=== PATIENT | male | born 1990 | race Caucasian/White ===

== ENCOUNTER 2019-02-17 06:30 | Emergency (ER) | payer MEDICAID, SELFPAY ==
[2019-02-17 06:34] VITALS: BP 124/65; PULSE 78; RESP 16; TEMP 36.6; O2SAT 100
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
== END 2019-02-17 07:00 | disposition home or self-care (01) ==
LOC: ER 07:04
PROVIDERS: Emergency Provider Emergency Medicine; PCP Family Medicine
DX: S90.512A Abrasion, left ankle, initial encounter (principal); V86.55XA Driver of 3- or 4- wheeled all-terrain vehicle (ATV) injured in nontraffic accident, initial encounter
CPT/HCPCS: 99283

== ENCOUNTER 2019-03-12 13:09 | Emergency (ER) | payer MEDICAID, SELFPAY ==
[2019-03-12 13:21] VITALS: BP 107/65; PULSE 102; RESP 16; TEMP 36.8; O2SAT 99
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
== END 2019-03-12 13:50 | disposition home or self-care (01) ==
LOC: ER 13:45
PROVIDERS: Emergency Provider Emergency Medicine; PCP Family Medicine
DX: M65.879 Other synovitis and tenosynovitis, unspecified ankle and foot (principal)
CPT/HCPCS: 99282

== ENCOUNTER 2019-04-15 00:44 | Emergency (ER) | payer MEDICAID, SELFPAY ==
[2019-04-15] VITALS (44 sets, daily range): BP systolic 100–140; BP diastolic 56–78; PULSE 56–107; RESP 6–20; TEMP 36.8; O2SAT 99–100
--- NOTE | 2019-04-15 00:57 | ED.GENADUL_ITS ---
Discharge Plan Disposition Patient Disposition: HOME Condition: Good Discharge Details Chief Complaint: Chest Pain Clinical Impression: Chest pain, Anxiety Primary Care Provider: Ivan Vizcaino ED Provider: Charles Ferro Meds and New Rx's Prescriptions: Continued ibuprofen 200 MG tablet 800 mg PO Q6H PRN RF: 0 buprenorphine-naloxone 8-2 mg Tablet, Sublingual 1 tab SUBLINGUAL DAILY RF: 0 ranitidine HCl [Zantac] 25 mg/mL Solution 25 mg PO DAILY RF: 0 methylphenidate HCl [Ritalin] 20 mg Tablet 40 mg PO DAILY RF: 0 Discharge Instructions Additional Instructions: Your work-up tonight including EKG, chest x-ray, laboratory studies are reassur ing. This does seem like it is anxiety related so follow-up with psychiatric provider as well as with primary care. Return to ED if you develop worse/persistent chest pain, shortness of breath, fever, other concerns or problems. Stand Alone Forms: Work Release Referrals: Ivan Vizcaino DO [Primary Care Provider] - Medical Decision Making Patient presenting to ED with most likely anxiety attack. His chest pain is nondescript and intermittent. Symptoms of lightheadedness and tingling are more prominent. He feels anxious. His EKG shows no acute evidence of ischemia or infarct. He denies drug use. Unlikely to be cardiac. Will give him aspirin until labs back. We will also give Vistaril for probable anxiety. Patient's revised Reeves score is 5 points because of heart rate. Likely related to anxiety and not PE but will get d-dimer. Will obtain chest x-ray. Doubt dissection. Patient apparently took aspirin at home before coming in so he was not given a dose here. He was given Vistaril and shortly after he was asleep. Laboratory studies are unremarkable. First troponin negative. D-dimer negative. Repeat troponin negative. HEART score of 1 and most likely anxiety related, can follow up with PCP and with psychiatric provider. Return to ED for worse/persistent pain, shortness of breath, fever, other concerns. Lab Data Lab results reviewed: Yes I reviewed the patient's lab results. ECG Data Attestation: I personally reviewed and interpreted this ECG (s) as follows: Prior ECG tracings: not available for review Interpretation: Sinus rhythm at a rate of 99. Normal axis and intervals. No acute ST changes. Repeat EKG is sinus rhythm at 58. Normal axis and intervals. No ST changes. HPI General Mode of arrival: EMS . Date/Time Provider Initiated Documentation: 04/15/19 00:56 . Limitations to Documentation: no limitations . Information obtained by: patient and RN notes reviewed . HPI Narrative: Patient presents to the ED by ambulance with complaint of intermittent chest pain, tingling in his arms, lightheadedness, anxiety who called an ambulance. Reports symptoms have been about 20 to 30 minutes. Had a similar episode a couple weeks ago. Does not have previous history of anxiety but does have history of depression. Denies feeling depressed, suicidal tonight. Chest pain is intermittent and short-lived. Tingling and lightheadedness is more persistent. He denies drug use. He does smoke cigarettes. He does not vape. There is no history of blood clots, diabetes, hypertension, heart disease. Related Data Home Medications Medication Instructions Recorded Confirmed ibuprofen 800 mg PO Q6H PRN tab-cap 12/05/17 04/15/19 buprenorphine-naloxone 1 tab SUBLINGUAL DAILY 02/17/19 04/15/19 ranitidine HCl [Zantac] 25 mg PO DAILY 03/12/19 04/15/19 methylphenidate HCl [Ritalin] 40 mg PO DAILY 04/15/19 04/15/19 Allergies Allergy/AdvReac Type Severity Reaction Status Date / Time No Known Allergies Allergy Unverified 03/12/19 13:28 General Stated Complaint: Chest Pain STAR: 2 Review of Systems Review of Systems Narrative: 04/21 Review of Systems completed and is negative except as stated above in HPI (Systems reviewed: Const, Eyes, ENT, Resp, CV, GI, , MSK, Skin, Neuro) [facility] Medical History ADHD (Acute) Depression (Chronic) Drug abuse (Acute) Social History Smoking/Tobacco Use Status: Current every day Alcohol Intake: former Drug use: Current Sobriety Do you feel safe at home: Yes Do you feel safe in your relationship?: Yes Exam Narrative Exam Narrative: Vitals: Afebrile. Blood pressure little elevated. Room air saturations are 100% and normal. Const: WDWN male in NAD. HEENT: NC/AT. Normal facial exam. Eyes: Normal conjunctiva and sclera. Neck: Supple. Trachea midline. Lungs: Normal respiratory effort. Lungs are clear. Cor: RRR without murmur/gallop. Good radial pulses. GI: Soft. NT/ND. No guarding or rebound. Neuro: A+O x 3. CN grossly in tact. Good strength and no focal deficit. Ext: No C/C/E. No calf tenderness. Skin: Warm and dry without rash. Course Vital Signs Vital signs: Vital Signs Temperature 98.2 F 04/15/19 00:48 Pulse 98 H 04/15/19 00:48 Respiratory Rate 16 04/15/19 00:48 Blood Pressure 140/76 04/15/19 00:48 Pulse Oximetry 100 04/15/19 00:48 Temperature 98.2 F 04/15/19 00:48 Temperature Source Tympanic 04/15/19 00:48 Pulse 98 H 10 00:48 Respiratory Rate 16 04/15/19 00:48 Blood Pressure 140/76 04/15/19 00:48 Pulse Oximetry 100 04/15/19 00:48 Oxygen Delivery Method Room Air 04/15/19 00:48 Oxygen Flow Rate 0 04/15/19 00:48 Pain Level 6 04/15/19 00:48 Comment 04/15/19 00:48
[2019-04-15 01:19] LABS: Abs Immature Grans 0.01 k/cumm (0.0-0.09); Absolute Basophil Count 0.02 k/cumm (0.0-0.2); Absolute Eosinophil Count 0.07 k/cumm (0.0-0.7); Absolute Lymphocyte Count 3.01 k/cumm (1.2-3.4); Absolute Monocyte Count 0.54 k/cumm (0.11-0.7); Absolute Neutrophil Count 5.01 k/cumm (1.2-6.7); Basophils % 0.2; Eosinophils % 0.8; HCT 39.5 % (40.0-50.0); HGB 14.1 g/dL (13.5-17.5); Immature Grans % 0.1; Lymphocytes % 34.8; Mean Corp. HGB Concentration 35.7 g/dL (32.0-36.0); Mean Corpuscular Hemoglobin 31.3 pg (27.0-33.0); Mean Corpuscular Volume 87.8 fL (80-95); Mean Platelet Volume 9.1 fL (8.0-11.0); Monocytes % 6.2; Neutrophils % 57.9; Platelet Count 288 x1000/uL (130-400); RBC Distribution Width 12.9 % (11.8-14.1); White Blood Cell Count 8.66 k/cumm (4.4-10.8)
[2019-04-15] MEDS: hydrOXYzine PAMOATE 25 MG CAP PO (01:33)
[2019-04-15 01:34] LABS: ALT 22 U/L (16-63); AST 22 U/L (15-37); Albumin 3.8 g/dL (3.4-5.0); Alkaline Phosphatase 73 U/L (46-116); BUN 13 mg/dL (7-18); Bilirubin, Total 0.4 mg/dL (0.2-1.0); CREATININE 0.99 mg/dL (0.70-1.30); Calcium 9.3 mg/dL (8.5-10.1); Chloride 100 mmol/L (98-107); Glucose 110 mg/dL (70-100); Magnesium 1.8 mg/dL (1.8-2.4); Potassium 3.5 mmol/L (3.5-5.1); Sodium 140 mmol/L (136-145); Total Protein 7.8 g/dL (6.4-8.2)
[2019-04-15 01:37] LABS: Troponin I < 0.05 ng/mL (0.00-0.06)
--- NOTE | 2019-04-15 01:40 | DI.RAD_ITS ---
EXAM: XR CHEST 2V PA LATERAL CLINICAL HISTORY: chest pain. TECHNIQUE: 2D digital imaging was performed. COMPARISON: No exams were available for comparison FINDINGS: LUNGS: Clear. No pleural abnormality seen. HEART: Normal. MEDIASTINUM: Normal. OTHER FINDINGS:Normal. IMPRESSION: No acute pulmonary findings.
--- NOTE | 2019-04-15 01:49 | DI.VRAD_ITS ---
PROCEDURE INFORMATION: Exam: XR Chest, 2 Views Exam date and time: 04/15/2019 1:42 AM Clinical history: 28 years old, male; Type not specified; Patient HX: Chest pain, not specific TECHNIQUE: Imaging protocol: XR of the chest Views: 2 views. COMPARISON: No relevant prior studies available. FINDINGS: Lungs: Normal pulmonary expansion. Pulmonary vasculature grossly normal. No infiltrates. Pleural space: No pleural effusion. No pneumothorax. Heart/Mediastinum: Heart size normal. No tracheal/mediastinal shift. Bones/joints: No acute osseous abnormalities are identified. IMPRESSION: No acute thoracic process. Dictated and Authenticated by: John Neri MD. Ordering:JEREMY Soto MD
[2019-04-15 04:16] LABS: D-Dimer 189 ng/mlFEU (<500)
[2019-04-15 04:20] LABS: Troponin I < 0.05 ng/mL (0.00-0.06)
== END 2019-04-15 04:50 | disposition home or self-care (01) ==
PROVIDERS: Emergency Provider Emergency Medicine; PCP Family Medicine
DX: R07.9 Chest pain, unspecified (principal); F41.8 Other specified anxiety disorders
CPT/HCPCS: 36415; 80053; 93005; 99285; 71046; 83735; 84484; 85025; 85379; 93010

== ENCOUNTER 2019-05-07 17:47 | Emergency (ER) | payer MEDICAID, SELFPAY ==
[2019-05-07 17:50] VITALS: BP 138/72; PULSE 104; TEMP 36.7; O2SAT 99
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
== END 2019-05-07 18:35 | disposition home or self-care (01) ==
PROVIDERS: Emergency Provider Physician Assistant; PCP Family Medicine
DX: J06.9 Acute upper respiratory infection, unspecified (principal); F17.210 Nicotine dependence, cigarettes, uncomplicated
CPT/HCPCS: 87449; 99283

== ENCOUNTER 2019-05-17 05:50 | Emergency (ER) | payer MEDICAID, SELFPAY ==
[2019-05-17] VITALS (108 sets, daily range): BP systolic 90–137; BP diastolic 29–80; PULSE 44–103; RESP 10–32; TEMP 36.7; O2SAT 93–100
--- NOTE | 2019-05-17 05:46 | ED.GENADUL_ITS ---
Discharge Plan Disposition Patient Disposition: HOME Condition: Good Discharge Details Chief Complaint: Chest Pain Clinical Impression: Chest pain, Acute hypokalemia Primary Care Provider: Ivan Vizcaino ED Provider: Juan Francisco Salgaod Home Meds and New Rx's Prescriptions: Continued methylphenidate HCl [Ritalin] 20 mg tablet 40 mg PO BID RF: 0 buprenorphine-naloxone 8-2 mg Tablet, Sublingual 16 tab SUBLINGUAL DAILY RF: 0 ranitidine HCl [Zantac] 25 mg/mL Solution 25 mg PO DAILY RF: 0 Discharge Instructions Instructions: Chest Pain (ED), Hypokalemia (ED) Additional Instructions: Return for any acute concerns. Did not abuse street drugs such as cocaine or amphetamines. Medical Decision Making <Jeff Brown DO - Last Filed: 05/17/19 07:05> This is a 28-year-old male who presents today by EMS for evaluation of chest pain. He has had 3 episodes in the last 2 weeks, however today's is the worst that it has been. It started 45 minutes prior to arrival, sharp stabbing in nature. Radiates to shoulders with bilateral arm numbness. Unrelieved by aspirin, unrelieved by nitroglycerin. Of note his pressure notably decreased with nitroglycerin provided by EMS. He denies any pleuritic chest pain. He d enies any history of dissection. He denies any cocaine use. Physical exam is relatively unremarkable aside from mild tachycardia and an anxious appearing male. EKG shows Q waves in the inferior leads, no evidence of STEMI. Symptoms are certainly atypical. Bedside portable limited ultrasound demonstrates no pericardial effusion, unable to visualize aortic root. No evidence of significant right ventricular dilatation. Differential includes muscle sprain due to the reproducible component of his chest pain, versus atypical ACS, for which we will work him up, as well as atypical dissection causing his numbness tingling and sharp stabbing pain. Anxiety component is certainly also on the differential. We will get a CT angiogram, treat the patient's pain, gently rehydrate, and reassess. 7 AM Patient's laboratory work-up is returned, initial troponin and proBNP are normal, CT angiogram is negative for any acute process per virtual radiology. Anion gap is atypically elevated at 17.8. Magnesium is normal but potassium is low at 3.1. We will give 20 M EQ of IV potassium and 40 oral. On reassessment the patient's pain is notably improved to a 3 out of 10. However because of the patient's atypical EKG findings, we will be getting serial EKGs and delta troponins. Patient does state that he wishes to be discharged prior to 950 so that he can make it down to get his Suboxone. I feel that the patient's symptoms are likely improved secondary to the GI cocktail and Toradol. At this time the patient appears notably stable. Feels symptoms are most likely to be musculoskeletal and anxiety related. However we will get the repeat troponin prior to discharge. Patient will be signed out to my colleague for final disposition and reassessment. EKG 5: 53 Rate 98, KY 124, QTc 498, QRS 100, sinus rhythm, no significant tombstone and however there is slight atypical morphology V3. Small Q waves are noted in 2, 3, aVF and V6. No evidence of delta wave. No dagger like Q waves. FINDINGS: Pulmonary arteries: Normal. No pulmonary emboli. Aorta: Unremarkable. No aortic aneurysm. No aortic dissection. Lungs: Unremarkable. No consolidation. No masses. Pleural space: Unremarkable. No pneumothorax. No pleural effusion. Heart: Unremarkable. No cardiomegaly. No pericardial effusion. Lymph nodes: Unremarkable. No enlarged lymph nodes. Bones/joints: Unremarkable. No acute fracture. Soft tissues: Unremarkable. IMPRESSION: No acute findings. Thank you for allowing us to participate in the care of your patient. Dictated and Authenticated by: Rob Gay MD 05/17/2019 6:52 AM Eastern Time ([place] & [place]) <Juan Francisco Salgado MD - Last Filed: 05/17/19 17:26> Received signout from Dr. Brown. Patient receiving oral and parenteral potassium, now states to me that he is chest pain-free. His EKG initially was a borderline tachycardia with some inferior Q waves and Q waves laterally. Now with a regular sinus rhythm, rate of 68-70. He has repolarization abnormalities of the ST segment in the inferior leads and has new negative precordial T waves. As noted, initial blood draw with normal troponin, BNP of 44. CT of the chest was negative for acute pathology. Repeat troponin at 9 AM negative. Given the patient's mild sedation from previously administered benzodiazepine, his EKG change, he was observed and third troponin as well as repeat potassium obtained. These are notable for normalization of the potassium to four-point 4-1/3- troponin. Patient's urine noted positive for cocaine and amphetamines. He slept for nearly 6+ hours after receiving Ativan as prescribed by Dr. Brown. 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 After a total of greater than 10 hours of observation, patient awake, alert, requesting his daily buprenorphine dose. No further complaints of chest pain throughout the extended observation. Earlier we had confirmed his dose of 16 mg Suboxone which I ordered in the ED. He is stable and appropriate for discharge to home at this time. Lab Data Lab results reviewed: Yes I reviewed the patient's lab results. Labs: Laboratory Results - last 24 hr 05/17/19 05/17/19 05/17/19 05:30 05:30 05:30 WBC 5.75 RBC 4.87 Hgb 15.2 Hct 42.4 MCV 87.1 MCH 31.2 MCHC 35.8 RDW 12.5 Plt Count 325 MPV 8.7 Immature Gran % 0.2 Neutrophils % 50.9 Lymphocytes % 40.7 Monocytes % 6.3 Eosinophils % 1.4 Basophils % 0.5 Absolute Neutrophils 2.93 Absolute Lymphocytes 2.34 Absolute Monocytes 0.36 Absolute Eosinophils 0.08 Absolute Basophils 0.03 PT 9.7 INR 1.0 APTT 23.4 Sodium 137 Potassium 3.1 L Chloride 97 L Carbon Dioxide 22.2 Anion Gap 17.8 H BUN 17 Creatinine 1.22 Estimated GFR/1.73 m2 >= 60.00 Glucose 126 H Calcium 9.6 Magnesium Total Bilirubin 1.0 AST 27 ALT 29 Alkaline Phosphatase 83 Troponin I < 0.05 NT-Pro-B Natriuret Pep 44 Total Protein 8.6 H Albumin 4.4 Urine Opiates Screen Urine Methadone Screen Ur Barbiturates Screen Ur Tricyclics Screen Ur Amphetamines Screen U Benzodiazepines Scrn Urine Cocaine Screen Ur THC Screen 05/17/19 05/17/19 05/17/19 05:30 09:00 09:15 WBC RBC Hgb Hct MCV MCH MCHC RDW Plt Count MPV Immature Gran % Neutrophils % Lymphocytes % Monocytes % Eosinophils % Basophils % Absolute Neutrophils Absolute Lymphocytes Absolute Monocytes Absolute Eosinophils Absolute Basophils PT INR APTT Sodium 138 Potassium 5.4 H D Chloride 105 Carbon Dioxide 25.6 Anion Gap 7.4 BUN 15 Creatinine 1.02 Estimated GFR/1.73 m2 >= 60.00 Glucose 99 Calcium 8.1 L Magnesium 2.0 Total Bilirubin AST ALT Alkaline Phosphatase Troponin I < 0.05 NT-Pro-B Natriuret Pep Total Protein Albumin Urine Opiates Screen Negative Urine Methadone Screen Negative Ur Barbiturates Screen Negative Ur Tricyclics Screen Negative Ur Amphetamines Screen Positive A U Benzodiazepines Scrn Negative Urine Cocaine Screen Positive A Ur THC Screen Negative 05/17/19 05/17/19 12:27 12:27 WBC RBC Hgb Hct MCV MCH MCHC RDW Plt Count MPV Immature Gran % Neutrophils % Lymphocytes % Monocytes % Eosinophils % Basophils % Absolute Neutrophils Absolute Lymphocytes Absolute Monocytes Absolute Eosinophils Absolute Basophils PT INR APTT Sodium Potassium 4.4 Chloride Carbon Dioxide Anion Gap BUN Creatinine Estimated GFR/1.73 m2 Glucose Calcium Magnesium Total Bilirubin AST ALT Alkaline Phosphatase Troponin I < 0.05 NT-Pro-B Natriuret Pep Total Protein Albumin Urine Opiates Screen Urine Methadone Screen Ur Barbiturates Screen Ur Tricyclics Screen Ur Amphetamines Screen U Benzodiazepines Scrn Urine Cocaine Screen Ur THC Screen ECG Data Attestation: I personally reviewed and interpreted this ECG (s) as follows: Interpretation: Repeat EKG obtained at 12:37 PM: Sinus rhythm with a rate of 50, KY intervals 118, there is J-point elevation in inferior and lateral leads. T waves are inverted in V1 and V2 as well as aVL. No ST segment elevation no significant change versus previous today. HPI <Jeff Brown DO - Last Filed: 05/17/19 07:05> General Date/Time Provider Initiated Documentation: 05/17/19 05:57 . HPI Narrative: This is a 36-year-old male with no significant past medical history who presents today for evaluation of chest pain by EMS. Patient states that 40 minutes ago while sitting and talking with a friend the patient developed sudden onset left-sided chest pain she describes as a dull but at the same time sharp stabbing sensation. It radiates to his shoulders bilaterally and he states that his arms have both gone numb. He has had 2 other episodes like this during the past 1 to 2 weeks, however he states that it was never this severe. When EMS arrived they gave him 4 baby aspirin, as well as 1 nitroglycerin which did not help his pain, and also notably lowered his blood pressures to the 90 systolic. Patient does admit to tobacco use, but denies vaping. He denies pleuritic chest pain cough or hemoptysis. He does admit to a notable heaviness and pressure on his chest as well. He denies any recent cocaine use. He does regularly take his Suboxone. He denies any family history of cardiac disease especially at a young age. He denies any red flags for pulmonary emboli. He denies any history of dissection no family history of dissection. He denies any aggravating or relieving factors in particular. He has no other complaints at this time. Related Data Home Medications Medication Instructions Recorded Confirmed buprenorphine-naloxone 16 tab SUBLINGUAL DAILY 02/17/19 05/17/19 ranitidine HCl [Zantac] 25 mg PO DAILY 03/12/19 05/17/19 methylphenidate HCl 20 mg tablet 40 mg PO BID tab 04/30/19 05/17/19 Allergies Allergy/AdvReac Type Severity Reaction Status Date / Time No Known Allergies Allergy Unverified 05/17/19 05:55 General STAR: 4 Review of Systems <Jeff Brown DO - Last Filed: 05/17/19 07:05> All systems reviewed & are unremarkable except as noted in HPI and below PFSH <Jeff Brown DO - Last Filed: 05/17/19 07:05> Social History Smoking/Tobacco Use Status: Current every day Tobacco Type: cigarettes Alcohol Intake: former Drug use: Current Sobriety Substance use type: does not use Do you feel safe at home: Yes Do you feel safe in your relationship?: Yes Exam <Jeff Brown DO - Last Filed: 05/17/19 07:05> Narrative Exam Narrative: 1.Const: Well-nourished, Well-developed, appearing stated age 2.Eyes: PERRL, no conjunctival injection, and symmetrical lids. 3.ENT: Atraumatic external nose and ears. Moist MM. Neck: Symmetric, trachea midline, No thyromegaly. 4.CVS: +S1/S2, No murmurs or gallops. Peripheral pulses 2+ and equal in all extremities. Brisk capillary refill in all extremities. Palpation of the anterior chest wall notably worsens his pain and symptoms. 5.RESP: Unlabored respiratory effort. Clear to auscultation bilaterally. No wheezes rales or rhonchi 6.GI: Soft, Nontender/Nondistended, No hepatosplenomegaly. No guarding or rebound. 7.MSK: Normocephalic/Atraumatic, Extremities w/o deformity or ttp No cyanosis or clubbing, Normal movement of all extremities. No calf tenderness. 8.Skin: Warm, Dry. No rashes or lesions. 9.Neuro: looping inspector II-XII grossly intact. Sensation grossly intact, no focal neurologic deficits. Sensation intact in all extremities. 10.Psych: (AAO) x3. Notably anxious appearing Sign Out <Jeff Brown DO - Last Filed: 05/17/19 07:05> Sign Out Data: Sign Out Comment: Atypical chest pain, notably reproducible with palpation, but mildly tachycardic. Labs had elevated anion gap and hypokalemia. Pending urine drug screen, repeat BMP, repeat troponin EKG. Expectant discharge if these are negative. Last updated by Jeff Brown DO at 05/17/19 07:23
[2019-05-17] MEDS: Acetaminophen 500 MG TAB 1000 MG PO (05:55)
[2019-05-17] MEDS: Normal Saline 1,000 ML 1000 ML IV ×2 (06:00→07:09)
[2019-05-17 06:10] LABS: Abs Immature Grans 0.01 k/cumm (0.0-0.09); Absolute Basophil Count 0.03 k/cumm (0.0-0.2); Absolute Eosinophil Count 0.08 k/cumm (0.0-0.7); Absolute Lymphocyte Count 2.34 k/cumm (1.2-3.4); Absolute Monocyte Count 0.36 k/cumm (0.11-0.7); Absolute Neutrophil Count 2.93 k/cumm (1.2-6.7); Basophils % 0.5; Eosinophils % 1.4; HCT 42.4 % (40.0-50.0); HGB 15.2 g/dL (13.5-17.5); Immature Grans % 0.2; Lymphocytes % 40.7; Mean Corp. HGB Concentration 35.8 g/dL (32.0-36.0); Mean Corpuscular Hemoglobin 31.2 pg (27.0-33.0); Mean Corpuscular Volume 87.1 fL (80-95); Mean Platelet Volume 8.7 fL (8.0-11.0); Monocytes % 6.3; Neutrophils % 50.9; Platelet Count 325 x1000/uL (130-400); RBC 4.87 m/cumm (4.50-6.00); RBC Distribution Width 12.5 % (11.8-14.1); White Blood Cell Count 5.75 k/cumm (4.4-10.8)
--- NOTE | 2019-05-17 06:20 | NUR.NOTE ---
Nursing Note: Patient arrived via ambulance for c/o chest pain, with sudden onset 20 min prior to calling EMS. States was only sitting and talking with friend with cp started. Denies drug ingestion or use, states currently taking suboxone for addiction. Pt's skin cool to touch, no nausea or sob at this time. IV acces to left AC placed by EMS.
[2019-05-17 06:30] LABS: ALT 29 U/L (16-63); AST 27 U/L (15-37); Albumin 4.4 g/dL (3.4-5.0); Alkaline Phosphatase 83 U/L (46-116); Anion Gap 17.8 mmol/L (3-11); BUN 17 mg/dL (7-18); CO2 22.2 mmol/L (21.0-32.0); CREATININE 1.22 mg/dL (0.70-1.30); Calcium 9.6 mg/dL (8.5-10.1); Chloride 97 mmol/L (98-107); Glucose 126 mg/dL (70-100); NT-proBNP 44 pg/mL; Potassium 3.1 mmol/L (3.5-5.1); Sodium 137 mmol/L (136-145); Total Protein 8.6 g/dL (6.4-8.2)
--- NOTE | 2019-05-17 06:30 | DI.CT_ITS ---
EXAM: CT THORAX CTA CLINICAL HISTORY: stabbing CP, arm numbness, eval dissection TECHNIQUE: Axial CT angiography was performed with multi-slice acquisition and multi-planar and/or 3 D reconstructions. COMPARISON: No exams were available for comparison FINDINGS: There is patient motion artifact. There is no evidence of a pulmonary embolus. The thoracic aorta is intact. There is no evidence of a dissection or aneurysm. The lungs are clear. Tracheobronchial tree is unremarkable. The heart is within normal limits. No pericardial effusion is seen No evidence of thoracic adenopathy, pleural effusion or pneumothorax. The bones are unremarkable. IMPRESSION: No acute pulmonary process.
[2019-05-17 06:31] LABS: Troponin I < 0.05 ng/mL (0.00-0.06)
[2019-05-17 06:36] LABS: PTT Activated 23.4 sec (21.0-31.4); Prothrombin Time 9.7 sec (9.3-11.0)
[2019-05-17] MEDS: Omnipaque 350 MG/ML 100 ML BTL IJ (06:37)
[2019-05-17] MEDS: LORazepam 2 MG/ML VIAL 0.5 MG IVP (06:44)
[2019-05-17] MEDS: Ketorolac 30 MG/ML VIAL IVP (06:45)
[2019-05-17] MEDS: Potassium Chloride 20 MEQ TABCR 40 MEQ PO (06:46)
--- NOTE | 2019-05-17 06:52 | DI.VRAD_ITS ---
PROCEDURE INFORMATION: Exam: CT Angiography Chest With Contrast Exam date and time: 05/17/2019 6:23 AM Clinical history: 28 years old, male; Left-sided chest pain; Patient HX: Stabbing chest pain, left arm numbness, eval dissection TECHNIQUE: Imaging protocol: Computed tomographic angiography of the chest with intravenous contrast. 3D rendering: MIP reconstructed images were created and reviewed. Radiation optimization: All CT scans at this facility use at least one of these dose optimization techniques: automated exposure control; mA and/or kV adjustment per patient size (includes targeted exams where dose is matched to clinical indication); or iterative reconstruction. Contrast material: [id number]; Contrast volume: 100 ml; Contrast route: IV LAC 18G; COMPARISON: CR XR CHEST 2V PA LATERAL 04/15/2019 1:39 AM FINDINGS: Pulmonary arteries: Normal. No pulmonary emboli. Aorta: Unremarkable. No aortic aneurysm. No aortic dissection. Lungs: Unremarkable. No consolidation. No masses. Pleural space: Unremarkable. No pneumothorax. No pleural effusion. Heart: Unremarkable. No cardiomegaly. No pericardial effusion. Lymph nodes: Unremarkable. No enlarged lymph nodes. Bones/joints: Unremarkable. No acute fracture. Soft tissues: Unremarkable. IMPRESSION: No acute findings. Dictated and Authenticated by: Rob Gay MD. Ordering:MOE Aguilar MD
[2019-05-17] MEDS: POTASSIUM CHLORIDE 20 MEQ/100 ML BAG 50 MEQ IVPB (07:12)
[2019-05-17 09:28] LABS: Anion Gap 7.4 mmol/L (3-11); BUN 15 mg/dL (7-18); CO2 25.6 mmol/L (21.0-32.0); CREATININE 1.02 mg/dL (0.70-1.30); Calcium 8.1 mg/dL (8.5-10.1); Chloride 105 mmol/L (98-107); Glucose 99 mg/dL (70-100); Potassium 5.4 mmol/L (3.5-5.1); Sodium 138 mmol/L (136-145)
[2019-05-17 09:29] LABS: Troponin I < 0.05 ng/mL (0.00-0.06)
[2019-05-17 09:36] LABS: *AMPHETAMINES SCREEN URINE POSITIVE (Negative); *BARBITURATES SCREEN URINE Negative (Negative); *BENZODIAZEPINES SCREEN URINE Negative (Negative); Cannabinoids THC Negative (Negative); Cocaine Screen,Urine POSITIVE (Negative); METHADONE URINE SCREEN Negative (Negative); OPIATES URINE SCREEN Negative (Negative)
[2019-05-17 09:46] LABS: Tricyclic Antidepressants Negative (Negative)
[2019-05-17 12:48] LABS: Potassium 4.4 mmol/L (3.5-5.1)
[2019-05-17 13:07] LABS: Troponin I < 0.05 ng/mL (0.00-0.06)
[2019-05-17] MEDS: Buprenorphine/Naloxone 8 mg/2 mg FILM 2 EACH SL (16:25)
== END 2019-05-17 16:40 | disposition home or self-care (01) ==
PROVIDERS: Student in an Organized Health Care Education/Training Program; Emergency Provider Emergency Medicine; PCP Family Medicine
DX: R07.9 Chest pain, unspecified (principal); E87.6 Hypokalemia; R00.0 Tachycardia, unspecified
CPT/HCPCS: 36415; 71275; 80048; 80053; 80307; 93005; 96361; 96365; 96366; 96375; 99285; 83735; 83880; 84132; 84484; 85025; 85610; 85730; 93010; J1885; J2060; J3480; J3490

== ENCOUNTER 2020-03-02 10:53 | Emergency (ER) | payer MEDICAID, SELFPAY ==
[2020-03-02 10:59] VITALS: BP 129/70; PULSE 90; TEMP 37; O2SAT 97
--- NOTE | 2020-03-02 11:15 | ED.GENADUL_ITS ---
Discharge Plan Disposition Patient Disposition: HOME Condition: Stable Discharge Details Chief Complaint: Orthopedic Clinical Impression: Cellulitis, toe Primary Care Provider: Ivan Vizcaino ED Provider: Bronson Rush Home Meds and New Rx's Prescriptions: New cephalexin [Keflex] 500 mg capsule 500 mg PO QID 10 Days Qty: 40 RF: 0 Protonix [address] for susp in packet 40 mg PO DAILY Qty: 30 RF: 0 No Action methadone 10 mg/5 mL solution 85 mg PO DAILY RF: 0 pantoprazole [Protonix] 40 mg tablet,delayed release (DR/EC) 40 mg PO DAILY RF: 0 hydroxyzine HCl 50 mg tablet 50 mg PO DAILY PRNRF: 0 bupropion HCl 200 mg tablet sustained-release 12 hr 400 mg PO DAILY Qty: 60 RF: 1 Discharge Instructions Instructions: Cellulitis (ED) Additional Instructions: Keflex as directed. [id number] Tylenol and/or Motrin as directed for discomfort. Rest, elevate, warm compresses and/or soaks every 2 hours for 20 minutes. Please watch for new or worsening symptoms and return to the ER for any concerns. I have given you the name and number of Dr. Peguero, I recommend contacting his office later today or tomorrow for prompt outpatient reeval uation. Referrals: Ronald Peguero MD [ [facility] STAFF PHYSICIAN] - Medical Decision Making 29-year-old male presents for evaluation of a right great toe infection worsening over the past week or so. Toe has begun draining on its own. Evaluation appears to be localized erythema, no pointing abscess at this time. Neuro, vascular, tendon intact. We discussed the potential for enlarging incision and drainage versus warm compresses and antibiotic therapy. Patient would prefer to treat with antibiotics and warm compresses and avoid an I&D if possible. I believe this to be perfectly reasonable given his presentation today. I will also provide him a prescription for his Protonix. We will provide him a prescription for Keflex and have him follow-up with orthopedics for reevaluation. Patient has no additional questions or concerns and is comfortable discharge. Medical Records Medical records reviewed: Yes I reviewed the patient's medical records. HPI General Mode of arrival: ambulatory . Date/Time Provider Initiated Documentation: 03/02/20 10:55 . Limitations to Documentation: no limitations . Information obtained by: patient . HPI Narrative: This is a 29-year-old gentleman who presents with a right great toe infection. He reports that he thought it began with an ingrown toenail, the toe became hot, painful, swelling over the past week or so. Over the past 24-48 hours it has now begun to drain and is less swollen. He denies any obvious trauma. Denies redness spreading up from his toe into his foot or leg. Denies fever. Denies numbness, tingling, weakness. Also reports that he recently got out of [facility] and is requesting a prescription for Protonix as he could not fill this prior Related Data Home Medications Medication Instructions Recorded Confirmed hydroxyzine HCl 50 mg tablet 50 mg PO DAILY PRN tab 05/28/19 03/02/20 methadone 10 mg/5 mL oral solution 85 mg PO DAILY ml 02/10/20 02/10/20 pantoprazole 40 mg tablet,delayed 40 mg PO DAILY 02/10/20 03/02/20 release bupropion HCl 200 mg tablet,12 hr 400 mg PO DAILY #60 tab 02/19/20 03/02/20 sustained-release cephalexin [Keflex] 500 mg PO QID 10 Days #40 cap 03/02/20 pantoprazole [Protonix] 40 mg PO DAILY #30 each 03/02/20 Previous Rx's Medication Instructions Recorded bupropion HCl 200 mg tablet,12 hr 400 mg PO DAILY #60 tab 02/19/20 sustained-release cephalexin [Keflex] 500 mg PO QID 10 Days #40 cap 03/02/20 pantoprazole [Protonix] 40 mg PO DAILY #30 each 03/02/20 Allergies Allergy/AdvReac Type Severity Reaction Status Date / Time methylphenidate AdvReac Severe left Verified 03/02/20 11:04 [From Ritalin] arm,tongue,face numbness,tingling General Stated Complaint: Orthopedic STAR: 4 Review of Systems Constitutional Constitutional: Denies fever(s) and Denies weakness Musculoskeletal Musculoskeletal: Denies arthralgias, Denies numbness and Denies tingling Integumentary/Breasts Skin/Breast: Reports rash Neurologic Neurologic: Denies numbness, Denies tingling and Denies weakness FORMERLY [facility], 1928–1983 Medical History ADHD (Acute) Depression (Chronic) Drug abuse (Acute) Family History Mother No problems noted. Father , colon ca at age 70. No problems noted. Sister No problems noted. Brother No problems noted. Brother No problems noted. Brother No problems noted. Brother No problems noted. Brother No problems noted. Social History Smoking/Tobacco Use Status: Current every day Tobacco Type: cigarettes Alcohol Intake: former Drug use: Current Sobriety Substance use type: does not use Do you feel safe at home: Yes Do you feel safe in your relationship?: Yes Exam Const General: cooperative, healthy appearing, comfortable and no acute distress Orientation: alert and awake HENMT Head: normal to inspection, normocephalic and atraumatic Mouth: moist mucous membranes Eyes Conjunctivae: conjunctivae normal Neck Neck: normal visual inspection, trachea midline and supple Resp Effort & Inspection: normal respiratory effort and able to speak in complete sentences Cardio Rate: regular rate Rhythm: regular rhythm Skin Lesions: no lesions Neuro General: patient alert, patient awake, moves all extremities and no focal motor deficits Sensory Exam: no sensory deficits noted Extrem Other: Right great toe distal and medial aspect with erythema, mild swelling. There is a small amount of crusted drainage. There is no fluctuance or pointing abscess. Mild localized induration. Diffuse discomfort to palpation. Neuro, vascular, tendon intact. Psych Appearance: grossly normal Mental Status: mental status grossly normal Course Vital Signs Vital signs: Vital Signs Temperature 37.0 C 03/02/20 10:59 Pulse 90 03/02/20 10:59 Blood Pressure 129/70 03/02/20 10:59 Pulse Oximetry 97 03/02/20 10:59 Temperature 37.0 C 03/02/20 10:59 Temperature Source Oral 03/02/20 10:59 Pulse 90 03/02/20 10:59 Respiratory Effort Non-Labored 03/02/20 11:03 Blood Pressure 129/70 03/02/20 10:59 Blood Pressure Position Sitting 03/02/20 10:59 Pulse Oximetry 97 03/02/20 10:59 Oxygen Delivery Method Room Air 03/02/20 10:59 Oxygen Flow Rate 0 03/02/20 10:59 Pain Level 4 03/02/20 11:06
== END 2020-03-02 12:10 | disposition home or self-care (01) ==
PROVIDERS: Emergency Provider Physician Assistant; PCP Family Medicine
DX: L03.031 Cellulitis of right toe (principal)
CPT/HCPCS: 99283

== ENCOUNTER 2020-07-30 08:17 | Emergency (ER) | payer MEDICAID, SELFPAY ==
--- NOTE | 2020-07-30 08:30 | RT.EKG_ITS ---
APPROVED REPORT Exam: Resting ECG Patient Location: E HR:77 bpm ECG Measurements Heart Rate 77 AXIS ME 128 P 48 QRSd 102 QRS 83 QT 422 T 52 QTc 478 Conclusion Sinus rhythm...normal P axis, V-rate 60- 99 Physician: Rate 77 sinus rhythm QTc 478, QRS 102, no significant ST elevations or depression, mild ar tifact, Q waves in lead II, III, and aVF, present on prior EKG from 2019. No acute changes. No evid ence of diffuse ST elevation, no evidence of significant abnormality otherwise.
[2020-07-30 08:35] VITALS: BP 117/83; PULSE 76; RESP 12; TEMP 36.4; O2SAT 99
--- NOTE | 2020-07-30 08:38 | ED.GENADUL_ITS ---
Discharge Plan Disposition Patient Disposition: HOME Condition: Good Discharge Details Clinical Impression: Chest pain, Pericarditis Primary Care Provider: Ivan Vizcaino ED Provider: Jeff Brown Home Meds and New Rx's Prescriptions: Continued methadone 10 mg/5 mL solution 105 mg PO DAILY RF: 0 hydroxyzine HCl 50 mg tablet 50 mg PO DAILY PRNRF: 0 dextroamphetamine-amphetamine [Adderall] 15 mg tablet 15 mg PO BID RF: 0 pantoprazole [Protonix] [address] for susp in packet 40 mg PO DAILY Qty: 30 RF: 0 Discharge Instructions Instructions: Chest Pain (ED), Acute Pericarditis (ED) Additional Instructions: At this time your symptoms appear most consistent with pericarditis. This will likely get better in the next few days with Tylenol and Motrin treatment. Think of this like an irritation in the sac around your heart. Please take 800 mg of ibuprofen every 6 hours and 1000 mg of Tylenol every 6 hours. Please of the maximum doses. Please avoid any vigorous exercise, drink plenty of fluids. Avoid any tobacco or alcohol use. If you notice any worsening of your symptoms, or any new symptoms such as vomiting, diarrhea, fever, chills, shortness of breath, chest pain, numbness, weakness, or fainting , please return immediately to the emergency department for reevaluation. Please follow up with your primary care provider as soon as possible for reassessment and reevaluation. As always, it was a pleasure participating in your medical care today. Referrals: Ivan Vizcaino DO [Primary Care Provider] - Medical Decision Making 29-year-old male with a past medical history of previous cocaine abuse, depression, and current methadone use as well as tobacco use, presents today for evaluation of chest pain. Patient states that for the last few days he has had mild chest pain which he describes as being present in the back of his back worse when he wakes up in the morning, associated with a mild nonproductive cough. He describes it as a pressure-like sensation. He feels like there is something in my lungs. Pain is improved when he sits up lean forward and performs activities throughout the day. It is certainly not worsened with exertion. He denies any fever but does admit to occasional chills. He denies any recent Covid exposure but he did come in contact with someone who had Covid 1 to 2 weeks ago. He denies any loss of taste or smell. No headache. No tearing or ripping sensation in the chest. He denies any pleuritic chest pain, he denies any previous history of PE. He states he has not had cocaine for greater than 3 to 5 months. He denies any current IV or illicit drug use. No other complaints at this time. He denies any other aggravating or relieving factors. Exam is unremarkable, EKG shows old Q waves in 2, 3, and aVF which are present on prior EKGs. No evidence of STEMI, no diffuse ST elevation. Signs and symptoms are most concerning for mild pericarditis. Potential story started by a viral etiology. Will test for Covid, perform cardiac biomarkers, D-dimer secondary to the slight pleuritic component, give Toradol and Tylenol, monitor closely and reassess. Limited portable bedside cardiac ultrasound was performed, no evidence of pericardial effusion, good ejection fraction noted, no evidence of right ventricular dilatation, no other significant abnormalities noted on limited bedside echo. 9:47 AM Patient's work-up has returned, work-up is unremarkable, D-dimer negative, proBNP normal no suggestion of heart strain, troponin and EKG unremarkable and unchanged respectively, lipase normal. Covid testing still pending. Chest x- ray negative per radiology. On reassessment the patient has complete resolution of her symptoms. At this time symptoms appearing consistent with pneumonia, PE, dissection, IN, or endocarditis. Symptoms appear more concerning for pericarditis especially with the resolution of his pain with the Toradol and Tylenol, and the improvement of his symptoms with sitting upright and worsening of his symptoms with laying back. Recommend NSAIDs at home, discussed red flags which to return. I have extensively reviewed the treatment plan and discharge instructions with the patient. I have addressed all patient concerns at this time. The patient was made aware of what symptoms to monitor for that would warrant a return to the emergency department. Discussed the plan with the patient, they demonstrate verbal understanding and agreement with our assessment and plan at this time. EKG 8: 32 Rate 77 sinus rhythm QTc 478, QRS 102, no significant ST elevations or depression, mild artifact, Q waves in lead II, III, and aVF, present on prior EKG from 2019. No acute changes. No evidence of diffuse ST elevation, no evidence of significant abnormality otherwise. FINDINGS: MEDIASTINUM: Normal. HEART: Normal. PULMONARY VASCULATURE: Normal. LUNGS: Clear. PLEURAL SPACE: No pleural effusion or pneumothorax. BONE:Within normal limits for the patient's age. OTHER FINDINGS:Normal. IMPRESSION: No acute pulmonary findings. HPI General Date/Time Provider Initiated Documentation: 07/30/20 08:23 . HPI Narrative: 29-year-old male with a past medical history of previous cocaine abuse, depression, and current methadone use as well as tobacco use, presents today for evaluation of chest pain. Patient states that for the last few days he has had mild chest pain which he describes as being present in the back of his back worse when he wakes up in the morning, associated with a mild nonproductive cough. He describes it as a pressure-like sensation. He feels like there is something in my lungs. Pain is improved when he sits up lean forward and performs activities throughout the day. It is certainly not worsened with exertion. He denies any fever but does admit to occasional chills. He denies any recent Covid exposure but he did come in contact with someone who had Covid 1 to 2 weeks ago. He denies any loss of taste or smell. No headache. No tearing or ripping sensation in the chest. He denies any p leuritic chest pain, he denies any previous history of PE. He states he has not had cocaine for greater than 3 to 5 months. He denies any current IV or illicit drug use. No other complaints at this time. He denies any other aggravating or relieving factors. Related Data Home Medications Medication Instructions Recorded Confirmed hydroxyzine HCl 50 mg tablet 50 mg PO DAILY PRN tab 05/28/19 07/30/20 methadone 10 mg/5 mL oral solution 105 mg PO DAILY ml 02/10/20 07/30/20 pantoprazole [Protonix] 40 mg PO DAILY #30 each 03/02/20 07/30/20 dextroamphetamine-amphetamine 15 15 mg PO BID 03/12/20 07/30/20 mg tablet Previous Rx's Medication Instructions Recorded pantoprazole [Protonix] 40 mg PO DAILY #30 each 03/02/20 Allergies Allergy/AdvReac Type Severity Reaction Status Date / Time methylphenidate AdvReac Severe left Verified 07/30/20 08:54 [From Ritalin] arm,tongue,face numbness,tingling General STAR: 4 Review of Systems All systems reviewed & are unremarkable except as noted in HPI and below PFSH Medical History (Updated 07/30/20 @ 09:44 by Jeff Brown DO) ADHD Depression Drug abuse Family History Mother No problems noted. Father , colon ca at age 70. No problems noted. Sister No problems noted. Brother No problems noted. Brother No problems noted. Brother No problems noted. Brother No problems noted. Brother No problems noted. Social History Smoking/Tobacco Use Status: Current every day Tobacco Type: cigarettes Smoking risk assessment performed?: Yes Alcohol Intake: former Drug use: Current Sobriety Substance use type: does not use Do you feel safe at home: Yes Do you feel safe in your relationship?: Yes Exam Narrative Exam Narrative: 1.Const: Well-nourished, Well-developed, appearing stated age 2.Eyes: PERRL, no conjunctival injection, and symmetrical lids. 3.ENT: Atraumatic external nose and ears. Moist MM. Neck: Symmetric, trachea midline, No thyromegaly. 4.CVS: +S1/S2, No murmurs or gallops. Peripheral pulses 2+ and equal in all extremities. Brisk capillary refill in all extremities. Equal radial pulses bilaterally. No friction rub. No reproducible chest wall pain 5.RESP: Unlabored respiratory effort. Clear to auscultation bilaterally. No wheezes rales or rhonchi 6.GI: Soft, Nontender/Nondistended, No hepatosplenomegaly. No guarding or rebound. 7.MSK: Normocephalic/Atraumatic, Extremities w/o deformity or ttp No cyanosis or clubbing, Normal movement of all extremities 8.Skin: Warm, Dry. No rashes or lesions. No Osler nodes or Janeway lesions. 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 Sensation grossly intact, no focal neurologic deficits. 10.Psych: (AAO) x3. Appropriate mood and affect
[2020-07-30] MEDS: Acetaminophen 500 MG TAB 1000 MG PO (08:55)
[2020-07-30] MEDS: Normal Saline 1,000 ML 1000 ML IV (08:56)
[2020-07-30] MEDS: Ketorolac 30 MG/ML VIAL IVP (08:56)
[2020-07-30 09:05] LABS: Abs Immature Grans 0.02 10^3/uL (0.0-0.06); Absolute Basophil Count 0.03 10^3/uL (0.0-0.2); Absolute Eosinophil Count 0.18 10^3/uL (0.0-0.7); Absolute Lymphocyte Count 2.53 10^3/uL (1.2-3.4); Absolute Neutrophil Count 3.51 10^3/uL (1.2-6.7); Basophils % 0.4; Eosinophils % 2.7; HCT 40.8 % (40.0-50.0); HGB 13.7 g/dL (13.5-17.5); Immature Grans % 0.3; Lymphocytes % 37.4; MCH 30.5 pg (27.0-33.0); MCHC 33.6 % (32.0-36.0); MCV 90.9 fL (80-95); MPV 8.8 fL (8.0-11.0); Monocytes % 7.4; Neutrophils % 51.8; Nucleated RBC 0 %; Platelet Count 322 10^3/uL (130-400); RBC 4.49 10^6/uL (4.36-5.78); RDW 13.2 % (11.8-14.1); RDW-SD 43.7 fL; WBC 6.77 10^3/uL (4.4-10.8)
[2020-07-30 09:12] LABS: Troponin I < 0.05 ng/mL (<0.06)
[2020-07-30 09:15] LABS: ALT 55 U/L (16-63); AST 32 U/L (15-37); Alkaline Phosphatase 97 U/L (46-116); BUN 13 mg/dL (7-18); Bilirubin, Total 0.3 mg/dL (0.2-1.0); CREATININE 0.88 mg/dL (0.70-1.30); Calcium 8.7 mg/dL (8.5-10.1); Chloride 104 mmol/L (98-107); Glucose 103 mg/dL (74-106); Lipase 75 U/L (73-393); NT-proBNP 54 pg/mL (<300); Potassium 3.7 mmol/L (3.5-5.1); Sodium 141 mmol/L (136-145); Total Protein 6.8 g/dL (6.4-8.2)
--- NOTE | 2020-07-30 09:30 | DI.RAD_ITS ---
EXAM: XR PORTABLE CHEST AP CLINICAL HISTORY: central chest pressure TECHNIQUE: 2D digital imaging was performed. COMPARISON: No exams were available for comparison FINDINGS: MEDIASTINUM: Normal. HEART: Normal. PULMONARY VASCULATURE: Normal. LUNGS: Clear. PLEURAL SPACE: No pleural effusion or pneumothorax. BONE:Within normal limits for the patient's age. OTHER FINDINGS:Normal. IMPRESSION: No acute pulmonary findings. DATA REPOSITORY: RADIATION DOSE DELIVERED:
[2020-07-30 09:31] VITALS: BP 119/70; PULSE 66; RESP 14; O2SAT 99
[2020-07-30 09:37] LABS: D-Dimer 422 ng/mlFEU (<500)
[2020-08-01 10:33] LABS: COVID-19 RT-PCR Result NEGATIVE (Negative)
== END 2020-07-30 09:53 | disposition home or self-care (01) ==
PROVIDERS: Emergency Provider Student in an Organized Health Care Education/Training Program; PCP Family Medicine
DX: I30.8 Other forms of acute pericarditis (principal); M54.6 Pain in thoracic spine; R05 Cough; Z03.818 Encounter for observation for suspected exposure to other biological agents ruled out; F17.210 Nicotine dependence, cigarettes, uncomplicated
CPT/HCPCS: 36415; 80053; 83690; 93005; 96361; 96374; 99285; U0003; 71045; 83880; 84484; 85025; 85379; 93010; J1885

== ENCOUNTER 2021-04-05 05:00 | Outpatient (CLI) | payer MEDICAID, SELFPAY ==
--- NOTE | 2021-04-05 12:15 | RT.EKG_ITS ---
APPROVED REPORT Exam: Resting ECG Reason for Exam: HIGH RISK MEDICATION Patient Location: O HR:82 bpm ECG Measurements Heart Rate 82 AXIS OR 129 P 22 QRSd 102 QRS 84 QT 393 T 47 QTc 459 Conclusion Sinus rhythm...normal P axis, V-rate 60- 99 Normal Electrocardiogram
== END 2021-04-05 05:01 | disposition home or self-care (01) ==
PROVIDERS: PCP Family Medicine; Visit Provider Family Medicine
DX: Z79.899 Other long term (current) drug therapy (principal)
CPT/HCPCS: 93005; 93010

== ENCOUNTER 2021-04-05 12:36 | Emergency (ER) | payer MEDICAID, SELFPAY ==
[2021-04-05 13:07] VITALS: BP 131/70; PULSE 67; RESP 16; TEMP 36.4; O2SAT 97
--- NOTE | 2021-04-05 13:19 | W.ED.GENAD ---
Discharge Plan Disposition Patient Disposition: HOME Discharge Details Clinical Impression: Scabies, Rash Primary Care Provider: Ivan Vizcaino ED Provider: Alivia Diaz Home Meds and New Rx's Prescriptions: New permethrin 5 % cream 1 applic topical ONCE Qty: 60 RF: 0 No Action methadone 10 mg/5 mL solution 105 mg PO DAILY RF: 0 hydroxyzine HCl 50 mg tablet 50 mg PO TID PRNRF: 0 dextroamphetamine-amphetamine [Adderall XR] 30 mg capsule,extended release 24hr 30 mg PO DAILY RF: 0 dextroamphetamine-amphetamine [Adderall] 12.5 mg tablet 12.5 mg PO .Afternoon RF: 0 pantoprazole [Protonix] [address] for susp in packet 40 mg PO DAILY Qty: 30 RF: 0 Discharge Instructions Instructions: Scabies (ED), Acute Rash (ED) Additional Instructions: Please use cream as directed. You can also get this [id number]. Use bacitracin antibiotic ointment up to 3 times daily as needed to the ear area. Please follow-up with your primary care provider in the next 3 to 5 days. Please discuss this with your primary care doctor Dr. Vizcaino. Please take Tylenol or Ibuprofen with food every 4-6 hours as needed for pain and swelling. You may take Benadryl 1 or 2 tablets every 8 hours as needed for itching. 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 He does endorse pruritus. He also states that he thinks he sees little bugs coming out of the rash lesions. I do not see any bugs on my initial exam. He does take methadone daily. Did have some recent dosage changes. He does also take Adderall, hydroxyzine and Protonix. Does have a past medical history of ADHD. He does report recent homelessness he is currently living in his mother's house he denies any other contact with rash. No surrounding erythema or induration or signs of infection. Patient is afebrile hemodynamically stable. Bacitracin ointment for home use ordered. I will discuss taking the hydroxyzine and/or Benadryl as needed for itching. I did also discuss follow-up with his primary care provider in 3 to 5 days as needed. Patient given permethrin cream instructed on use for possible scabies due to history of homelessness. HPI General Mode of arrival: ambulatory. Date/Time Provider Initiated Documentation: 04/05/21 12:37. Limitations to Documentation: no limitations. Information obtained by: patient and RN notes reviewed. 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 He does endorse pruritus. He also states that he thinks he sees little bugs coming out of the rash lesions. I do not see any bugs on my initial exam. He does take methadone daily. Did have some recent dosage changes. He does also take Adderall, hydroxyzine and Protonix. Does have a past medical history of ADHD. He does report recent homelessness he is currently living in his mother's house he denies any other contact with rash. No surrounding erythema or induration or signs of infection. Related Data Home Medications Medication Instructions Recorded Confirmed methadone 10 mg/5 mL oral solution 105 mg PO DAILY ml 02/10/20 04/05/21 pantoprazole [Protonix] 40 mg PO DAILY #30 each 03/02/20 04/05/21 dextroamphetamine-amphetamine ER 30 mg PO DAILY 08/09/20 04/05/21 30 mg 24hr capsule,extend release hydroxyzine HCl 50 mg tablet 50 mg PO TID PRN tab 08/09/20 04/05/21 dextroamphetamine-amphetamine 12.5 12.5 mg PO .Afternoon tab 01/07/21 04/05/21 mg tablet permethrin 1 applic TOPICAL ONCE #60 g 04/05/21 Previous Rx's Medication Instructions Recorded pantoprazole [Protonix] 40 mg PO DAILY #30 each 03/02/20 permethrin 1 applic TOPICAL ONCE #60 g 04/05/21 Allergies Allergy/AdvReac Type Severity Reaction Status Date / Time methylphenidate AdvReac Severe left Verified 04/05/21 13:13 [From Ritalin] arm,tongue,face numbness,tingling General Stated Complaint: RashLesion STAR: 4 Review of Systems All systems reviewed & are unremarkable except as noted in HPI and below Integumentary/Breasts Skin/Breast: Reports as per HPI, Reports new lesions and Reports rash [facility] Medical History (Updated 04/05/21 @ 13:30 by Alivia Diaz) ADHD Depression Drug abuse Family History Mother No problems noted. Father , colon ca at age 70. No problems noted. Sister No problems noted. Brother No problems noted. Brother No problems noted. Brother No problems noted. Brother No problems noted. Brother No problems noted. Social History Smoking/Tobacco Use Status: Current every day Tobacco Type: cigarettes Smoking risk assessment performed?: Yes Alcohol Intake: former Drug use: Current Sobriety Substance use type: does not use Do you feel safe at home: Yes Do you feel safe in your relationship?: Yes Exam Narrative Exam Narrative: Constitutional: Alert and oriented x3. Appears stated age. Normal body habitus. Head: Normocephalic, no trauma. Eyes: Pupils PERRLA, Red reflex noted, EOM's intact. Eyelids symmetrical without lesions, discharge, or swelling. ENT: Bilateral TM's WNL, External ear normal to inspection, no mastoid TTP, swelling, or erythema, Nasal turbinates WNL, no nasal discharge. Normal dentition, Posterior pharynx WNL, no exudate. Chest: RRR, Normal S1, S2, distal pulses intact. Resp: Lungs clear to auscultation bilaterally, no wheezes, rales, or rhonchi. Musculoskeletal: Normal gait, 5/5 strength to all four extremities. Skin: As per HPI excoriations noted to bilateral upper ears, left cheek, periumbilical. No tracking no surrounding induration or erythema no warmth. Capillary refill less than 2 sec. Neurologic: Cranial nerves II-XII intact. Alert and oriented x 3. Hematologic/Lymphatic: No ecchymosis, no lymphadenopathy. Course Vital Signs Vital signs: Vital Signs Temperature 36.4 C L 04/05/21 13:07 Pulse 67 04/05/21 13:07 Respiratory Rate 16 04/05/21 13:07 Blood Pressure 131/70 04/05/21 13:07 Pulse Oximetry 97 04/05/21 13:07 Temperature 36.4 C L 04/05/21 13:07 Pulse 67 04/05/21 13:07 Respiratory Rate 16 04/05/21 13:07 Respiratory Effort Non-Labored 04/05/21 13:10 Blood Pressure 131/70 04/05/21 13:07 Blood Pressure Position Sitting 04/05/21 13:07 Pulse Oximetry 97 04/05/21 13:07 Oxygen Delivery Method Room Air 04/05/21 13:07 Oxygen Flow Rate 0 04/05/21 13:07 Pain Level 0 04/05/21 13:07
[2021-04-05] MEDS: Bacitracin 30 GM TUBE TP (13:26)
[2021-04-05 13:27] VITALS: BP 131/70; PULSE 67; RESP 16; TEMP 36.4; O2SAT 97
== END 2021-04-05 13:36 | disposition home or self-care (01) ==
PROVIDERS: Emergency Provider Registered Nurse Emergency; PCP Family Medicine
DX: B86 Scabies (principal); R21 Rash and other nonspecific skin eruption
CPT/HCPCS: 99283

== ENCOUNTER 2021-04-19 07:07 | Outpatient (REF) | payer MEDICAID, SELFPAY | END 2021-04-19 07:08 | disposition home or self-care (01) | LOC: LBN 07:07 | PROVIDERS: PCP Family Medicine; Visit Provider Physician Assistant | DX: L02.01 Cutaneous abscess of face (principal); S01.402A Unspecified open wound of left cheek and temporomandibular area, initial encounter; X58.XXXA Exposure to other specified factors, initial encounter | CPT/HCPCS: 87077; 87070; 87186; 87205 ==

== ENCOUNTER 2021-05-18 16:51 | Emergency (ER) | payer MEDICAID, SELFPAY ==
[2021-05-18 17:03] VITALS: BP 141/84; PULSE 82; RESP 16; TEMP 36.6; O2SAT 99
--- NOTE | 2021-05-18 17:15 | RT.EKG_ITS ---
APPROVED REPORT Exam: Resting ECG Reason for Exam: syncope Patient Location: E HR:64 bpm ECG Measurements Heart Rate 64 AXIS MO 122 P 32 QRSd 101 QRS 79 QT 557 T 71 QTc 573 Conclusion Sinus rhythm...normal P axis, V-rate 60- 99 Nonspecific T abnrm, anterolateral leads...T <-0.10mV, I aVL V2-V6 Prolonged QT interval...QTc >488mS
--- NOTE | 2021-05-18 17:45 | DI.CT_ITS ---
Exam(s) CT HEAD WO EXAM: CT HEAD WO CLINICAL HISTORY: fall, pain. TECHNIQUE: Imaging Protocol: Axial computed tomography images with coronal and sagittal reformatted images were created and reviewed COMPARISON: CT HEAD WITHOUT CONTRAST from 01/29/2018 FINDINGS: Ventricles and Extra axial spaces: Normal in size and morphology for the patient's age. Hemorrhage: None. Cerebral parenchyma: Vermian hypoplasia, otherwise normal. Midline shift: None. Brainstem/Cerebellum: Vermian hypoplasia, otherwise normal. Calvarium: Normal. Visualized Paranasal sinuses/Mastoids: Clear. Soft Tissues: Unremarkable. IMPRESSION: No acute intracranial process. RADIATION DOSE DELIVERED: 771.86mGy.cm Total DLP DATA REPOSITORY: All CT scans at this facility are submitted to the National Radiology Data Registry (NRDR) Dose Index Registry (DIR) with the [employer] ([employer]). RADIATION OPTIMIZATION: All CT scans at this facility use at least one of these dose optimization te chniques: automated exposure control; mA and/or kV adjustment per patient size (includes targeted exa ms where dose is matched to clinical indication); or iterative reconstruction.
--- NOTE | 2021-05-18 17:50 | ED.GENADUL_ITS ---
Discharge Plan Disposition Patient Disposition: HOME Condition: Stable Discharge Details Clinical Impression: Depression, Passed out, Contusion of arm, left, Blunt head injury Primary Care Provider: Ivan Vizcaino ED Provider: Katiuska Hicks Home Meds and New Rx's Prescriptions: Continued methadone 10 mg/5 mL solution 105 mg PO DAILY RF: 0 pantoprazole 40 mg tablet,delayed release (DR/EC) 40 mg PO DAILY Qty: 90 RF: 3 hydroxyzine HCl 50 mg tablet 50 mg PO TID PRN (Reason: anxiety) Qty: 270 RF: 1 dextroamphetamine-amphetamine [Adderall XR] 30 mg capsule,extended release 24hr 30 mg PO DAILY RF: 0 dextroamphetamine-amphetamine [Adderall] 12.5 mg tablet 12.5 mg PO .Afternoon RF: 0 Discharge Instructions Instructions: Depression (ED), Head Injury (ED), Contusion in Adults (ED) Additional Instructions: Drink plenty of fluids and get plenty of rest. Alternate tylenol and motrin as needed and directed for pain. Follow-up with [facility] as directed regarding housing options and further discussion and management of your depression. Call your primary care doctor's office today to schedule a follow-up appointment for reevaluation within the next 2 weeks. Return immediately to the emergency department if you develop any worsening or new concerning symptoms. Discharge Data Discharge Physician: Katiuska Hicks Medical Decision Making <Rob Gandhi MD - Last Filed: 05/18/21 22:11> 30 yo male with hx of gerd, anxiety, adhd who states he is here primarily for thoughts of not wanting to live anymore for awhile now. HE is homeless and has been depressed. HE denies any attempts of self harm and denies a plan. He is caox4 with clear speech, no focal neuro deficits, CN II-XII intact, clinically sober on assessment. He also states yesterday he was walking out of koh[place], got lightheaded and had brief loc. He states this has happened several times in the past. Denies dyspnea, chest pain or abdominal pain. When he fell yesterday he struck his head on the ground and has had a headache since, no headache prior to the fall. No significant signs of trauma. HE also notes pain in the left hand and wrist. He has no visible or palapable deformity of the hand or wrist, full range of motion and normal sensation and pulses. Has pain over the ulnar surface of the wrist and hand, no snuffbox tenderness, suspect contusion but will xray the wrist and hand. Once medically cleared will need mental health evaluation. I did speak with someone who was with him yesterday who states he did pass out but was then given narcan and woke up so could have been related to drug use though the patient denies this. labs and imaging unremarkable, his ekg does show a prolonged qtc which I feel is likely related to his methadone. He is sleeping on reassessment but awakens easily, medically cleared to speak with mental health. pt seen by mental health and told her he has been using drugs such as fentanyl off the street. HE did fall asleep 2 times during his mental health exam and is likely related to his methadone given his qtc is prolonged. They will start a voluntary psych referral for inpatient care but will also reassess him in the morning. Differential Diagnosis Differential Diagnosis: si, depression, tbi, orthostasis Medical Records Medical records reviewed: Yes I reviewed the patient's medical records. Imaging Data Radiologic Study: Attestation: I personally reviewed and interpreted this imaging study as follows: Imaging: CT Scan Radiologist's impression: IMPRESSION: No acute intracranial abnormality is appreciated. Radiologic Study #2: Attestation: I personally reviewed and interpreted this imaging study as follows: Imaging: X-Ray My impression: no acute findings wrist xray Radiologic Study #3: Attestation: I personally reviewed and interpreted this imaging study as follows: Imaging: X-Ray My impression: no acute findings hand xray Lab Data Lab results reviewed: Yes I reviewed the patient's lab results. ECG Data Attestation: I personally reviewed and interpreted this ECG (s) as follows: Prior ECG tracings: available for review Interpretation: sinus rhythm, rate of 64, prolonged qtc, nonspecific t wave abnormalities anterior leads <Katiuska Hicks DO - Last Filed: 05/19/21 10:53> 0800 --please see previous providers note for initial presentation, exam and plan. Case endorsed to follow-up with mental health this morning regarding disposition. 1000 -- Patient currently denying SI. Patient is cleared for discharge to home by [facility]. [facility] human services will contact patient regarding potential housing options. Patient placed on care management list to help ar range for follow-up appointment with the primary care doctor as well for reevaluation. Repeat EKG was obtained due to concern for potential U waves on initial EKG and this appears to be improved on repeat EKG. Potassium 3.4, denies any complaint of chest pain. Usual and customary return precautions given prior to discharge. Medical Records Medical records reviewed: Yes I reviewed the patient's medical records. Lab Data Lab results reviewed: Yes I reviewed the patient's lab results. ECG Data Attestation: I personally reviewed and interpreted this ECG (s) as follows: Interpretation: Rate of 63, sinus, no acute ST elevation or depression. TX 116. QRS 80. Prolonged QT at 550. HPI <Rob Gandhi MD - Last Filed: 05/18/21 22:11> General Mode of arrival: ambulatory . Date/Time Provider Initiated Documentation: 05/18/21 16:52 . Limitations to Documentation: no limitations . Information obtained by: patient . History of Present Illness 30 year old M presents to the emergency department with the chief complaint of thoughts of self harm, described as moderate, Patient started experiencing this month(s) (4) and it has been constant. No relieving factors improve symptom(s), No exacerbating factors reported . Patient did receive the following treatments prior to arrival, none Related Data Home Medications Medication Instructions Recorded Confirmed methadone 10 mg/5 mL oral solution 105 mg PO DAILY ml 02/10/20 05/18/21 dextroamphetamine-amphetamine ER 30 mg PO DAILY 08/09/20 05/18/21 30 mg 24hr capsule,extend release dextroamphetamine-amphetamine 12.5 12.5 mg PO .Afternoon tab 01/07/21 05/18/21 mg tablet hydroxyzine HCl 50 mg tablet 50 mg PO TID PRN #270 tab 05/09/21 05/18/21 pantoprazole 40 mg tablet,delayed 40 mg PO DAILY #90 tab 05/09/21 05/18/21 release Previous Rx's Medication Instructions Recorded hydroxyzine HCl 50 mg tablet 50 mg PO TID PRN #270 tab 05/09/21 pantoprazole 40 mg tablet,delayed 40 mg PO DAILY #90 tab 05/09/21 release Allergies Allergy/AdvReac Type Severity Reaction Status Date / Time methylphenidate AdvReac Severe left Verified 05/18/21 17:21 [From Ritalin] arm,tongue,face numbness,tingling General Stated Complaint: PsychEval STAR: 2 Review of Systems <Rob Gandhi MD - Last Filed: 05/18/21 22:11> All systems reviewed & are unremarkable except as noted in HPI and below Constitutional Constitutional: Denies chills, Denies fever(s) and Denies weakness Cardiovascular Cardiovascular: Denies chest pain and Denies dyspnea Respiratory Respiratory: Denies cough and Denies dyspnea Gastrointestinal Gastrointestinal: Denies abdominal pain, Denies nausea and Denies vomiting Musculoskeletal Musculoskeletal: Denies joint swelling Neurologic Neurologic: Denies weakness PFS <Rob aGndhi MD - Last Filed: 05/18/21 22:11> Medical History (Updated 05/18/21 @ 20:10 by Rob Gandhi MD) ADHD Anxiety Depression Drug abuse GERD (gastroesophageal reflux disease) Late effect of facial wound Long-term current use of methadone for opiate dependence Family History Mother No problems noted. Father , colon ca at age 70. No problems noted. Sister No problems noted. Brother No problems noted. Brother No problems noted. Brother No problems noted. Brother No problems noted. Brother No problems noted. Social History Smoking/Tobacco Use Status: Current every day Tobacco Type: cigarettes Smoking risk assessment performed?: Yes Alcohol Intake: former Drug use: Current Sobriety Substance use type: does not use Do you feel safe at home: Yes Do you feel safe in your relationship?: Yes Exam <Rob Gandhi MD - Last Filed: 05/18/21 22:11> Const General: no acute distress Orientation: alert [facility] Head: normal to inspection Ears: external ears normal General nose exam: external nose normal Mouth: moist mucous membranes Eyes General: appearance normal, both eyes and all related structures Neck Neck: normal visual inspection Resp Effort & Inspection: normal respiratory effort and able to speak in complete sentences Cardio Rate: regular rate GI Palpation: soft and nontender Skin General skin exam: no rashes or lesions noted Neuro General: patient alert and patient oriented x3 Extrem General: normal to inspection Course <Rob Gandhi MD - Last Filed: 05/18/21 22:11> Vital Signs Vital signs: Vital Signs Temperature 36.6 C 05/18/21 17:03 Pulse 82 05/18/21 17:03 Respiratory Rate 16 05/18/21 17:03 Blood Pressure 141/84 H 05/18/21 17:03 Pulse Oximetry 99 05/18/21 17:03 Temperature 36.6 C 05/18/21 17:03 Temperature Source Temporal Artery Scan 05/18/21 17:03 Pulse 82 05/18/21 17:03 Respiratory Rate 16 05/18/21 17:03 Respiratory Effort Non-Labored 05/18/21 17:09 Blood Pressure 141/84 H 05/18/21 17:03 Blood Pressure Position Sitting 05/18/21 17:03 Pulse Oximetry 99 05/18/21 17:03 Oxygen Delivery Method Room Air 05/18/21 17:03 Oxygen Flow Rate 0 05/18/21 17:03 Pain Level 3 05/18/21 17:03 Comment 05/18/21 17:03 Sign Out <Rob Gandhi MD - Last Filed: 05/18/21 22:11> Sign Out Data: Sign Out Comment: reports thoughts of self harm with a plan and hasn't tried to harm himself, is on methadone and drowsy tonight, seen by mental health and referrals placed for voluntary placement but will be reevaluated in the morning when more awake. He does have a prolonged qtc in the 500's likely related to his methadone use. Last updated by Rob Gandhi MD at 05/18/21 22:14 Sign Out Comment: Patient stable throughout the night. He rested well. Patient will require reassessment by mental health in the morning, as well as potential need for inpatient placement. Last updated by Jeff Brown DO at 05/19/21 03:31 PAWSS <Rob Gandhi MD - Last Filed: 05/18/21 22:11> Have you Been Recently Intoxicated or Drunk Within the Last 30 days?: No Have you Ever Experienced Previous Episodes of Alcohol Withdrawal?: No Have you ever Experienced Withdrawal Seizures?: No Have you ever Experienced Delirium Tremens(DT)s?: No Have you ever undergone Alcohol Rehabilitation Treatment (i.e, inpt ot outpatient treatment programs)?: No Have you ever Experienced Blackouts?: No Have you ever Combined Alcohol with other Downers within the last 90 days?: No Have you ever Combined Alcohol with any other Substance of Abuse during the last 90 days?: No Positive Blood Alcohol level on Presentation? [PCS.BAL]: No Result: 0
[2021-05-18 18:07] LABS: Bilirubin Negative (Negative); Blood Negative (Negative); Clarity Clear (Clear); Glucose Negative (Negative); Ketones Negative (Negative); Leukocyte Esterase Negative (Negative); Nitrite Negative (Negative); Specific Gravity >= 1.030 (1.005-1.025); Urobilinogen 0.2 EU/dL (Up TO 0.2)
[2021-05-18 18:11] LABS: Source Nasal/Nares
[2021-05-18 18:23] LABS: *AMPHETAMINES SCREEN URINE Positive (Negative); *BARBITURATES SCREEN URINE Negative (Negative); *BENZODIAZEPINES SCREEN URINE Negative (Negative); Cannabinoids THC Negative (Negative); Cocaine Screen,Urine Negative (Negative); METHADONE URINE SCREEN Positive (Negative); OPIATES URINE SCREEN Negative (Negative); Tricyclic Antidepressants Negative (Negative)
[2021-05-18 18:41] LABS: Alkaline Phosphatase 78 U/L (46-116); BUN 11 mg/dL (7-18); Bilirubin, Total 0.3 mg/dL (0.2-1.0); CREATININE 0.9 mg/dL (0.70-1.30); Calcium 8.4 mg/dL (8.5-10.1); Chloride 105 mmol/L (98-107); Glucose 120 mg/dL (74-106); Potassium 3.4 mmol/L (3.5-5.1); Sodium 142 mmol/L (136-145); Total Protein 6.8 g/dL (6.4-8.2)
[2021-05-18 18:42] LABS: ALT 42 U/L (16-63); AST 24 U/L (15-37); Anion Gap 8.7 mmol/L (3-11); CO2 28.3 mmol/L (21.0-32.0); Magnesium 2.2 mg/dL (1.8-2.4); TSH (W/Ref FT4) 0.79 uIU/mL (0.36-3.74); Troponin I < 0.05 ng/mL (<0.06)
--- NOTE | 2021-05-18 18:42 | DI.VRAD_ITS ---
PROCEDURE INFORMATION: Exam: CT Head Without Contrast Exam date and time: 05/18/2021 5:48 PM Age: 30 years old Clinical indication: Injury or trauma; Fall; Blunt trauma (contusions or hematomas) TECHNIQUE: Imaging protocol: Computed tomography of the head without contrast. 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 No acute intracranial hemorrhage, edema, midline shift, or mass effect. No CT evidence of acute transcortical infarction. Cerebral ventricles: No ventriculomegaly. Paranasal sinuses: Visualized sinuses are unremarkable. No fluid levels. Mastoid air cells: Visualized mastoid air cells are well aerated. Bones/joints: Unremarkable. No acute fracture. Soft tissues: Unremarkable. IMPRESSION: No acute intracranial abnormality is appreciated. Dictated and Authenticated by: Charles Dee MD. Ordering:ELIECER Rivas MD
--- NOTE | 2021-05-18 18:42 | DI.RAD_ITS ---
Exam(s) XR HAND LT COMPLETE EXAM: XR HAND LT COMPLETE CLINICAL HISTORY: pain. TECHNIQUE: 2D digital imaging was performed. COMPARISON: No exams were available for comparison FINDINGS: BONES: No acute fracture is present. No bony destructive lesion is seen. JOINTS: No dislocation present. SOFT TISSUE: Normal. IMPRESSION: Unremarkable radiographs of the left hand. DATA REPOSITORY: RADIATION DOSE DELIVERED:
--- NOTE | 2021-05-18 18:42 | DI.RAD_ITS ---
Exam(s) XR WRIST LT COMPLETE EXAM: XR WRIST LT COMPLETE CLINICAL HISTORY: pain s/p fall. TECHNIQUE: 2D digital imaging was performed. COMPARISON: No exams were available for comparison FINDINGS: BONES: No acute fracture is present. No bony destructive lesion is seen. JOINTS: The carpal bones are normally aligned. SOFT TISSUE: Normal. IMPRESSION: Unremarkable radiographs of the left wrist. DATA REPOSITORY: RADIATION DOSE DELIVERED:
--- NOTE | 2021-05-18 18:53 | DI.VRAD_ITS ---
PROCEDURE INFORMATION: Exam: XR Left Hand Exam date and time: 05/18/2021 5:48 PM Age: 30 years old Clinical indication: Injury or trauma; Fall; Blunt trauma (contusions or hematomas); Hand; Left TECHNIQUE: Imaging protocol: XR Left hand. Views: 3 or more views. COMPARISON: No relevant prior studies available. FINDINGS: Bones/joints: Normal. Soft tissues: Normal. IMPRESSION: No acute findings. Dictated and Authenticated by: Charles Dee MD. Ordering:ELIECER Rivas MD
--- NOTE | 2021-05-18 18:53 | DI.VRAD_ITS ---
PROCEDURE INFORMATION: Exam: XR Left Wrist Exam date and time: 05/18/2021 5:48 PM Age: 30 years old Clinical indication: Injury or trauma; Fall; Blunt trauma (contusions or hematomas); Wrist; Left TECHNIQUE: Imaging protocol: XR Left wrist. Views: 3 or more views. COMPARISON: CR XR HAND LT COMPLETE 05/18/2021 6:39 PM FINDINGS: Bones/joints: Normal. Soft tissues: Normal. IMPRESSION: No acute findings. Dictated and Authenticated by: Charles Dee MD. Ordering:ELIECER Rivas MD
[2021-05-18 19:06] LABS: COVID-19 PCR Negative (Negative)
[2021-05-18 19:13] LABS: Acetaminophen < 2 ug/mL (10-30); Salicylate < 2.8 mg/dL (<2.8)
[2021-05-18 19:34] LABS: ETHANOL BLOOD < 3.0 mg/dL (<10)
--- NOTE | 2021-05-18 23:01 | PDOC.MHCN ---
Date of service: 05/18/21 Time of Service: 21:00 Mental Health Crisis Note Presenting Issue How did you arrive at the ED and why did you come: Client presented to [facility] ED for a mental health screening Precipitating Factors Client reported that he was experiencing SI - he stated I don't want to do it but, I have no help with anything. I feel like giving up. It's just getting to me.
--- NOTE | 2021-05-19 08:11 | PDOC.MHCN_ITS ---
Date of service: 05/18/21 Time of Service: 21:00 Mental Health Crisis Note Presenting Issue How did you arrive at the ED and why did you come: Client presented to [facility] ED for a mental health screening, as he indicated that he was having SI. Precipitating Factors The patient is a 30-year-old male with reported depression, ADHD, and substance abuse disorder. The patient reports that he is currently homeless and has no natural supports to help him with custodial. Patient-reported that he stays awake all night because he is afraid of these 6 guys who will rusty him. He shared that they do exist but, the police will do nothing about them, as when they arrive, these six men are not observed when the police arrive on seen. The patient shared that the police shared that he might be paranoid because of his substance issues. The patient reported that he is involved in the [facility] program in [place], [place] and that he is on 105 mg of methadone daily. Patient-reported that he has a complaint investigations officer Holland Alexandre, in [place] and that he has 20 years hanging over his head. Patient-reported that he tried to run away from the six men chasing him throughout the night, as he didn't want to violate his c onditions of release. During the screening with a patient, he reported that he was experiencing SI - he stated, I don't want to do it but, I have no help with anything. I feel like giving up. It's just getting to me. The patient shared that he would just OD or walk in front of an [address] [place] [address] [place] 1 [place] away from [facility]. The patient shared that he overdid a couple of weeks ago when he combined meth and fentanyl. When I asked the client what his need was, he shared housing. If he had custodial, it would reduce his SI. The client stated that he did want treatment and wanted this expert medical writer to seek inpatient hospitalization to address his SI. Disposition BEHAVIOR: Patient was cooperative during the screening. Patient had to b prompted to reengage with this expert medical writer as the patient appeared to nod out. EYE CONTACT: Minimal eye contact - client's head was looking down for the majority of the asssessment. When prompted patient would lift his head and make direct eye contact with the camera. MOOD: The patient reported that he was depressed and tired of not sleeping at night. The patient shared that he has been depressed for a while but, more recently, he feels that no one will recognize his efforts to change for the better despite what he does. AFFECT: Affect is congruent to mood. APPETITE: The patient reports he ate chicken, rice, and broccoli earlier in the day, after arriving at [facility]. Patient-reported he can't remember the last time he ate because of the lack of food preparation, so he eats chips and candy. SLEEP(trouble falling/staying asleep: The patient was having trouble staying awake during the assessment. The patient reported he had not slept well as he is homeless and can't sleep at night (see information above) due to the men he believes will rusty him. Plan After evaluating the patient, this expert medical writer spoke to Dr. De La O - the patient will stay on a voluntary status, be monitored overnight, and reassessed in the morning. Signature Clinician's Name/Title: TEDDY Dhaliwal Emergency after-hours clinician on-call
--- NOTE | 2021-05-19 08:30 | RT.EKG_ITS ---
APPROVED REPORT Exam: Resting ECG Reason for Exam: syncope, u waves on ekg Patient Location: E HR:63 bpm ECG Measurements Heart Rate 63 AXIS RI 116 P 18 QRSd 103 QRS 80 QT 541 T 58 QTc 556 Conclusion Sinus rhythm...normal P axis, V-rate 60- 99 Prolonged QT interval...QTc >488mS. Sinus. No STEMI. I have reviewed and interpreted ECG and agree with software generated interpretation.
[2021-05-19 08:56] LABS: Abs Immature Grans 0.01 10^3/uL (0.0-0.06); Absolute Basophil Count 0.02 10^3/uL (0.0-0.2); Absolute Eosinophil Count 0.18 10^3/uL (0.0-0.7); Absolute Lymphocyte Count 2.22 10^3/uL (1.2-3.4); Absolute Monocyte Count 0.41 10^3/uL (0.1-0.8); Absolute Neutrophil Count 3.05 10^3/uL (1.2-6.7); Basophils % 0.3; Eosinophils % 3.1; HCT 38.5 % (40.0-50.0); HGB 12.4 g/dL (13.5-17.5); Immature Grans % 0.2; Lymphocytes % 37.7; MCHC 32.2 % (32.0-36.0); MCV 86.9 fL (80-95); MPV 8.5 fL (8.0-11.0); Neutrophils % 51.7; Nucleated RBC 0 %; Platelet Count 309 10^3/uL (130-400); RBC 4.43 10^6/uL (4.36-5.78); RDW 14.8 % (11.8-14.1); RDW-SD 47.2 fL; WBC 5.89 10^3/uL (4.4-10.8)
[2021-05-19] MEDS: Methadone Liquid 10 MG/ML 105 MG PO (09:54)
[2021-05-19 10:20] VITALS: BP 129/86; PULSE 116; RESP 20; TEMP 37.4; O2SAT 95
--- NOTE | 2021-05-19 18:34 | NUR.NOTE ---
referral to [facility] for pcpn follow up
--- NOTE | 2021-05-21 09:34 | NUR.NOTE ---
Nursing Note: Accessed patient record for QA of disposition. Radha Humphreys
== END 2021-05-19 10:20 | disposition home or self-care (01) ==
PROVIDERS: Emergency Medicine; Emergency Provider Physician Assistant; PCP Family Medicine
DX: F32.A Depression, unspecified (principal); R55 Syncope and collapse; S40.022A Contusion of left upper arm, initial encounter; S09.8XXA Other specified injuries of head, initial encounter; R45.851 Suicidal ideations; F11.20 Opioid dependence, uncomplicated; M79.642 Pain in left hand
CPT/HCPCS: 36415; 80053; 80307; 87635; 93005; 99285; 70450; 73110; 73130; 80320; 80329; 81003; 83735; 84443; 84484; 85025; 93010; 99284

== ENCOUNTER 2021-06-21 19:55 | Emergency (ER) | payer MEDICAID, SELFPAY ==
[2021-06-21] VITALS (21 sets, daily range): BP systolic 122–131; BP diastolic 76–104; PULSE 100–117; RESP 13–30; TEMP 37.1; O2SAT 96–100
--- NOTE | 2021-06-21 20:00 | DI.CT_ITS ---
Exam(s) CT THORAX CTA EXAM: CT THORAX CTA CLINICAL HISTORY: chest pain with radiation to back, r/o dissection. TECHNIQUE: Imaging Protocol: CT angiography of the chest was performed using pulmonary embolus rudy col. Multi planar reconstructions were performed. CONTRAST MATERIAL: Intravenous: Omnipaque 350 Contrast volume: 100 cc COMPARISON: CT CT THORAX CTA from 05/17/2019 FINDINGS: CHEST: PULMONARY ARTERIES: There are no intraluminal filling defects to suggest acute pulmonary emboli. LUNGS: There is patchy nodular infiltrate in the right upper lobe posterior segment. No associated p leural effusion. Remainder of the right lung is clear and there are no focal infiltrates in the left lung nor left pleural effusion.. No significant findings in trachea and mainstem bronchi. There is no bronchiectasis. MEDIASTINUM: There is no hilar nor mediastinal adenopathy. Visualized thyroid unremarkable. CARDIAC: Heart size is upper normal. There is no pericardial effusion.Caliber of the thoracic aorta is within normal limits. No evidence of aortic dissection. Left vertebral artery originates as an in dependent vessel off the aortic arch. There is no significant shift of the interventricular septum. PARTIALLY VISUALIZED UPPERMOST ABDOMEN: Hepatic steatosis evident. No significant adrenal findings. No spleno megaly OSSEOUS: No significant osseous lesions.. IMPRESSION: 1. No evidence of acute pulmonary emboli. No evidence of pulmonary infarction.No pleural effusions. 2. However, there is patchy/nodular infiltrate in the right upper lobe evident. No associated pleura l effusion. 3. Close follow-up recommended. RADIATION DOSE DELIVERED: 430.29mGy.cm Total DLP DATA REPOSITORY: All CT scans at this facility are submitted to the National Radiology Data Registry (NRDR) Dose Index Registry (DIR) with the [employer] (ACR). RADIATION OPTIMIZATION: All CT scans at this facility use at least one of these dose optimization te chniques: automated exposure control; mA and/or kV adjustment per patient size (includes targeted exa ms where dose is matched to clinical indication); or iterative reconstruction.
--- NOTE | 2021-06-21 20:00 | RT.EKG_ITS ---
APPROVED REPORT Exam: Resting ECG Reason for Exam: chest pain Patient Location: E HR:99 bpm ECG Measurements Heart Rate 99 AXIS MD 134 P 47 QRSd 104 QRS 81 QT 406 T 8 QTc 522 Conclusion Sinus rhythm...normal P axis, V-rate 60- 99 Prolonged QT interval...QTc >488mS. Sinus. Prolonged QT, seen in previous EKG. No STEMI. I have reviewed and interpreted ECG and agree with software generated interpretation.
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
[2021-06-21] MEDS: Normal Saline 1,000 ML 1000 ML IV (20:28)
[2021-06-21 20:35] LABS: Abs Immature Grans 0.02 10^3/uL (0.0-0.06); Absolute Basophil Count 0.02 10^3/uL (0.0-0.2); Absolute Eosinophil Count 0.07 10^3/uL (0.0-0.7); Absolute Lymphocyte Count 1.78 10^3/uL (1.2-3.4); Absolute Monocyte Count 0.61 10^3/uL (0.1-0.8); Absolute Neutrophil Count 6.91 10^3/uL (1.2-6.7); Basophils % 0.2; Eosinophils % 0.7; HGB 11.2 g/dL (13.5-17.5); Immature Grans % 0.2; Lymphocytes % 18.9; MCH 27.3 pg (27.0-33.0); MCV 85.4 fL (80-95); MPV 8.7 fL (8.0-11.0); Monocytes % 6.5; Neutrophils % 73.5; Nucleated RBC 0 %; Platelet Count 278 10^3/uL (130-400); RDW-SD 46.6 fL; WBC 9.41 10^3/uL (4.4-10.8)
[2021-06-21 20:37] LABS: ESR 28 mm/hr (0-15)
--- NOTE | 2021-06-21 20:40 | NUR.NOTE ---
Nursing Note:Pt to CT via stretcher w/tech, no change in complaints or concerns.
[2021-06-21] MEDS: Omnipaque 350 MG/ML 100 ML BTL IV (20:42)
[2021-06-21] MEDS: Normal Saline Flush 10 ML SYR IVP (20:43)
[2021-06-21 20:47] LABS: C-Reactive Protein 2.91 mg/dL (0.0-0.3); Magnesium 2.5 mg/dL (1.8-2.4)
[2021-06-21 20:51] LABS: ALT 37 U/L (16-63); AST 34 U/L (15-37); Albumin 3.4 g/dL (3.4-5.0); Alkaline Phosphatase 81 U/L (46-116); Anion Gap 8.3 mmol/L (3-11); BUN 14 mg/dL (7-18); Bilirubin, Total 0.7 mg/dL (0.2-1.0); CO2 28.7 mmol/L (21.0-32.0); CREATININE 0.8 mg/dL (0.70-1.30); Calcium 8.7 mg/dL (8.5-10.1); Chloride 103 mmol/L (98-107); Glucose 115 mg/dL (74-106); Sodium 140 mmol/L (136-145); Total Protein 7.5 g/dL (6.4-8.2); Troponin I < 50 ng/L (<or=60)
[2021-06-21] MEDS: Dexamethasone 10 MG/ML VIAL IVP (21:04)
[2021-06-21] MEDS: cefTRIAXone 1 GM/50 ML BAG IVPB (21:05)
--- NOTE | 2021-06-21 21:06 | DI.VRAD_ITS ---
PROCEDURE INFORMATION: Exam: CTA Chest With Contrast Exam date and time: 06/21/2021 8:13 PM Age: 30 years old Clinical indication: Radiating; Patient HX: Chest pain with radiation to back; Additional info: R/O dissection TECHNIQUE: Imaging protocol: Computed tomographic angiography of the chest with contrast. 3D rendering (Not supervised by radiologist): MIP and/or 3D reconstructed images were created by the technologist. Total images: 1624 COMPARISON: CT [facility]AX CTA 05/17/2019 6:26 AM FINDINGS: Pulmonary arteries: The pulmonary arteries enhance appropriately with no evidence of pulmonary embolism. Aorta: The aorta enhances appropriately without evidence of dissection or aneurysm. No mediastinal hematoma. Thyroid: The visualized thyroid gland demonstrates no gross abnormality. Lungs: No acute tracheobronchial abnormalities. Patchy peripheral alveolar opacities in the right upper lobe posterior segment concerning for pneumonia. No pulmonary mass lesions are identified. Pleural spaces: No pleural effusion. No pneumothorax. Heart: Heart size normal. No pericardial effusion. Mediastinal space: Distal esophageal wall thickening suspicious for esophagitis, consider nonemergent assessment with esophagram or endoscopy. Lymph nodes: No supraclavicular or axillary adenopathy. No mediastinal or hilar adenopathy. Liver: Mild fatty infiltration of the liver. Bones/joints: No acute osseous abnormalities are identified. Soft tissues: The soft tissues of the chest wall demonstrate no acute abnormality. IMPRESSION: 1. No evidence of pulmonary embolism or aortic dissection. No acute vascular abnormalities. 2. Patchy alveolar opacities in the right upper lobe posterior segment concerning for pneumonia. 3. Distal esophageal wall thickening suspicious for esophagitis. Consider nonemergent esophagram or endoscopic assessment as clinically indicated. Dictated and Authenticated by: John Neri MD. Ordering:AARON Harp MD
--- NOTE | 2021-06-21 23:11 | NUR.NOTE ---
Referral faxed to [facility] Dr Vizcaino to follow up within a week. Chest Pain, leg cellulitis.Nursing Note:
--- NOTE | 2021-06-21 23:15 | RT.EKG_ITS ---
APPROVED REPORT Exam: Resting ECG Reason for Exam: chest pain Patient Location: E HR:98 bpm ECG Measurements Heart Rate 98 AXIS WV 131 P 59 QRSd 100 QRS 84 QT 404 T 53 QTc 516 Conclusion Sinus rhythm...normal P axis, V-rate 60- 99 Prolonged QT interval...QTc >488mS. Sinus. No change from previous. No STEMI.
[2021-06-21 23:25] LABS: Troponin I < 50 ng/L (<or=60)
[2021-06-21] MEDS: Amox. 875/Clav. 125, 2 TABS/BTL 1 TAB PO (23:25)
[2021-06-21] MEDS: Amoxicillin 875/Clav. 125 TAB PO (23:25)
== END 2021-06-21 23:40 | disposition home or self-care (01) ==
PROVIDERS: Emergency Provider Physician Assistant; PCP Family Medicine
DX: R07.9 Chest pain, unspecified (principal); R05.1 Acute cough; Z73.3 Stress, not elsewhere classified; L53.8 Other specified erythematous conditions; F17.210 Nicotine dependence, cigarettes, uncomplicated; M54.9 Dorsalgia, unspecified
CPT/HCPCS: 36415; 71275; 80053; 85652; 93005; 96361; 96365; 96375; 99285; 83735; 84484; 85025; 86140; 93010; 99284; J0696; J1100; J3490

== ENCOUNTER 2021-12-08 06:33 | Emergency (ER) | payer MEDICAID, SELFPAY ==
[2021-12-08 06:38] VITALS: BP 157/113; PULSE 100; RESP 14; TEMP 36.8; O2SAT 98
[2021-12-08 06:41] VITALS: RESP 16
--- NOTE | 2021-12-08 06:43 | W.ED.GENAD ---
Discharge Plan Disposition Patient Disposition: HOME Condition: Good Discharge Details Clinical Impression: Nerve pain Primary Care Provider: Ivan Vizcaino ED Provider: Jeff Brown Home Meds and New Rx's Prescriptions: New gabapentin [Neurontin] 300 mg capsule 300 mg PO TID Qty: 90 0RF Rx Instructions: On the first day take 1 pill, on the second day take 1 pill twice daily, on the third day and for the remainder of the prescription take 1 pill 3 times a day. Discontinued gabapentin 300 mg capsule 300 mg PO TID Rx Instructions: start date 08/22/21 per note [facility] No Action methadone 10 mg/5 mL solution 105 mg PO DAILY Rx Instructions: receives @ [facility] pantoprazole 40 mg tablet,delayed release (DR/EC) 40 mg PO DAILY Qty: 90 3RF hydroxyzine HCl 50 mg tablet 50 mg PO TID PRN (Reason: anxiety) Qty: 270 1RF Rx Instructions: 07/12/20 [facility] NOTE cgc dextroamphetamine-amphetamine [Adderall XR] 30 mg capsule,extended release 24hr 30 mg PO DAILY Rx Instructions: note dated 07/12/20 [facility] olanzapine [Zyprexa] 5 mg tablet 5 mg PO BID PRN Rx Instructions: per note dated 08/22/21 [facility] start date cgc prednisone 20 mg tablet See Rx Instructions .ROUTE .COMPLEX Qty: 18 0RF Rx Instructions: Take 3 tabs daily for 3 days, then 2 tabs daily for 3 days, then 1 tab daily for 3 days. buprenorphine-naloxone [Suboxone] 12-3 mg film Discharge Instructions Additional Instructions: Unfortunately you now have neuropathic nerve pain secondary to frostbite and chilblains that occurred this winter. Please try to keep your toes warm and dry at all times. Avoid any repeat exposure to the cold for your toes. Please take the gabapentin as directed. Do not misuse the medication. Please also take an [id number]-[id number] B complex vitamin to help in your nerve healing. If you notice any worsening of your symptoms, or any new symptoms such as vomiting, diarrhea, fever, chills, shortness of breath, chest pain, numbness, weakness, or fainting , please return immediately to the emergency department for reevaluation. Please follow up with your primary care provider as soon as possible for reassessment and reevaluation. As always, it was a pleasure participating in your medical care today. Referrals: Ivan Vizcaino DO [Primary Care Provider] - Medical Decision Making This is a 31-year-old male with a past medical history of opiate abuse, currently on methadone, who presents today for evaluation of burning sensation in his toes. The patient states that for the last 6 months he has been having the sensation. He states that throughout the winter his feet got extremely wet and very cold frequently. He states that now during the summer feels like there is [id number] in his toes. He denies any trauma otherwise. He denies any bleeding. He denies any injection at the site. No other complaints at this time. Exam demonstrates intact sensation and brisk capillary refill in all toes and feet. There is evidence of peeling off callus from all toes. I suspect that the patient likely had trench foot or chilblains throughout the winter, and might of even had a mild to moderate frostbite, and is now demonstrating neuropathic pain secondary to the injury to these toes. With no evidence of neurovascular compromise of significant or any evidence of central issue at this time based on exam, I see no indication for further imaging. With the neuropathic pain secondary to the freezing exposure throughout the winter we will prescribe gabapentin for treatment of this. I had a long discussion with the patient regarding the importance of B complex vitamin use, as well as avoiding any repeat episodes of cold exposure that could bring about significant worsening of his condition. I have extensively reviewed the treatment plan and discharge instructions with the patient. I have addressed all patient concerns at this time. The patient was made aware of what symptoms to monitor for that would warrant a return to the emergency department. Discussed the plan with the patient, they demonstrate verbal understanding and agreement with our assessment and plan at this time. The documentation in this chart was dictated using [employer] dictation software. Please excuse any dictation errors. HPI General Date/Time Provider Initiated Documentation: 12/08/21 06:43. HPI Narrative: This is a 31-year-old male with a past medical history of opiate abuse, currently on methadone, who presents today for evaluation of burning sensation in his toes. The patient states that for the last 6 months he has been having the sensation. He states that throughout the winter his feet got extremely wet and very cold frequently. He states that now during the summer feels like there is [id number] in his toes. He denies any trauma otherwise. He denies any bleeding. He denies any injection at the site. No other complaints at this time. Related Data Home Medications Medication Instructions Recorded Confirmed methadone 10 mg/5 mL oral solution 105 mg PO DAILY 02/10/20 06/21/21 dextroamphetamine-amphetamine ER 30 mg PO DAILY 08/09/20 06/21/21 30 mg 24hr capsule,extend release (Adderall XR) hydroxyzine HCl 50 mg tablet 50 mg PO TID PRN anxiety #270 tabs 05/09/21 06/21/21 pantoprazole 40 mg tablet,delayed 40 mg PO DAILY #90 tabs 05/09/21 06/21/21 release prednisone 20 mg tablet See Rx Instructions .Route 06/21/21 .COMPLEX #18 tabs olanzapine 5 mg tablet (Zyprexa) 5 mg PO BID PRN 08/26/21 buprenorphine 12 mg-naloxone 3 mg film 12/08/21 sublingual film (Suboxone) gabapentin 300 mg capsule 300 mg PO TID #90 caps 12/08/21 (Neurontin) Previous Rx's Medication Instructions Recorded hydroxyzine HCl 50 mg tablet 50 mg PO TID PRN anxiety #270 tabs 05/09/21 pantoprazole 40 mg tablet,delayed 40 mg PO DAILY #90 tabs 05/09/21 release prednisone 20 mg tablet See Rx Instructions .Route 06/21/21 .COMPLEX #18 tabs gabapentin 300 mg capsule 300 mg PO TID #90 caps 12/08/21 (Neurontin) Allergies Allergy/AdvReac Type Severity Reaction Status Date / Time methylphenidate AdvReac Severe left Verified 12/08/21 06:43 [From Ritalin] arm,tongue,face numbness,tingling General Stated Complaint: GenMedical STAR: 4 Review of Systems All systems reviewed & are unremarkable except as noted in HPI and below PFSH All Active Problems Depression (Chronic) Passed out (Acute) Contusion of arm, left (Acute) Blunt head injury (Acute) Chest pain (Acute) Stress at home (Acute) Leg erythema (Acute) Cough (Acute) Nerve pain (Acute) Late effect of facial wound (Acute) Long-term current use of methadone for opiate dependence (Acute) GERD (gastroesophageal reflux disease) (Chronic) Anxiety (Chronic) ADHD (Chronic) Medical History ADHD Depression Drug abuse Family History Father , colon ca at age 70. Colon cancer Social History Smoking/Tobacco Use Status: Current every day Tobacco Type: cigarettes Smoking risk assessment performed?: Yes Alcohol Intake: former Drug use: Current Sobriety Substance use type: former substance user Details: about week ago used crystal meth & fentanyl Do you feel safe at home: No Do you feel safe in your relationship?: Yes Additional Social history: just got into a correction house and does not feel safe there Exam Narrative Exam Narrative: 1.Const: Well-nourished, Well-developed, appearing stated age 2.Eyes: PERRL, no conjunctival injection, and symmetrical lids. 3.ENT: Atraumatic external nose and ears. Moist MM. Neck: Symmetric, trachea midline, No thyromegaly. 4.CVS: +S1/S2, No murmurs or gallops. Peripheral pulses 2+ and equal in all extremities. Brisk capillary refill in all extremities. 5.RESP: Unlabored respiratory effort. Clear to auscultation bilaterally. No wheezes rales or rhonchi 6.GI: Soft, Nontender/Nondistended, No hepatosplenomegaly. No guarding or rebound. 7.MSK: Normocephalic/Atraumatic, Extremities w/o deformity or ttp No cyanosis or clubbing, Normal movement of all extremities 8.Skin: Warm, Dry. Toes demonstrate pinkish skin on all toes, there are notable components of callus that are actively peeling off. Brisk capillary refill in all toes. Dorsalis pedis +2 bilaterally. 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 Sensation grossly intact, no focal neurologic deficits. Sensation is intact for all toes and the feet. 10.Psych: (AAO) x3. Appropriate mood and affect Course Vital Signs Vital signs: Vital Signs Temperature 36.8 C 12/08/21 06:38 Pulse 100 H 06/02/22 06:38 Respiratory Rate 14 12/08/21 06:38 Blood Pressure 157/113 H 12/08/21 06:38 Pulse Oximetry 98 12/08/21 06:38 Temperature 36.8 C 12/08/21 06:38 Pulse 100 H 12/08/21 06:38 Respiratory Rate 16 12/08/21 06:41 Respiratory Effort Non-Labored 12/08/21 06:41 Respiratory Depth Normal 12/08/21 06:41 Respiratory Pattern Normal 12/08/21 06:41 Blood Pressure 157/113 H 12/08/21 06:38 Blood Pressure Position Sitting 12/08/21 06:38 Pulse Oximetry 98 12/08/21 06:38 Oxygen Delivery Method Room Air 12/08/21 06:38 Oxygen Flow Rate 0 12/08/21 06:38
== END 2021-12-08 10:00 | disposition home or self-care (01) ==
PROVIDERS: Emergency Provider Student in an Organized Health Care Education/Training Program; PCP Family Medicine
DX: G58.8 Other specified mononeuropathies (principal); M79.672 Pain in left foot; M79.671 Pain in right foot
CPT/HCPCS: 99283

== ENCOUNTER 2022-01-20 22:22 | Emergency (ER) | payer MEDICAID, SELFPAY ==
[2022-01-20 22:26] VITALS: BP 151/103; PULSE 111; RESP 16; TEMP 37.1; O2SAT 98
--- NOTE | 2022-01-20 22:37 | ED.GENADUL_ITS ---
Discharge Plan Disposition Patient Disposition: STILL A PATIENT Condition: Stable Discharge Details Chief Complaint: PsychEval Clinical Impression: Paranoid Primary Care Provider: Ivan Vizcaino ED Provider: Rob Gandhi Home Meds and New Rx's Prescriptions: No Action methadone 10 mg/5 mL solution 105 mg PO DAILY Rx Instructions: receives @ [facility] pantoprazole 40 mg tablet,delayed release (DR/EC) 40 mg PO DAILY Qty: 90 3RF hydroxyzine HCl 50 mg tablet 50 mg PO TID PRN (Reason: anxiety) Qty: 270 1RF Rx Instructions: 07/12/20 [facility] NOTE cgc dextroamphetamine-amphetamine [Adderall XR] 30 mg capsule,extended release 24hr 10 mg PO DAILY Rx Instructions: note dated 07/12/20 [facility] cgc olanzapine [Zyprexa] 5 mg tablet 5 mg PO BID PRN Rx Instructions: per note dated 08/22/21 [facility] start date cgc prednisone 20 mg tablet See Rx Instructions .ROUTE .COMPLEX Qty: 18 0RF Rx Instructions: Take 3 tabs daily for 3 days, then 2 tabs daily for 3 days, then 1 tab daily for 3 days. buprenorphine-naloxone [Suboxone] 12-3 mg film buprenorphine-naloxone [Suboxone] 8-2 mg film 2 film buccal DAILY Label Comments: PLACE TWO FILMS UNDER THE TONGUE AND ALLOW TO DISSOLVE ONCE DAILY FOR 4 DAYS gabapentin [Neurontin] 300 mg capsule 300 mg PO BID Rx Instructions: On the first day take 1 pill, on the second day take 1 pill twice daily, on the third day and for the remainder of the prescription take 1 pill 3 times a day. Medical Decision Making 31 yo male with hx of adhd and prior drug abuse on suboxone and denies any recent drug use comes in with complaints of being paranoid that people are out to take his money. He apparently started to get back pay' checks and lives [place]. He states people around him learned he started to have money so he felt they were following him and he was paranoid they were going to take his money. This has made him depressed and have vague thoughts of harming himself so he came here. He denies attempting to harm himself, denies alcohol use. He doesn't make eye contact during exam and has a flat affect. He is caox4 without focal deficits and clear speech. No fevers, chills, chest pain, dyspnea, abdomen pain. He has a HR over 110 so can't use the Smart medical clearance form, will obtain screening labs though the tachycardia is likely due to anxiety. pt signed out to oncoming provider pending labs and if negtive workup mental health evaluation Differential Diagnosis Differential Diagnosis: depression, paranoid Medical Records Medical records reviewed: Yes I reviewed the patient's medical records. HPI General Mode of arrival: ambulatory . Date/Time Provider Initiated Documentation: 01/20/22 22:29 . Limitations to Documentation: no limitations . Information obtained by: patient . History of Present Illness 31 year old M presents to the emergency department with the chief complaint of ?people following him, described as moderate, Patient started experiencing this day(s) (1) and it has been constant. No relieving factors improve symptom(s), No exacerbating factors reported . Patient did receive the following treatments prior to arrival, none Related Data Home Medications Medication Instructions Recorded Confirmed methadone 10 mg/5 mL oral solution 105 mg PO DAILY 02/10/20 06/21/21 dextroamphetamine-amphetamine ER 10 mg PO DAILY 08/09/20 01/20/22 30 mg 24hr capsule,extend release (Adderall XR) hydroxyzine HCl 50 mg tablet 50 mg PO TID PRN anxiety #270 tabs 05/09/21 01/20/22 pantoprazole 40 mg tablet,delayed 40 mg PO DAILY #90 tabs 05/09/21 01/20/22 release prednisone 20 mg tablet See Rx Instructions .Route 06/21/21 01/20/22 .COMPLEX #18 tabs olanzapine 5 mg tablet (Zyprexa) 5 mg PO BID PRN 08/26/21 01/20/22 buprenorphine 12 mg-naloxone 3 mg film 12/08/21 sublingual film (Suboxone) buprenorphine 8 mg-naloxone 2 mg 2 film buccal DAILY 01/20/22 01/20/22 sublingual film (Suboxone) gabapentin 300 mg capsule 300 mg PO BID 01/20/22 01/20/22 (Neurontin) Previous Rx's Medication Instructions Recorded hydroxyzine HCl 50 mg tablet 50 mg PO TID PRN anxiety #270 tabs 05/09/21 pantoprazole 40 mg tablet,delayed 40 mg PO DAILY #90 tabs 05/09/21 release prednisone 20 mg tablet See Rx Instructions .Route 06/21/21 .COMPLEX #18 tabs Allergies Allergy/AdvReac Type Severity Reaction Status Date / Time methylphenidate AdvReac Severe left Verified 01/20/22 22:35 [From Ritalin] arm,tongue,face numbness,tingling General Stated Complaint: PsychEval STAR: 2 Review of Systems All systems reviewed & are unremarkable except as noted in HPI and below Constitutional Constitutional: Denies chills, Denies fever(s) and Denies weakness Eyes Eyes: Denies loss of vision Cardiovascular Cardiovascular: Denies chest pain and Denies dyspnea Respiratory Respiratory: Denies cough and Denies dyspnea Gastrointestinal Gastrointestinal: Denies abdominal pain, Denies nausea and Denies vomiting Integumentary/Breasts Skin/Breast: Denies rash Neurologic Neurologic: Denies loss of vision and Denies weakness [facility] All Active Problems (Updated 01/20/22 @ 22:46 by Rob Gandhi MD) Depression (Chronic) Passed out (Acute) Contusion of arm, left (Acute) Blunt head injury (Acute) Chest pain (Acute) Stress at home (Acute) Leg erythema (Acute) Cough (Acute) Paranoid (Acute) Late effect of facial wound (Acute) Long-term current use of methadone for opiate dependence (Acute) GERD (gastroesophageal reflux disease) (Chronic) Anxiety (Chronic) ADHD (Chronic) Medical History ADHD Depression Drug abuse Family History Father , colon ca at age 70. Colon cancer Social History Smoking/Tobacco Use Status: Current every day Tobacco Type: cigarettes Smoking risk assessment performed?: Yes Alcohol Intake: former Drug use: Current Sobriety Substance use type: former substance user Do you feel safe at home: No Do you feel safe in your relationship?: Yes Exam Const General: no acute distress Orientation: alert HENMT Head: normal to inspection Ears: external ears normal General nose exam: external nose normal Mouth: moist mucous membranes Eyes General: appearance normal, both eyes and all related structures Neck Neck: normal visual inspection Resp Effort & Inspection: normal respiratory effort and able to speak in complete sentences Cardio Rate: regular rate Skin General skin exam: no rashes or lesions noted Neuro General: patient alert and patient oriented x3 Extrem General: normal to inspection Psych Speech and Movement: speech not slurred Course Vital Signs Vital signs: Vital Signs Temperature 37.1 C 01/20/22 22:26 Pulse 111 H 01/20/22 22:26 Respiratory Rate 16 01/20/22 22:26 Blood Pressure 151/103 H 01/20/22 22:26 Pulse Oximetry 98 01/20/22 22:26 Temperature 37.1 C 01/20/22 22:26 Temperature Source Skin 01/20/22 22:26 Pulse 111 H 01/20/22 22:26 Respiratory Rate 16 01/20/22 22:26 Blood Pressure 151/103 H 01/20/22 22:26 Blood Pressure Position Sitting 01/20/22 22:26 Pulse Oximetry 98 01/20/22 22:26 Oxygen Delivery Method Room Air 01/20/22 22:26 Oxygen Flow Rate 0 01/20/22 22:26 Pain Level 0 01/20/22 22:26
--- OUTSIDE RECORDS SUMMARY | 2022-01-20 22:45 | XMS_ITS | Encounter Summary ---
:1990 Demographics Home Phone Preferred Language Unknown Marital Status Unknown Presybeterian Affiliation Unknown Race Unknown Ethnic Group Unknown Author Organization [facility] Address [address] [place] [address] Care Team Providers Name Role Phone Unavailable Primary Care Provider Unavailable Encounter Details Date Type Department Care Team Description 07/30/2020 Lab Requisition [facility] Outr Resulting Lab, Pathology & Laboratory Provider [facility] [address], [place] [id number] Social History Tobacco Use Types Packs/Day Years Used Date Never Assessed Sex Assigned at Date Recorded Not on file documented as of this encounter Plan of Treatment Not on filedocumented as of this encounter Procedures Procedure Name Priority Date/Time Associated Comments Diagnosis DO NOT ORDER Today 07/30/2020 8:45 EST Results for this STANDALONE - [facility]OAD procedure are in COVID TEST the results section. COVID-19 TESTING Routine 07/30/2020 8:45 EST Resu lts for this procedure are i n the results section. documented in this encounter Results DO NOT ORDER STANDALONE - [facility] COVID TEST (07/30/2020 8:45 EST) COVID-19 rt-PCR NEGATIVE Negative [facility] Result Comment: LABORATORY 2019-novel Coronavirus (2019 -nCoV) not detected by the qRT-PCR assay. Consider testing for other respiratory viruses or re-collecting for 2019-nCoV testing. Note: Optimum timing for peak viral levels du ring infections caused by 20 -nCoV have not been determined. Collection of multiple specimens from the same patient may be necessary to detect the virus. Limitations Positive results are indicat raghu of active infection with SARS-CoV-2 but do not rule out bacterial infection or co-infection with other viruses. The agent detected may not be the definite cause of diseas e. In addition, detection of viral RNA may not indicate the presence of infectious virus or that SARS-CoV-2 is the causative agent for clinical symptoms. Negative results do not prec lude SARS-CoV-2 infection and should not be used as the sole basis for patient management decisions. Negative results must be combined with clinical observations, patient his tory, and epidemiological in formation. False negative results may also occur if amplification inhibitors are present in the specimen or if inadequate numbers of organisms are present in the specimen. Op timum specimen types and serafin ing for peak viral levels during infections caused by SARS-CoV-2 have not been fully determined. Collection of multiple specimens (types and time points) from the same patient may be necessary to detect the virus. The test was validated for u with upper respiratory specimens obtained via nasopharyngeal or oropharyngeal swabs in VTM, UTM, M4, M5, M6, saline, and MTM media. The performance of this test has not be en established for other spe cimens. Specimens collected using other FDA recommended Specimen Collection Materials listed in the FDA COVID-19 [employer] communication (October 02, 2019) are pr ocessed with the caveat that they were not all validated for use with this test and the result must be interpreted in this context. Furthermore, a false negative results may occur if a specimen is improperly collected, transported or handled. If the virus mutates in the RT-PCR target region, SARS-CoV-2 may not be detected or may be detected less predictably. Inhibitors or other types of interference may produce a false negative result. An interference study evaluating the effect of common cold medications was not performed. This test is not FDA-cleared but its performance characteristics were established by our CLIA-certified, CAP-accredited, high complexity laboratory in accordance with CLIA regulations, [employer] (CAP) guidel cari (Sep 25, 2019), and FDA guidance (Sep 06, 2019). This test is only for use un scott the Food and Drug Administration's Emergency Use Authorization. Specimen Swab - Entire nasopharynx (body structur e) Performing Organization Address City/State/ZIP Code Phon e Number [facility] [place] [place] COVID-19 TESTING (07/30/2020 8:45 EST) COVID-19 rt-PCR NEGATIVE Negative [facility] Result Comment: LABORATORY 2019-novel Coronavirus (2019 -nCoV) not detected by the qRT-PCR assay. Consider testing for other respiratory viruses or re-collecting for 2019-nCoV testing. Note: Optimum timing for peak viral levels du ring infections caused by 20 19-nCoV have not been determined. Collection of multiple specimens from the same patient may be necessary to detect the virus. Limitations Positive results are indicat raghu of active infection with SARS-CoV-2 but do not rule out bacterial infection or co-infection with other viruses. The agent detected may not be the definite cause of diseas e. In addition, detection of viral RNA may not indicate the presence of infectious virus or that SARS-CoV-2 is the causative agent for clinical symptoms. Negative results do not prec lude SARS-CoV-2 infection and should not be used as the sole basis for patient management decisions. Negative results must be combined with clinical observations, patient his tory, and epidemiological in formation. False negative results may also occur if amplification inhibitors are present in the specimen or if inadequate numbers of organisms are present in the specimen. Op timum specimen types and serafin ing for peak viral levels during infections caused by SARS-CoV-2 have not been fully determined. Collection of multiple specimens (types and time points) from the same patient may be necessary to detect the virus. The test was validated for u se with upper respiratory specimens obtained via nasopharyngeal or oropharyngeal swabs in VTM, UTM, M4, M5, M6, saline, and MTM media. The performance of this test has not be en established for other spe cimens. Specimens collected using other FDA recommended Specimen Collection Materials listed in the FDA COVID-19 [employer] communication (October 02, 2019) are pr ocessed with the caveat that they were not all validated for use with this test and the result must be interpreted in this context. Furthermore, a false negative results may occur if a specimen is improperly collected, transported or handled. If the virus mutates in the RT-PCR target region, SARS-CoV-2 may not be detected or may be detected less predictably. Inhibitors or other types of interference may produce a false negative result. An interference study evaluating the effect of common cold medications was not performed. This test is not FDA-cleared but its performance characteristics were established by our CLIA-certified, CAP-accredited, high complexity laboratory in accordance with CLIA regulations, [employer] (CAP) guidel cari (Sep 25, 2019), and FDA guidance (Sep 06, 2019). This test is only for use un scott the Food and Drug Administration's Emergency Use Authorization. Performing Lab [facility] LABORATORY SERVICES Specimen Swab Performing Organization Address City/State/ZIP Code Phon e Number [facility] [address] [place] [address] SERVICES [facility] [place] [place] documented in this encounter Visit Diagnoses Not on filedocumented in this encounter
--- OUTSIDE RECORDS SUMMARY | 2022-01-20 22:45 | XMS_ITS | Clinical Summary ---
:1990 Demographics Home Phone Preferred Language Unknown Marital Status Unknown Mu-Ism Affiliation Unknown Race Unknown Ethnic Group Unknown Author Organization [facility] Address [address] [place] [id number] Care Team Providers Name Role Phone Unavailable Primary Care Provider Unavailable Social History Tobacco Use Types Packs/Day Years Used Date Never Assessed Sex Assigned at Date Recorded Not on file Plan of Treatment Not on file
[2022-01-20 23:13] LABS: Bilirubin Negative (Negative); Blood Negative (Negative); Clarity Clear (Clear); Glucose Negative (Negative); Ketones Negative (Negative); Leukocyte Esterase Negative (Negative); Nitrite Negative (Negative); Specific Gravity >= 1.030 (1.005-1.025); Urobilinogen 0.2 EU/dL (Up TO 0.2)
[2022-01-20 23:20] LABS: Bacteria Negative HPF (Negative); C & S Indicated? No; Crystals Negative HPF (Negative); Epithelial Cells Negative HPF (Negative); Mucus Heavy (Negative); RBC Negative HPF (0-2); WBC Negative HPF (0-5)
[2022-01-20 23:29] LABS: *AMPHETAMINES SCREEN URINE Positive (Negative); *BARBITURATES SCREEN URINE Negative (Negative); *BENZODIAZEPINES SCREEN URINE Negative (Negative); Cannabinoids THC Negative (Negative); Cocaine Screen,Urine Negative (Negative); METHADONE URINE SCREEN Negative (Negative); OPIATES URINE SCREEN Negative (Negative)
[2022-01-20 23:30] LABS: Tricyclic Antidepressants Negative (Negative)
[2022-01-20 23:37] LABS: Source Nasal/Nares
[2022-01-20 23:40] LABS: Abs Immature Grans 0.01 10^3/uL (0.0-0.06); Absolute Basophil Count 0.03 10^3/uL (0.0-0.2); Absolute Lymphocyte Count 2.97 10^3/uL (1.2-3.4); Absolute Monocyte Count 0.65 10^3/uL (0.1-0.8); Absolute Neutrophil Count 4.66 10^3/uL (1.2-6.7); Basophils % 0.4; Eosinophils % 1.2; HGB 12.5 g/dL (13.5-17.5); Immature Grans % 0.1; Lymphocytes % 35.3; MCH 27.8 pg (27.0-33.0); MCHC 33.8 % (32.0-36.0); MCV 82 fL (80-95); MPV 8.6 fL (8.0-11.0); Monocytes % 7.7; Neutrophils % 55.3; Platelet Count 339 10^3/uL (130-400); RBC 4.49 10^6/uL (4.36-5.78); RDW 15.9 % (11.8-14.1); RDW-SD 47.6 fL; WBC 8.42 10^3/uL (4.4-10.8)
[2022-01-21 00:04] LABS: ALT 37 U/L (16-63); AST 26 U/L (15-37); Albumin 3.7 g/dL (3.4-5.0); Alkaline Phosphatase 71 U/L (46-116); BUN 16 mg/dL (7-18); Bilirubin, Total 0.5 mg/dL (0.2-1.0); CREATININE 1.2 mg/dL (0.70-1.30); Calcium 8.9 mg/dL (8.5-10.1); Chloride 103 mmol/L (98-107); Glucose 152 mg/dL (74-106); Potassium 3.1 mmol/L (3.5-5.1); Sodium 141 mmol/L (136-145); TSH (W/Ref FT4) 0.42 uIU/mL (0.36-3.74); Total Protein 7.7 g/dL (6.4-8.2)
[2022-01-21 00:06] LABS: ETHANOL BLOOD < 3.0 mg/dL (<10)
[2022-01-21 00:22] LABS: Salicylate < 2.8 mg/dL (<2.8)
[2022-01-21 00:26] LABS: COVID-19 PCR Negative (Negative)
[2022-01-21 00:29] LABS: Acetaminophen < 2 ug/mL (10-30)
--- NOTE | 2022-01-21 07:03 | NUR.NOTE ---
At the start of my shift the Rose was sitting as CPSO. She found patient 's cell phones on the computer. Previous CPSO reported they waitied until he was sleep to remove his phone
[2022-01-21 08:07] VITALS: BP 114/75; PULSE 68; TEMP 36.3; O2SAT 98
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
--- NOTE | 2022-01-25 11:44 | PDOC.MHCN_ITS ---
Date of service: 01/21/22 Time of Service: 11:44 Mental Health Crisis Note Presenting Issue How did you arrive at the ED and why did you come: Client arrived via [facility] after calling 911 with fear that there was someone(s) harassing him, trying to steal his money and threatening to shoot him in the face. Precipitating Factors Client denied SI and HI and although it was difficult to hear him it did appear that he may be experiencing some delusions and paranoia at this time. Disposition BEHAVIOR: Client assessed twice once at 12:30am and again at 8:30am. Client is soft spoken and difficult to hear via zoom as he would not pick his head up. He was friendly. Client showed poor insight and judgment but was willing to safety plan. EYE CONTACT: Poor MOOD: Anxious AFFECT: Congruent with mood APPETITE: Good SLEEP(trouble falling/staying asleep: Good Plan Client agreed to a safety plan. Client used [facility]'s phone to call 211 to see if he could be re-located to another hotel out of this area. He was told he would need to wait until Sunday to do this. Client also was given numerous numbers for other hotels that he could go to as he said he had money to pay for one. He just does not want to go back to the [facility]. Client will outreach to this clinician later tonight to check in. Signature Clinician's Name/Title: Audra Ramirez MS, [facility] Emergency Services Clinician, [facility]
== END 2022-01-21 12:29 | disposition home or self-care (01) ==
PROVIDERS: Emergency Medicine; Emergency Provider Physician Assistant; PCP Family Medicine
DX: F22 Delusional disorders (principal); F17.210 Nicotine dependence, cigarettes, uncomplicated; Z20.822 Contact with and (suspected) exposure to COVID-19; F32.A Depression, unspecified
CPT/HCPCS: 80053; 80307; 87635; 99284; 80320; 80329; 81003; 81015; 84443; 85025

== ENCOUNTER 2022-01-21 22:57 | Emergency (ER) | payer MEDICAID, SELFPAY ==
[2022-01-21 23:08] VITALS: BP 126/69; PULSE 97; RESP 14; TEMP 36.7; O2SAT 97
--- OUTSIDE RECORDS SUMMARY | 2022-01-21 23:10 | XMS_ITS | Encounter Summary ---
:1990 Demographics Home Phone Preferred Language Unknown Marital Status Unknown Sabianist Affiliation Unknown Race Unknown Ethnic Group Unknown Author Organization [facility] Address [address] [place] [address] Care Team Providers Name Role Phone Unavailable Primary Care Provider Unavailable Encounter Details Date Type Department Care Team Description 07/30/2020 Lab Requisition [facility] Outr Resulting Lab, Pathology & Laboratory Provider [facility] [address], [place] [id number] Social History Tobacco Use Types Packs/Day Years [...] (07/30/2020 8:45 EST) COVID-19 rt-PCR NEGATIVE Negative [facility] Result Comment: LABORATORY 2019-novel Coronavirus [...] Number [facility] [place], [place] COVID-19 TESTING (07/30/2020 8:45 EST) COVID-19 rt-PCR NEGATIVE Negative [facility] Result Comment: LABORATORY 2019-novel Coronavirus [...] Administration's Emergency Use Authorization. Performing Lab [facility] LABORATORY SERVICES Specimen Swab Performing Organization Address City/State/ZIP Code Phon e Number [facility] [address] [place] [address] SERVICES [facility] [place], [place] documented in this encounter Visit Diagnoses Not on filedocumented in this encounter
[2022-01-21 23:55] LABS: Abs Immature Grans 0.02 10^3/uL (0.0-0.06); Absolute Basophil Count 0.03 10^3/uL (0.0-0.2); Absolute Eosinophil Count 0.05 10^3/uL (0.0-0.7); Absolute Lymphocyte Count 2.27 10^3/uL (1.2-3.4); Absolute Monocyte Count 0.59 10^3/uL (0.1-0.8); Absolute Neutrophil Count 6.22 10^3/uL (1.2-6.7); Basophils % 0.3; Eosinophils % 0.5; HCT 36.9 % (40.0-50.0); HGB 12.1 g/dL (13.5-17.5); Immature Grans % 0.2; Lymphocytes % 24.7; MCH 27.3 pg (27.0-33.0); MCHC 32.8 % (32.0-36.0); MCV 83 fL (80-95); MPV 8.7 fL (8.0-11.0); Monocytes % 6.4; Neutrophils % 67.9; Platelet Count 313 10^3/uL (130-400); RBC 4.43 10^6/uL (4.36-5.78); RDW 15.9 % (11.8-14.1); WBC 9.18 10^3/uL (4.4-10.8)
[2022-01-22 00:16] LABS: *AMPHETAMINES SCREEN URINE Positive (Negative); *BARBITURATES SCREEN URINE Negative (Negative); *BENZODIAZEPINES SCREEN URINE Negative (Negative); Cannabinoids THC Negative (Negative); Cocaine Screen,Urine Positive (Negative); METHADONE URINE SCREEN Negative (Negative); OPIATES URINE SCREEN Negative (Negative)
[2022-01-22 00:19] LABS: Tricyclic Antidepressants Negative (Negative)
[2022-01-22 00:21] LABS: ALT 34 U/L (16-63); AST 22 U/L (15-37); Albumin 3.6 g/dL (3.4-5.0); Alkaline Phosphatase 69 U/L (46-116); Anion Gap 10.9 mmol/L (3-11); BUN 16 mg/dL (7-18); Bilirubin, Total 0.4 mg/dL (0.2-1.0); CO2 25.1 mmol/L (21.0-32.0); CREATININE 1.1 mg/dL (0.70-1.30); Calcium 9.3 mg/dL (8.5-10.1); Chloride 104 mmol/L (98-107); Glucose 120 mg/dL (74-106); Potassium 3.7 mmol/L (3.5-5.1); Sodium 140 mmol/L (136-145); TSH (W/Ref FT4) 0.53 uIU/mL (0.36-3.74); Total Protein 7.6 g/dL (6.4-8.2)
[2022-01-22 00:23] LABS: Salicylate < 2.8 mg/dL (<2.8)
[2022-01-22 00:28] LABS: Acetaminophen < 2 ug/mL (10-30); ETHANOL BLOOD < 3.0 mg/dL (<10)
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
[2022-01-22 01:07] LABS: Source Nasal/Nares
[2022-01-22] MEDS: diazePAM 5 MG TAB PO (01:25)
[2022-01-22 01:56] LABS: COVID-19 PCR Negative (Negative)
--- NOTE | 2022-01-22 06:13 | NUR.NOTE ---
Patient valuable envelope taken to safe by nursing supervisor feed house at 22:40.Nursing Note:
--- NOTE | 2022-01-22 09:48 | ED.PROG_ITS ---
Date of service: 01/22/22 Time of Service: 08:00 Medical Decision Making 0945 -- Case discussed with Carolina JOLLEY with [facility] services and she is recommending a dose of of 10mg Zyprexa PO now and to restart her Zyprexa 5 mg p.o. twice daily. Is also recommending Haldol 10 mg p.o. twice daily as n eeded agitation or paranoia. Plan is for transfer to care bed today. 1310 -- patient is requesting a dose of the Suboxone. Case discussed with Audra who confirms that he is on 8 mg Suboxone. Patient was also stating that he would like to leave. He is discussed with Audra over the phone and they are awaiting placement in a care bed. 1345 -- Audra called to state that the behavioral health director is declining admission to the care bed today due to concern for opiate withdrawal. Patient has gone 1 to 2 days without his Suboxone and his Suboxone dose has been given here today. He demonstrates no signs of withdrawal. I discussed with Jarad Brito from the care bed and he states that it is a staffing issue as there is no one there to safely administer his medications at the care bed today but will likely be available tomorrow. 1999 -- Case endorsed to Dr. Brown to monitor overnight. Tentative plan for care bed tomorrow. Medical Records Medical records reviewed: Yes I reviewed the patient's medical records. Sign Out Sign Out Data: Sign Out Comment: Paranbud, mental health/Audra is requesting to personally reassess in the morning or potential psychiatric hospital admission versus care bed Last updated by Jeff Brown DO at 01/22/22 07:10 Sign Out Comment: No acute events today. Limited staff availability at the care bed today. Tentative plan is for care bed tomorrow. Last updated by Katiuska Hicks DO at 01/22/22 19:37 Sign Out Comment: Patient has paranoia, but no homicidal or suicidal ideations. Likely expected disposition to care bed today Last updated by Jeff Brown DO at 01/23/22 07:19 Discharge Plan Disposition Patient Disposition: [facility] Condition: Stable Discharge Details Clinical Impression: Paranoid Primary Care Provider: Ivan Vizcaino ED Provider: Che Harris Home Meds and New Rx's Prescriptions: Continued olanzapine [Zyprexa] 5 mg tablet 5 mg PO BID gabapentin [Neurontin] 300 mg capsule 300 mg PO TID Discontinued methadone 10 mg/5 mL solution 105 mg PO DAILY Rx Instructions: receives @ [facility] No Action hydroxyzine HCl 50 mg tablet 50 mg PO TID loratadine 10 mg tablet 10 mg PO DAILY Nicotrol 10 mg Cartridge 300 mg inhalation DIRECTED PRNQty: 0 0RF propranolol 10 mg tablet 10 mg PO BID famotidine 20 mg tablet 20 mg PO DAILY aspirin 81 mg tablet,chewable 81 mg PO DAILY haloperidol 5 mg tablet 5 mg PO DAILY dextroamphetamine-amphetamine 10 mg tablet 10 mg PO DAILY dextroamphetamine-amphetamine 30 mg capsule,extended release 24hr 30 mg PO DAILY buprenorphine-naloxone 8-2 mg film 1 film sublingual DAILY Discharge Instructions Additional Instructions: Please return immediately to the emergency department if you develop any new or worsening symptoms, if your condition does not improve as expected, or if you become otherwise concerned. It is extremely important that you call soon as possible to make an appointment to be seen in follow-up for this visit by your primary care doctor. Referrals: Ivan Vizcaino DO [Primary Care Provider] - Discharge Data Discharge Date/Time-TO BE ENTERED AT DEPARTURE: 01/23/22 11:33
[2022-01-22] MEDS: OLANZapine 10 MG TAB PO (10:15)
[2022-01-22] MEDS: Buprenorphine/Naloxone 8 mg/2 mg FILM 1 EACH SL (13:23)
--- NOTE | 2022-01-22 15:40 | CMSP_ITS ---
- If Service Date Differs Date of service: 01/22/22 Time of Service: 15:40 Care Management Safety Plan Status: Voluntary - Guarianship if Applicable Guardianship: Other - Reason for Wait Reason for Wait: Inpatient Admission ( ) VOLUNTARY FOR INPATIENT PSYCHIATRIC STABILIZATION. Patient is appropriate in all interactions since arriving at [facility]; Pt has demonstrated appropriate coping and communication skills, has articulated his or her needs and concerns and is fully engaged during staff interactions. Safety plan has been established with patient, and care team, to adhere to patient goals, identify restrictions based on behavioral status, address nutrition, and determine allowed personal belongings, tools for hygiene and personal care. Determine level of activity including ambulation, level of supervision, visitors, and determine privileges based on behaviors and level of engagement by pt. Per Audra at [facility], Frank may have his handheld nintendo switch, while he waits to transition to [facility] Carebed tomorrow morning. SAFETY PLAN: 1. Will remain on suicide precautions. In Paper Clothes 2. Will remain in room under direct supervision of one-on-one staff at all times provided by [employer]; ELIAZAR, MBA INTERN electronic controls repairer supervisor. 3. May have paper cups, plates, finger foods as well as a cardboard spoon with which to eat meals. 4. Follow [facility] Management of the Admitted Behavioral Health Patient policy. 5. Comfort bath system only, shower permitted with escort at RN discretion. 6. No personal belongings with the exception of his personal nintendo switch, at RN discretion. 7. Visitors-none at this time. 8. Activities: soft cart items approved per RN discretion. 9. Bathroom privileges with escort in the ED, available in room without limitation on M/S. 10. Phone: contact limited to family at this time, via cordless phone at RN discretion. 11. Due to VOLUNTARY status, if patient wishes to leave [facility], staff will contact [facility] Crisis Screener ([phone]) and On-Call Medical Records Assistant ([phone]) as soon as possible. In the event of elopement, notify [facility] Police ([phone]). Patient is currently voluntarily at [facility] and seeking inpatient admission when a bed becomes available. [facility] Frontline Manufacturing Controls Engineer will continue seeking placement. Please contact the [facility] Medical Records Assistant ([phone]) and [facility] Manufacturing Controls Engineer ([phone]) for any needed changes in the Safety Plan. Safety plan has been provided to interdepartmental care team. cc:
[2022-01-22 16:14] VITALS: BP 114/75; PULSE 88; TEMP 36.3; O2SAT 98
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
--- NOTE | 2022-01-25 11:54 | PDOC.MHCN ---
Date of service: 01/23/22 Time of Service: 11:54 Mental Health Crisis Note Presenting Issue How did you arrive at the ED and why did you come: Client arrived again to the ED via ambulance this time for symptoms consistent with paranoia and delusions. Precipitating Factors Client stated that he can hear them and no one believes him. He was on the phone with this clinician for 2 hours including during that time this clinician went to his hotel room to try to reassure him he was safe. Client denied SI and HI but is willing to engage in a referral to the CARE Bed. Disposition BEHAVIOR: Client is cooperative but clearly distracted and anxious by the symptoms he is experiencing. He requested to have his Nintendo Switch while he waits for placement to try to preoccupy his mind. EYE CONTACT: Client still struggles to make eye contact. MOOD: Anxious AFFECT: Flat APPETITE: Good SLEEP(trouble falling/staying asleep: Client reported that he woke a lot through the night. Plan Client agreed to a CARE Bed referral however, they were unable to accept him today. He will be considered in the morning when staff can review his chart. This clinician contacted client med provider, Natasha Glover who had some ideas on medicartion adjustments and this clinician connected her with Dr. Hicks. Signature Clinician's Name/Title: Audra Ramirez MS, [facility] Emergency Services Clinician, [facility]
--- NOTE | 2022-02-13 12:46 | ED.PROG_ITS ---
Date of service: 01/23/22 Time of Service: 07:30 Medical Decision Making Pt signed out to me by Dr. Brown with placement in care bed pending. Pt re-evaluated my mental health, plan for d/c to care bed as previously arranged. Pt well and non-toxic with no complaints on reassessment. No SI. Care management involved, has seen Pt. Pt d/abhinav to care bed. Medical Records Medical records reviewed: Yes I reviewed the patient's medical records. Sign Out Sign Out Data: Sign Out Comment: Paranoia, mental health/Audra is requesting to personally reassess in the morning or potential psychiatric hospital admission versus care bed Last updated by Jeff Brown DO at 01/22/22 07:10 Sign Out Comment: No acute events today. Limited staff availability at the care bed today. Tentative plan is for care bed tomorrow. Last updated by Katiuska Hicks DO at 01/22/22 19:37 Sign Out Comment: Patient has paranoia, but no homicidal or suicidal ideations. Likely expected disposition to care bed today Last updated by Jeff Brown DO at 01/23/22 07:19 Discharge Plan Disposition Patient Disposition: [facility]ILITY Condition: Stable Discharge Details Clinical Impression: Paranoid Primary Care Provider: Ivan Vizcaino ED Provider: Che Harris Marquette Meds and New Rx's Prescriptions: Continued olanzapine [Zyprexa] 5 mg tablet 5 mg PO BID gabapentin [Neurontin] 300 mg capsule 300 mg PO TID Discontinued methadone 10 mg/5 mL solution 105 mg PO DAILY Rx Instructions: receives @ [facility] No Action hydroxyzine HCl 50 mg tablet 50 mg PO TID loratadine 10 mg tablet 10 mg PO DAILY Nicotrol 10 mg Cartridge 300 mg inhalation DIRECTED PRNQty: 0 0RF propranolol 10 mg tablet 10 mg PO BID famotidine 20 mg tablet 20 mg PO DAILY aspirin 81 mg tablet,chewable 81 mg PO DAILY haloperidol 5 mg tablet 5 mg PO DAILY dextroamphetamine-amphetamine 10 mg tablet 10 mg PO DAILY dextroamphetamine-amphetamine 30 mg capsule,extended release 24hr 30 mg PO DAILY buprenorphine-naloxone 8-2 mg film 1 film sublingual DAILY Discharge Instructions Additional Instructions: Please return immediately to the emergency department if you develop any new or worsening symptoms, if your condition does not improve as expected, or if you become otherwise concerned. It is extremely important that you call soon as possible to make an appointment to be seen in follow-up for this visit by your primary care doctor. Referrals: Ivan Vizcaino DO [Primary Care Provider] - Discharge Data Discharge Date/Time-TO BE ENTERED AT DEPARTURE: 01/23/22 11:33
== END 2022-01-23 11:33 | disposition designated cancer center or children's hospital (05) ==
PROVIDERS: Student in an Organized Health Care Education/Training Program; Emergency Provider Student in an Organized Health Care Education/Training Program; PCP Family Medicine
DX: F22 Delusional disorders (principal); Z79.899 Other long term (current) drug therapy; F32.A Depression, unspecified
CPT/HCPCS: 80053; 80307; 80324; 80360; 87635; 99285; 80320; 80329; 80353; 80354; 84443; 85025

== ENCOUNTER 2022-01-23 20:21 | Inpatient (IN) | payer MEDICAID, SELFPAY ==
[2022-01-23 20:09] VITALS: BP 142/90; PULSE 98; RESP 16; TEMP 36.8; O2SAT 97
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
--- NOTE | 2022-01-23 21:35 | PDOC.MHCN_ITS ---
Date of service: 01/23/22 Time of Service: 21:36 Mental Health Crisis Note Presenting Issue How did you arrive at the ED and why did you come: Client presented to [facility] ED via calex after speaking to [facility] on the phone endorsing SI with intent and plan. Client also demonstrating paranoia and delusions stating that people are after him and are threatening to kill him. Precipitating Factors Client currently endorsing SI, rating intent 9/10 and plan to slit wrists with knife or overdose on recreational drugs. Disposition BEHAVIOR: Client is dressed in proper paper hospital attire and is cooperative with this technical writer and editor answering all of the questions that are asked of him. EYE CONTACT: minimal MOOD: depressed, stressed AFFECT: constricted APPETITE: good SLEEP(trouble falling/staying asleep: good Plan Client will remain at [facility] ED on voluntary status pending admission to an inpatient facility. Referrals will be sent to [facility], [facility], , and [facility]. Upon conversation with [facility] attending physician [facility] transition coach will also come in and talk to client about recreational drug use and possible referral for [facility]. Signature Clinician's Name/Title: Patrica Villalpando [facility] Emergency Clinician.
--- NOTE | 2022-01-23 21:35 | PDOC.MHCN ---
Date of service: 01/23/22 Time of Service: 21:36 Mental Health Crisis Note Presenting Issue How did you arrive at the ED and why did you come: Client presented to [facility] ED via calex after speaking to [facility] on the phone endorsing SI with intent and plan. Client also demonstrating paranoia and delusions stating that people are after him and are threatening to kill him. Precipitating Factors Client currently endorsing SI, rating intent 9/10 and plan to slit wrists with knife or overdose on recreational drugs. Disposition BEHAVIOR: Client is dressed in proper paper hospital attire and is cooperative with this property underwriter answering all of the questions that are asked of him. EYE CONTACT: minimal MOOD: depressed, stressed AFFECT: constricted APPETITE: good SLEEP(trouble falling/staying asleep: good Plan Client will remain at [facility] ED on voluntary status pending admission to an inpatient facility. Referrals will be sent to [facility], [facility], , and [facility]. Upon conversation with [facility] attending physician [facility] head strength and conditioning coach will also come in and talk to client about recreational drug use and possible referral for [facility]. Signature Clinician's Name/Title: Patrica Villalpando [facility] Emergency Clinician.
[2022-01-23] MEDS: Ondansetron O.D.T. 4 MG TABEF PO (22:00)
[2022-01-23 22:36] LABS: Abs Immature Grans 0.03 10^3/uL (0.0-0.06); Absolute Basophil Count 0.02 10^3/uL (0.0-0.2); Absolute Eosinophil Count 0.09 10^3/uL (0.0-0.7); Absolute Lymphocyte Count 2.28 10^3/uL (1.2-3.4); Absolute Monocyte Count 0.64 10^3/uL (0.1-0.8); Absolute Neutrophil Count 8.32 10^3/uL (1.2-6.7); Basophils % 0.2; Eosinophils % 0.8; HCT 38.2 % (40.0-50.0); HGB 12.4 g/dL (13.5-17.5); Immature Grans % 0.3; MCH 27.1 pg (27.0-33.0); MCHC 32.5 % (32.0-36.0); MCV 83 fL (80-95); MPV 8.8 fL (8.0-11.0); Monocytes % 5.6; Neutrophils % 73.1; Platelet Count 295 10^3/uL (130-400); RBC 4.58 10^6/uL (4.36-5.78); RDW 15.7 % (11.8-14.1); RDW-SD 47.8 fL; WBC 11.38 10^3/uL (4.4-10.8)
[2022-01-23 22:59] LABS: ALT 31 U/L (16-63); AST 16 U/L (15-37); Albumin 3.4 g/dL (3.4-5.0); Alkaline Phosphatase 64 U/L (46-116); Anion Gap 6.1 mmol/L (3-11); BUN 14 mg/dL (7-18); Bilirubin, Total 0.3 mg/dL (0.2-1.0); CO2 30.9 mmol/L (21.0-32.0); CREATININE 0.9 mg/dL (0.70-1.30); Calcium 8.9 mg/dL (8.5-10.1); Chloride 101 mmol/L (98-107); Glucose 108 mg/dL (74-106); Potassium 3.1 mmol/L (3.5-5.1); Sodium 138 mmol/L (136-145); TSH (W/Ref FT4) 1.23 uIU/mL (0.36-3.74); Total Protein 7.2 g/dL (6.4-8.2)
[2022-01-23 23:08] LABS: Salicylate < 2.8 mg/dL (<2.8)
[2022-01-23 23:09] LABS: ETHANOL BLOOD < 3.0 mg/dL (<10)
[2022-01-23 23:10] LABS: Acetaminophen < 2 ug/mL (10-30)
[2022-01-24 01:59] LABS: Bilirubin Negative (Negative); Blood Negative (Negative); Clarity Sl Cloudy (Clear); Glucose Negative (Negative); Ketones Negative (Negative); Leukocyte Esterase Negative (Negative); Nitrite Negative (Negative); Specific Gravity 1.025 (1.005-1.025); Urobilinogen 0.2 EU/dL (Up TO 0.2)
--- OUTSIDE RECORDS SUMMARY | 2022-01-24 02:00 | XMS_ITS | Encounter Summary ---
:1990 Demographics Home Phone Preferred Language Unknown Marital Status Unknown Scientology Affiliation Unknown Race Unknown Ethnic Group Unknown Author Organization [facility] Address [address] [place] [address] Care Team Providers Name Role Phone Unavailable Primary Care Provider Unavailable Encounter Details Date Type Department Care Team Description 07/30/2020 Lab Requisition [facility] Outr Resulting Lab, Pathology & Laboratory Provider [facility] [address], [place] [id number] Social History Tobacco Use Types Packs/Day Years [...] (07/30/2020 8:45 EST) COVID-19 rt-PCR NEGATIVE Negative [facility] Result Comment: LABORATORY 2019-novel Coronavirus (2019 [...] Number [facility] [place] [place] COVID-19 TESTING (07/30/2020 8:45 EST) COVID-19 rt-PCR NEGATIVE Negative [facility] Result Comment: LABORATORY 2019-novel Coronavirus (2019 [...] Administration's Emergency Use Authorization. Performing Lab [facility] LABORATORY SERVICES Specimen Swab Performing Organization Address City/State/ZIP Code Phon e Number [facility] [address] [place] [address] SERVICES [facility] [place], [place] documented in this encounter Visit Diagnoses Not on filedocumented in this encounter
[2022-01-24 02:17] LABS: *AMPHETAMINES SCREEN URINE Positive (Negative); *BARBITURATES SCREEN URINE Negative (Negative); *BENZODIAZEPINES SCREEN URINE Positive (Negative); Cannabinoids THC Negative (Negative); Cocaine Screen,Urine Positive (Negative); METHADONE URINE SCREEN Negative (Negative); OPIATES URINE SCREEN Negative (Negative)
[2022-01-24 02:19] LABS: Tricyclic Antidepressants Negative (Negative)
[2022-01-24] MEDS: Acetaminophen 500 MG TAB (03:01)
[2022-01-24] MEDS: diazePAM 5 MG TAB 10 MG PO (03:02)
[2022-01-24] MEDS: Gabapentin 300 MG CAP PO ×2 (09:02→21:00)
[2022-01-24] MEDS: Buprenorphine/Naloxone 8 mg/2 mg FILM 2 EACH SL (09:02)
[2022-01-24] MEDS: OLANZapine 5 MG TAB PO (09:04)
[2022-01-24] MEDS: Pantoprazole 40 MG TABCR PO (09:04)
--- NOTE | 2022-01-24 09:40 | NUR.NOTE ---
nurse practioner called from [facility]- wants to stop adderal XR and his 10mg adderal for now. thinks it may be exasperating his problems. Nursing Note:
[2022-01-24 13:09] VITALS: BP 105/69; PULSE 73; TEMP 36.9; O2SAT 97
--- NOTE | 2022-01-24 13:48 | PDOC.CMSAFED ---
- If Service Date Differs Date of service: 01/24/22 Time of Service: 13:48 Care Management Safety Plan Status: Voluntary - Reason for Wait Reason for Wait: Inpatient Admission Chief Complaint: Frank presents in the ED seeking placement. This is his third visit to the ED in 4 days. Per [facility], Frank is paranoid and delusional and is endorsing suicidal ideation with intent and plan to either cut his wrists with a knife or overdose on illicit drugs. Frank was discharged from the ED yesterday after denying SI or HI at that time. CM is unable to meet with Frank today as his Covid test returns positive. Referrals are faxed to [facility], [facility], [facility], [facility], and the [facility] Care Bed for review. CM will continue to follow. VOLUNTARY FOR INPATIENT PSYCHIATRIC STABILIZATION. Patient is appropriate in all interactions since arriving at [facility]; Pt has demonstrated appropriate coping and communication skills, has articulated his or her needs and concerns and is fully engaged during staff interactions. Safety plan has been established with patient, and care team, to adhere to patient goals, identify restrictions based on behavioral status, address nutrition, and determine allowed personal belongings, tools for hygiene and personal care. Determine level of activity including ambulation, level of supervision, visitors, and determine privileges based on behaviors and level of engagement by pt. The safety plan is discussed with Anitra, nursing mill house supervisor, but a huddle is not held due to the volume of patients in the ED. SAFETY PLAN: 1. Will remain on suicide precautions. In Paper Clothes 2. Will remain in room under direct supervision of one-on-one staff at all times provided by [employer], ELIAZAR, PRACTICING MD ANESTHESIOLOGIST software support analyst. 3. May have paper cups, plates, finger foods as well as a cardboard spoon with which to eat meals. 4. Follow [facility] Management of the Admitted Behavioral Health Patient policy. 5. Comfort bath system only, shower permitted with escort at RN discretion. 6. No personal belongings with the exception of his personal nintendo switch, at RN discretion. 7. Visitors-none at this time. 8. Activities: soft cart items approved per RN discretion. 9. Bathroom privileges with escort in the ED. 10. Phone: contact limited to family at this time, via cordless phone at RN discretion. 11. Due to VOLUNTARY status, if patient wishes to leave [facility], staff will contact [facility] Crisis Screener ([phone]) and On-Call Ticket Attendant ([phone]) as soon as possible. In the event of elopement, notify [facility] Police ([phone]). Patient is currently voluntarily at [facility] and seeking inpatient admission when a bed becomes available. [facility] Frontline Integrity Analyst will continue seeking placement. Please contact the Radiation / Chemistry Technician Ticket Attendant ([phone]) and [facility] Integrity Analyst ([phone]) for any needed changes in the Safety Plan. Safety plan has been provided to interdepartmental care team.
[2022-01-24 14:29] LABS: Source Nasal/Nares
--- NOTE | 2022-01-24 14:32 | PDOC.ERCMPRO ---
- If Service Date Differs Date of service: 01/24/22 Time of Service: 14:33
[2022-01-24 15:29] LABS: COVID-19 PCR POSITIVE (Negative)
--- NOTE | 2022-01-24 16:16 | W.EDPROG ---
Date of service: 01/24/22 Time of Service: 08:00 Medical Decision Making 1599 --patient accepted to the care bed for today, unfortunately his COVID test resulted positive. His COVID test was negative on 01/20 and 01/22 when he was here. He has been asymptomatic. Discussed with care management and the care bed is now refusing to take patient until his COVID test result is negative. Discussed with mental health and they are continuing to find placement. The positive COVID test may delay placement. There are limited beds available upstairs so we will hold in the ED at this time. Once availability opens upstairs, consider admission to the floor while awaiting placement. 1999 --Case endorsed to [facility] provider to continue to monitor overnight. 01/25 22:02 patient resting comfortably no acute distress. [facility] has denied patient the bed for 10 days given COVID-positive status. Attempted to admit patient as inpatient here at [facility], however given multiple admissions this evening and critical patients upstairs, night hospitalist asked that we hold the patient this evening and reassess bed status tomorrow. Medical Records Medical records reviewed: Yes I reviewed the patient's medical records. Sign Out Sign Out Data: Sign Out Comment: Patient seen here multiple times over the last few days for suicidal ideation. He admits to attempting to overdose on fentanyl today by shooting up and CARMELA requested we contact pyridine recovery operator [facility] which [facility]. He is calm and cooperative. He presented with knives which were checked into security. Last updated by Alivia Diaz NP at 01/23/22 23:41 Sign Out Comment: is voluntary but covid positive, awaiting placement Last updated by Rob Gandhi MD at 01/27/22 08:41 Sign Out Comment: Stable throughout the evening. Did request Valium to sleep. Valium was given. Remains calm and cooperative. Last updated by Jeff Brown DO at 01/24/22 07:20 Sign Out Comment: Patient accepted to care bed today however his COVID test resulted positive and care bed declined. Patient is voluntary. There are no beds available upstairs. Awaiting placement. Consider transfer upstairs once bed available. Last updated by Katiuska Hicks DO at 01/24/22 19:41 Sign Out Comment: Remains here on a voluntary with acceptance to care bed until COVID came back positive. Cooperative overnight. Mental health involved. Last updated by Charles Ferro MD at 01/25/22 07:15 Sign Out Comment: Patient here on voluntary psychiatric hold awaiting inpatient bed placement. Patient is COVID positive. Med reconciliation had already been performed and home meds prescribed. Last updated by Dean Harris MD at 01/25/22 15:46 Sign Out Comment: covid+, therefore [facility] take patient for 10 days... attempted to admit to hospitalist, asked to hold to reassess until morning given multiple admission this evening. If need be, will take upstairs in AM Last updated by Timothy José MD at 01/25/22 23:11 Sign Out Comment: Stable overnight with no change. Should be able to go to transition unit today. Last updated by Charles Ferro MD at 01/26/22 07:45 Sign Out Comment: covid positive and voluntary, did not have beds available for admission here Last updated by Rob aGndhi MD at 01/26/22 17:48 Sign Out Comment: No interventions needed last night. COVID-positive. Last updated by Jeff Brown DO at 01/27/22 05:59 Discharge Plan Disposition Patient Disposition: [facility] INPATIENT Condition: Stable Discharge Details Clinical Impression: Paranoia, Suicidal ideations Admit Date/Time: 01/27/22 20:32 Admit Provider: Tristan Meng Attending Provider: Tristan Meng Primary Care Provider: Ivan Vizcaino ED Provider: Katiuska Hicks Discharge Data Discharge Date/Time-TO BE ENTERED AT DEPARTURE: 01/27/22 22:08
[2022-01-24] MEDS: Famotidine 20 MG TAB PO (21:00)
[2022-01-25] MEDS: Gabapentin 300 MG CAP PO (08:49)
[2022-01-25] MEDS: Buprenorphine/Naloxone 8 mg/2 mg FILM 2 EACH SL (08:49)
[2022-01-25] MEDS: OLANZapine 5 MG TAB PO (08:50)
[2022-01-25] MEDS: Pantoprazole 40 MG TABCR PO (08:50)
--- NOTE | 2022-01-25 10:07 | CMSP_ITS ---
- If Service Date Differs Date of service: 01/25/22 Time of Service: 10:07 Care Management Safety Plan Status: Voluntary - Reason for Wait Reason for Wait: Other VOLUNTARY FOR INPATIENT PSYCHIATRIC STABILIZATION. Patient is appropriate in all interactions since arriving at [facility]; Pt has demonstrated appropriate coping and communication skills, has articulated his or her needs and concerns and is fully engaged during staff interactions. Safety plan has been established with patient, and care team, to adhere to patient goals, identify restrictions based on behavioral status, address nutrition, and determine allowed personal belongings, tools for hygiene and personal care. Determine level of activity including ambulation, level of supervision, visitors, and determine privileges based on behaviors and level of engagement by pt. A huddle is done at 9:[address] Dean Harris, ED provider, Anitra, nursing floor supervisor, ODALYS Aguirre, and WILFRED Ignacio, in attendance. SAFETY PLAN: 1. Will remain on suicide precautions. In Paper Clothes 2. Will remain in room under direct supervision of one-on-one staff at all times provided by CPSO, ELIAZAR, WEB USER EXPERIENCE STRATEGIST poultry processing supervisor. 3. May have paper cups, plates, finger foods as well as a cardboard spoon with which to eat meals. 4. Follow [facility] Management of the Admitted Behavioral Health Patient policy. 5. Comfort bath system only, shower permitted with escort at RN discretion. 6. No personal belongings with the exception of his personal nintendo switch, at RN discretion. 7. Visitors-none at this time. 8. Activities: soft cart items, television if available, and other activities at RN discretion. 9. Bathroom privileges with escort in the ED, may use bathroom in room without limitation on M/S. 10. Phone: contact limited to family at this time, at RN discretion. 11. Due to VOLUNTARY status, if patient wishes to leave [facility], staff will contact [facility] Crisis Screener ([phone]) and On-Call Dental Equipment Mechanic ([phone]) as soon as possible. In the event of elopement, notify [place] Police ([phone]). Patient is currently voluntarily at [facility] and seeking inpatient admission when a bed becomes available. [facility] Frontline Engineering And Development Director will continue seeking placement. Please contact the Coke Drawer Dental Equipment Mechanic ([phone]) and [facility] Engineering And Development Director ([phone]) for any needed changes in the Safety Plan. Safety plan has been provided to interdepartmental care team.
[2022-01-25] MEDS: Potassium Chloride 20 MEQ TABCR 40 MEQ PO (11:03)
[2022-01-25 11:05] VITALS: BP 112/72; PULSE 73; RESP 16; TEMP 36.6; O2SAT 98
--- NOTE | 2022-01-25 15:17 | CMPROGNOTE_ITS ---
- If Service Date Differs Date of service: 01/25/22 Time of Service: 15:17 Care Management Progress Note S/O: Frank meets with Tiffanie [facility] Crisis Screener, today via zoom. Per Tiffanie, Frank continues to report suicidal ideation with intent and plan. is unable to meet with Frank as he is Covid positive. Nursing staff report he continues to be calm and cooperative. A: Frank remains at [facility] awaiting a voluntary psychiatric placement. P: Frank will remain at [facility] until a voluntary psych placement can be secured for him. [facility] is calling psych hospitals to inquire of any of them are able to accept a Covid positive patient. will continue to follow. - Status Status: Voluntary - Reason for Wait Reason for Wait: Inpatient Admission
--- NOTE | 2022-01-25 15:30 | MHPN_ITS ---
Date of service: 01/25/22 Time of Service: 10:45 Mental Health Progress Note Progress Note Progress Note: Presenting Issue: Client's daily reassessment. Precipitating Factors Disposition * Behavior: Unremarkable *Eye Contact: Minimal *Mood: Anxious, stressed *Affect: Flat *Appetite: Minimal *Sleep(troubel falling/staying asleep): Trouble staying asleep Plan(please elaborate and include that physician is consulted with plan and/or placement): This client will continue to wait in the hospital until placement is found. This clinican will send referrals to inpatient psychiatric hospitals. Clinician's Name , Title, and Signature Tamanna Hobbs, Crisis Clinican, [facility] Make sure that you are photocopying and submitting this to [facility] records Dept. to be scanned into chart.
--- NOTE | 2022-01-25 15:42 | W.EDPROG ---
Date of service: 01/25/22 Time of Service: 15:42 Medical Decision Making Patient here awaiting psychiatric placement. I spoke with crisis screener who feels patient is too high risk to be discharged home. Patient incidentally positive for COVID and unable to go to the care bed. Plan for psychiatric inpatient placement. Awaiting bed availability. Patient has been cooperative and remains here on voluntary hold. Lab Data Lab results reviewed: Yes I reviewed the patient's lab results. Labs: Laboratory Tests Range/Units 01/23/22 01/23/22 01/23/22 22:27 22:27 22:27 WBC (4.4-10.8) 10^3/uL 11.38 H RBC (4.36-5.78) 10^6/uL 4.58 Hgb (13.5-17.5) g/dL 12.4 L Hct (40.0-50.0) % 38.2 L MCV (80-95) fL 83 MCH (27.0-33.0) pg 27.1 MCHC (32.0-36.0) % 32.5 RDW (11.8-14.1) % 15.7 H Plt Count (130-400) 10^3/uL 295 MPV (8.0-11.0) fL 8.8 Immature Gran % 0.3 Neutrophils % 73.1 Lymphocytes % 20.0 Monocytes % 5.6 Eosinophils % 0.8 Basophils % 0.2 Nucleated RBC % (0.0-0.3) % 0.0 Absolute Neutrophils (1.2-6.7) 10^3/uL 8.32 H Absolute Lymphocytes (1.2-3.4) 10^3/uL 2.28 Absolute Monocytes (0.1-0.8) 10^3/uL 0.64 Absolute Eosinophils (0.0-0.7) 10^3/uL 0.09 Absolute Basophils (0.0-0.2) 10^3/uL 0.02 Sodium (136-145) mmol/L 138 Potassium (3.5-5.1) mmol/L 3.1 L Chloride (98-107) mmol/L 101 Carbon Dioxide (21.0-32.0) mmol/L 30.9 Anion Gap (3-11) mmol/L 6.1 BUN (7-18) mg/dL 14 Creatinine (0.70-1.30) mg/dL 0.9 Estimated GFR/1.73 m2 (mL/min/1.73m2) >= 60.00 Glucose (74-106) mg/dL 108 H Calcium (8.5-10.1) mg/dL 8.9 Total Bilirubin (0.2-1.0) mg/dL 0.3 AST (15-37) U/L 16 ALT (16-63) U/L 31 Alkaline Phosphatase (46-116) U/L 64 Total Protein (6.4-8.2) g/dL 7.2 Albumin (3.4-5.0) g/dL 3.4 TSH (0.36-3.74) uIU/mL 1.23 Urine Color (Yellow) Urine Clarity (Clear) Urine pH (5-8) Ur Specific [place] (1.005-1.025) Urine Protein (Negative) mg/dL Urine Ketones (Negative) mg/dL Urine Blood (Negative) Urine Nitrite (Negative) Urine Bilirubin (Negative) Urine Urobilinogen (Up TO 0.2) EU/dL Ur Leukocyte Esterase (Negative) Urine Glucose (Negative) mg/dL Salicylates (<2.8) mg/dL < 2.8 Urine Opiates Screen (Negative) Urine Methadone Screen (Negative) Acetaminophen (10-30) ug/mL < 2 Ur Barbiturates Screen (Negative) Ur Tricyclics Screen (Negative) Ur Amphetamines Screen (Negative) U Benzodiazepines Scrn (Negative) Urine Cocaine Screen (Negative) Ur THC Screen (Negative) Ethyl Alcohol (<10) mg/dL < 3.0 COVID-19 Source SARS-CoV-2 (PCR) (Negative) Range/Units 01/24/22 01/24/22 01/24/22 01:20 01:20 14:25 WBC (4.4-10.8) 10^3/uL RBC (4.36-5.78) 10^6/uL Hgb (13.5-17.5) g/dL Hct (40.0-50.0) % MCV (80-95) fL MCH (27.0-33.0) pg MCHC (32.0-36.0) % RDW (11.8-14.1) % Plt Count (130-400) 10^3/uL MPV (8.0-11.0) fL Immature Gran % Neutrophils % Lymphocytes % Monocytes % Eosinophils % Basophils % Nucleated RBC % (0.0-0.3) % Absolute Neutrophils (1.2-6.7) 10^3/uL Absolute Lymphocytes (1.2-3.4) 10^3/uL Absolute Monocytes (0.1-0.8) 10^3/uL Absolute Eosinophils (0.0-0.7) 10^3/uL Absolute Basophils (0.0-0.2) 10^3/uL Sodium (136-145) mmol/L Potassium (3.5-5.1) mmol/L Chloride (98-107) mmol/L Carbon Dioxide (21.0-32.0) mmol/L Anion Gap (3-11) mmol/L BUN (7-18) mg/dL Creatinine (0.70-1.30) mg/dL Estimated GFR/1.73 m2 (mL/min/1.73m2) Glucose (74-106) mg/dL Calcium (8.5-10.1) mg/dL Total Bilirubin (0.2-1.0) mg/dL AST (15-37) U/L ALT (16-63) U/L Alkaline Phosphatase (46-116) U/L Total Protein (6.4-8.2) g/dL Albumin (3.4-5.0) g/dL TSH (0.36-3.74) uIU/mL Urine Color (Yellow) Yellow Urine Clarity (Clear) Sl Cloudy Urine pH (5-8) 7.0 Ur Specific [place] (1.005-1.025) 1.025 Urine Protein (Negative) mg/dL Negative Urine Ketones (Negative) mg/dL Negative Urine Blood (Negative) Negative Urine Nitrite (Negative) Negative Urine Bilirubin (Negative) Negative Urine Urobilinogen (Up TO 0.2) EU/dL 0.2 Ur Leukocyte Esterase (Negative) Negative Urine Glucose (Negative) mg/dL Negative Salicylates (<2.8) mg/dL Urine Opiates Screen (Negative) Negative Urine Methadone Screen (Negative) Negative Acetaminophen (10-30) ug/mL Ur Barbiturates Screen (Negative) Negative Ur Tricyclics Screen (Negative) Negative Ur Amphetamines Screen (Negative) Positive A U Benzodiazepines Scrn (Negative) Positive A Urine Cocaine Screen (Negative) Positive A Ur THC Screen (Negative) Negative Ethyl Alcohol (<10) mg/dL COVID-19 Source Nasal/Nares SARS-CoV-2 (PCR) (Negative) POSITIVE A* Sign Out Sign Out Data: Sign Out Comment: Patient seen here multiple times over the last few days for suicidal ideation. He admits to attempting to overdose on fentanyl today by shooting up and [facility] requested we contact control and recovery combat rescue [facility]. He is calm and cooperative. He presented with knives which were checked into security. Last updated by Alivia Diaz NP at 01/23/22 23:41 Sign Out Comment: Stable throughout the evening. Did request Valium to sleep. Valium was given. Remains calm and cooperative. Last updated by Jeff Brown DO at 01/24/22 07:20 Sign Out Comment: Patient accepted to care bed today however his COVID test resulted positive and care bed declined. Patient is voluntary. There are no beds available upstairs. Awaiting placement. Consider transfer upstairs once bed available. Last updated by Katiuska Hicks DO at 01/24/22 19:41 Sign Out Comment: Remains here on a voluntary with acceptance to care bed until COVID came back positive. Cooperative overnight. Mental health involved. Last updated by Charles Ferro MD at 01/25/22 07:15 Discharge Plan Disposition Patient Disposition: STILL A PATIENT Condition: Stable Discharge Details Clinical Impression: Paranoia, Suicidal ideations Primary Care Provider: Ivan Vizcaino ED Provider: Dean Harris Home Meds and New Rx's Prescriptions: No Action pantoprazole 40 mg tablet,delayed release (DR/EC) 40 mg PO DAILY Qty: 90 3RF hydroxyzine HCl 50 mg tablet 50 mg PO TID PRN (Reason: anxiety) Qty: 270 1RF Rx Instructions: 07/12/20 [facility] NOTE cgc dextroamphetamine-amphetamine [Adderall XR] 30 mg capsule,extended release 24hr 10 mg PO DAILY Rx Instructions: note dated 07/12/20 [facility] cgc olanzapine [Zyprexa] 5 mg tablet 5 mg PO BID PRN Rx Instructions: per note dated 08/22/21 [facility] start date cgc prednisone 20 mg tablet See Rx Instructions .ROUTE .COMPLEX Qty: 18 0RF Rx Instructions: Take 3 tabs daily for 3 days, then 2 tabs daily for 3 days, then 1 tab daily for 3 days. buprenorphine-naloxone [Suboxone] 12-3 mg film buprenorphine-naloxone [Suboxone] 8-2 mg film 2 film buccal DAILY Label Comments: PLACE TWO FILMS UNDER THE TONGUE AND ALLOW TO DISSOLVE ONCE DAILY FOR 4 DAYS gabapentin [Neurontin] 300 mg capsule 300 mg PO BID Rx Instructions: On the first day take 1 pill, on the second day take 1 pill twice daily, on the third day and for the remainder of the prescription take 1 pill 3 times a day.
[2022-01-26] MEDS: Buprenorphine/Naloxone 8 mg/2 mg FILM 2 EACH SL (08:59)
[2022-01-26] MEDS: Gabapentin 300 MG CAP PO ×3 (09:00→20:03)
[2022-01-26] MEDS: Pantoprazole 40 MG TABCR PO (09:00)
[2022-01-26] MEDS: OLANZapine 5 MG TAB PO (09:00)
--- NOTE | 2022-01-26 11:04 | CMSP_ITS ---
- If Service Date Differs Date of service: 01/26/22 Time of Service: 11:04 Care Management Safety Plan Status: Voluntary - Reason for Wait Reason for Wait: Inpatient Admission VOLUNTARY FOR INPATIENT PSYCHIATRIC STABILIZATION. Patient is appropriate in all interactions since arriving at [facility]; Pt has demonstrated appropriate coping and communication skills, has articulated his or her needs and concerns and is fully engaged during staff interactions. Safety plan has been established with patient, and care team, to adhere to patient goals, identify restrictions based on behavioral status, address nutrition, and determine allowed personal belongings, tools for hygiene and personal care. Determine level of activity including ambulation, level of supervision, visitors, and determine privileges based on behaviors and level of engagement by pt. SAFETY PLAN: 1. Will remain on suicide precautions. In Paper Clothes 2. Will remain in room under direct supervision of one-on-one staff at all times provided by CPSO, ELECTRICAL LINE MECHANIC, REFERRAL MANAGER wax machine operator. 3. May have paper cups, plates, finger foods as well as a cardboard spoon with which to eat meals. 4. Follow [facility] Management of the Admitted Behavioral Health Patient policy. 5. Comfort bath system only, shower permitted with escort at RN discretion. 6. No personal belongings with the exception of his personal nintendo switch, at RN discretion. 7. Visitors-none at this time. 8. Activities: soft cart items, music tablet, television if available, and other activities at RN discretion. 9. Bathroom privileges with escort in the ED, may use bathroom in room without limitation on M/S. 10. Phone: contact limited to family at this time, at RN discretion. 11. Due to VOLUNTARY status, if patient wishes to leave [facility], staff will contact [facility] Crisis Screener ([phone]) and On-Call Data Operations Leader ([phone]) as soon as possible. In the event of elopement, notify [facility] Police ([phone]). Patient is currently voluntarily at [facility] and seeking inpatient admission when a bed becomes available. [facility] Frontline Wood Model Maker will continue seeking placement. Please contact the Lining Stitcher Data Operations Leader ([phone]) and [facility] Wood Model Maker ([phone]) for any needed changes in the Safety Plan. Safety plan has been provided to interdepartmental care team.
--- NOTE | 2022-01-26 11:11 | NUR.NOTE ---
pt stated to cpso that he was not ready to order lunch Nursing Note:
--- NOTE | 2022-01-26 11:23 | ED.PROG_ITS ---
Date of service: 01/26/22 Time of Service: 11:24 Medical Decision Making pt resting comfortably in bed, no acute complaints, still reports SI and is covid positive. Will continue to monitor until placement or bed upstairs becomes available Sign Out Sign Out Data: Sign Out Comment: Patient seen here multiple times over the last few days for suicidal ideation. He admits to attempting to overdose on fentanyl today by shooting up and [facility] requested we contact football coach for possible placement at [facility] which patient reports he is interested in. He is calm and cooperative. He presented with knives which were checked into security. Last updated by Alivia Diaz NP at 01/23/22 23:41 Sign Out Comment: Stable throughout the evening. Did request Valium to sleep. Valium was given. Remains calm and cooperative. Last updated by Jeff Brown DO at 01/24/22 07:20 Sign Out Comment: Patient accepted to care bed today however his COVID test resulted positive and care bed declined. Patient is voluntary. There are no beds available upstairs. Awaiting placement. Consider transfer upstairs once bed available. Last updated by Katiuska Hicks DO at 01/24/22 19:41 Sign Out Comment: Remains here on a voluntary with acceptance to care bed until COVID came back positive. Cooperative overnight. Mental health involved. Last updated by Charles Ferro MD at 01/25/22 07:15 Sign Out Comment: Patient here on voluntary psychiatric hold awaiting inpatient bed placement. Patient is COVID positive. Med reconciliation had already been performed and home meds prescribed. Last updated by Dean Harris MD at 01/25/22 15:46 Sign Out Comment: covid+, therefore [facility] wont take patient for 10 days... attempted to admit to hospitalist, asked to hold to reassess until morning given multiple admission this evening. If need be, will take upstairs in AM Last updated by Timothy José MD at 01/25/22 23:11 Sign Out Comment: Stable overnight with no change. Should be able to go to transition unit today. Last updated by Charles Ferro MD at 01/26/22 07:45 Discharge Plan Disposition Patient Disposition: STILL A PATIENT Condition: Stable Discharge Details Clinical Impression: Paranoia, Suicidal ideations Primary Care Provider: Ivan Vizcaino ED Provider: Rob Gandhi Home Meds and New Rx's Prescriptions: No Action pantoprazole 40 mg tablet,delayed release (DR/EC) 40 mg PO DAILY Qty: 90 3RF hydroxyzine HCl 50 mg tablet 50 mg PO TID PRN (Reason: anxiety) Qty: 270 1RF Rx Instructions: 07/12/[address] [facility] NOTE cgc dextroamphetamine-amphetamine [Adderall XR] 30 mg capsule,extended release 24hr 10 mg PO DAILY Rx Instructions: note dated 07/12/[address] [facility] cgc olanzapine [Zyprexa] 5 mg tablet 5 mg PO BID PRN Rx Instructions: per note dated 08/22/[address] [facility] start date cgc prednisone 20 mg tablet See Rx Instructions .ROUTE .COMPLEX Qty: 18 0RF Rx Instructions: Take 3 tabs daily for 3 days, then 2 tabs daily for 3 days, then 1 tab daily for 3 days. buprenorphine-naloxone [Suboxone] 12-3 mg film buprenorphine-naloxone [Suboxone] 8-2 mg film 2 film buccal DAILY Label Comments: PLACE TWO FILMS UNDER THE TONGUE AND ALLOW TO DISSOLVE ONCE DAILY FOR 4 DAYS gabapentin [Neurontin] 300 mg capsule 300 mg PO BID Rx Instructions: On the first day take 1 pill, on the second day take 1 pill twice daily, on the third day and for the remainder of the prescription take 1 pill 3 times a day.
[2022-01-26] MEDS: Calcium Carbonate *TUMS* 500 MG CHEW 1000 MG PO (12:28)
[2022-01-26 13:49] LABS: Methylphenidate Negative ng/mL (Cutoff: 10); Ritalinic Acid Negative ng/mL (Cutoff: 50)
[2022-01-26 15:49] VITALS: BP 125/81; PULSE 86; TEMP 36.4; O2SAT 96
--- NOTE | 2022-01-26 16:19 | PDOC.ERCMPRO ---
- If Service Date Differs Date of service: 01/26/22 Time of Service: 16:19 Care Management Progress Note S/O: Frank remains on isolation precautions due to being Covid positive. He meets with [facility] Crisis Screener, today via zoom. He continues to report suicidal ideation with intent and plan and continues to be closely monitored to ensure his safety. A: Frank remains at [facility] awaiting a voluntary psychiatric placement. P: Frank will remain at [facility] until a voluntary psych placement can be secured for him. Tiffanie of [facility] reports that psych hospitals are currently unable to accept him due to his Covid positive status. Referrals will be sent once he is no longer considered infectious. CM will continue to follow. - Status Status: Voluntary - Reason for Wait Reason for Wait: Inpatient Admission
[2022-01-26 23:06] VITALS: BP 124/83; PULSE 102; TEMP 36.8; O2SAT 96
--- NOTE | 2022-01-27 00:19 | NUR.NOTE ---
Nursing Note: assumed care of pt. pt is sleeping, 1:1 at bedside.
[2022-01-27 04:05] VITALS: BP 136/77; PULSE 96; RESP 17; TEMP 36.7; O2SAT 96
[2022-01-27 06:42] LABS: Benzoylecgonine 39112 ng/mL (Cutoff: 50); Cocaine 4368 ng/mL (Cutoff: 50); Cocaine Interpretation Positive.
--- NOTE | 2022-01-27 08:36 | ED.PROG_ITS ---
Date of service: 01/27/22 Time of Service: 08:38 Medical Decision Making no reported issues overnight, currently sleeping in no distress. Will continue to monitor until psych placement found or bed availability opens up upstairs. Sign Out Sign Out Data: Sign Out Comment: Patient seen here multiple times over the last few days for suicidal ideation. He admits to attempting to overdose on fentanyl today by shooting up and [facility] requested we contact head athletic trainer/strength coach for possible placement at [facility] which patient reports he is interested in. He is calm and cooperative. He presented with knives which were checked into security. Last updated by Alivia Diaz NP at 01/23/22 23:41 Sign Out Comment: Stable throughout the evening. Did request Valium to sleep. Valium was given. Remains calm and cooperative. Last updated by Jeff Brown DO at 01/24/22 07:20 Sign Out Comment: Patient accepted to care bed today however his COVID test resulted positive and care bed declined. Patient is voluntary. There are no beds available upstairs. Awaiting placement. Consider transfer upstairs once bed available. Last updated by Katiuska Hicks DO at 01/24/22 19:41 Sign Out Comment: Remains here on a voluntary with acceptance to care bed until COVID came back positive. Cooperative overnight. Mental health involved. Last updated by Charles Ferro MD at 01/25/22 07:15 Sign Out Comment: Patient here on voluntary psychiatric hold awaiting inpatient bed placement. Patient is COVID positive. Med reconciliation had already been performed and home meds prescribed. Last updated by Dean Harris MD at 01/25/22 15:46 Sign Out Comment: covid+, therefore [facility] wont take patient for 10 days... attempted to admit to hospitalist, asked to hold to reassess until morning given multiple admission this evening. If need be, will take upstairs in AM Last updated by Timothy José MD at 01/25/22 23:11 Sign Out Comment: Stable overnight with no change. Should be able to go to transition unit today. Last updated by Charles Ferro MD at 01/26/22 07:45 Sign Out Comment: covid positive and voluntary, did not have beds available for admission here Last updated by Rob Gandhi MD at 01/26/22 17:48 Sign Out Comment: No interventions needed last night. COVID-positive. Last updated by Jeff Brown DO at 01/27/22 05:59 Discharge Plan Disposition Patient Disposition: STILL A PATIENT Condition: Stable Discharge Details Clinical Impression: Paranoia, Suicidal ideations Primary Care Provider: Ivan Vizcaino ED Provider: Rob Gandhi Home Meds and New Rx's Prescriptions: No Action pantoprazole 40 mg tablet,delayed release (DR/EC) 40 mg PO DAILY Qty: 90 3RF hydroxyzine HCl 50 mg tablet 50 mg PO TID PRN (Reason: anxiety) Qty: 270 1RF Rx Instructions: 07/12/20 [facility] NOTE cgc dextroamphetamine-amphetamine [Adderall XR] 30 mg capsule,extended release 24hr 10 mg PO DAILY Rx Instructions: note dated 07/12/20 [facility] cgc olanzapine [Zyprexa] 5 mg tablet 5 mg PO BID PRN Rx Instructions: per note dated 08/22/21 [facility] start date cgc prednisone 20 mg tablet See Rx Instructions .ROUTE .COMPLEX Qty: 18 0RF Rx Instructions: Take 3 tabs daily for 3 days, then 2 tabs daily for 3 days, then 1 tab daily for 3 days. buprenorphine-naloxone [Suboxone] 12-3 mg film buprenorphine-naloxone [Suboxone] 8-2 mg film 2 film buccal DAILY Label Comments: PLACE TWO FILMS UNDER THE TONGUE AND ALLOW TO DISSOLVE ONCE DAILY FOR 4 DAYS gabapentin [Neurontin] 300 mg capsule 300 mg PO BID Rx Instructions: On the first day take 1 pill, on the second day take 1 pill twice daily, on the third day and for the remainder of the prescription take 1 pill 3 times a day.
[2022-01-27] MEDS: Buprenorphine/Naloxone 8 mg/2 mg FILM 2 EACH SL (08:45)
[2022-01-27] MEDS: OLANZapine 5 MG TAB PO (08:45)
[2022-01-27] MEDS: Gabapentin 300 MG CAP PO ×2 (08:45→19:59)
[2022-01-27] MEDS: Pantoprazole 40 MG TABCR PO (08:45)
--- NOTE | 2022-01-27 12:31 | PDOC.MHCN_ITS ---
Date of service: 01/27/22 Time of Service: 10:07 Mental Health Crisis Note Presenting Issue How did you arrive at the ED and why did you come: Client came to the ED after attempting to overdose. Precipitating Factors Client is not currently endorsing SI or HI. Disposition BEHAVIOR: Client's behavior is unremarkable. EYE CONTACT: Client made no eye contact. MOOD: Client appears to be irritable and stressed. AFFECT: Congruent with mood. APPETITE: Client reports his appetite as fine. SLEEP(trouble falling/staying asleep: Client reports his sleep as fine. Plan Client will stay at the ED until voluntary placement is found. Signature Clinician's Name/Title: Tamanna Henning, Cabin Equipment Supervisor, [facility]
--- NOTE | 2022-01-27 12:32 | PDOC.CMSAFED ---
- If Service Date Differs Date of service: 01/27/22 Time of Service: 12:32 Care Management Safety Plan Status: Voluntary - Reason for Wait Reason for Wait: Inpatient Admission VOLUNTARY FOR INPATIENT PSYCHIATRIC STABILIZATION. Patient is appropriate in all interactions since arriving at [facility]; Pt has demonstrated appropriate coping and communication skills, has articulated his or her needs and concerns and is fully engaged during staff interactions. Safety plan has been established with patient, and care team, to adhere to patient goals, identify restrictions based on behavioral status, address nutrition, and determine allowed personal belongings, tools for hygiene and personal care. Determine level of activity including ambulation, level of supervision, visitors, and determine privileges based on behaviors and level of engagement by pt. No change in plan per discussion with ODALYS Lambert. SAFETY PLAN: 1. Will remain on suicide precautions. In Paper Clothes 2. Will remain in room under direct supervision of one-on-one staff at all times provided by CPSO, ELIAZAR, WAREHOUSE CLERK complaint supervisor. 3. May have paper cups, plates, finger foods as well as a cardboard spoon with which to eat meals. 4. Follow [facility] Management of the Admitted Behavioral Health Patient policy. 5. Shower permitted with escort at RN discretion. 6. No personal belongings with the exception of his personal nintendo switch, at RN discretion. 7. Visitors-none at this time. 8. Activities: soft cart items, music tablet, television if available, and other activities at RN discretion. 9. Bathroom privileges with escort in the ED, may use bathroom in room without limitation on M/S. 10. Phone: contact limited to family at this time, at RN discretion. 11. Due to VOLUNTARY status, if patient wishes to leave [facility], staff will contact [facility] Crisis Screener ([phone]) and On-Call Proofer [employer] ([phone]) as soon as possible. In the event of elopement, notify [place] Police ([phone]). Patient is currently voluntarily at [facility] and seeking inpatient admission when a bed becomes available. [facility] Frontline Soapstoner will continue seeking placement. Please contact the Wood Heel Attacher Proofer [employer] ([phone]) and [facility] Soapstoner ([phone]) for any needed changes in the Safety Plan. Safety plan has been provided to interdepartmental care team.
[2022-01-27 13:04] VITALS: BP 124/78; PULSE 99; TEMP 36.6; O2SAT 97
--- NOTE | 2022-01-27 16:45 | NUR.NOTE ---
pt used his credit card to order Judith concepcion.
--- NOTE | 2022-01-27 20:36 | ED.PROG_ITS ---
Date of service: 01/27/22 Time of Service: 15:00 Medical Decision Making 2030 -- Pt cooperative and no issues this evening. Discussed with nursing table games dual rate supervisor and patient can be admitted to the ICU considering his COVID-positive status. Case discussed with Dr. Meng who accepts patient for admission to the floor while awaiting placement. Medical Records Medical records reviewed: Yes I reviewed the patient's medical records. Sign Out Sign Out Data: Sign Out Comment: Patient seen here multiple times over the last few days for suicidal ideation. He admits to attempting to overdose on fentanyl today by shooting up and [facility] requested we contact coach builder for possible placement at [facility] which patient reports he is interested in. He is calm and cooperative. He presented with knives which were checked into security. Last updated by Alivia Diaz NP at 01/23/22 23:41 Sign Out Comment: is voluntary but covid positive, awaiting placement Last updated by Rob Gandhi MD at 01/27/22 08:41 Sign Out Comment: Stable throughout the evening. Did request Valium to sleep. Valium was given. Remains calm and cooperative. Last updated by Jeff Brown DO at 01/24/22 07:20 Sign Out Comment: Patient accepted to care bed today however his COVID test resulted positive and care bed declined. Patient is voluntary. There are no beds available upstairs. Awaiting placement. Consider transfer upstairs once bed available. Last updated by Katiuska Hicks DO at 01/24/22 19:41 Sign Out Comment: Remains here on a voluntary with acceptance to care bed until COVID came back positive. Cooperative overnight. Mental health involved. Last updated by Charles Ferro MD at 01/25/22 07:15 Sign Out Comment: Patient here on voluntary psychiatric hold awaiting inpatient bed placement. Patient is COVID positive. Med reconciliation had already been performed and home meds prescribed. Last updated by Dean Harris MD at 01/25/22 15:46 Sign Out Comment: covid+, therefore [facility] wont take patient for 10 days... attempted to admit to hospitalist, asked to hold to reassess until morning given multiple admission this evening. If need be, will take upstairs in AM Last updated by Timothy José MD at 01/25/22 23:11 Sign Out Comment: Stable overnight with no change. Should be able to go to transition unit today. Last updated by Charles Ferro MD at 01/26/22 07:45 Sign Out Comment: covid positive and voluntary, did not have beds available for admission here Last updated by Rob Gandhi MD at 01/26/22 17:48 Sign Out Comment: No interventions needed last night. COVID-positive. Last updated by Jeff Brown DO at 01/27/22 05:59 Discharge Plan Disposition Patient Disposition: [facility] INPATIENT Condition: Stable Discharge Details Clinical Impression: Paranoia, Suicidal ideations Admit Date/Time: 01/27/22 20:32 Admit Provider: Tristan Meng Attending Provider: Tristan Meng Primary Care Provider: Ivan Vizcaino ED Provider: Katiuska Hicks Discharge Data Discharge Date/Time-TO BE ENTERED AT DEPARTURE: 01/27/22 22:08
[2022-01-27 22:36] VITALS: BP 134/68; PULSE 68; RESP 19; TEMP 36.8; O2SAT 99
[2022-01-27 22:39] VITALS: BP 138/64; RESP 19; TEMP 36.8; O2SAT 99
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
[2022-01-28 01:21] LABS: Amphetamine 24719 ng/mL (Cutoff: 25); Amphetamines Interpretation Positive.; MDA (Ecstasy Metabolite) Negative ng/mL (Cutoff: 25); MDMA (Ecstasy) Negative ng/mL (Cutoff: 25); Phentermine Negative ng/mL (Cutoff: 25); Pseudoephedrine/Ephedrine Negative ng/mL (Cutoff: 25)
[2022-01-28 08:48] LABS: BUN 13 mg/dL (7-18); CREATININE 0.8 mg/dL (0.70-1.30); Calcium 8.9 mg/dL (8.5-10.1); Chloride 103 mmol/L (98-107); Glucose 117 mg/dL (74-106); Magnesium 1.7 mg/dL (1.8-2.4); Potassium 3.9 mmol/L (3.5-5.1); Sodium 138 mmol/L (136-145)
[2022-01-28] MEDS: Buprenorphine/Naloxone 8 mg/2 mg FILM 2 EACH SL (08:51)
[2022-01-28] MEDS: Pantoprazole 40 MG TABCR PO (08:51)
[2022-01-28] MEDS: Gabapentin 300 MG CAP PO (08:51)
[2022-01-28] MEDS: OLANZapine 5 MG TAB PO (08:51)
[2022-01-28 09:02] VITALS: O2SAT 98
[2022-01-28 09:03] VITALS: O2SAT 97
[2022-01-28 09:04] VITALS: BP 133/70; PULSE 89
--- NOTE | 2022-01-28 09:58 | CMSP_ITS ---
- If Service Date Differs Date of service: 01/28/22 Time of Service: 09:59 Care Management Safety Plan Status: Voluntary - Reason for Wait Reason for Wait: Inpatient Admission, Medical Clearance (COVID +) VOLUNTARY FOR INPATIENT PSYCHIATRIC STABILIZATION. Patient is appropriate in all interactions since arriving at [facility]; Pt has demonstrated appropriate coping and communication skills, has articulated his or her needs and concerns and is fully engaged during staff interactions. Safety plan has been established with patient, and care team, to adhere to patient goals, identify restrictions based on behavioral status, address nutrition, and determine allowed personal belongings, tools for hygiene and personal care. Determine level of activity including ambulation, level of supervision, visitors, and determine privileges based on behaviors and level of engagement by pt. Plan is for Frank to remain at [facility] voluntarily and be reassessed daily by [facility] until a psych placement can be secured for him or he can enter into a safety plan and be discharged back to the community. CM will continue to follow. No change in safety plan. SAFETY PLAN: 1. Will remain on suicide precautions, in paper clothes or hospital gown. 2. Will remain in room under direct supervision of one-on-one staff at all times provided by [employer], PUBLIC WORKS COMMISSIONER, RATING EXAMINER slitting machine operator helper. 3. May have paper cups, plates, finger foods as well as a cardboard spoon with which to eat meals. 4. Follow [facility] Management of the Admitted Behavioral Health Patient policy. 5. Shower permitted with escort at RN discretion. 6. No personal belongings with the exception of his personal nintendo switch, at RN discretion. 7. Visitors-none at this time per COVID restrictions. 8. Activities: soft cart items, music tablet, television if available, and other activities at RN discretion. 9. Bathroom available in ICU room without limitation. 10. Phone: contact limited to family at this time, at RN discretion. 11. Due to VOLUNTARY status, if patient wishes to leave [facility], staff will contact [facility] Crisis Screener ([phone]) and On-Call Client Services Administrator ([phone]) as soon as possible. In the event of elopement, notify [facility] Police ([phone]). Patient is currently voluntarily at [facility] and seeking inpatient admission when a bed becomes available. [facility] Frontline Electric Meter Installer will continue seeking placement. Please contact the Director Of Technology Client Services Administrator ([phone]) and [facility] Electric Meter Installer ([phone]) for any needed changes in the Safety Plan. Safety plan has been provided to interdepartmental care team.
[2022-01-28] MEDS: Magnesium Gluconate 500 MG TAB PO (12:00)
--- NOTE | 2022-01-28 13:08 | PDOC.CMPRO ---
- If Service Date Differs Date of service: 01/28/22 Time of Service: 13:08 Care Management Progress Note 1300 CM rec'd VM from John RN in ICU notifying that Frank was advocating for discharge as he did not want to continue to wait for placement. 1301 WILFRED called Frank via his cellphone to review voluntary status and relay that [facility] crisis screener would be paged to discuss. 1310 Tamanna; [facility] Crisis Screener responded to page and reported calling [facility] and waiting on hold this morning for 30 minutes to zoom with Frank and another MH patient. She shared that Frank was voluntary but also would benefit from going to rehab. WILFRED reviewed Frank's wishes to discharge due to duration of time he will have to wait for transfer due to COVID precautions. Tamanna reported she was currently assessing a patient at another hospital and would call Frank's cellphone to discuss as soon as she was available. 1420 Tamanna reported that she would be clearing Frank to seek SCOTTY treatment from the community. WILFRED notified MD and SOIL CONSERVATION TEACHER and later reviewed with NS. Frank will discharge to his friend's home and follow up with inpatient service supports as an outpatient. He will have check in calls with [facility] per Tamanna's report-refer to her documentation for further information.
--- NOTE | 2022-01-28 14:42 | NUR.NOTE ---
RN speaks to Used Equipment Sales Representative about discharge plan. Patient will be discharged to home today.Nursing Note:
--- NOTE | 2022-01-28 15:34 | PDOC.CMDIS ---
- If Service Date Differs Date of service: 01/28/22 Time of Service: 15:34 LACE Index Scoring Tool - Questions: Length of Stay (in days): 1 Acuity (Admit via E.D.?): Yes E.D. Visits: 7 - Answers: Total Score: 8 Risk of Readmission: Low Risk Care Management Discharge Reason for Hospitalization: MH/SCOTTY placement, COVID-19 Discharge Plan: Per [facility], Frank will return to the community and continue to seek inpatient co-occuring SCOTTY/MH treatment. He will continue to check in with crisis screeners, stay with his friend and transport via private vehicle. Patient/Family Education Needs: Review of discharge instructions, discuss Ask Me Three. - MH Services (Omit if N/A) Current MH Services: [facility] (Crisis phone call check-ins post discharge)
--- NOTE | 2022-01-28 15:54 | W.PM.DS.N ---
Date of service: 01/28/22 Time of Service: 15:55 DS: Diagnosis Discharge Diagnosis (1) Paranoid: Status: Suspected Asessment and Plan: This is a 31-year-old male patient with past history of depression and paranoia who presented to the ED as a mental health referral because of increasing paranoia and agitation as well as suicidal ideation.? He thought people were out to get him and would kill him.? He was agitated but did deny overt homicidal or suicidal ideation upon presentation.? He was not on a stable dose of medical therapy and during his ED stay from 01/22/2022 the patient had his medication modified and his behavior improved.? He was ready to be discharged to an inpatient psychiatric facility but tested positive for COVID though being tested positive negative for several visits prior to his admission.? He was brought up to the ICU for continued isolation awaiting placement for inpatient psychiatric care. [facility] evaluated him repeatedly and on the day of his discharge, they deemed that he was not at risk of harm to himself or others and could be managed in the community. They arranged outpatient follow up including phone call check in for tonight. Patient will live w/ a friend as he does not feel safe returning to the [facility] in [place] as he feels that his neighbors are trying to steal his SSI check and harrass him. (2) Suicidal ideations: Status: Resolved (3) Depression: Status: Chronic Asessment and Plan: not currently on any medications for depression but he is not currently suicidal and can be followed as outpatient where he can be evaluated for the need for meds. (4) ADHD: Status: Chronic Asessment and Plan: cont. his home dose of dextroamphetamine/amphetamine ER. (5) COVID-19: Status: Acute Asessment and Plan: Patient has no respiratory symptoms. His nasal PCR was positive on 01/24. I have advised him to avoid close contact w/ the public for the next 7 days. He needs to wear a mask when around others. (6) Moderate opioid dependence on maintenance therapy: Status: Chronic Asessment and Plan: patient will continue his suboxone therapy through his outpatient provider Discharge Plan Disposition Patient Disposition: HOME Condition: Stable Discharge Details Reason For Visit: Anxiety, Paranoia, Delusions, Covid-19 Admit Date/Time: 01/27/22 20:32 Admit Provider: Tristan Meng Attending Provider: Tristan Meng Primary Care Provider: Ivan Vizcaino Home Meds and New Rx's Prescriptions: Continued pantoprazole 40 mg tablet,delayed release (DR/EC) 40 mg PO DAILY Qty: 90 3RF hydroxyzine HCl 50 mg tablet 50 mg PO TID PRN (Reason: anxiety) Qty: 270 1RF Rx Instructions: 07/12/20 [facility] NOTE cgc dextroamphetamine-amphetamine [Adderall XR] 30 mg capsule,extended release 24hr 10 mg PO DAILY Rx Instructions: note dated 07/12/20 [facility] cgc olanzapine [Zyprexa] 5 mg tablet 5 mg PO BID PRN Rx Instructions: per note dated 08/22/21 [facility] start date cgc prednisone 20 mg tablet See Rx Instructions .ROUTE .COMPLEX Qty: 18 0RF Rx Instructions: Take 3 tabs daily for 3 days, then 2 tabs daily for 3 days, then 1 tab daily for 3 days. buprenorphine-naloxone [Suboxone] 12-3 mg film buprenorphine-naloxone [Suboxone] 8-2 mg film 2 film buccal DAILY Label Comments: PLACE TWO FILMS UNDER THE TONGUE AND ALLOW TO DISSOLVE ONCE DAILY FOR 4 DAYS gabapentin [Neurontin] 300 mg capsule 300 mg PO BID Rx Instructions: On the first day take 1 pill, on the second day take 1 pill twice daily, on the third day and for the remainder of the prescription take 1 pill 3 times a day. Discharge Instructions Instructions: COVID-19 (Coronavirus Disease 2019) (DC), COVID-19: Slow the Coronavirus Spread (DC), Face Coverings (Masks) and COVID-19 (DC) Activity:: Activity as Tolerated Equipment/Supplies:: No Equipment Needed Diet:: Normal Diet Discharge Orders Discharge Orders: Discharge Order (Routine); Ordered 01/28/22 Ordered By: Bronson Ulrich Discharge Data Discharge Date/Time-TO BE ENTERED AT DEPARTURE: 01/28/22 16:25 Discharge Comment: Patient's coping skills enhanced, and not suicidal DS: Summary Time Spent with Patient providing and/or coordinating discharge services: Less than 30 minutes Status at Discharge Functional status at discharge: independent ambulation Overall status at discharge: patient is back to baseline Mental Status: mental status grossly normal Speech and Movement: speech and movement normal Mood: congruent mood Affect: normal affect Exam Narrative Exam Narrative: Patient has calm demeanor, he make eye contact w/ me and shows no agitation. he answers my questions appropriately and has no tremors, no hallucinations and no diaphoresis. Psych Mental Status: mental status grossly normal Speech and Movement: speech and movement normal Mood: congruent mood Affect: normal affect DS: Data Vitals/I&O Vitals and I&O: Vital Signs Temperature 36.8 C 01/27/22 22:39 Temperature Source Temporal Artery Scan 01/27/22 22:39 Pulse 89 01/28/22 09:04 Pulse Rhythm Regular 01/28/22 09:26 Respiratory Rate 19 01/27/22 22:39 Respiratory Effort Non-Labored 01/28/22 09:26 Respiratory Depth Normal 01/28/22 09:26 Respiratory Pattern Normal 01/28/22 09:26 Blood Pressure 133/70 01/28/22 09:04 Blood Pressure Mean 88 01/27/22 22:39 Blood Pressure Position Sitting 01/27/22 22:39 Pulse Oximetry 97 01/28/22 09:03 Oxygen Delivery Method Room Air 01/27/22 22:39 Oxygen Flow Rate 0 01/27/22 22:39 Pain Level 0 01/27/22 22:39 Intake & Output 01/27/22 01/28/22 01/28/22 23:59 11:59 23:59 Intake Total 500 / 500 240 / 240 Output Total 500 / 500 Balance 500 / -750 240 / -260 -500 / -260 Weight 81.6 kg Intake: Oral 500 / 500 240 / 240 Output: Urine 500 / 500 Other: Urine Color Yellow Urine Appearance Clear Clear Urine Odor None Voiding Methods Toilet Toilet Toilet Data Completed and Pending Labs on day of discharge: Labs from last 24 hours 01/28/22 01/21/22 08:15 23:40 Sodium 138 Potassium 3.9 Chloride 103 Carbon Dioxide 28.0 Anion Gap 7.0 BUN 13 Creatinine 0.8 Estimated GFR/1.73 m2 >= 60.00 Glucose 117 H Calcium 8.9 Magnesium 1.7 L Ur Ephed/Pseudo LCMSMS Negative U Amphetamine LC/MS/MS 71446 U Amphetamine Interp Positive. U Methamphet LC/MS/MS >44558 Urine MDA (LC/MS/MS) Negative Urine MDMA (LC/MS/MS) Negative U Phentermine LC/MS/MS Negative PFSH All Active Problems COVID-19 (Acute) Moderate opioid dependence on maintenance therapy (Chronic) Depression (Chronic) Passed out (Acute) Contusion of arm, left (Acute) Blunt head injury (Acute) Chest pain (Acute) Stress at home (Acute) Leg erythema (Acute) Cough (Acute) Paranoia (Acute) Late effect of facial wound (Acute) Long-term current use of methadone for opiate dependence (Acute) GERD (gastroesophageal reflux disease) (Chronic) Anxiety (Chronic) ADHD (Chronic) Medical History ADHD Depression Drug abuse Family History Father , colon ca at age 70. Colon cancer Social History Smoking/Tobacco Use Status: Current every day Tobacco Type: cigarettes Smoking risk assessment performed?: Yes Alcohol Intake: former Drug use: Current Sobriety Substance use type: opiates Details: Previous methadone addiction; used four days ago. Reports attempted overdose with fentanyl today. In current or past relationships, have you been: threatened Do you feel safe at home: No Do you feel safe in your relationship?: No Additional Social history: Feels neighbors are threatening him. Reports brother is trying to take his things.
--- NOTE | 2022-01-28 16:24 | NUR.NOTE ---
Patient will be staying with a friend. Patient in good spirits and not suicidal. Coping skills are enhanced. Patient thankful for care.Nursing Note:
[2022-01-31 09:58] LABS: Fentanyl Interpretation Negative.; Fentanyl by LC-MS/MS Negative; Norfentanyl by LC-MS/MS Negative
== END 2022-01-28 16:25 | disposition home or self-care (01) | DRG 885 ==
LOC: ER 01-27 20:42 → ICU 01-27 22:27
PROVIDERS: Internal Medicine; Registered Nurse Emergency; Admitting Provider Family Medicine; Emergency Provider Physician Assistant; PCP Family Medicine; Visit Provider Family Medicine
DX: F22 Delusional disorders (principal); U07.1 COVID-19; F11.20 Opioid dependence, uncomplicated; R45.851 Suicidal ideations; F90.9 Attention-deficit hyperactivity disorder, unspecified type; F41.9 Anxiety disorder, unspecified; K21.9 Gastro-esophageal reflux disease without esophagitis; F17.210 Nicotine dependence, cigarettes, uncomplicated; Z79.899 Other long term (current) drug therapy
CPT/HCPCS: 80048; 80053; 80307; 87635; 99285; H0046; 80320; 80329; 81003; 83735; 84443; 85025; 99223; 99238

== ENCOUNTER 2022-01-31 00:11 | Emergency (ER) | payer MEDICAID, SELFPAY ==
[2022-01-31 00:26] VITALS: BP 122/77; PULSE 111; RESP 18; TEMP 36.3; O2SAT 97
[2022-01-31 01:11] LABS: Abs Immature Grans 0.01 10^3/uL (0.0-0.06); Absolute Basophil Count 0.02 10^3/uL (0.0-0.2); Absolute Eosinophil Count 0.23 10^3/uL (0.0-0.7); Absolute Lymphocyte Count 2.64 10^3/uL (1.2-3.4); Absolute Monocyte Count 0.55 10^3/uL (0.1-0.8); Absolute Neutrophil Count 3.77 10^3/uL (1.2-6.7); Basophils % 0.3; Eosinophils % 3.2; HCT 38.2 % (40.0-50.0); HGB 12.6 g/dL (13.5-17.5); Immature Grans % 0.1; Lymphocytes % 36.6; MCH 27.3 pg (27.0-33.0); MCV 83 fL (80-95); MPV 8.8 fL (8.0-11.0); Monocytes % 7.6; Neutrophils % 52.2; Platelet Count 293 10^3/uL (130-400); RBC 4.61 10^6/uL (4.36-5.78); RDW 15.7 % (11.8-14.1); RDW-SD 47.6 fL; WBC 7.22 10^3/uL (4.4-10.8)
--- NOTE | 2022-01-31 01:13 | NUR.NOTE ---
Nursing Note: pt originally placed in room 4 due to lack of safe rooms. Pt states he can hear people outside of room plotting to kill him. Pt then moved to room 8 until safe room can be cleared. While in room 8, pt had phone with him and called 911 as she still stated he could hear people plotting to kill him
[2022-01-31 01:31] LABS: Source Nasal/Nares
[2022-01-31 01:37] LABS: ALT 40 U/L (16-63); AST 29 U/L (15-37); Albumin 3.6 g/dL (3.4-5.0); Alkaline Phosphatase 68 U/L (46-116); Anion Gap 8.8 mmol/L (3-11); BUN 19 mg/dL (7-18); Bilirubin, Total 0.6 mg/dL (0.2-1.0); CO2 30.2 mmol/L (21.0-32.0); Calcium 8.9 mg/dL (8.5-10.1); Chloride 100 mmol/L (98-107); Glucose 107 mg/dL (74-106); Potassium 3.7 mmol/L (3.5-5.1); Sodium 139 mmol/L (136-145); TSH (W/Ref FT4) 1.67 uIU/mL (0.36-3.74); Total Protein 7.9 g/dL (6.4-8.2)
[2022-01-31 01:38] LABS: ETHANOL BLOOD < 3.0 mg/dL (<10)
[2022-01-31 01:39] LABS: Salicylate < 2.8 mg/dL (<2.8)
[2022-01-31 01:41] LABS: Acetaminophen < 2 ug/mL (10-30)
--- NOTE | 2022-01-31 01:52 | ED.GENADUL_ITS ---
Discharge Plan Disposition Patient Disposition: STILL A PATIENT Condition: Stable Discharge Details Clinical Impression: Paranoid schizophrenia Primary Care Provider: Ivan Vizcaino ED Provider: Jeff Brown Home Meds and New Rx's Prescriptions: No Action pantoprazole 40 mg tablet,delayed release (DR/EC) 40 mg PO DAILY Qty: 90 3RF hydroxyzine HCl 50 mg tablet 50 mg PO TID PRN (Reason: anxiety) Qty: 270 1RF Rx Instructions: 07/12/20 [facility] NOTE cgc dextroamphetamine-amphetamine [Adderall XR] 30 mg capsule,extended release 24hr 10 mg PO DAILY Rx Instructions: note dated 07/12/20 [facility] cgc olanzapine [Zyprexa] 5 mg tablet 5 mg PO BID PRN Rx Instructions: per note dated 08/22/21 [facility] start date cgc prednisone 20 mg tablet See Rx Instructions .ROUTE .COMPLEX Qty: 18 0RF Rx Instructions: Take 3 tabs daily for 3 days, then 2 tabs daily for 3 days, then 1 tab daily for 3 days. buprenorphine-naloxone [Suboxone] 8-2 mg film 2 film buccal DAILY Label Comments: PLACE TWO FILMS UNDER THE TONGUE AND ALLOW TO DISSOLVE ONCE DAILY FOR 4 DAYS gabapentin [Neurontin] 300 mg capsule 300 mg PO BID Rx Instructions: On the first day take 1 pill, on the second day take 1 pill twice daily, on the third day and for the remainder of the prescription take 1 pill 3 times a day. Medical Decision Making 31-year-old male with a past medical history of paranoid schizophrenia, who presents today for reevaluation. Patient has been in and out of the emergency department over the last 3 weeks. He has been brought in multiple times for his paranoia, he is concerned that someone is trying to kill him. Seems to be escalating. He was recently discharged 4 days ago, and the plan was that he would transition to [facility] that shortly, he is still waiting for them to be available. He was brought back by police [facility] because he is concerned that someone is going to kill him, and he is also stating that there are people crawling around in the ceiling and he can hear the guns cocking in an effort to kill him. He denies any other complaints at this time. He denies any homicidal or suicidal ideations. Physical exam demonstrates a well-appearing but otherwise paranoid male. No other significant abnormalities on exam clinically. We will medically clear, monitor closely, offer oral Haldol, and contact mental health. Of note when he was last here he was COVID-positive. He does admit to mild runny nose and congestion right now. No shortness of breath otherwise 4:40 AM Patient has been medically cleared, COVID test is negative. Mental health is seen and assessed the patient, he feels that he would be an appropriate candidate for the care bed. They will likely place tomorrow morning. HPI General Date/Time Provider Initiated Documentation: 01/31/22 00:14 . HPI Narrative: 31-year-old male with a past medical history of paranoid schizophrenia, who presents today for reevaluation. Patient has been in and out of the emergency department over the last 3 weeks. [facility] for his paranoia, he is concerned that someone is trying to kill him. Seems to be escalating. He was recently discharged 4 days ago, and the plan was that he would transition to [facility] that shortly, he is still waiting for them to be available. He was brought back by police [employer] because he is concerned that someone is going to kill him, and he is also stating that there are people crawling around in the ceiling and he can hear the guns cocking in an effort to kill him. He denies any other complaints at this time. He denies any homicidal or suicidal ideations. Related Data Home Medications Medication Instructions Recorded Confirmed dextroamphetamine-amphetamine ER 10 mg PO DAILY 08/09/20 01/31/22 30 mg 24hr capsule,extend release (Adderall XR) hydroxyzine HCl 50 mg tablet 50 mg PO TID PRN anxiety #270 tabs 05/09/21 01/31/22 pantoprazole 40 mg tablet,delayed 40 mg PO DAILY #90 tabs 05/09/21 01/31/22 release prednisone 20 mg tablet See Rx Instructions .Route 06/21/21 01/31/22 .COMPLEX #18 tabs olanzapine 5 mg tablet (Zyprexa) 5 mg PO BID PRN 08/26/21 01/31/22 buprenorphine 8 mg-naloxone 2 mg 2 film buccal DAILY 01/20/22 01/31/22 sublingual film (Suboxone) gabapentin 300 mg capsule 300 mg PO BID 01/20/22 01/31/22 (Neurontin) Previous Rx's Medication Instructions Recorded hydroxyzine HCl 50 mg tablet 50 mg PO TID PRN anxiety #270 tabs 05/09/21 pantoprazole 40 mg tablet,delayed 40 mg PO DAILY #90 tabs 05/09/21 release prednisone 20 mg tablet See Rx Instructions .Route 06/21/21 .COMPLEX #18 tabs Allergies Allergy/AdvReac Type Severity Reaction Status Date / Time methylphenidate AdvReac Severe left Verified 01/23/22 20:14 [From Ritalin] arm,tongue,face numbness,tingling General Stated Complaint: PsychEval STAR: 2 Review of Systems All systems reviewed & are unremarkable except as noted in HPI and below PFSH All Active Problems (Updated 01/31/22 @ 04:41 by Jeff Brown DO) Paranoid schizophrenia (Acute) COVID-19 (Acute) Moderate opioid dependence on maintenance therapy (Chronic) Depression (Chronic) Passed out (Acute) Contusion of arm, left (Acute) Blunt head injury (Acute) Chest pain (Acute) Stress at home (Acute) Leg erythema (Acute) Cough (Acute) Paranoia (Acute) Late effect of facial wound (Acute) Long-term current use of methadone for opiate dependence (Acute) GERD (gastroesophageal reflux disease) (Chronic) Anxiety (Chronic) ADHD (Chronic) Medical History ADHD Depression Drug abuse Family History Father , colon ca at age 70. Colon cancer Social History Smoking/Tobacco Use Status: Current every day Tobacco Type: cigarettes Smoking risk assessment performed?: Yes Alcohol Intake: former Drug use: Current Sobriety Substance use type: opiates Details: Previous methadone addiction; used four days ago. Reports attempted overdose with fentanyl today. In current or past relationships, have you been: threatened Do you feel safe at home: No Do you feel safe in your relationship?: No Additional Social history: Feels neighbors are threatening him. Reports brother is trying to take his things. Exam Narrative Exam Narrative: 1.Const: Well-nourished, Well-developed, appearing stated age 2.Eyes: PERRL, no conjunctival injection, and symmetrical lids. 3.ENT: Atraumatic external nose and ears. Moist MM. Neck: Symmetric, trachea midline, No thyromegaly. 4.CVS: +S1/S2, No murmurs or gallops. Peripheral pulses 2+ and equal in all extremities. Brisk capillary refill in all extremities. 5.RESP: Unlabored respiratory effort. Clear to auscultation bilaterally. No wheezes rales or rhonchi 6.GI: Soft, Nontender/Nondistended, No hepatosplenomegaly. No guarding or rebound. 7.MSK: Normocephalic/Atraumatic, Extremities w/o deformity or ttp No cyanosis or clubbing, Normal movement of all extremities 8.Skin: Warm, Dry. No rashes or lesions. 9.Neuro: business professor II-XII grossly intact. Sensation grossly intact, no focal neurologic deficits. 10.Psych: (AAO) x3. Patient is notably concerned about potential assailants that are in and around the emergency department. Course Vital Signs Vital signs: Vital Signs Temperature 36.3 C L 01/31/22 00:26 Pulse 111 H 01/31/22 00:26 Respiratory Rate 18 01/31/22 00:26 Blood Pressure 122/77 01/31/22 00:26 Pulse Oximetry 97 01/31/22 00:26 Temperature 36.3 C L 01/31/22 00:26 Temperature Source Skin 01/31/22 00:26 Pulse 111 H 01/31/22 00:26 Respiratory Rate 18 01/31/22 00:26 Respiratory Effort Non-Labored 01/31/22 00:29 Blood Pressure 122/77 01/31/22 00:26 Pulse Oximetry 97 01/31/22 00:26 Pain Level 0 01/31/22 00:26 Lab/Test Results Lab/Test Results: Laboratory Tests Range/Units 01/31/22 01/31/22 01/31/22 01:04 01:04 01:04 WBC (4.4-10.8) 10^3/uL 7.22 RBC (4.36-5.78) 10^6/uL 4.61 Hgb (13.5-17.5) g/dL 12.6 L Hct (40.0-50.0) % 38.2 L MCV (80-95) fL 83 MCH (27.0-33.0) pg 27.3 MCHC (32.0-36.0) % 33.0 RDW (11.8-14.1) % 15.7 H Plt Count (130-400) 10^3/uL 293 MPV (8.0-11.0) fL 8.8 Immature Gran % 0.1 Neutrophils % 52.2 Lymphocytes % 36.6 Monocytes % 7.6 Eosinophils % 3.2 Basophils % 0.3 Nucleated RBC % (0.0-0.3) % 0.0 Absolute Neutrophils (1.2-6.7) 10^3/uL 3.77 Absolute Lymphocytes (1.2-3.4) 10^3/uL 2.64 Absolute Monocytes (0.1-0.8) 10^3/uL 0.55 Absolute Eosinophils (0.0-0.7) 10^3/uL 0.23 Absolute Basophils (0.0-0.2) 10^3/uL 0.02 Sodium (136-145) mmol/L 139 Potassium (3.5-5.1) mmol/L 3.7 Chloride (98-107) mmol/L 100 Carbon Dioxide (21.0-32.0) mmol/L 30.2 Anion Gap (3-11) mmol/L 8.8 BUN (7-18) mg/dL 19 H Creatinine (0.70-1.30) mg/dL 1.0 Estimated GFR/1.73 m2 (mL/min/1.73m2) >= 60.00 Glucose (74-106) mg/dL 107 H Calcium (8.5-10.1) mg/dL 8.9 Total Bilirubin (0.2-1.0) mg/dL 0.6 AST (15-37) U/L 29 ALT (16-63) U/L 40 Alkaline Phosphatase (46-116) U/L 68 Total Protein (6.4-8.2) g/dL 7.9 Albumin (3.4-5.0) g/dL 3.6 TSH (0.36-3.74) uIU/mL 1.67 Salicylates (<2.8) mg/dL < 2.8 Acetaminophen (10-30) ug/mL < 2 Ethyl Alcohol (<10) mg/dL < 3.0 COVID-19 Source Range/Units 01/31/22 01:30 WBC (4.4-10.8) 10^3/uL RBC (4.36-5.78) 10^6/uL Hgb (13.5-17.5) g/dL Hct (40.0-50.0) % MCV (80-95) fL MCH (27.0-33.0) pg MCHC (32.0-36.0) % RDW (11.8-14.1) % Plt Count (130-400) 10^3/uL MPV (8.0-11.0) fL Immature Gran % Neutrophils % Lymphocytes % Monocytes % Eosinophils % Basophils % Nucleated RBC % (0.0-0.3) % Absolute Neutrophils (1.2-6.7) 10^3/uL Absolute Lymphocytes (1.2-3.4) 10^3/uL Absolute Monocytes (0.1-0.8) 10^3/uL Absolute Eosinophils (0.0-0.7) 10^3/uL Absolute Basophils (0.0-0.2) 10^3/uL Sodium (136-145) mmol/L Potassium (3.5-5.1) mmol/L Chloride (98-107) mmol/L Carbon Dioxide (21.0-32.0) mmol/L Anion Gap (3-11) mmol/L BUN (7-18) mg/dL Creatinine (0.70-1.30) mg/dL Estimated GFR/1.73 m2 (mL/min/1.73m2) Glucose (74-106) mg/dL Calcium (8.5-10.1) mg/dL Total Bilirubin (0.2-1.0) mg/dL AST (15-37) U/L ALT (16-63) U/L Alkaline Phosphatase (46-116) U/L Total Protein (6.4-8.2) g/dL Albumin (3.4-5.0) g/dL TSH (0.36-3.74) uIU/mL Salicylates (<2.8) mg/dL Acetaminophen (10-30) ug/mL Ethyl Alcohol (<10) mg/dL COVID-19 Source Nasal/Nares
[2022-01-31 02:21] LABS: COVID-19 PCR Negative (Negative)
[2022-01-31] MEDS: Haloperidol 5 MG TAB PO (02:22)
--- NOTE | 2022-01-31 03:53 | PDOC.MHCN_ITS ---
Date of service: 01/31/22 Time of Service: 03:54 Mental Health Crisis Note Presenting Issue How did you arrive at the ED and why did you come: Client presented to [facility] ED via [facility] police stating that people are following him and threatening to kill him. Precipitating Factors Client denies current SI/HI, however states if he is to leave the hospital he does not know what would happen. He states: anything is possible. Disposition BEHAVIOR: Client is standing up in hospital room dressed in proper paper hospital attire when this screenplay writer arrives via zoom. Client is cooperative with assessment, however presented as paranoid pacing around the room stating that he can hear these people in the rodriguez and ceilings. EYE CONTACT: minimal MOOD: anxious AFFECT: expansive APPETITE: good SLEEP(trouble falling/staying asleep: poor, trouble staying asleep Plan Due to clients paranoid and delusional behavior client will remain at [facility] ED. Client is awaiting a return phone call from [facility] and will follow-up with them in the morning. This screenplay writer will also send referrals for inpatient treatment to [facility], , [facility], and [facility]. A referral to the care bed will be complete as well. Client will be assessed by [facility] daily until placement is secured or client can be safety planned home. Signature Clinician's Name/Title: TEDDY Nguyen Emergency Clinician
--- NOTE | 2022-01-31 11:12 | PDOC.CMSAFED ---
- If Service Date Differs Date of service: 01/31/22 Time of Service: 11:12 Care Management Safety Plan Status: Voluntary - Reason for Wait Reason for Wait: Inpatient Admission Chief Complaint: Frank presents in the ED this morning for the 4th time since January 20, 2022. He continues to experience paranoid delusions, believing people are out to kill him and hearing these people talking about him in the rodriguez and ceilings of rooms. He is assessed by Pat[facility] Crisis Screener, and found appropriate for a voluntary psych placement. Referrals are faxed to [facility], [facility], [facility], and [facility] for review. CM will continue to follow. VOLUNTARY FOR INPATIENT PSYCHIATRIC STABILIZATION. Patient is appropriate in all interactions since arriving at [facility]; Pt has demonstrated appropriate coping and communication skills, has articulated his or her needs and concerns and is fully engaged during staff interactions. A huddle is done at 14:30 with Anitra, nursing supervisor lamp shades, Petra, charge nurse, and WILFRED Ignacio, in attendance. Safety plan has been established with patient, and care team, to adhere to patient goals, identify restrictions based on behavioral status, address nutrition, and determine allowed personal belongings, tools for hygiene and personal care. Determine level of activity including ambulation, level of supervision, visitors, and determine privileges based on behaviors and level of engagement by pt. SAFETY PLAN: 1. Will remain on suicide precautions, in paper clothes or hospital gown. 2. Will remain in room under direct supervision of one-on-one staff at all times provided by CPSO, ELIAZAR, LEGAL ACTIVITY ADJUDICATOR calendering machine operator. 3. May have paper cups, plates, finger foods as well as a cardboard spoon with which to eat meals. 4. Follow [facility] Management of the Admitted Behavioral Health Patient policy. 5. Shower permitted with escort at RN discretion. 6. No personal belongings. 7. Visitors: per [facility] visitor policy and at RN discretion. 8. Activities: soft cart items, music tablet, television if available, and other activities at RN discretion. 9. Bathroom privileges with escort in the ED, may use bathroom in room without limitation on M/S. 10. Phone: contact limited to family at this time, at RN discretion. 11. Due to VOLUNTARY status, if patient wishes to leave [facility], staff will contact [facility] Crisis Screener ([phone]) and On-Call Water Quality Control Engineer ([phone]) as soon as possible. In the event of elopement, notify [facility] Police ([phone]). Patient is currently voluntarily at [facility] and seeking inpatient admission when a bed becomes available. [facility] Frontline Packager Head will continue seeking placement. Please contact the Curing Oven Tender Water Quality Control Engineer ([phone]) and [facility] Packager Head ([phone]) for any needed changes in the Safety Plan. Safety plan has been provided to interdepartmental care team.
[2022-01-31 15:31] VITALS: BP 104/69; PULSE 77; TEMP 36.5; O2SAT 98
--- NOTE | 2022-01-31 17:13 | PDOC.MHCN_ITS ---
Date of service: 01/31/22 Time of Service: 17:13 Mental Health Crisis Note Presenting Issue How did you arrive at the ED and why did you come: Waqas arrived via himself in the vinegar maker hours of 01.31.2022 due to continued paranoia and delusions. Precipitating Factors Client denied SI and HI and was not at the time of the assessment endorsing Hallucinations but was still experiencing some delusions. He does not believe he is safe even at the hospital. Disposition BEHAVIOR: Cooperative but not elaborate in his answers. EYE CONTACT: Poor MOOD: Anxious and worried. AFFECT: congruent. APPETITE: Has not eaten all day as he was sleeping did endorse he was hungry so food was being ordered for him. SLEEP(trouble falling/staying asleep: Slept all day. Plan Client will remain at [facility] pending admission. [facility] will assessed daily until placement is found. Referrals sent to [facility], and [facility]. No available beds today. [facility] will not accept a referral until 10 days after his positive test. Signature Clinician's Name/Title: Audra Ramirez MS, [facility] Emergency Services Clinician, [facility]
== END 2022-01-31 18:19 ==
PROVIDERS: Student in an Organized Health Care Education/Training Program; Emergency Provider Emergency Medicine; PCP Family Medicine
DX: F20.0 Paranoid schizophrenia (principal); F17.210 Nicotine dependence, cigarettes, uncomplicated; Z20.822 Contact with and (suspected) exposure to COVID-19
CPT/HCPCS: 36415; 80053; 87635; 99285; 80320; 80329; 84443; 85025; 99284

== ENCOUNTER 2022-01-31 21:46 | Observation (INO) | payer MEDICAID, SELFPAY ==
--- OUTSIDE RECORDS SUMMARY | 2022-01-31 21:55 | XMS_ITS | Encounter Summary ---
:1990 Demographics Home Phone Preferred Language Unknown Marital Status Unknown Nondenominational Affiliation Unknown Race Unknown Ethnic Group Unknown Author Organization [facility] Address [address] [place] [address] Care Team Providers Name Role Phone Unavailable Primary Care Provider Unavailable Encounter Details Date Type Department Care Team Description 07/30/2020 Lab Requisition [facility] Outr Resulting Lab, Pathology & Laboratory Provider [facility] [address], [place] [id number] Social History Tobacco Use Types Packs/Day Years [...] (07/30/2020 8:45 EST) COVID-19 rt-PCR NEGATIVE Negative [facility] Result Comment: LABORATORY 2019-novel [...] Number [facility] [place] COVID-19 TESTING (07/30/2020 8:45 EST) COVID-19 rt-PCR NEGATIVE Negative [facility] Result Comment: LABORATORY 2019-novel [...] Emergency Use Authorization. Performing Lab [facility] LABORATORY SERVICES Specimen Swab Performing Organization Address City/State/ZIP Code Phon e Number [facility] [address] [place] [address] SERVICES [facility] [place], [place] documented in this encounter Visit Diagnoses Not on filedocumented in this encounter
--- OUTSIDE RECORDS SUMMARY | 2022-01-31 21:55 | XMS_ITS | Clinical Summary ---
:1990 Demographics Home Phone Preferred Language Unknown Marital Status Unknown Latter Day Affiliation Unknown Race Unknown Ethnic Group Unknown Author Organization [facility] Address [address] [place] [id number] Care Team Providers Name Role Phone Unavailable Primary Care Provider Unavailable Social History Tobacco Use Types Packs/Day Years Used Date Never Assessed Sex Assigned at Date Recorded Not on file Plan of Treatment Not on file
--- NOTE | 2022-01-31 22:00 | RT.EKG_ITS ---
APPROVED REPORT Exam: Resting ECG Reason for Exam: overdose Patient Location: E HR:85 bpm ECG Measurements Heart Rate 85 AXIS ID 126 P 19 QRSd 98 QRS 79 QT 397 T 37 QTc 472 Conclusion Sinus rhythm...normal P axis, V-rate 60- 99 Physician: stable, no stemi, intervals stable
[2022-01-31 22:08] VITALS: BP 127/82; PULSE 104; RESP 16; TEMP 36.9; O2SAT 98
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
[2022-01-31 22:48] LABS: Source Nasal/Nares
[2022-01-31] MEDS: LORazepam 20 MG/10 ML VIAL IVP (22:51)
[2022-01-31] MEDS: Haloperidol 5 MG/ML VIAL 4 MG IVP (22:51)
[2022-01-31 22:53] LABS: *AMPHETAMINES SCREEN URINE Positive (Negative); *BARBITURATES SCREEN URINE Negative (Negative); *BENZODIAZEPINES SCREEN URINE Negative (Negative); Cannabinoids THC Negative (Negative); Cocaine Screen,Urine Negative (Negative); METHADONE URINE SCREEN Negative (Negative); OPIATES URINE SCREEN Negative (Negative)
[2022-01-31 22:54] LABS: Tricyclic Antidepressants Negative (Negative)
[2022-01-31] MEDS: Normal Saline 1,000 ML 1000 ML IV (22:54)
[2022-01-31 22:58] LABS: Abs Immature Grans 0.01 10^3/uL (0.0-0.06); Absolute Basophil Count 0.02 10^3/uL (0.0-0.2); Absolute Lymphocyte Count 2.04 10^3/uL (1.2-3.4); Absolute Monocyte Count 0.46 10^3/uL (0.1-0.8); Absolute Neutrophil Count 4.29 10^3/uL (1.2-6.7); Basophils % 0.3; Eosinophils % 2.8; HCT 39.3 % (40.0-50.0); HGB 12.5 g/dL (13.5-17.5); Immature Grans % 0.1; Lymphocytes % 29.1; MCHC 31.8 % (32.0-36.0); MCV 85 fL (80-95); MPV 8.8 fL (8.0-11.0); Monocytes % 6.6; Neutrophils % 61.1; Platelet Count 316 10^3/uL (130-400); RBC 4.63 10^6/uL (4.36-5.78); RDW 15.4 % (11.8-14.1); RDW-SD 47.9 fL; WBC 7.02 10^3/uL (4.4-10.8)
[2022-01-31 23:13] LABS: Salicylate < 2.8 mg/dL (<2.8)
[2022-01-31 23:15] LABS: Acetaminophen < 2 ug/mL (10-30)
[2022-01-31 23:22] LABS: ALT 41 U/L (16-63); AST 29 U/L (15-37); Albumin 3.5 g/dL (3.4-5.0); Alkaline Phosphatase 68 U/L (46-116); Anion Gap 5.6 mmol/L (3-11); BUN 15 mg/dL (7-18); Bilirubin, Total 0.4 mg/dL (0.2-1.0); CO2 32.4 mmol/L (21.0-32.0); CREATININE 0.9 mg/dL (0.70-1.30); Calcium 8.9 mg/dL (8.5-10.1); Chloride 101 mmol/L (98-107); Glucose 104 mg/dL (74-106); Potassium 4.2 mmol/L (3.5-5.1); Sodium 139 mmol/L (136-145); TSH (W/Ref FT4) 1.01 uIU/mL (0.36-3.74); Total Protein 7.8 g/dL (6.4-8.2)
[2022-01-31 23:24] LABS: ETHANOL BLOOD < 3.0 mg/dL (<10)
[2022-01-31 23:37] LABS: COVID-19 PCR Negative (Negative)
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
[2022-02-01 16:53] VITALS: BP 117/74; PULSE 73; RESP 16; TEMP 36.9; O2SAT 98
--- NOTE | 2022-02-01 17:47 | PDOC.CMSAFED ---
- If Service Date Differs Date of service: 02/01/22 Time of Service: 17:47 Care Management Safety Plan Status: Involuntary - Reason for Wait Reason for Wait: Inpatient Admission Frank has a past medical history of paranoid schizophrenia and has had many recent ED visits for an escalation of symptoms. Most recently he presented to the ED on 01/31/22 but left and was brought back on a MH warrant. He is awaiting the second certification. Safety plan has been established to meet the needs of the patient, and consideration of the care team, to adhere to patient goals, identify restrictions based on behavioral status, address nutrition, and determine allowed personal belongings, tools for hygiene and personal care. Determine level of activity including ambulation, level of supervision, visitors, and determine privileges based on behaviors and level of engagement by pt. SAFETY PLAN: 1. Will remain on SI/HI precautions. In Paper Clothes 2. Will remain in room under direct supervision of one-on-one staff at all times provided by CPSO; ELIAZAR, FOREST PRODUCTS TEACHER client services administrator. 3. May have paper cups, plates, finger foods as well as a cardboard spoon 4. Follow [facility] Management of the Admitted Behavioral Health Patient policy. 5. Comfort bath system only. 6. No personal belongings 7. Visitors: none at this time 8. Activities: may have soft items from activity cart at nursing discretion 9. Bathroom privileges with supervision 10. Phone: None at this time 11. Due to INVOLUNTARY status, patient is being held at [facility] by the Department of Mental Health ([facility]) until 2nd certification by [facility] Psychiatrist can be performed (within 24 hours). Staff will provide de-escalation support (CPI) as needed. If patient wishes to leave [facility], staff will contact [facility] Crisis Screener ([phone]) and On-Call Dairy Management Specialist ([phone]) as soon as possible. In the event of elopement, notify [place] [employer] Police ([phone]). Patient is currently involuntarily at [facility]. [facility] Frontline Grinding And Polishing Laborer will continue seeking placement. Please contact the [employer] Dairy Management Specialist ([phone]) for any needed changes to Safety Plan. Safety plan has been provided to interdepartmental care team. Patient will be transported by [employer] at time of discharge.
--- NOTE | 2022-02-01 19:40 | PDOC.MHCN_ITS ---
Date of service: 02/01/22 Time of Service: 18:41 Mental Health Crisis Note Presenting Issue How did you arrive at the ED and why did you come: Client presented to [facility] ED via [facility] police on 01/31/2022 after a mental health warrant was executed. Client is seen tonight for 2nd certification by Dr. Sin Gómez from [facility]. Precipitating Factors Client is currently denying SI/HI, however states that he has endorsed SI within the past week. Client states that he has also endorsed HI and states if he was to leave the hospital he cannot guarantee what would happen. Disposition BEHAVIOR: Client is sitting up in hospital bed dressed in proper paper hospital attire when this scientific writer arrives via zoom. Client is cooperative with assessment answering all of the questions that are asked of him. EYE CONTACT: Fair MOOD: Depressed/anxious AFFECT: expansive APPETITE: Good SLEEP(trouble falling/staying asleep: Good Plan Client will remain at [facility] ED on EE status pending admission to an inpatient facility. Client will be assessed by [facility] 2x daily until placement is secured. Signature Clinician's Name/Title: Patrica Villalpando [facility] Emergency Clinician
--- NOTE | 2022-02-02 08:30 | NUR.NOTE ---
Nursing Note: at 07:50 pt had burundian toast, sausage, and houser.
--- NOTE | 2022-02-02 09:47 | PDOC.MHCN_ITS ---
Date of service: 02/02/22 Time of Service: 09:47 Mental Health Crisis Note Presenting Issue How did you arrive at the ED and why did you come: Client arrived via a MH Warrant on 01.31.22 after he eloped when he got scared about another patient that was having significant behavior issues. Precipitating Factors Client denied SI and HI. Per history of this admission his symptoms of paranoia and delusions are low in the am. Disposition BEHAVIOR: Sleepy and cooperative. Client has fair insight and judgment this am. EYE CONTACT: Poor MOOD: Depressed. AFFECT: Flat APPETITE: Hungry and eating well. SLEEP(trouble falling/staying asleep: Client is sleeping well. Plan Client will remain at [facility] pending admission to a psychiatric unit. He will be assessed twice daily until placed by [facility]. No beds available today. Spoke with [facility] field nurse case manager, Marc Jimenez who will be putting a referral in to as client is a lower acuity for behaviors and placement. Signature Clinician's Name/Title: Audra Ramirez MS, [facility] Emergency Services Clinician, [facility]
--- NOTE | 2022-02-02 10:21 | CMSP_ITS ---
- If Service Date Differs Date of service: 02/02/22 Time of Service: 10:21 Care Management Safety Plan Status: Involuntary - Reason for Wait Reason for Wait: Inpatient Admission Frank will remain at [facility] ED on EE status pending admission to an inpatient facility. Pt will be assessed by [facility] 2x daily until placement is secured. Frank has a past medical history of paranoid schizophrenia and has had many recent ED visits for an escalation of symptoms. Most recently he presented to the ED on 01/31/22 but left and was brought back on a MH warrant. Safety plan has been established to meet the needs of the patient, and consideration of the care team, to adhere to patient goals, identify restrictions based on behavioral status, address nutrition, and determine allowed personal belongings, tools for hygiene and personal care. Determine level of activity including ambulation, level of supervision, visitors, and determine privileges based on behaviors and level of engagement by pt. SAFETY PLAN: 1. Will remain on SI/HI precautions. In Paper Clothes 2. Will remain in room under direct supervision of one-on-one staff at all times provided by [employer]; ELIAZAR, FILLER LEAF CUTTER LONG corporate representative. 3. May have paper cups, plates, finger foods as well as a cardboard spoon 4. Follow [facility] Management of the Admitted Behavioral Health Patient policy. 5. Comfort bath system only. 6. No personal belongings 7. Visitors: none at this time 8. Activities: may have soft items from activity cart at nursing discretion 9. Bathroom privileges with supervision 10. Phone: None at this time 11. Due to INVOLUNTARY status, patient is being held at [facility] by the Department of Mental Health ([facility]) until 2nd certification by [facility] Psychiatrist can be performed (within 24 hours). Staff will provide de-escalation support (CPI) as needed. If patient wishes to leave [facility], staff will contact [facility] Crisis Screener ([phone]) and On-Call Chilling Hood Operator ([phone]) as soon as possible. In the event of elopement, notify [place] State Police ([phone]). Patient is currently involuntarily at [facility]. [facility] Frontline [place]is[place] Operator will continue seeking placement. Please contact the Deboning Team Leader Chilling Hood Operator ([phone]) for any needed changes to Safety Plan. Safety plan has been provided to interdepartmental care team. Patient will be transported by esthetician makeup artist at time of discharge.
--- NOTE | 2022-02-02 10:21 | PDOC.CMSAFED ---
- If Service Date Differs Date of service: 02/02/22 Time of Service: 10:21 Care Management Safety Plan Status: Involuntary - Reason for Wait Reason for Wait: Inpatient Admission Frank will remain at [facility] ED on EE status pending admission to an inpatient facility. Pt will be assessed by [facility] 2x daily until placement is secured. Frank has a past medical history of paranoid schizophrenia and has had many recent ED visits for an escalation of symptoms. Most recently he presented to the ED on 01/31/22 but left and was brought back on a MH warrant. Safety plan has been established to meet the needs of the patient, and consideration of the care team, to adhere to patient goals, identify restrictions based on behavioral status, address nutrition, and determine allowed personal belongings, tools for hygiene and personal care. Determine level of activity including ambulation, level of supervision, visitors, and determine privileges based on behaviors and level of engagement by pt. SAFETY PLAN: 1. Will remain on SI/HI precautions. In Paper Clothes 2. Will remain in room under direct supervision of one-on-one staff at all times provided by [employer]; ELIAZAR, MINT WAFER DEPOSITOR color paste mixer. 3. May have paper cups, plates, finger foods as well as a cardboard spoon 4. Follow [facility] Management of the Admitted Behavioral Health Patient policy. 5. Comfort bath system only. 6. No personal belongings 7. Visitors: none at this time 8. Activities: may have soft items from activity cart at nursing discretion 9. Bathroom privileges with supervision 10. Phone: None at this time 11. Due to INVOLUNTARY status, patient is being held at [facility] by the Department of Mental Health ([facility]) until 2nd certification by [facility] Psychiatrist can be performed (within 24 hours). Staff will provide de-escalation support (CPI) as needed. If patient wishes to leave [facility], staff will contact [facility] Crisis Screener ([phone]) and On-Call Drum Drier ([phone]) as soon as possible. In the event of elopement, notify [place] State Police ([phone]). Patient is currently involuntarily at [facility]. [facility] Frontline Linen Supervisor will continue seeking placement. Please contact the Hydrodynamics Professor Drum Drier ([phone]) for any needed changes to Safety Plan. Safety plan has been provided to interdepartmental care team. Patient will be transported by household assistant at time of discharge.
[2022-02-02 13:54] LABS: Source Nasal/Nares
[2022-02-02 15:23] LABS: COVID-19 PCR Negative (Negative)
[2022-02-02] MEDS: Pantoprazole 40 MG TABCR PO (15:43)
--- NOTE | 2022-02-02 15:47 | PDOC.MHPN2 ---
Date of service: 02/02/22 Time of Service: 15:25 Mental Health Progress Note Progress Note Progress Note: Presenting Issue: Client is on EE status waiting for treatment. Precipitating Factors Disposition * Behavior: unremarkable *Eye Contact: minimal to none *Mood: Stressed, client reports he is doing when asked about his mood *Affect: flat *Appetite:Client reports his appetite is just fine. *Sleep(troubel falling/staying asleep):Client has been sleeping a lot. Plan(please elaborate and include that physician is consulted with plan and/or placement): Client will contninue to stay at [facility] until placement is found. Referrals have been sent, trying our best to get this client placed. Clinician's Name , Title, and Signature Tamanna Henning, Temple Meat Cutter, [facility] Make sure that you are photocopying and submitting this to [facility] records Dept. to be scanned into chart.
[2022-02-02] MEDS: LORazepam 1 MG TAB PO (19:36)
[2022-02-02] MEDS: OLANZapine 5 MG TAB PO (19:37)
--- NOTE | 2022-02-02 22:24 | ED.PROG_ITS ---
Date of service: 02/02/22 Time of Service: 22:24 Medical Decision Making pt currently sleeping, earlier in the shift was awake and talking, still paranoid, will continue to monitor until placement is found. He might be able to be admitted upstairs if beds are available tomorrow per nurse motel food service supervisor Sign Out Sign Out Data: Sign Out Comment: Paranoid schizophrenia, pending placement. Last updated by Jeff Brown DO at 02/01/22 07:27 Sign Out Comment: EE awaits placemen Last updated by Juan Francisco Salgado MD at 02/01/22 13:45 Sign Out Comment: EE ,awaiting placement; no events this evening Last updated by Timothy José MD at 02/01/22 23:02 Sign Out Comment: Patient remained stable throughout the evening. No interventions needed Last updated by Jeff Brown DO at 02/02/22 06:05 Sign Out Comment: EE, awaits placement, calm through shift tday. Last updated by Juan Francisco Salgado MD at 02/02/22 19:12 Sign Out Comment: ee awaiting placement Last updated by Rob Gandhi MD at 02/02/22 20:11 Discharge Plan Disposition Patient Disposition: STILL A PATIENT Condition: Good Discharge Details Clinical Impression: Paranoid schizophrenia Primary Care Provider: Ivan Vizcaino ED Provider: Rob Gandhi Home Meds and New Rx's Prescriptions: No Action pantoprazole 40 mg tablet,delayed release (DR/EC) 40 mg PO DAILY Qty: 90 3RF hydroxyzine HCl 50 mg tablet 50 mg PO TID PRN (Reason: anxiety) Qty: 270 1RF Rx Instructions: 07/12/20 [facility] NOTE cgc dextroamphetamine-amphetamine [Adderall XR] 30 mg capsule,extended release 24 hr 10 mg PO DAILY Rx Instructions: note dated 07/12/20 [facility] cgc olanzapine [Zyprexa] 5 mg tablet 5 mg PO BID PRN Rx Instructions: per note dated 08/22/21 [facility] start date cgc prednisone 20 mg tablet See Rx Instructions .ROUTE .COMPLEX Qty: 18 0RF Rx Instructions: Take 3 tabs daily for 3 days, then 2 tabs daily for 3 days, then 1 tab daily for 3 days. gabapentin [Neurontin] 300 mg capsule 300 mg PO BID Rx Instructions: On the first day take 1 pill, on the second day take 1 pill twice daily, on the third day and for the remainder of the prescription take 1 pill 3 times a day.
--- NOTE | 2022-02-03 09:15 | CMACTNOTE_ITS ---
- If Service Date Differs Date of service: 02/03/22 Time of Service: 09:15 Care Management Activity Note S/O: Frank continues to be calm and cooperative, spending much of his day sleeping or watching television. Frank has a past medical history of paranoid schizophrenia and has had many recent ED visits for an escalation of symptoms. Most recently he presented to the ED on 01/31/22 but left and was brought back on a MH warrant. A: Frank is a 31 year old male who presents in the ED on a Warrant for Emergency Examination. P: Frank will remain at [facility] on EE status pending admission to an inpatient facility. Pt will be assessed by [facility] 2x daily until placement is secured. Per [facility] have available beds and are considering him for admission but have yet to make a bed offer. CM will continue to follow.
--- NOTE | 2022-02-03 09:20 | CMSP_ITS ---
- If Service Date Differs Date of service: 02/03/22 Time of Service: 09:20 Care Management Safety Plan Status: Involuntary - Reason for Wait Reason for Wait: Inpatient Admission Frank will remain at [facility] on EE status pending admission to an inpatient facility. Pt will be assessed by [facility] 2x daily until placement is secured. Frank has a past medical history of paranoid schizophrenia and has had many recent ED visits for an escalation of symptoms. Most recently he presented to the ED on 01/31/22 but left and was brought back on a MH warrant. A huddle is done at 9:45 am with Leia, nursing communications electrician supervisor, Antony, charge nurse, and WILFRED Ignacio, in attendance. Safety plan has been established to meet the needs of the patient, and consideration of the care team, to adhere to patient goals, identify restric tions based on behavioral status, address nutrition, and determine allowed personal belongings, tools for hygiene and personal care. Determine level of activity including ambulation, level of supervision, visitors, and determine privileges based on behaviors and level of engagement by pt. SAFETY PLAN: 1. Will remain on SI/HI precautions. In Paper Clothes 2. Will remain in room under direct supervision of one-on-one staff at all times provided by [employer], ELIAZAR, STAMP MOUNTER rewrite editor. 3. May have paper cups, plates, finger foods as well as a cardboard spoon with which to eat meals. 4. Follow [facility] Management of the Admitted Behavioral Health Patient policy. 5. Shower permitted with supervision at RN discretion. 6. No personal belongings. 7. Visitors: none at this time. 8. Activities: soft activity cart items, television, and other activities at nursing discretion. 9. Bathroom privileges with escort in the ED; bathroom without limitation on M/S. 10. Phone: May use [employer] hospital phone at RN discretion. 11. Due to INVOLUNTARY status, patient is being held at [facility] by the Department of Mental Health ([facility]). A 2nd certification by [facility] Psychiatrist was performed on 02/01/2022 and the involuntary status was upheld. Staff will provide de- escalation support (CPI) as needed. If patient wishes to leave [facility], staff will contact [facility] Crisis Screener ([phone]) and On-Call Kinesiology Professor ([phone]) as soon as possible. In the event of elopement, notify [facility] Police ([phone]). Patient is currently involuntarily at [facility]. [facility] Frontline Aircraft Riveter will continue seeking placement. Please contact the Card Checker Kinesiology Professor ([phone]) for any needed changes to Safety Plan. Safety plan has been provided to interdepartmental care team. Patient will be transported by tubing mill setter at time of discharge.
--- NOTE | 2022-02-03 09:20 | PDOC.CMSAFED ---
- If Service Date Differs Date of service: 02/03/22 Time of Service: 09:20 Care Management Safety Plan Status: Involuntary - Reason for Wait Reason for Wait: Inpatient Admission Frank will remain at [facility] on EE status pending admission to an inpatient facility. Pt will be assessed by [facility] 2x daily until placement is secured. Frank has a past medical history of paranoid schizophrenia and has had many recent ED visits for an escalation of symptoms. Most recently he presented to the ED on 01/31/22 but left and was brought back on a MH warrant. A huddle is done at 9:45 am with Leia, nursing parachute manufacturing supervisor, Antony, charge nurse, and WILFRED Ignacio, in attendance. Safety plan has been established to meet the needs of the patient, and consideration of the care team, to adhere to patient goals, identify restrictions based on behavioral status, address nutrition, and determine allowed personal belongings, tools for hygiene and personal care. Determine level of activity including ambulation, level of supervision, visitors, and determine privileges based on behaviors and level of engagement by pt. SAFETY PLAN: 1. Will remain on SI/HI precautions. In Paper Clothes 2. Will remain in room under direct supervision of one-on-one staff at all times provided by [employer], ELIAZAR, SITE ADMINISTRATOR java performance engineer. 3. May have paper cups, plates, finger foods as well as a cardboard spoon with which to eat meals. 4. Follow [facility] Management of the Admitted Behavioral Health Patient policy. 5. Shower permitted with supervision at RN discretion. 6. No personal belongings. 7. Visitors: none at this time. 8. Activities: soft activity cart items, television, and other activities at nursing discretion. 9. Bathroom privileges with escort in the ED; bathroom without limitation on M/S. 10. Phone: May use [employer] hospital phone at RN discretion. 11. Due to INVOLUNTARY status, patient is being held at [facility] by the Department of Mental Health ([facility]). A 2nd certification by [facility] Psychiatrist was performed on 02/01/2022 and the involuntary status was upheld. Staff will provide de-escalation support (CPI) as needed. If patient wishes to leave [facility], staff will contact [facility] Crisis Screener ([phone]) and On-Call Mid Level Practitioner ([phone]) as soon as possible. In the event of elopement, notify [facility] Police ([phone]). Patient is currently involuntarily at [facility]. [facility] Frontline Locomotive Boilermaker will continue seeking placement. Please contact the Human Resource Manager Mid Level Practitioner ([phone]) for any needed changes to Safety Plan. Safety plan has been provided to interdepartmental care team. Patient will be transported by insurance advisor at time of discharge.
--- NOTE | 2022-02-03 16:59 | PDOC.MHCN_ITS ---
Date of service: 02/03/22 Time of Service: 17:00 Mental Health Crisis Note Presenting Issue How did you arrive at the ED and why did you come: Client arrived via a MH Warrant after he eloped when frightened. Precipitating Factors Client denied SI and HI. His thoughts have been improving the longer he has been at [facility]. Disposition BEHAVIOR: Cooperative but getting increasingly agitated about remaining in his room and not getting help. EYE CONTACT: poor MOOD: sleepy, depressed and anxious AFFECT: Congruent APPETITE: good SLEEP(trouble falling/staying asleep: Well. Plan Client will remain at [facility] and be assessed twice daily by [facility] until placment is found. Signature Clinician's Name/Title: Audra Ramirez MS, [facility] Emergency Services Clinician, [facility]
[2022-02-03 19:56] VITALS: BP 131/72; PULSE 88; RESP 16; TEMP 36.9; O2SAT 99
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
[2022-02-03] MEDS: Pantoprazole 40 MG TABCR PO (20:59)
[2022-02-03] MEDS: OLANZapine 5 MG TAB PO (21:00)
[2022-02-03] MEDS: Buprenorphine/Naloxone 4 mg/1 mg FILM 1 EACH SL (22:06)
[2022-02-04 02:55] VITALS: BP 122/80; PULSE 74; RESP 14; TEMP 36.3; O2SAT 96
[2022-02-04] MEDS: Gabapentin 300 MG CAP PO ×3 (07:54→19:19)
[2022-02-04] MEDS: OLANZapine 5 MG TAB PO ×2 (07:54→19:20)
[2022-02-04] MEDS: Buprenorphine/Naloxone 8 mg/2 mg FILM 1 EACH SL (07:54)
[2022-02-04] MEDS: Pantoprazole 40 MG TABCR PO (07:54)
[2022-02-04 09:00] VITALS: BP 119/75; PULSE 91; RESP 16; TEMP 36.6; O2SAT 98
--- NOTE | 2022-02-04 13:09 | W.PM.PROGNOT ---
Date of Service Date of service: 02/04/22 Time of Service: 13:09 Objective Last Vital Signs Temp 36.6 C 02/04/22 09:00 Pulse 91 H 02/04/22 09:00 Resp 16 02/04/22 09:00 BP 119/75 02/04/22 09:00 Pulse Ox 98 02/04/22 09:00
--- NOTE | 2022-02-04 15:20 | MHPN_ITS ---
Date of service: 02/04/22 Time of Service: 13:20 Mental Health Progress Note Progress Note Progress Note: Presenting Issue: Client is on EE status at [facility] Precipitating Factors Disposition * Behavior: Unremarkable *Eye Contact:None *Mood: Irritable, stressed, depressed *Affect: flat, congruent with mood *Appetite: Client reports his mood is fine. *Sleep(troubel falling/staying asleep):Client reports he is sleeping a lot. Plan(please elaborate and include that physician is consulted with plan and/or placement): Client will continue to wait for involuntary treatment. Clinician's Name , Title, and Signature Tamanna Henning, [facility], [employer] Make sure that you are photocopying and submitting this to [facility] records Dept. to be scanned into chart.
[2022-02-04] MEDS: hydrOXYzine HCL 50 MG TAB PO ×2 (15:26→19:20)
--- NOTE | 2022-02-04 16:58 | DSE_ITS ---
Date of service: 02/04/22 Time of Service: 16:58 DS: Diagnosis Discharge Diagnosis (1) Paranoid schizophrenia: Status: Acute (2) Moderate opioid dependence on maintenance therapy: Status: Chronic (3) GERD (gastroesophageal reflux disease): Status: Chronic (4) Stimulant abuse: Status: Acute (5) Smoker: Status: Acute (6) Anemia, mild: Status: Acute (7) DVT prophylaxis: Status: Acute (8) Discharge planning issues: Status: Acute Discharge Plan Disposition Patient Disposition: [facility] Condition: Good Discharge Details Reason For Visit: paranoid schizophrenia Admit Date/Time: 02/03/22 18:24 Admit Provider: John Sales Attending Provider: John Sales Primary Care Provider: Ivan Vizcaino [facility] Hospital Course: 31 yo male patient with a past medical history of paranoid schizophrenia who was brought to the emergency room 01/31/22 by police complaining of somebody trying to kill him. ? He had been evaluated 01/20-01/23/22 in the emergency department and sent home, then returned the same day with suicidal ideation along with paranoia.? He was eventually admitted to [facility] because he was COVID+ and they could not find a bed.? His SI resolved and he was discharged on 01/28/22.? He returned and has been in the [facility] Emergency Department since 01/31/22 on EE status due to his mental state with uncontrolled paranoia.? He described someone following him around and trying to steal his things.? He described the man being in his room at the [facility] and turning on and off the TV.? He described the man threatening to kill him and believes he took his SSDI check and backpack.? Frank states he knows the difference between hearing and seeing things and reality and this is real not a hallucination.? He states he feels depressed with suicidal ideation that comes and goes, since his daughter in motor vehicular trauma. He did complain of starting to feel cold sweats and anxiety from not having his suboxone for the past week he had been in the ED.? He was formerly in [employer] and was trying to get into [facility] but his application has not yet been processed.? He was on EE status for suicidal ideation and was observed on the medical floor awaiting acceptance at a psychiatric facility. He has been accepted @ [facility] and will be transported there.? Provider to Provider hand off to Dr Mao Marin @ 1730h. Home Meds and New Rx's Prescriptions: New buprenorphine-naloxone 8-2 mg Film 1 film sublingual DAILY Qty: 0 0RF Nicotrol 10 mg Cartridge 300 mg inhalation DIRECTED PRNQty: 0 0RF Continued pantoprazole 40 mg tablet,delayed release (DR/EC) 40 mg PO DAILY Qty: 90 3RF olanzapine [Zyprexa] 5 mg tablet 5 mg PO BID gabapentin [Neurontin] 300 mg capsule 300 mg PO TID hydroxyzine HCl 50 mg tablet 50 mg PO TID loratadine 10 mg tablet 10 mg PO DAILY Discontinued dextroamphetamine-amphetamine 30 mg capsule,extended release 24hr 30 mg PO DAILY Discharge Instructions Instructions: Psychotic Disorder (DC) Stand Alone Forms: Nursing Discharge Form Referrals: Ivan Vizcaino DO [Primary Care Provider] - (Follow up in one to two weeks.) Activity:: Activity as Tolerated Activity:: Activity as Tolerated Equipment/Supplies:: No Equipment Needed Diet:: As Tolerated Discharge Data Discharge Date/Time-TO BE ENTERED AT DEPARTURE: 02/04/22 20:13 DS: Summary Time Spent with Patient providing and/or coordinating discharge services: Less than 30 minutes Status at Discharge Functional status at discharge: independent ambulation Overall status at discharge: patient is progressing back to baseline Mental Status: mental status grossly normal Speech and Movement: speech and movement normal Mood: congruent mood Affect: normal affect Exam Narrative Exam Narrative: GEN: Alert and oriented, pleasant and cooperative, gives linear history. No acute distress at rest. HEENT: Head atraumatic. Conjunctiva clear, no icterus. PEERL, EOMI, pupils 4- 5mm milana. no rhinorrhea. MMM, OP benign. Neck is supple with no masses or lymphadenopathy LUNGS: CTAB with normal effort CV: RRR with no murmurs, gallops, or rubs. ABD: + BS, soft, NT/ND EXT: No cyanosis, clubbing, or edema MSK: No joint redness or swelling NEURO: CN 2-12 grossly intact. Normal movement of 4 extremities. Normal speech and coordination. DTRs 2+ milana. No tremor. SKIN: No rashs or open wounds. PSYCH: Mildly anxious mood and affect, speech normal but difficult to interrupt. Currently not expressing paranoid thoughts, denies current hallucination. CAOx4, pleasant and conversant. Psych Mental Status: mental status grossly normal Speech and Movement: speech and movement normal Mood: congruent mood Affect: normal affect DS: Data Vitals/I&O Vitals and I&O: Vital Signs Temperature 36.6 C 02/04/22 09:00 Temperature Source Tympanic 02/04/22 09:00 Pulse 91 H 02/04/22 09:00 Pulse Rhythm Regular 02/04/22 10:59 Respiratory Rate 16 02/04/22 09:00 Respiratory Effort Non-Labored 02/04/22 10:59 Respiratory Depth Normal 02/04/22 10:59 Respiratory Pattern Normal 02/04/22 10:59 Blood Pressure 119/75 02/04/22 09:00 Pulse Oximetry 98 02/04/22 09:00 Oxygen Delivery Method Room Air 02/04/22 09:00 Oxygen Flow Rate 0 02/04/22 09:00 Pain Level 0 02/04/22 09:00 Intake & Output 02/03/22 02/04/22 02/04/22 23:59 11:59 23:59 Intake Total 900 / 1200 Balance 900 / 1200 Weight 78.9 kg Intake: Oral 900 / 1200 Other: Comment voided independently Stool Size Moderate Stool Characteristics Formed Voiding Methods Toilet Toilet PFSH All Active Problems Anemia, mild (Acute) Smoker (Acute) Discharge planning issues (Acute) DVT prophylaxis (Acute) Stimulant abuse (Acute) Paranoid schizophrenia (Acute) Paranoid schizophrenia (Acute) Moderate opioid dependence on maintenance therapy (Chronic) Depression (Chronic) Stress at home (Acute) GERD (gastroesophageal reflux disease) (Chronic) Anxiety (Chronic) ADHD (Chronic) Medical History ADHD Depression Drug abuse Family History Father , colon ca at age 70. Colon cancer Social History Smoking/Tobacco Use Status: Current every day Tobacco Type: cigarettes Smoking risk assessment performed?: Yes Alcohol Intake: former Drug use: Current Sobriety Substance use type: opiates In current or past relationships, have you been: threatened Do you feel safe at home: No Do you feel safe in your relationship?: No Additional Social history: Homeless, living in [facility] in [place]. 4 girls, three in [place] where he grew up outside [place] On SSDI for mental health
--- NOTE | 2022-02-04 17:41 | NUR.NOTE ---
Nursing Note: RN to RN report given to Katy Michaud RN @ [facility]. Reported no further questions.
--- NOTE | 2022-02-04 18:31 | CMDISCH_ITS ---
- If Service Date Differs Date of service: 02/04/22 Time of Service: 18:31 LACE Index Scoring Tool - Questions: Length of Stay (in days): 4 - 6 Acuity (Admit via E.D.?): Yes E.D. Visits: 9 - Answers: Total Score: 11 Risk of Readmission: High Risk Care Management Discharge Reason for Hospitalization: Paranoid schizophrenia. Discharge Plan: Frank is accepted for placement by [facility]. He will follow up with [facility] and plan of care as instructed following his discharge from [facility]. He is transported by [facility] team, coordinated by [facility]. Patient/Family Education Needs: Review of discharge instructions, discuss expectations and Ask Me Three. - MH Services (Omit if N/A) Current MH Services: [employer] [employer] - Disposition Disposition: [facility] Transport via of: Other ([facility])
== END 2022-02-04 20:13 ==
LOC: ER 02-03 18:29 → MS 02-03 19:33
PROVIDERS: Emergency Medicine; Student in an Organized Health Care Education/Training Program; Admitting Provider Family Medicine; Emergency Provider Student in an Organized Health Care Education/Training Program; PCP Family Medicine; Visit Provider Family Medicine
DX: F20.0 Paranoid schizophrenia (principal); K21.9 Gastro-esophageal reflux disease without esophagitis; D64.9 Anemia, unspecified; F17.210 Nicotine dependence, cigarettes, uncomplicated; Z79.899 Other long term (current) drug therapy; R45.851 Suicidal ideations; F11.20 Opioid dependence, uncomplicated; F32.A Depression, unspecified; F41.9 Anxiety disorder, unspecified; F90.9 Attention-deficit hyperactivity disorder, unspecified type; F15.10 Other stimulant abuse, uncomplicated; Z86.16 Personal history of COVID-19; Z20.822 Contact with and (suspected) exposure to COVID-19
CPT/HCPCS: 80053; 80307; 87635; 93005; 96361; 96374; 96375; 99285; 80320; 80329; 84443; 85025; 93010; 99238; G0378; J1630; J3490

== ENCOUNTER 2022-02-11 23:17 | Observation (INO) | payer MEDICAID, SELFPAY ==
--- NOTE | 2022-02-11 23:17 | ED.GENADUL_ITS ---
Discharge Plan Disposition [facility] Condition: Stable Discharge Details Clinical Impression: Paranoid delusion Admit Date/Time: 02/13/22 02:25 Admit Provider: Tristan Andrew Attending Provider: Tristan Andrew Primary Care Provider: Ivan Vizcaino ED Provider: Katiuska Hicks Discharge Data Discharge Date/Time-TO BE ENTERED AT DEPARTURE: 02/13/22 03:14 Medical Decision Making <Katiuska Hicks DO - Last Filed: 02/16/22 08:37> 02/11/22 2330 -- 31-year-old male with a history of anxiety, depression and paranoid schizophrenia presents for [facility] after sent by [facility] on an EE for paranoia and delusions. Evaluation by mental health cut short as patient was falling asleep. On arrival to the ED, patient was ambulatory and able to answer questions easily. He is able to be aroused and answers questions appropriately and follows commands but falling asleep in between questioning. It was reported by mental health that patient is claiming that objects are being stolen from his apartment and people are standing outside his apartment with a 9 mm Glock trying to kill him. This is similar to previous statements he made while hospitalized for paranoid delusions. Patient was recently at [facility] [place] [place] and [facility]. Plan is to seek inpatient psychiatric hospitalization for his paranoid delusions. He is denying suicidal or homicidal ideation. Screening labs obtained and unremarkable. COVID-negative. Patient is medically cleared. 02/12/22 0800 -- Case endorsed to Dr. Amaya to continue to monitor while awaiting second certificate and placement. 02/13/22 0200 --although patient is on EE and has been in the ED for 26 hours, patient has been cooperative and due to high volume and multiple other psychiatric patients in the ED, discussed with nursing automation and controls supervisor and they will admit patient to the floor while awaiting placement. Case discussed with Dr. Andrew who accepts patient for admission to the floor while awaiting placement. Medical Records Medical records reviewed: Yes I reviewed the patient's medical records. Lab Data Lab results reviewed: Yes I reviewed the patient's lab results. Labs: Laboratory Tests Range/Units 02/12/22 02/12/22 02/12/22 00:00 00:06 00:06 WBC (4.4-10.8) 10^3/uL 6.94 RBC (4.36-5.78) 10^6/uL 4.11 L Hgb (13.5-17.5) g/dL 11.0 L Hct (40.0-50.0) % 34.1 L MCV (80-95) fL 83 MCH (27.0-33.0) pg 26.8 L MCHC (32.0-36.0) % 32.3 RDW (11.8-14.1) % 15.2 H Plt Count (130-400) 10^3/uL 326 MPV (8.0-11.0) fL 8.8 Immature Gran % 0.1 Neutrophils % 43.7 Lymphocytes % 43.2 Monocytes % 8.5 Eosinophils % 4.2 Basophils % 0.3 Nucleated RBC % (0.0-0.3) % 0.0 Absolute Neutrophils (1.2-6.7) 10^3/uL 3.03 Absolute Lymphocytes (1.2-3.4) 10^3/uL 3.00 Absolute Monocytes (0.1-0.8) 10^3/uL 0.59 Absolute Eosinophils (0.0-0.7) 10^3/uL 0.29 Absolute Basophils (0.0-0.2) 10^3/uL 0.02 Sodium (136-145) mmol/L 141 Potassium (3.5-5.1) mmol/L 3.5 Chloride (98-107) mmol/L 103 Carbon Dioxide (21.0-32.0) mmol/L 29.7 Anion Gap (3-11) mmol/L 8.3 BUN (7-18) mg/dL 16 Creatinine (0.70-1.30) mg/dL 0.9 Estimated GFR/1.73 m2 (mL/min/1.73m2) >= 60.00 Glucose (74-106) mg/dL 131 H Calcium (8.5-10.1) mg/dL 8.3 L Total Bilirubin (0.2-1.0) mg/dL 0.3 AST (15-37) U/L 21 ALT (16-63) U/L 39 Alkaline Phosphatase (46-116) U/L 59 Total Protein (6.4-8.2) g/dL 6.9 Albumin (3.4-5.0) g/dL 3.2 L Urine Opiates Screen (Negative) Urine Methadone Screen (Negative) Ur Barbiturates Screen (Negative) Ur Tricyclics Screen (Negative) Ur Amphetamines Screen (Negative) U Benzodiazepines Scrn (Negative) Urine Cocaine Screen (Negative) Ur THC Screen (Negative) Ethyl Alcohol (<10) mg/dL < 3.0 COVID-19 Source Nasal/Nares SARS-CoV-2 (PCR) (Negative) Negative Range/Units 02/12/22 01:23 WBC (4.4-10.8) 10^3/uL RBC (4.36-5.78) 10^6/uL Hgb (13.5-17.5) g/dL Hct (40.0-50.0) % MCV (80-95) fL MCH (27.0-33.0) pg MCHC (32.0-36.0) % RDW (11.8-14.1) % Plt Count (130-400) 10^3/uL MPV (8.0-11.0) fL Immature Gran % Neutrophils % Lymphocytes % Monocytes % Eosinophils % Basophils % Nucleated RBC % (0.0-0.3) % Absolute Neutrophils (1.2-6.7) 10^3/uL Absolute Lymphocytes (1.2-3.4) 10^3/uL Absolute Monocytes (0.1-0.8) 10^3/uL Absolute Eosinophils (0.0-0.7) 10^3/uL Absolute Basophils (0.0-0.2) 10^3/uL Sodium (136-145) mmol/L Potassium (3.5-5.1) mmol/L Chloride (98-107) mmol/L Carbon Dioxide (21.0-32.0) mmol/L Anion Gap (3-11) mmol/L BUN (7-18) mg/dL Creatinine (0.70-1.30) mg/dL Estimated GFR/1.73 m2 (mL/min/1.73m2) Glucose (74-106) mg/dL Calcium (8.5-10.1) mg/dL Total Bilirubin (0.2-1.0) mg/dL AST (15-37) U/L ALT (16-63) U/L Alkaline Phosphatase (46-116) U/L Total Protein (6.4-8.2) g/dL Albumin (3.4-5.0) g/dL Urine Opiates Screen (Negative) Negative Urine Methadone Screen (Negative) Negative Ur Barbiturates Screen (Negative) Negative Ur Tricyclics Screen (Negative) Negative Ur Amphetamines Screen (Negative) Positive A U Benzodiazepines Scrn (Negative) Negative Urine Cocaine Screen (Negative) Negative Ur THC Screen (Negative) Negative Ethyl Alcohol (<10) mg/dL COVID-19 Source SARS-CoV-2 (PCR) (Negative) HPI <Katiuska Hicks, - Last Filed: 02/16/22 08:37> General Mode of arrival: ambulatory . Date/Time Provider Initiated Documentation: 02/11/22 23:17 . Limitations to Documentation: no limitations . Information obtained by: patient . HPI Narrative: Patient is a 31-year-old male with a history of depression, paranoid schizophrenia, anxiety, ADHD presents for mental health on an . Per Audra from [facility], patient has been claiming that people are stealing objects from his apartment and there are people waiting for him outside of his apartment threatening to kill him with a 9 mm block. It was also reported that he has been barricading himself inside [facility] vestibule for feeling that someone is out to kill him. Patient states he was brought here by [facility] against his will and that he denies calling them but mental health reports that patien't phone number was on VSP caller ID. Related Data Home Medications Medication Instructions Recorded Confirmed olanzapine 5 mg tablet (Zyprexa) 5 mg PO BID 08/26/21 02/11/22 gabapentin 300 mg capsule 300 mg PO TID 01/20/22 02/11/22 (Neurontin) hydroxyzine HCl 50 mg tablet 50 mg PO TID 02/04/22 02/11/22 loratadine 10 mg tablet 10 mg PO DAILY 02/04/22 02/11/22 nicotine 10 mg inhalation 300 mg inhalation DIRECTED PRN 02/04/22 02/11/22 cartridge (Nicotrol) #0 ea aspirin 81 mg chewable tablet 81 mg PO DAILY 02/11/22 02/11/22 dextroamphetamine-amphetamine 10 10 mg PO DAILY 02/11/22 02/11/22 mg tablet dextroamphetamine-amphetamine ER 30 mg PO DAILY 02/11/22 02/11/22 30 mg 24hr capsule,extend release famotidine 20 mg tablet 20 mg PO DAILY 02/11/22 02/11/22 haloperidol 5 mg tablet 5 mg PO DAILY 02/11/22 02/11/22 propranolol 10 mg tablet 10 mg PO BID 02/11/22 02/11/22 buprenorphine 8 mg-naloxone 2 mg 1 film sublingual DAILY 02/12/22 02/11/22 sublingual film Previous Rx's Medication Instructions Recorded nicotine 10 mg inhalation 300 mg inhalation DIRECTED PRN 02/04/22 cartridge (Nicotrol) #0 ea Allergies Allergy/AdvReac Type Severity Reaction Status Date / Time methylphenidate AdvReac Severe left Verified 02/11/22 23:29 [From Ritalin] arm,tongue,face numbness,tingling General Stated Complaint: PsychEval STAR: 2 Review of Systems <Katiuska Hicks DO - Last Filed: 02/16/22 08:37> All systems reviewed & are unremarkable except as noted in HPI and below Constitutional Constitutional: Denies chills, Denies excessive sweating, Denies fatigue, Denies fever(s), Denies weakness and Denies weight loss Eyes Eyes: Reports system reviewed and no additional complaints, except as documented and Denies blurry vision ENT Ears, Nose, Mouth, and Throat: Denies vertigo, Denies dizziness, Denies otalgia, Denies nasal congestion, Denies sore throat and Denies throat swelling Cardiovascular Cardiovascular: Denies chest pain, Denies syncope, Denies rapid heart rate and Denies dyspnea Respiratory Respiratory: Denies chest congestion, Denies cough, Denies pain on inspiration and Denies dyspnea Gastrointestinal Gastrointestinal: Denies abdominal pain, Denies diarrhea and Denies vomiting Genitourinary Genitourinary: Denies hematuria, Denies dysuria and Denies flank pain Musculoskeletal Musculoskeletal: Denies back pain and Denies joint swelling Integumentary/Breasts Skin/Breast: Denies lesions and Denies rash Neurologic Neurologic: Denies behavioral changes, Denies confusion, Denies vertigo, Denies dizziness, Denies syncope, Denies localized weakness and Denies weakness Psychiatric Psychiatric: Denies behavioral changes, Denies confusion, Denies depression and Reports paranoia Endocrine Endocrine: Denies excessive sweating and Denies fatigue Hematologic/Lymphatic Hematologic/Lymphatic: Denies easy bruising and Denies lymphadenopathy Allergic/Immunologic Allergic/Immunologic: Denies throat swelling PFSH <Katiuska Hicks DO - Last Filed: 02/16/22 08:37> All Active Problems (Updated 02/12/22 @ 02:09 by Katiuska Hicks DO) Paranoid delusion (Acute) Anemia, mild (Acute) Stimulant abuse (Acute) Paranoid schizophrenia (Acute) Moderate opioid dependence on maintenance therapy (Chronic) Depression (Chronic) Stress at home (Acute) GERD (gastroesophageal reflux disease) (Chronic) Anxiety (Chronic) ADHD (Chronic) Medical History ADHD Depression Drug abuse Family History Father , colon ca at age 70. Colon cancer Social History Smoking/Tobacco Use Status: Current every day Tobacco Type: cigarettes Smoking risk assessment performed?: Yes Alcohol Intake: former Drug use: Current Sobriety Substance use type: opiates In current or past relationships, have you been: threatened Do you feel safe at home: No Do you feel safe in your relationship?: No Exam <Katiuska Hicks DO - Last Filed: 02/16/22 08:37> Const General: cooperative and other (drowsy but arousable) [facility] Head: normal to inspection Ears: hearing grossly normal bilaterally and external ears normal General nose exam: external nose normal Face and sinus: normal facial exam Eyes General: appearance normal, both eyes and all related structures Eyelids: eyelids normal Pupils: PERRL EOM: EOM intact bilaterally Neck Neck: normal visual inspection Lymphatic: no lymphadenopathy noted Chest Chest: normal inspection of the chest Resp Effort & Inspection: normal respiratory effort and able to speak in complete s entences Auscultation: clear to auscultation bilaterally Cardio Rate: regular rate Rhythm: regular rhythm GI Inspection: normal to inspection Palpation: soft, not firm, no guarding, no hepatosplenomegaly, no masses and nontender Auscultation: normal bowel sounds Back/Spine/Pelvis Back: no CVA tenderness Skin General skin exam: no rashes or lesions noted Neuro General: patient alert and patient awake Cognition: normal cognition Speech: speech normal Gait: normal gait Motor: muscle tone normal throughout Sensory Exam: no sensory deficits noted Extrem General: normal to inspection, full ROM, capillary refill normal and no edema Psych Appearance: grossly normal Mental Status: mental status grossly normal Speech and Movement: speech and movement normal Affect: normal affect Thought Process: illogical Insight: poor <Delmar Dacosta MD - Last Filed: 02/12/22 12:45> Second CERT completed. Patient awaiting bed. Sign Out <Katiuska Hicks DO - Last Filed: 02/16/22 08:37> Sign Out Data: Sign Out Comment: Paranoid delusions. Medically cleared. Involuntary. EE. Awaiting second certificate later today. Last updated by Katiuska Hicks DO at 02/12/22 07:40
[2022-02-11 23:23] VITALS: BP 131/75; PULSE 108; RESP 16; TEMP 36.8; O2SAT 99
--- OUTSIDE RECORDS SUMMARY | 2022-02-11 23:24 | XMS_ITS | Clinical Summary ---
:1990 Author Organization [facility] Address [address] [place] [address] Care Team Providers Name Role Phone Ivan Vizcaino DO Primary Care Provider Allergies Active Allergy Reactions Severity Noted Date Comments Fish Containing Products Swelling, Rash 02/07/2022 Methylphenidate Other (See Comments) High 02/05/2022 Left arm tongue, face numbness, tingling status verified 2 by [facility] - per dominique t review Shellfish Containing Swelling, Rash 02/07/2022 Products Medications Medication Sig Dispensed Refills Start Date End Date Status buprenorphine-naloxone Place 1 Film under 1 Film 0 02/10/20 22 Active (SUBOXONE) 8-2 mg the tongue daily. sublingual film Daily Max: 1 Film hydrOXYzine (ATARAX) Take 1 Tablet by 0 02/08/2022 Active 50 mg tablet mouth 2 times daily as needed for Anxiety. OLANZapine (ZYPREXA) Take 1 Tablet by 1 Tablet 0 02/08/2022 Active 10 mg tablet mouth at bedtime. nicotine polacrilex Take 1 Each by 100 Each 0 02/08/2022 Active (NICORETTE) 2 mg gum mouth every hour as needed for Smoking Cessation (nicotine craving). pantoprazole Take 1 Tablet by 1 Tablet 0 02/09/2022 Active (PROTONIX) 40 mg mouth daily before tablet breakfast. 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); 02/08/2022 MD Christine 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[facility]) ([facility]); Drug dependence , episodic abuse ([facility]) ([facility]); Gastroesophagea l reflux disease, unspecified whether esophagitis present; Opioid use diso rder, moderate, in early remission, on maintenance therapy ([facility]); Substance-induc ed psychotic disorder ([facility]) ([facility]) from Last 3 Months Social History Tobacco Use Types Packs/Day Years Used Date Current Every Day Smoker Cigarettes 0.5 17 Sta rted: 07/09/2005 Smokeless Tobacco: Former User Tobacco Cessation: Ready to Quit: No; Co unseling Given: No Alcohol Use Standard Drinks/Week Comments Not Currently 0 (1 standard drink = 0.6 oz pure alcoho l) Sex Assigned at Date Recorded Not on file Last Filed Vital Signs Vital Sign Reading Time Taken Comments Blood Pressure 109/76 02/08/2022 0747 EDT Pulse 91 02/08/2022 0747 EDT Temperature 36.7 ??C (98 ??F) 02/08/2022 0747 EDT Respiratory Rate 16 02/08/2022 0747 EDT Oxygen Saturation 98% 02/08/2022 0747 EDT Inhaled Oxygen Concentration - - Weight 80.9 kg (178 lb 6 oz) 02/04/20222208 EDT Height 172.7 cm (5' 8) 02/04/20222208 EDT Body Mass Index 27.12 02/04/20222208 EDT Plan of Treatment Health Maintenance Due Date Last Done Comments COVID-19 Vaccine (#1) 04/26/1989 Hepatitis C Screen Completed 02/05/2022 Procedures Procedure Name Priority Date/Time Associated Diagnosis Comme nts HEPATITIS C AB W Add-On 02/05/2022 6:32 Amphetamine abuse Res ults for this REFLEX TO HCV RNA BY EDT ([facility]) ( [facility]) procedure are in PCR Drug dependence, the results episodic abuse section. ([facility]) ([facility]) LIPID PROFILE Add-On 02/05/2022 6:32 Results for this (INCLUDES EDT procedure are i n CHOLESTEROL, the results TRIGLYCERIDES, HDL, section. LDL) HEMOGLOBIN A1C Add-On 02/05/2022 6:32 Results fo r this EDT procedure are i n the results section. COMPLETE BLOOD COUNT Routine 02/05/2022 6:32 Resu lts for this AND DIFFERENTIAL EDT procedure a re in the results section. TSH Routine 02/05/2022 6:32 Results for this EDT procedure are i n the results section. ALT Routine 02/05/2022 6:32 Results for this EDT procedure are i n the results section. AST Routine 02/05/2022 6:32 Results for this EDT procedure are i n the results section. ALBUMIN Routine 02/05/2022 6:32 Results for this EDT procedure are i n the results section. GGT Routine 02/05/2022 6:32 Results for this EDT procedure are i n the results section. ALKALINE PHOSPHATASE Routine 02/05/2022 6:32 Resu lts for this EDT procedure are i n the results section. CREATININE Routine 02/05/2022 6:32 Results for this EDT procedure are i n the results section. BUN Routine 02/05/2022 6:32 Results for this EDT procedure are i n the results section. ELECTROLYTES Routine 02/05/2022 6:32 Results for this EDT procedure are i n the results section. SCREENING GLUCOSE Routine 02/05/2022 6:32 Results for this EDT procedure are i n the results section. from Last 3 Months Results (ABNORMAL) SCREENING GLUCOSE (02/05/2022 6:32 EDT) Pathologist Sig nature Glucose, Screening 103 (H) 70 - 100 mg/dL [facility] Specimen Blood - Venous blood (substance) Performing Organization Address City/[facility]/ZIP Code Phon e Number [facility] [address] [place] [address] HEPATITIS C AB W REFLEX TO HCV RNA BY PCR (02/05/2022 6:32 EDT) Pathologist Sig nature Hep C Antibody Negative Negative [facility] Specimen Blood - Venous blood (substance) Performing Organization Address City/[facility] Phon e Number [facility] [address] [place], [place] [id number] (ABNORMAL) COMPLETE BLOOD COUNT AND DIFFERENTIAL (02/05/2022 6:32 EDT) Pathologist Sig nature WBC 6.45 4.00 - 10.40 [facility] K/[facility] RBC 4.58 4.36 - 5.78 [facility] Hemoglobin 12.4 (L) 13.8 - 17.3 [facility] gm/dL [place] [facility] HCT 37.6 (L) 39.5 - 50.2 % [facility] MCV 82 81 - 95 fl [facility] MCH 27.1 (L) 27.6 - 33.0 pg [facility] MCHC 33.0 32.8 - 36.4 [facility] gm/dL [place] [facility] RDW-CV 14.8 (H) <14.2 % [facility] RDW-SD 44.7 <46.0 fl [facility] PLT 350 141 - 377 K/cmm [facility] MPV 8.5 (L) 9.5 - 12.7 fl [facility] Neutrophils 41.8 % [facility] Lymphocytes 48.8 % [facility] Monocytes 5.6 % [facility] Eosinophils 3.1 % [facility] Basophils 0.5 % [facility] Immature Grans 0.2 % [facility] Absolute Neutrophils 2.70 2.20 - 8.85 [facility] Absolute Lymphocytes 3.15 1.09 - 3.30 [facility] Absolute Monocytes 0.36 0.10 - 0.80 [facility] Absolute Eosinophils 0.20 0.03 - 0.61 [facility] Absolute Basophils 0.03 0.01 - 0.11 [facility] Absolute Immature 0.01 0.00 - 0.06 [facility] /[facility] Type of Differential: Auto [facility] Specimen Blood - Venous blood (substance) Performing Organization Address City/State/ZIP Code Phon e Number [facility] [address] [place] [address] BUN (02/05/2022 6:32 EDT) Pathologist Sig nature BUN 16 10 - 26 mg/dL [facility] Specimen Blood - Venous blood (substance) Performing Organization Address City/[facility] Phon e Number [facility] [address] [place] [address] ALT (02/05/2022 6:32 EDT) Pathologist [facility] ALT 18 <50 U/L [facility] AB Specimen Blood - Venous blood (substance) Performing Organization Address [facility] Phon e [facility] [address] [place] [address] AST (02/05/2022 6:32 EDT) Pathologist [facility] AST 20 15 - 46 U/L [facility] AB Specimen Blood - Venous blood (substance) Performing Organization Address [facility] Phon e [facility] [address] [place] [address] TSH (02/05/2022 6:32 EDT) Pathologist [facility] TSH 2.43 0.47 - 4.68 mIU/L [facility] Specimen Blood - Venous blood (substance) Narrative [facility] - 022 8:03 EDT The results of this assay can be falsely lowered due to the consumption of Biotin. Performing Organization Address [facility] Phon e [facility] [address] [place] [address] ALKALINE PHOSPHATASE (02/05/2022 6:32 EDT) Pathologist [facility] Alkaline Phosphatase 50 38 - 126 U/L [facility] Specimen Blood - Venous blood (substance) Performing Organization Address [facility] Phon e [facility] [address] [place] [address] (ABNORMAL) HEMOGLOBIN A1C (02/05/2022 6:32 EDT) Pathologist [facility] Hemoglobin A1c 5.7 (H) <5.7 % [facility] Comment: [facility] Glycemic Status References: Normal: ??<5.7% Pre-Diabetes: ??5.7% - 6.4% Diagnostic of Diabetes: ??> or = 6.5% (if confirmed) Est Avg Glucose 117Comment: The eAG mg/dL [facility] ME D represents the A1c [facility] result expressed as average glucose in mg/dL. Specimen Blood - Venous blood (substance) Performing Organization Address City/[facility]/ZIP Code Phon e Number [facility] [address] [place] [address] GGT (02/05/2022 6:32 EDT) Pathologist Sig nature GGT 19 15 - 73 U/L [facility] L AB Specimen Blood - Venous blood (substance) Performing Organization Address City/[facility]/ZIP Code Phon e Number [facility] [address] [place] [address] CREATININE (02/05/2022 6:32 EDT) Pathologist Sig nature Creatinine 0.69 0.66 - 1.25 mg/dL [facility] eGFR 125 >60 mL/min/1.73m2 [facility] Specimen Blood - Venous blood (substance) Performing Organization Address [facility] Code Phon e Number [facility] [address] [place] [address] ALBUMIN (02/05/2022 6:32 EDT) Pathologist Sig nature Albumin 4.0 3.4 - 4.9 g/dL [facility] Specimen Blood - Venous blood (substance) Performing Organization Address [facility] Phon e Number [facility] [address] [place] [address] LIPID PROFILE (INCLUDES CHOLESTEROL, TRIGLYCERIDES, HDL, LDL) (02/05/2022 6:32 EDT) Cholesterol 149Comment: Note <200 mg/dL [facility] that therapeutic MED [facility] goals will differ between patients based on cardiac risk factors and current medical therapy. HDL 42Comment: Note >=40 mg/dL [facility] that therapeutic [facility] goals will differ between patients based on cardiac risk factors and current medical therapy. LDL, Calculated 90Comment: Note <160 mg/dL [facility] that therapeutic [facility] goals will differ between patients based on cardiac risk factors and current medical therapy. Triglyceride 86Comment: Note <=150 mg/dL [facility] that therapeutic [facility] goals will differ between patients based on cardiac risk factors and current medical therapy. Chol/HDL Ratio 3.5 See Note [facility] Comment: [facility] NOTE: Desirable Ratio = <4.1 Patient At Risk Ratio = >5.0(Males) ?>6.0(Females) Non HDL Cholesterol 107Comment: Note <160 mg/dL [facility] that therapeutic [facility] goals will differ between patients based on cardiac risk factors and current medical therapy. Specimen Blood - Venous blood (substance) Performing Organization Address City/[facility]/ZIP Code Phon e Number [facility] [address] [place] [address] ELECTROLYTES (02/05/2022 6:32 EDT) Pathologist Sig nature Sodium 140 136 - 145 mmol/L [facility] Potassium 4.4 3.5 - 5.0 mmol/L [facility] Chloride 102 96 - 110 mmol/L [facility] CO2 Total 28 22 - 32 mmol/L [facility] Anion Gap 10 5 - 14 [facility] L AB Specimen Blood - Venous blood (substance) Performing Organization Address City/[facility] Phon e Number [facility] [address] [place] [address] from Last 3 Months Insurance Payer Benefit Plan Subscriber ID Effective Phone Address Typ e / Group Dates MEDICAID ACO MEDICAID ACO [id number] 2022-Pre [phone] [address] Medicaid [place] sent [address] [place] [address] Noel Mcphersonit Personal/Famil Self [address] ([address] [place] [address] Stefani Mcpherson Personal/Famil Self [address] (Home[address] [place] [address] Stefani Mcpherson Personal/Famil Self [address] (Home) [address] [place] [address] Advance Directives For more information, please contact: [phone] Latest Code Status on File Code Status Date Activated Date Inactivated Comments Full Code 02/04/2022 22:57 02/08/2022 17:41 When the patient has NO PULSE: Full Code / CPR Who Made the Decision? Default/Not Discussed Care Teams Software Firmware Engineer Relationship Specialty Start Date End Date Ivan Vizcaino, PCP - General Family Medicine - Primary 02/04/[address] [place] [id number]
--- OUTSIDE RECORDS SUMMARY | 2022-02-11 23:25 | XMS_ITS | Encounter Summary ---
:1990 Author Organization [facility] Address [address] [place] [address] Care Team Providers Name Role Phone Ivan Vizcaino DO Primary Care Provider Reason for Visit Auth/Cert Specialty Diagnoses / Procedures Referred By Contact Refer red To Contact Diagnoses Schizophrenia ([facility]) emergency Referral ID Status Reason Start Date Expiration Date Visits Requ ested Visits Authorized [id number] 1 1 Encounter Details Date Type Department Care Team Description 02/04/2022 - Merged with [facility] Amphpatriami ne abuse ([facility]) ([facility]) (Primary Dx); 02/08/2022 Encounter - [facility] Inpatient MD Christine 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[facility]) ([facility]); Psychiatry [address] Drug dependence, episodic ab use ([facility]) ([facility]); [address] Gastroesophageal reflux disease, unspeci fied whether esophagitis present; [place] [address] [place] Opioid use disorder, moderat e, in early remission, on maintenance therapy ([facility]); [phone] [id number] Substance-induced psychotic disorder ([facility]) ([facility]) Social History Tobacco Use Types Packs/Day Years Used Date Current Every Day Smoker Cigarettes 0.5 17 Sta rted: 07/09/2005 Smokeless Tobacco: Former User Tobacco Cessation: Ready to Quit: No; Co unseling Given: No Alcohol Use Standard Drinks/Week Comments Not Currently 0 (1 standard drink = 0.6 oz pure alcoho l) Sex Assigned at Date Recorded Not on file documented as of this encounter Last Filed Vital Signs Vital Sign Reading [...] EDT Body Mass Index 27.12 02/04/20222208 EDT documented in this encounter Functional Status Functional Status Response Date of Assessment Are you deaf or do you have serious difficulty hearing? No 02/04/2022 Are you blind or do you have serious difficulty seeing, No 02/04/2022 even when wearing glasses? Do you have serious difficulty walking or climbing No 02/04/2022 stairs? (5 years old or older) Do you have difficulty dressing or bathing? (5 years old No 02/04/2022 or older) Because of a physical, mental, or emotional condition, do No 02/04/2022 you have difficulty doing errands alone such as visiting a doctor's office or shopping? (15 years old or older) Cognitive Status Response Date of Assessment Because of a physical, mental, or emotional condition, do No 02/04/2022 you have serious difficulty concentrating, remembering, or making decisions? (5 years old or older) documented as of this encounter Discharge Instructions Discharge Instr - AVS First Randy York - 02/08/2022 14:44 EDT You are discharging with a plan to transition to [facility] today. Please work with [facility] to schedule follow up for after you complete their program. We wish you well. If you are feeling unsafe or having thoughts of self harm, please contact the crisis line below or go to your nearest emergency department. Crisis Line: [facility] documented in this encounter Medications at Time of Discharge Medication Sig Dispensed Refills Start Date End Date buprenorphine-naloxone Place 1 Film under the 1 Film 0 0 02/09/2022 (SUBOXONE) 8-2 mg tongue daily. Daily sublingual film Max: 1 Film hydrOXYzine (ATARAX) 50 Take 1 Tablet by mouth 0 02/08/2022 mg tablet 2 times daily as needed for Anxiety. nicotine polacrilex Take 1 Each by mouth 100 Each 0 2021 (NICORETTE) 2 mg gum every hour as needed for Smoking Cessation (nicotine craving). OLANZapine (ZYPREXA) 10 Take 1 Tablet by mouth 1 Tablet 0 02/08/2022 mg tablet at bedtime. pantoprazole (PROTONIX) Take 1 Tablet by mouth 1 Tablet 0 02/09/2022 40 mg tablet daily before breakfast. documented as of this encounter Ordered Prescriptions Prescription Sig Dispensed Refills Start Date End Date pantoprazole (PROTONIX) Take 1 Tablet by mouth 1 Tablet 0 02/09/2022 40 mg tablet daily before breakfast. nicotine polacrilex Take 1 Each by mouth 100 Each 0 2021 (NICORETTE) 2 mg gum every hour as needed for Smoking Cessation (nicotine craving). OLANZapine (ZYPREXA) 10 Take 1 Tablet by mouth 1 Tablet 0 02/08/2022 mg tablet at bedtime. hydrOXYzine (ATARAX) 50 Take 1 Tablet by mouth 0 02/08/2022 mg tablet 2 times daily as needed for Anxiety. buprenorphine-naloxone Place 1 Film under the 1 Film 0 0 02/09/2022 (SUBOXONE) 8-2 mg tongue daily. Daily sublingual film Max: 1 Film documented in this encounter Discharge Disposition Disposition Code Departure Means Destination Comments Home or Self Care Car Home Patient pl ans to go to [facility] upon disc harge from [facility]. documented in this encounter Progress Notes Martina Loja RN - 02/08/2022 1530 EDT NURSING DISCHARGE NOTE: Pt was accompanied by this securities underwriter to the hospital entrance to meet the transport company. Pt appearsin good spirits with no signs of psychosis and no SI voiced. Was encouraged by this securities underwriter to call his immigration services officer to let that person know that he (patient) was discharging today and possibly try toget a ride to from the immigration services officer. Pt has not yet done this. Pt states I'll just take a cab if I have to or I can stay in the hotel for tonight. Pt plan is not entirely sound, however pt condition is stable and he states that he is eager to go to [facility] for treatment. Pleasant and polite this shift. Was understanding when this securities underwriter explained that he would not be able to smoke a cigarette in the parking lot. Randy Harris - 02/08/2022 1528 EDT ROBERTH faxes records to [facility] for referral. MD ROBERTH meet with pt. Pt states he does not feel he isbenefiting from hospitalization. Pt denies SI, pt does not present as experiencing any psychosis. Ptstates he would like to call [facility] and transition there as soon as possible. Pt later meets with SW andstates he spoke with [facility] admission and that he has been approved and can transition there today as a is bed available. SW calls [facility] ([facility]) and confirms a bed is available and that pt could transition today, even if it's in the evening. Pt states a plan to go to [facility] to obtain his belongings from [facility] and then go to [facility] from there. Pt states he will arrange a taxi if he has to. ROBERTH advises against this plan and talks with pt about how this will put him at significant risk for relapse. Pt is encouraged to d/c tomorrow. ROBERTH notes that pt is involuntary but now that he has a clear disposition and does not appear to be experiencing any significant MH issues or SI, he could be discharged. Pt states he does not feel he is still dealing with any MH issues and will do what he has to get to [facility] today. Pt is adamant that he will follow through with his plan to go to [facility] despite SW expressing concerns with the timing of his plan. ROBERTH contacts [facility] and a plan is made for tack picker at 3:45pm. ROBERTH contacts pt's PO and leaves a VM notifying of pt d/c. ROBERTH notifies pt he will need to work with [facility] to schedule his aftercare for after he completes treatment at their program. Anny Stevens NP - 02/08/2022 1401 EDT [facility] note to PCP on Discharge/Daily Progress Note Admit Date: 02/04/2022 Hospital Day: LOS: 4 days Date of Service: 02/08/2022 Reason for Admission/Chief Complaint: increasing paranoia, stimulant abuse, suicidal 24-Hour events:slept, looking into [facility], started on Suboxone Active Hospital Problems Diagnosis Date Noted ??? Depression 02/08/2022 ??? Methamphetamine use disorder, severe ([facility]) ([facility]) 02/08/2022 ??? Opioid use disorder, moderate, in early remission, on maintenance therapy ([facility]) 02/08/2022 ??? GERD (gastroesophageal reflux disease) 02/06/2022 ??? Tobacco dependence 02/06/2022 Resolved Hospital Problems Diagnosis Date Noted Date Resolved ??? *Substance-induced psychotic disorder ([facility]) ([facility]) 02/08/2022 02/08/2022 Discharge Medication List START taking these medications buprenorphine-naloxone 8-2 mg sublingual film Commonly known as: SUBOXONE Place 1 Film under the tongue daily. Daily Max: 1 Film Start taking on: February 09, 2022 hydrOXYzine 50 mg tablet Commonly known as: ATARAX Take 1 Tablet by mouth 2 times daily as needed for Anxiety. nicotine polacrilex 2 mg gum Commonly known as: NICORETTE Take 1 Each by mouth every hour as needed for Smoking Cessation (nicotine craving). OLANZapine 10 mg tablet Commonly known as: ZYPREXA Take 1 Tablet by mouth at bedtime. pantoprazole 40 mg tablet Commonly known as: PROTONIX Take 1 Tablet by mouth daily before breakfast. Start taking on: February 09, 2022 Subjective: Pt states he has been accepted at [facility] and wants to discharge today. He has no physical concerns. He is not interested in quitting smoking and anticipates smoking immediately on discharge. He is anxious about leaving and staff feel he is craving substances and plans to use. Psychiatrist and End Matcher unable to convince pt to stay. Review of Systems: A ten point review of systems was performed and was negative except for pertinent positives noted inthe HPI Objective/Physical Exam: VS: Patient Vitals for the past 24 hrs: BP Temp Temp src Pulse Resp SpO2 02/08/22 0747 109/76 36.7 ??C (98 ??F) Temporal 91 16 98 % 02/07/22 2008 112/73 36.7 ??C (98 ??F) Oral 100 18 97 % Weight: Weight : 80.9 kg (178 lb 6 oz) Exam: General appearance: alert, cooperative, no distress, appears stated age Skin: Skin color, temperature, turgor normal. No rashes or lesions Head: Normocephalic, without obvious abnormality, atraumatic Eyes: conjunctivae/corneas clear. PERRL Nose: Nares normal. Septum midline. Mucosa moist Throat/Mouth: lips, mucosa moist, and tongue normal Lungs: clear to auscultation bilaterally, non labored breathing Heart: regular rate and rhythm, S1, S2 normal, no murmur, click, rub or gallop Neurologic: Alert and oriented X 3, normal strength and tone.Normal coordination and gait Mental Status: awake and alert; oriented to person, place, and time mood anxious affect congruent Extremities: extremities warm, atraumatic, no cyanosis or edema Discharge Plan/Clinical issues needing follow up: Substance induced Psychotic disorder: Psychiatry stated pt on Olanzapine. 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 Pt is discharging to [facility] with follow up thereafter with CARMELA and PCP. See Psychiatry Discharge summary for details Metabolic screen for antipsychotic medication prescribing -Measurements Lab Results Component Value Date CHOL 149 02/05/2022 HDL 42 02/05/2022 LDLBASE 90 02/05/2022 TRIG 86 02/05/2022 CHOLHDL 3.5 02/05/2022 Lab Results Component Value Date HGBA1C 5.7 (H) 02/05/2022 Wt Readings from Last 1 Encounters: 02/04/22 80.9 kg (178 lb 6 oz) Ht Readings from Last 1 Encounters: 02/04/22 172.7 cm (68) BMI Readings from Last 1 Encounters: 02/04/22 27.12 kg/m?? -Plan: 1) Reviewed numbers and counseled on diet and exercise 2) Recommend repeat studies at 3 months post start or change in antipsychotic dosing. 3) Options for medication management with Metformin/statin is not currently indicated at this time and deferred to PCP. 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 Stimulant Use disorder/Opiate Use disorder: Pt was restarted on Suboxone 8 mg-2 mg daily. He is discharging to [facility]. GERD: was maintained on PPI and will continue with Protonix on discharge Nicotine Dependence, cigs uncomplicated: Used NRT during his stay, but pre- contemplative about quitting and plans to smoke on discharge. I spent a total of 15 minutes in direct floor time dedicated solely to this patient reviewing EMR, examining pt.>50% time spent on counseling and coordination of care including 5 minutes about smoking cessation. Anny Tena NP 02/08/2022 14:02 Labs: Results for DRAKE MCPHERSON ( ) as of 02/08/2022 14:06 Ref. Range 02/05/2022 06:32 Sodium Latest Ref Range: 136 - 145 mmol/L 140 Potassium Latest Ref Range: 3.5 - 5.0 mmol/L 4.4 Chloride Latest Ref Range: 96 - 110 mmol/L 102 CO2 Latest Ref Range: 22 - 32 mmol/L 28 Anion Gap Latest Ref Range: 5 - 14 10 BUN Latest Ref Range: 10 - 26 mg/dL 16 Creatinine Latest Ref Range: 0.66 - 1.25 mg/dL 0.69 GFR, Calculated Latest Ref Range: >60 mL/min/1.73m2 125 Glucose, Screening Latest Ref Range: 70 - 100 mg/dL 103 (H) Albumin Latest Ref Range: 3.4 - 4.9 g/dL 4.0 ALT Latest Ref Range: <50 U/L 18 AST Latest Ref Range: 15 - 46 U/L 20 Total Alkaline Phosphatase Latest Ref Range: 38 - 126 U/L 50 GGT Latest Ref Range: 15 - 73 U/L 19 Results for DRAKE MCPHERSON ( ) as of 02/08/2022 14:06 Ref. Range 02/05/2022 06:32 WBC Latest Ref Range: 4.00 - 10.40 K/cmm 6.45 RBC Latest Ref Range: 4.36 - 5.78 M/cmm 4.58 Hemoglobin Latest Ref Range: 13.8 - 17.3 gm/dL 12.4 (L) HCT Latest Ref Range: 39.5 - 50.2 % 37.6 (L) MCV Latest Ref Range: 81 - 95 fl 82 MCH Latest Ref Range: 27.6 - 33.0 pg 27.1 (L) MCHC Latest Ref Range: 32.8 - 36.4 gm/dL 33.0 RDW-CV Latest Ref Range: <14.2 % 14.8 (H) RDW-SD Latest Ref Range: <46.0 fl 44.7 PLT Latest Ref Range: 141 - 377 K/cmm 350 MPV Latest Ref Range: 9.5 - 12.7 fl 8.5 (L) Neutrophils Latest Units: % 41.8 Lymphocytes Latest Units: % 48.8 Monocytes Latest Units: % 5.6 Eosinophils Latest Units: % 3.1 Basophils Latest Units: % 0.5 Immature Grans Latest Units: % 0.2 ABS Neutrophils Latest Ref Range: 2.20 - 8.85 K/cmm 2.70 ABS Lymphs Latest Ref Range: 1.09 - 3.30 K/cmm 3.15 ABS Monocytes Latest Ref Range: 0.10 - 0.80 K/cmm 0.36 ABS Eosinophils Latest Ref Range: 0.03 - 0.61 K/cmm 0.20 ABS Basophils Latest Ref Range: 0.01 - 0.11 K/cmm 0.03 ABS Immature Grans Latest Ref Range: 0.00 - 0.06 K/cmm 0.01 Type of Diff: Unknown Auto Hep C Antibody Negative TSH 2.43 Randy Pierce - 02/07/2022 1229 EDT MD ROBERTH meet with pt. Pt reports improved mood overall with decreased paranoia. Pt denies having any concerns about Ludivina today. Pt also denies the present of psychosis prior to his relapse which is a change from what he reported yesterday. Pt reports he feels this is substance induced and he primarilywants to focus of his substance use. Pt states he could get a ride to [facility] provided he got back to [facility]. Pt would like to obtain his belonging which he reports are being held at [facility] [employer]. Pt states his PO may be able to help him with a ride. Pt reports he has medicaid transport active with [facility]. SW states this transport could likely be used to get pt home. SW updates they received a VM from pt's PO yesterday and returned the call leaving him a VM. SW has not yet heardback from him. SW to fax records to [facility] for referral. SW talks with pt's PO (Richard) and updates. Richard states probation can provide pt with transport to but they will need some advance noticeand this would have to occur on a weekday. YTCWally kat MD - 02/07/2022 0841 EDT Inpatient Psychiatry Daily Progress Note Date of Service: 02/08/2022 Admit Date: 02/04/22 Hospital day: LOS: 4 days Legal Status: Legal status: Involuntary Observation Level: Observation / visual check: Q 15 minutes (frequent) Locus/Risk of Harm: Current locus of harm: 3 Reason for Admission/Chief Complaint: Psychosis and suicidal ideation with plan and intent Clinical Update/24-hour Events: Patient calm and quite and mostly keeping to himself. Sleeping well at night. Subjective: I met with the patient and the nursing home social worker. He reports he is doing well. No new paranoia or fears. No AVH. Demonstrates increasing insight. Things the increased paranoia he experienced prior to admission was absolutely attributable to methamphetamine. Very motivated for treatment of his substance use disorder. Current Facility-Administered Medications Medication Route Frequency ??? acetaminophen (TYLENOL) tablet 650 mg oral Q4H PRN ??? buprenorphine-naloxone (SUBOXONE) 8-2 mg sublingual film 1 Film sublingual DAILY ??? hydrOXYzine (ATARAX) tablet 25 mg oral Q4H PRN ??? ibuprofen (MOTRIN) tablet 400 mg oral Q6H PRN ??? LORazepam (ATIVAN) tablet 1 mg oral Q6H PRN ??? melatonin tablet 3 mg oral AT BEDTIME PRN ??? nicotine (NICOTROL) 10 mg inhaler kit 1 Inhaler inhalation Q2H PRN ??? nicotine inhaler (delivery device) ??? nicotine polacrilex (NICORETTE) gum 2 mg oral Q1H PRN ??? OLANZapine (ZYPREXA) disintegrating tablet 5 mg oral BID PRN ??? OLANZapine (ZYPREXA) tablet 10 mg oral DAILY ??? OLANZapine (ZYPREXA) tablet 5 mg oral QHS ??? pantoprazole (PROTONIX) tablet 40 mg oral DAILY BEFORE BREAKFAST Review of Systems: Appetite and energy are improving. He is tolerating his medications well. Mental Status Exam: Appearance: casual dress, good hygiene, wears a hat with a downcast gaze but with improved eye contact. Arousal: awake, alert Attention/Concentration: attentive Orientation: grossly intact Memory: recalls recent events Mood: All right Affect: congruent Speech: wnl Thought Process/Language: goal-oriented Associations: no loosening Gait: wnl Motor: no gross abnormal movements Content,Peroccupations, Over-valued, Ideas, Delusions: Describes being more present focused, feelings of grief are present at times; Perceptual: no ah/vh Danger Self: Denies SI Danger Other: no threatening statements or postures Insight/Judgement: collaborative, accepting of care Physical Exam: See [facility] documentation BP 112/73 (BP Cuff Location: Right arm, BP Patient Position: Sitting) Pulse 100 Temp 36.7 ??C (98 ??F) (Oral) Resp 18 Ht 172.7 cm (68) Wt 80.9 kg (178 lb 6 oz) SpO2 97% BMI 27.12 kg/m?? Data Review: Labs: No results found for this or any previous visit (from the past 24 hour(s)). Other studies: N/A Assessment/Formulation: Drake Mcpherson is a 31 y.o. year old who presented involuntarily with increased paranoia and suicidal ideation. The patient's presentation is most consistent with the diagnosis of methamphetamine induced psychotic disorder. Here it is evident that the psychosis is resolving and he has improved insight with regard to the impact of methamphetamine into his symptoms. We arenot seeing new or ongoing paranoia here at the hospital which is consistent with resolution of symptoms. He is motivated for sobriety and return to [facility]. Drake Mcpherson meets criteria for acute level of care. Diagnosis Psychiatric Diagnoses: Substance-induced psychotic disorder; stimulant use disorder, severe; opiate use disorder on maintenance therapy Plan: The patient is a Locus level 4 becuase they have a history of chronic impulsive suicidal thrats withcurrent expressions or behaviors representing a significant elevation from baseline While the patient presented with risk of harm while outside the hospital, inside the hospital the patient can be monitored on frequent checks without suicide precautions after consideration of risk factors and protective factors in the hospital, including the patient's statements that they can maintain safety and their hopefulness that they can get better with treatment here. Support and encouragement is provided to the patient. Cognitive strategies to help with problems and symptoms are reviewed. Behavioral strategies to help with problems and symptoms are reviewed. Encouraged ongoing engagement in the milieu and activities of the unit. R/b/se and alternatives to current meds are reviewed Will otherwise continue current treatment plan. Discharge Plan: Discharge planning per multidisciplinary team rounds. I spent a total of 25 minutes with this patient and in direct floor time today. Over 50% of this time was spent in counseling and coordination of care as described in the progress note. Wally Gilliland MD 02/08/2022 6:16 Trish Smith RN - 02/07/2022 0340 EDT Assumed care of pt at 2300. Pt declined to participate in wrap up group. Socializing with peers, present in the milieu. Appears to be asleep as of 2300. Wally Camarillo MD - 02/06/2022 2352 EDT Inpatient Psychiatry Daily Progress Note Date of Service: 02/08/2022 Admit Date: 02/04/22 Hospital day: LOS: 4 days Legal Status: Legal status: Involuntary Observation Level: Observation / visual check: Q 15 minutes (frequent) Locus/Risk of Harm: Current locus of harm: 3 Reason for Admission/Chief Complaint: Psychosis and suicidal ideation with plan and intent Clinical Update/24-hour Events: Patient is an isolating or on the periphery of the milieu. He is quiet. He is sleeping well. He is tolerating medications well. Subjective: A team meeting was held with the patient, the nursing home social worker, the [facility], the patient's nurse. Patient describes worries about specific people seeking to harm him that escalated to the point thathe called the police. He felt like a specific person named Ludivina was trying to harm him and that hisneighbors were conspiring with the Ludivina and that he could hear them talking about him. He states that these people were after his Social Security income. He acknowledges extensive methamphetamine use but states that he thinks that these fears are not associated with methamphetamine and predated theiruse. He is not having any excessive fears or fears about Ludivina here at the hospital. He reports these fears seem to have largely resolved. He does describe struggling with grief around the loss of his 15-year-old daughter. He is tolerating his medications here well. He is not experiencing suicidal ideation. Current Facility-Administered Medications Medication Route Frequency ??? acetaminophen (TYLENOL) tablet 650 mg oral Q4H PRN ??? buprenorphine-naloxone (SUBOXONE) 8-2 mg sublingual film 1 Film sublingual DAILY ??? hydrOXYzine (ATARAX) tablet 25 mg oral Q4H PRN ??? ibuprofen (MOTRIN) tablet 400 mg oral Q6H PRN ??? LORazepam (ATIVAN) tablet 1 mg oral Q6H PRN ??? melatonin tablet 3 mg oral AT BEDTIME PRN ??? nicotine (NICOTROL) 10 mg inhaler kit 1 Inhaler inhalation Q2H PRN ??? nicotine inhaler (delivery device) ??? nicotine polacrilex (NICORETTE) gum 2 mg oral Q1H PRN ??? OLANZapine (ZYPREXA) disintegrating tablet 5 mg oral BID PRN ??? OLANZapine (ZYPREXA) tablet 10 mg oral DAILY ??? OLANZapine (ZYPREXA) tablet 5 mg oral QHS ??? pantoprazole (PROTONIX) tablet 40 mg oral DAILY BEFORE BREAKFAST Review of Systems: Appetite and energy are improving. He is tolerating his medications well. Mental Status Exam: (need at least 9 findings) Appearance: casual dress, good hygiene, wears a hat with a downcast gaze Arousal: awake, alert Attention/Concentration: attentive Orientation: grossly intact Memory: recalls recent events Mood: All right Affect: congruent Speech: wnl Thought Process/Language: goal-oriented Associations: no loosening Gait: wnl Motor: no gross abnormal movements Content,Peroccupations, Over-valued, Ideas, Delusions: Describes being more present focused, feelings of grief are present at times; Perceptual: no ah/vh Danger Self: Denies SI Danger Other: no threatening statements or postures Insight/Judgement: collaborative, accepting of care Physical Exam: See [facility] documentation BP 112/73 (BP Cuff Location: Right arm, BP Patient Position: Sitting) Pulse 100 Temp 36.7 ??C (98 ??F) (Oral) Resp 18 Ht 172.7 cm (68) Wt 80.9 kg (178 lb 6 oz) SpO2 97% BMI 27.12 kg/m?? Data Review: Labs: No results found for this or any previous visit (from the past 24 hour(s)). Other studies: N/A Assessment/Formulation: Drake Mcpherson is a 31 y.o. year old who presented involuntarily with increased paranoia and suicidal ideation. The patient's presentation is most consistent with the diagnosis of methamphetamine induced psychotic disorder. Here it is somewhat evident that the psychosis is resolving. It is not fully understood whether or not the patient experienced any episodes of lifetime psychosis in the absence of methamphetamines. We are not seeing new or ongoing paranoia here at the hospital which is consistent with resolution of symptoms. That said as of today the patient's insight into his experience prior to coming into the hospital remains limited. 1 methamphetamine induced psychosis and so substance use disorder are his primary issues with regardto this hospitalization it is noteworthy that he is expressing that he experiences grief over the loss of his 15-year-old daughter this year and that complicated grief and/or depression are likely present. Drake Mcpherson meets criteria for acute level of care. Diagnosis Psychiatric Diagnoses: Substance-induced psychotic disorder; stimulant use disorder, severe; opiate use disorder on maintenance therapy Plan: The patient is a Locus level 4 becuase they have a history of chronic impulsive suicidal thrats withcurrent expressions or behaviors representing a significant elevation from baseline While the patient presented with risk of harm while outside the hospital, inside the hospital the patient can be monitored on frequent checks without suicide precautions after consideration of risk factors and protective factors in the hospital, including the patient's statements that they can maintain safety and their hopefulness that they can get better with treatment here. Support and encouragement is provided to the patient. Cognitive strategies to help with problems and symptoms are reviewed. Behavioral strategies to help with problems and symptoms are reviewed. Encouraged ongoing engagement in the milieu and activities of the unit. R/b/se and alternatives to current meds are reviewed Will otherwise continue current treatment plan. Discharge Plan: Discharge planning per multidisciplinary team rounds. I spent a total of 35 minutes with this patient and in direct floor time today. Over 50% of this time was spent in counseling and coordination of care as described in the progress note. Wally Gilliland MD 02/08/2022 6:04 Trish Smith RN - 02/05/2022 2222 EDT Isolating to room at start of shift, sleeping. Declined to participate in wrap up group. Later in the evening, out in the milieu watching television with peers. Approached nurses station for HS meds without prompting. Denies pain, denies A/V/H. Mood okay, affect flat. Taking PRN melatonin for sleep with positive effect. Martina Maya RN - 02/05/2022 1740 EDT Pt woke for breakfast, ate, and returned to bed. Had a modified team meeting and was articulate and clear with staing the supports he felt were needed and the goals of admission. Pt stated he would like to return to rehab for a longer stay. While quiet and isolative to room in the begin of shift, began to open and brighten around peers in the afternoon. Seems to be comfortable with the male peers in the milieu watching television in the living room. Denies pain and denies SI. Is patient and polite. Showered, changed in to clean scrubs. Has asked for several cups of melissa alexandra this shift. Only PRN is one nicotrol cartridge. Dick Damon MD - 02/05/2022 0818 EDT INPATIENT PSYCHIATRY PROGRESS NOTE Date of Service: 02/05/2022 Chief complaint: Psychosis and suicidal ideation with plan and intent SUBJECTIVE/INTERVAL HISTORY Drake Mcpherson is a 31 y.o. male who is being followed on inpatient psychiatry. Reviewed patient's chart including progress notes, labs, medications, and vital signs. Patient was discussed in morning rounds with RN, MYNOR and MD. Nursing reports: New admission. Calm, pleasant. Accepting medications. Endorsed auditory and visual hallucinations. Slept 8.5 hours. Patient evaluated 1:1, chart reviewed, vitals noted. There were no behavioral events overnight. Patient did not require physical restraints. Patient did not require emergency medications. On exam patient gives the following history he reports that [facility] and then subsequently learned from a friend that his 15-year-old daughter in a motor vehicle accident in November 2021. After having achieved sobriety for a little over a month, he returned to using methamphetamines. He reports using methamphetamine that was cut with fentanyl at least twice over the last month and off and on for the last 2 years. He describes his primary drug of choice has opioids for which he is on Suboxone maintenance for several years now with infrequent relapses in between. He reports that he has experienced auditory hallucinations with and without use of substances. However, after starting methamphetamine use about 2 years ago, he began to experience auditory and visual hallucinations. He reports that about 2 weeks ago he received his first SSDI check for $2000. He talked to his friend a about how to catch it with no ID and he believes his friend told another abundio Ludivina who he hasnever spoken with but recalls seeing him at rehab and overhearing Ludivina making threats to kill/harm Drake. Drake reports that he has been staying at the [facility] in [facility] with a state voucher. There, Ludivina and his girlfriend have been living next door and constantly harassing him. He overhears them talking to each other and to Ludivina's friends about how they might harm him. Drake describes going to stores only to be kicked out after Ludivina and his girlfriend make false reports that he has done or drugs in his backpack. He reports that this is happened several times. Drake has triedto report this to the police but Ludivina and his girlfriend say that Drake is lying in hallucinating. Drake is convinced that Ludivina and his friends have been following him and trying to kill him. Drake reports that he went to the hospital several times because he did not know else to do and ultimately said he was suicidal to get himself admitted and away from [place]. He currently denies suicidal ideation, intent, plan. He reports that his mood is depressed because of the of his daughter. His sleep has been stable (approximately 7 to 8 hours per night), and he reports eating more than usual. He still has some hope that things can get better and that he can be a part of helping make it better. Hehas not overheard Ludivina or his friends talking since Drake was admitted to [facility]. He is hoping to return to [facility] for longer than 2 weeks as he feels he needs more time to achieve a longer period of sobriety. Legal: He reports that he has been in and out of detention over the last 20 years for various charges including burglary, theft, grand larceny, possession of stolen property. His most recent incarceration was at [facility] for 2 years and he was subsequently released on probation 2 years ago. He meetswith his operational intelligence officer Richard Rivas every and feels that he is a good support for him. Hereports that he has approximately 20 years hanging over his head if he violates his probation. He denies access to firearms. Psychiatric history: ?? Past psychiatric diagnosis: Depression, anxiety, ADHD ?? Psychiatric hospitalization: Denies ?? Suicide attempts: 2. He attempted to hang himself at 13 years old but the rope broke, and 2 weeksago he attempted to overdose on IV methamphetamine. ?? Treatment for substance use: ?? [facility] x2 (2 weeks each time) ?? History of treatment at the [facility] -where he was treated with Suboxone x3 years and then changed to liquid methadone x1 year and then back to Suboxone. ?? [facility] assisted him with obtaining SSDI ?? Current medications: ?? Adderall ?? Olanzapine 5 mg twice daily ?? Suboxone 8-2 mg sublingual film, 1 film every morning Services: ?? special assets officer: Richard Rivas ?? Psychiatric prescriber: CARMELA Hinkle ?? Therapist: Denies, but would like one ?? Sushila from [facility] assisted him with obtaining SSDI Substance use history: ?? Alcohol: Denies use ?? Nicotine: Smokes approximately 6 cigarettes/day since 13 years old ?? THC: Denies use because it gives him a headache ?? Opioids: Opioid use disorder since 13 years old. Has been on MAT for many years with few episodesof return to use. ?? Stimulants: Reports use of methamphetamines off and on x2 years. Has tried cocaine and crack in the past. ?? Denies use of other substances Social history: ?? x1 ?? He has 4 living daughters and 1 recently daughter. All of his children live in [place] with their respective mothers. He has limited contact with the 4 living daughters but was very close to the 15-year-old daughter who recently in an MVA. ?? Currently living at [facility] in an [facility] and using a state voucher. He would like to move somewhere else after discharge. ?? Born in [facility]. He is 1 of 7 children (6 brothers and 1 sister). He and his family moved to [place] in 1997 and then he relocated to [place] in 2011. Review of psychiatric symptoms: ?? Psychotic: See above ?? Suicidal/violent:no suicidal ideation and no homicidal ideation ?? Sleep: no changes ?? Appetite: increased appetite OBJECTIVE Allergies Allergen Reactions ??? Methylphenidate Other (See Comments) Left arm tongue, face numbness, tingling status verified 01/23/22 by [facility] - per chart review Current Facility-Administered Medications Medication Route Frequency ??? acetaminophen (TYLENOL) tablet 650 mg oral Q4H PRN ??? buprenorphine-naloxone (SUBOXONE) 8-2 mg sublingual film 1 Film sublingual DAILY ??? hydrOXYzine (ATARAX) tablet 25 mg oral Q4H PRN ??? ibuprofen (MOTRIN) tablet 400 mg oral Q6H PRN ??? LORazepam (ATIVAN) tablet 1 mg oral Q6H PRN ??? melatonin tablet 3 mg oral AT BEDTIME PRN ??? nicotine polacrilex (NICORETTE) gum 2 mg oral Q1H PRN ??? OLANZapine (ZYPREXA) disintegrating tablet 5 mg oral BID ??? OLANZapine (ZYPREXA) disintegrating tablet 5 mg oral BID PRN ??? pantoprazole (PROTONIX) tablet 40 mg oral DAILY BEFORE BREAKFAST BP 102/63 (BP Cuff Location: Left arm, BP Patient Position: Sitting) Temp 36.6 ??C (97.8 ??F) (Temporal) Resp 16 Ht 172.7 cm (68) Wt 80.9 kg (178 lb 6 oz) SpO2 99% BMI 27.12 kg/m?? Mental status exam: Appearance: chronological age, wearing hospital attire and appropriate grooming and hygiene Behavior: interactive, cooperative and avoidant eye contact Motor: Normal Gait: no abnormality Speech: spontaneous, fluent and RRRTV Mood:depressed Affect:congruent with reported mood, appropriate and even Perceptions: Describes over hearing a man named Ludivina speaking about him through the rodriguez of his motel room. Thought process: clear, coherent, goal directed Associations: tight Thought content: paranoid ideas Suicidal thoughts:does not endorse suicide ideation, plan, or intent Homicidal thoughts: does not express homicidal ideation intent or plan Sensorium: awake and alert Orientation: not formally tested but appears grossly intact Attention: able to focus during the interview Memory: recalls recent conversations and events Language: normal Knowledge:not formally tested Insight: Recognizes problem, but misattributes cause Judgment: impaired moderately ASSESSMENT I agree with the assessment and plan as stated by Dr. Mao Marin in the chart. Drake Ivan a 31 y.o. undomiciled single man with past psychiatric history of schizophrenia, ADHD, depression, opioid use disorder (on MAT, buprenorphine at present), stimulant use disorder (methamphetamine), 2stays at [facility], no psychiatric hospitalizations, 2 suicide attempts, who presented to [facility] asa transfer from [facility] for management of paranoia and suicidal ideation with plan and intent in the context of the of his 15-year-old daughter 2/2 MVA and return to use with methamphetamine. No acute events overnight. Accepting medications and denies side effects. Mood is depressed and stable. He denies SI. He identifies his methamphetamine use as a major contributor to his history of auditory hallucinations, but has no insight into his most recent experiences. The patient is motivated tomaintain sobriety and is hoping to return to [facility] following discharge from [facility]. No acute concerns that would indicate need for changes to current treatment plan. Psychiatric hospitalization remains indicated for safety, stabilization, diagnostic clarification, medication optimization, milieu therapy, and aftercare planning. Diagnostic impression and differential diagnosis ??? Psychotic disorder, unspecified (rule out schizophrenia versus substance- induced psychotic disorder) ??? Rule out major depressive disorder ??? Rule out complicated bereavement ??? Stimulant (methamphetamine) use disorder ??? Opioid use disorder, Suboxone maintenance treatment PLAN: 1. involuntary 2. frequent, constant: frequent 3. Continue with current treatment plan 4. Continue to hold PODIATRIC AIDE Adderall 30 mg every morning and 10 mg in the afternoon for ADHD. I spent a total of 60 minutes with this patient in direct floor time with greater than 50% of the time spent in counseling and coordination of care as described in the note. Dick Torres MD 02/05/2022 8:19 Trish teresa RN - 02/04/2022 2301 EDT Direct admission from [facility]. Pt reporting that there is a man, Ludivina or Ty, who is trying to kill him for a $2000 check. Pt presented to the ED with c/o SI, though he now states that he is not really suicidal, he just needed to get away from Ludivina and felt safe at the hospital. Pt is EE'd but compliant, mood okay, affect flat, blunted, restricted. Pt denying A/V/H. documented in this encounter H&P Notes Marcelle Conde NP - 02/06/2022 1320 EDT Date of Service: 02/06/2022 Admit Date : 02/04/2022 PCP: Ivan Vizcaino Subjective: Chief Complaint: Drake Mcpherson is a 31-year-old male involuntarily admitted to inpatient psychiatry with a diagnosis of paranoia and suicidal ideation with a plan and intent since recently learning of his adolescent daughter's in a MVA. Drake Mcpherson has a past psychiatric history of schizophrenia, ADHD, depression, opioid use disorder (currently on buprenorphine), and stimulant abuse. He has had 2 stays at [facility] and 2 previous suicide attempts. His 15-year-old daughter, Lesly, in a motor vehicle accident on November 14, 2021, although he did not find out about it until recently. He attributes the recent relapse, specifically injecting crystal meth laced with fentanyl, to learning of her . Medical diagnoses include GERD and an occasional headache. He takes Protonix on the outside and it has been very effective, he wishes to continue with it. Headaches occur once a week or so, and generally respond well to tylenol or ibuprofen. He is craving cigarettes and attributes the headache in partto not being able to smoke. He has recovered from COVID x2 recently. Social History Tobacco Use ??? Smoking status: Current Every Day Smoker Packs/day: 0.50 Years: 17.00 Pack years: 8.50 Types: Cigarettes Start date: 07/09/2005 ??? Smokeless tobacco: Former User Substance Use Topics ??? Alcohol use: Not Currently Social History Social History Narrative He was born in [place], [place] and lived near [place] until age 7 when he moved with his mother, stepfather and siblings to [place]. In 2011 he moved to [place]. He completed the 8th grade. 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 He has never held a job for more than a couple of months citing ADHD as a factor. He is currently receiving SSI. He is single with 5 daughters from several previous relationships. His oldest daughter, Lesly, on 11/14/21 from aMVA. His other younger daughters are Tigist, Dianne, Libra and Kimberly. Tobacco: 1/2 pack per day cigarettes x17 years. ETOH: None Marijuana: None Substance use: Crystal meth, injectable. Laced with fentanyl, but denies seeking opiates since starting treatment for OUD, followed currently by [facility]. Medications (Current Hospital Medications) No medications prior to admission. Allergies Allergen Reactions ??? Methylphenidate Other (See Comments) Left arm tongue, face numbness, tingling status verified 01/23/22 by [facility] - per chart review Review of Systems Review of Systems Constitutional: Negative for chills, fatigue and fever. HENT: Negative. Eyes: Negative. Respiratory: Negative for cough and shortness of breath. Cardiovascular: Negative for chest pain and palpitations. Gastrointestinal: Negative for constipation, diarrhea, nausea and vomiting. Endocrine: Negative. Genitourinary: Negative. Musculoskeletal: Negative. Skin: Negative. Allergic/Immunologic: Negative. Neurological: Positive for headaches. Hematological: Negative. Objective: VS: No data found. Wt Readings from Last 3 Encounters: 02/04/22 80.9 kg (178 lb 6 oz) Exam: Physical Exam Constitutional: General: He is not in acute distress. Appearance: Normal appearance. HENT: Head: Normocephalic. Right Ear: Tympanic membrane and ear canal normal. Left Ear: Tympanic membrane and ear canal normal. Nose: Nose normal. Mouth/Throat: Mouth: Mucous membranes are moist. Pharynx: Oropharynx is clear. Eyes: Extraocular Movements: Extraocular movements intact. Conjunctiva/sclera: Conjunctivae normal. Pupils: Pupils are equal, round, and reactive to light. Cardiovascular: Rate and Rhythm: Normal rate and regular rhythm. Pulses: Normal pulses. Heart sounds: Normal heart sounds. Pulmonary: Effort: Pulmonary effort is normal. Breath sounds: Normal breath sounds. Abdominal: Palpations: Abdomen is soft. Musculoskeletal: General: Normal range of motion. Cervical back: Normal range of motion and neck supple. No tenderness. Right lower leg: No edema. Left lower leg: No edema. Skin: General: Skin is warm. Neurological: General: No focal deficit present. Mental Status: He is alert and oriented to person, place, and time. Labs: No results found for this or any previous visit (from the past 24 hour(s)). Data Review: CBC: Lab Results Component Value Date WBC 6.45 02/05/2022 RBC 4.58 02/05/2022 HGB 12.4 (L) 02/05/2022 HCT 37.6 (L) 02/05/2022 MCV 82 02/05/2022 MCH 27.1 (L) 02/05/2022 MCHC 33.0 02/05/2022 PLT 350 02/05/2022 NEUTROABS 2.70 02/05/2022 BMP: Lab Results Component Value Date NA 140 02/05/2022 K 4.4 02/05/2022 CL 102 02/05/2022 CO2 28 02/05/2022 BUN 16 02/05/2022 CREATININE 0.69 02/05/2022 LABALBU 4.0 02/05/2022 LFT: Lab Results Component Value Date ALKPHOS 50 02/05/2022 AST 20 02/05/2022 ALT 18 02/05/2022 Lipid Profile: Lab Results Component Value Date CHOL 149 02/05/2022 TRIG 86 02/05/2022 HDL 42 02/05/2022 LDLBASE 90 02/05/2022 CHOLHDL 3.5 02/05/2022 Assessment: Principal Problem: Schizophrenia (HCC) Active Problems: GERD (gastroesophageal reflux disease) Plan: [place], SI. - Admission to Inpatient Psychiatry per psychiatrist, see psychiatrist intake note. - Associate Providers will collaborate with psychiatrist for ongoing assessment, education, and interventions. - Will co-monitor usage patterns, efficacy, and side effects of current psychiatric medications. - Will encourage groups and socializing with peers in the milieu. - Will initiate needed lab work for metabolic assessment while on a antipsychotic Opioid use disorder, on suboxone. Cyrstal meth injection. - Psychiatry coordinating with [facility] on suboxone dosing, possibly titrating. - Hepatitic C ordered to labs already drawn. GERD. - Continue PPI. - Avoid lying down within 2-3 hrs after eating. Headaches, occasional. - Tylenol and/or ibuprofen prn. - Practical measures for prevention reviewed including adequate hydration, nutrition and rest. Tobacco use disorder. - Ordered nicotine inhaler and nicotine gum - Discussed acute nicotine withdrawal including insomnia, restlessness, and irritability. - Discussed cessation, including making smoking unpleasant, changing habits, using NRT. Alcohol use disorder. - Audit-C score of []. - Brief intervention discussing the quantity of his consumption compared to a normal person. - Pt will benefit from residental tx IOP OP counceling coach operator on discharge Covid-19 history: -- Active infection x2 recently with last test negative --Serial testing not indicated. FEN: Regular diet, encourage fluids, weight once a week Pain Management: -Acetaminophen available prn for mild-moderate pain, headache or fever. -Discussed non-pharmacologic options: stretching, changing positions and being active, warm compresses or ice packs as needed. Health maintenance/health supervision : -Encouraged use of exercise bike or walking. -Discussed frequency of constipation while hospitalized, bowel preparations are available from nursing, don??t wait for problem to be significant before asking for help. - Additional coffee added to orders to avoid caffeine withdrawal. - Flu shot offered and declined. VTE Prophylaxis: Ambulate Code status: Full Code Marcelle Conde NP 02/06/2022 17:35 Mao Mcmahan MD - 02/04/2022 2213 EDT Inpatient Admission Psychiatric Evaluation Inpatient admit date: 02/04/22 Initial arrival date (if different): 02/04/2022 Date of service: 02/04/2022 Referral source: [facility] Outpatient providers: Estefania Glover APRN [facility] PCP: Ivan Vizcaino Information obtained from: patient, hospital records and [facility] hospital Legal Status: Admission is involuntary Chief Complaint: I just needed to be safe HPI: Patient is a 31 y.o. undomiciled single man with past psychiatric history of schizophrenia, ADHD,depression, opiate use disorder (on MAT, buprenorphine at present), and stimulant use disorder who presents to [facility] as transfer from [facility] for management of paranoia and suicidal ideation with plan and intent. Patient reports that the past few months have been rough for him. Patient was in rehab at [facility] several weeks prior when he found out one of his daughters (age 15) had in a car accident. [facility] and relapsed on methamphetamine. He notes that the voices got really bad and he became intensely paranoid that ludivina or lópez was out to steal a 2 thousand dollar check from him. He believes that ludivina and his friends will stop at nothing to bring him harm. Is unable toprovide concrete details about who ludivina is or why he would want his money. Due to feelings of beingunsafe Drake presented to [facility]. Per outside records patient has had numerous interactions with [facility] services over the past two weeks (noted to be 12+ encounters). Patient presented to [facility] on on 02/01 noting to be unsafe He was found to have several knifes on him and had homicidal ideation towards lópez or ludivina Per the EE patient was noted to be hearing voices and states I can hear them right now in the ceiling above me, they are saying that they are going to hurt me. Disclosed having taken a handful of hydroxyzine to kill himself and end the voices. At the time was noted to be paranoid that staff members where talking about him behind his back. Patient was placed on EE at that time. Interview complicated by significant disorganization, unclear history/narrative, and significant paranoia. He notes a history of severe depression which worsened significantly after the of his daughter. He feels as though his whole life is a waste. Feels low energy, poor sleep, and significant guilt and hopelessness. Notes that part of that comes from continued substance use. Denies active suicidal ideation. I said I wanted to kill myself to get somewhere safe. Noting I want to live to see my other girls, I live for my children. Reports feeling safe on the unit. Reports that psychotic symptoms pre-date current methamphetamine induced episode. Notes voices for greater than 6 months that had been responsive to olanzapine. Notes that he has not heard voices in more than 10 days which contradicts narrative from [facility] and the EE. TARGET SYMPTOMS: I. Mood Changes: depressed II. Sleep changes: multiple awakenings III. Appetite changes: none IV. Depression symptoms: decreased pleasure, hopelessness, helplessness and worthlessness/guilt V. Anxiety symptoms: none . Manic/impulsive/attentional symptoms; distractibility VII. Psychotic symptoms: auditory hallucinations, paranoid ideation and delusions VIII. Suicidality (within the last 6 months): active suicidal ideation IX. Violence Risk / Homicidality (within the last 6 months):none Reason for Failure of Outpatient Treatment: Increased severity of psychiatric symptoms Current Support System: special assets officer: Richard Horne HISTORY Psychiatric History: Previous diagnosis: Schizophrenia vs substance induced psychotic disorder, ADHD, Depression Prior hospitalization: None Longitudinal course of illness: Unclear. Patient notes significant voices in the past which has worsened with methamphetamine use. Prior suicidal behavior: denies Prior self-injurious behavior: denies Prior aggressive behavior: Significant legal history related to theft and buglary during significantopiate use historically. Previous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 hydrOXYzine (ATARAX) tablet 50 mg 50 mg, oral, EVERY 4 HOURS PRN, Starting on Sun02/08/22 at 1321, Until Sun02/08/22 at 1741, Anxiety, Routine ibuprofen (MOTRIN) tablet 400 mg Given 02/08/2022 15:15 EDT 400 mg 400 mg, oral, EVERY 6 HOURS PRN, Starting on 02/04/22 at 2256, Until Sun02/08/22 at 1741, Mild Pain 1-3, Routine Given 02/06/2022 20:19 EDT 400 mg Given 02/06/2022 13:37 EDT 400 mg melatonin tablet 3 mg Given 02/07/2022 21:18 EDT 3 mg 3 mg, oral, AT BEDTIME PRN, Starting on 02/04/22 at 2256, Until Sun02/08/22 at 1741, Sleep, Routine Given 02/06/2022 20:19 EDT 3 mg Given 02/05/2022 21:52 EDT 3 mg nicotine (NICOTROL) 10 mg inhaler kit 1 Given 02/08/2022 13:24 E DT 1 Inhaler Inhaler 1 Inhaler, inhalation, EVERY 2 HOURS PRN, Starting on 02/05/22 at 1000, Until Sun02/08/22 at 1741, Smoking Cessation, Routine Given 02/06/2022 11:55 EDT 1 Inhaler Given 02/05/2022 10:43 EDT 1 Inhaler nicotine inhaler (delivery device) 1 dose, Starting on Sun02/05/22 at 1037, Until 02/08 at 1741 OLANZapine (ZYPREXA) disintegrating tabl et 5 mg Given 02/06/2022 8:08 EDT 5 mg 5 mg, oral, 2 TIMES DAILY, First dose on 02/04/22 at 2315, Until Discontinued, Routine Given 02/05/2022 21:53 EDT 5 mg Given 02/05/2022 10:42 EDT 5 mg OLANZapine (ZYPREXA) tablet 10 mg Given 02/08/2022 8:16 EDT 10 mg 10 mg, oral, DAILY, First dose on Sun02/07/22 at 0900, Until Discontinued, Routine Given 02/07/2022 8:07 EDT 10 mg OLANZapine (ZYPREXA) tablet 10 mg 10 mg, oral, AT BEDTIME, First dose (after last modifi cation) on Sun02/08/22 at 2100, Until Discontinued, Routine OLANZapine (ZYPREXA) tablet 5 mg Given 02/07/2022 21:18 EDT 5 mg 5 mg, oral, AT BEDTIME, First dose on Sun02/06/22 at 2100, Until Discontinued, Routine Given 02/06/2022 20:19 EDT 5 mg pantoprazole (PROTONIX) tablet 40 mg Given 02/08/2022 5:43 EDT 40 mg 40 mg, oral, DAILY BEFORE BREAKFAST, First dose on 02/05/22 at 0700, Until Discontinued, Routine Given 02/07/2022 6:19 EDT 40 mg Given 02/06/2022 7:51 EDT 40 mg documented in this encounter Active and Recently Administered Medications Times are shown in EDT. Scheduled Medication Order 02/06/2022 02/07/2022 02/08/2022 buprenorphine-naloxone (SUBOXONE) 8-2 mg sublingual fi lm 1 Film 0809 (Given - Provider: Martina Loja RN) 0807 (Given - Provider: Dawna Joshi RN) 0816 (Given - Provider: Martina Loja RN) 1 Film, sublingual, DAILY, First dose on 02/05/22 at 0900, Until Discontinued, Routine OLANZapine (ZYPREXA) disintegrating tablet 5 mg (CANCE LED) 0808 (Given - Provider: Martina Loja RN) 5 mg, oral, 2 TIMES DAILY, First dose on 02/04/22 at 2315, Until Discontinued, Routine OLANZapine (ZYPREXA) tablet 10 mg (CANCELED) 0807 (Given - Provider: Dawna Joshi RN) 0816 (Given - Provider: Martina pizarro RN) 10 mg, oral, DAILY, First dose on 08/30 at 0900, Until Discontinued, Routine OLANZapine (ZYPREXA) tablet 10 mg 10 mg, oral, AT BEDTIME, First dose (aft er last modification) on Sun02/08/22 at 2100, Until Discontinued, Routine OLANZapine (ZYPREXA) tablet 5 mg (CANCELED) 2018 (Give n - Provider: Maryjane Shay RN) 2117 (Given - Provider: Dhara Schwartz LPN) 5 mg, oral, AT BEDTIME, First dose on 02/06/22 at 2100, Until Discontinued, Routine pantoprazole (PROTONIX) tablet 40 mg 0751 (Given - Pro vider: Martina Loja RN) 0619 (Given - Provider: Trish Bajwa RN) 0543 (Giv en - Provider: Dhara Schwartz LPN) 40 mg, oral, DAILY BEFORE BREAKFAST, Fir st dose on 02/05/22 at 0700, Until Discontinued, Routine PRN Medication Order 02/06/2022 02/07/2022 02/08/2022 acetaminophen (TYLENOL) tablet 650 mg 650 mg, oral, EVERY 4 HOURS PRN, Startin g on 02/04/22 at 2256, Until Sun02/08/22 at 1741, Mild Pain 1-3, Routine hydrOXYzine (ATARAX) tablet 25 mg (CANCELED) 2018 (Giv en - Provider: Maryjane Shay RN) 25 mg, oral, EVERY 4 HOURS PRN, Starting on 02/04/22 at 2256, Until Sun02/08/22 at 1321, Anxiety, Routine hydrOXYzine (ATARAX) tablet 50 mg 50 mg, oral, EVERY 4 HOURS PRN, Starting on Sun02/08/22 at 1321, Until Sun02/08/22 at 1741, Anxiety, Routine ibuprofen (MOTRIN) tablet 400 mg 133 (Given - Provide r: Maryjane Shay RN)2018 (Given - Provider: Maryjane Shay RN) 151 (Given - Prov ider: Martina Loja RN - Comment: HERNADEZ) 400 mg, oral, EVERY 6 HOURS PRN, Startin g on 02/04/22 at 2256, Until Sun02/08/22 at 1741, Mild Pain 1-3, Routine melatonin tablet 3 mg 2018 (Given - Provider: Maryjane Shay, R N) 2117 (Given - Provider: Dhara Schwartz LPN) 3 mg, oral, AT BEDTIME PRN, Starting on 02/04/22 at 2256, Until Sun02/08/22 at 1741, Sleep, Routine nicotine (NICOTROL) 10 mg inhaler kit 1 Inhaler 1155 ( Given - Provider: Maryjane Shay RN) 1324 (Given - Provider: Myles Perez RN) 1 Inhaler, inhalation, EVERY 2 HOURS PRN , Starting on 02/05/22 at 1000, Until Sun02/08/22 at 1741, Smoking Cessation, Routine nicotine polacrilex (NICORETTE) gum 2 mg 2 mg, oral, EVERY 1 HOUR PRN, Starting o n 02/04/22 at 2256, Until Sun02/08/22 at 1741, Smoking Cessation, nicotine craving, Routine OLANZapine (ZYPREXA) disintegrating tablet 5 mg 5 mg, oral, 2 TIMES DAILY PRN, Starting on 02/04/22 at 2256, Until Sun02/08/22 at 1741, Agitation, anxiety - for when hydroxyzine does not work, Routine No Frequency Medication Order 02/06/2022 02/07/2022 02/08/2022 nicotine inhaler (delivery device) 1 dose, Starting on 02/05/22 at 1037 documented in this encounter Orders Medications Ordered That Might Not Have Count Last Ord ered Date First Ordered Date Been Administered hydrOXYzine (ATARAX) tablet 50 mg 1 02/08/2022 OLANZapine (ZYPREXA) tablet 10 mg 2 02/08/2022 02/06/2022 OLANZapine (ZYPREXA) disintegrating tablet 2 02/0602/04/2022 5 mg nicotine inhaler (delivery device) 1 02/05/2022 acetaminophen (TYLENOL) tablet 650 mg 1 02/04/2022 LORazepam (ATIVAN) tablet 1 mg 1 02/04/2022 nicotine polacrilex (NICORETTE) gum 2 mg 1 022 Diet Count Last Ordered Date First Ordered Date DISCHARGE DIET 1 02/08/2022 Nursing Count Last Ordered Date First Ordered Date ACTIVITY INSTRUCTIONS 1 02/08/2022 PATIENT AT LOW RISK FOR VTE: RISK OF 2 02/08/2022 02/04/2022 MECHANICAL PROPHYLAXIS OUTWEIGHS PATIENT AT LOW RISK FOR VTE: RISK OF 1 02/08/2022 PHARMACOLOGIC PROPHYLAXIS OUTWEIG Admission Count Last Ordered Date First Ordered Date ADMIT TO IP PSYCH 2 02/04/2022 Discharge Count Last Ordered Date First Ordered Date DISCHARGE PATIENT 1 02/08/2022 Legal Count Last Ordered Date First Ordered Date MISCELLANEOUS DISCHARGE INSTRUCTIONS 7 02/08/2022 documented in this encounter Care Teams Dairy Nutritionist Relationship Specialty Start Date End Date Ivan Vizcaino DO PCP - General Family Medicine - Primary 02/04/22 [address] [place] [phone] documented as of this encounter
--- OUTSIDE RECORDS SUMMARY | 2022-02-11 23:25 | XMS_ITS | Encounter Summary ---
:[address] [facility] Address [address] [place] [address] Care Team Providers Name Role Phone Renatommie Ivan Michaud DO Primary Care Provider Encounter Details Date Type Department Care Team Description 07/30/2020 Lab Requisition [facility] Outr Resulting Lab, Pathology & Laboratory Provider [facility] [address] [place] [address] Social History Tobacco Use Types Packs/Day Years [...] (07/30/2020 8:45 EST) COVID-19 rt-PCR NEGATIVE Negative [facility] Result Comment: LABORATORY 2019-novel Coronavirus [...] Address City/State/ZIP Code Phon e Number [facility] [place] [place] COVID-19 TESTING (07/30/2020 8:45 EST) COVID-19 rt-PCR NEGATIVE Negative [facility] Result Comment: LABORATORY 2019-novel Coronavirus [...] Administration's Emergency Use Authorization. Performing Lab [facility] LABORATORY SERVICES Specimen Swab Performing Organization Address City/State/ZIP Code Phon e Number [facility] [address] [place] [address] SERVICES [facility] [place], [place] documented in this encounter Visit Diagnoses Not on filedocumented in this encounter Care Teams Naval Architect Specialist Relationship Specialty Start Date End Date Ivan Vizcaino DO PCP - General Family Medicine - Primary 02/04/[address] [place] [phone] documented as of this encounter
--- OUTSIDE RECORDS SUMMARY | 2022-02-11 23:25 | XMS_ITS | Encounter Summary ---
:1990 Author Organization [facility] Address [address] [place] [address] Care Team Providers Name Role Phone Ivan Vizcaino DO Primary Care Provider Encounter Details Date Type Department Care Team Description 02/06/2022 Plan of Care Documentation [facility] Inpatient Psychiatry [address] [place] [address] Social History Tobacco Use Types Packs/Day Years Used Date Current Every Day Smoker Cigarettes 0.5 17 Sta rted: 07/09/2005 Smokeless Tobacco: Former User Alcohol Use Standard Drinks/Week Comments Not Currently 0 (1 standard drink = 0.6 oz pure alcoho l) Sex Assigned at Date Recorded Not on file documented as of this encounter Functional Status Functional Status Response [...] or older) documented as of this encounter Progress Notes Randy Pierce - 02/06/2022 1520 EDT Psychiatry Treatment Plan Admit Date: 02/04/22 Initial Observation Date (if different): 02/04/2022 Hospital day: LOS: 2 days Date of Service: 02/06/2022 Legal Status: Involuntary Locus of Harm: Current locus of harm: 3 Suicidal Ideation with active plan: Y Patient's stated reason for hospitalization: This abundio, Josh or Ty, he's trying to come after me. He's following me around and his friends follow me around, and he says he's going to shoot me in the head. Every time I call the police they hear me so they run and hide. I came to the hospital saying I was going to kill myself so I could be safe. Current Stressors: recent relapse, financial concerns, loss of daughter. Target Symptoms: Depressed-observed;Depressed-reported, Sad-reported;Restricted/flat-observed, Ruminative/preoccupied-reported, Paranoid-observed Problems being addressed this admission: Psychosis Identified strengths and barriers: Frank Mcpherson's Strengths:sought help Frank Mcpherson'ra Barriers: substance use and vulnerability to psychological stress Goals: 1. Frank Mcpherson will demonstrate stabilization of acute target signs and symptoms 2. Frank Mcpherson will increase understanding of his illness and treatment interventions 3. Frank Mcpherson will develop and implement aftercare plan for discharge Interventions / Plans: Psychiatry: Ongoing psychiatric evaluation and counseling Pharmacological management Appropriate medical studies and laboratory monitoring Nursing: See Care Plan documentation Social Work: Assist patient with discharge planning, including identifying discharge options Assisting with referrals Facilitate collaboration with family / support network Conduct treatment groups and encourage participation Collaboration with outpatient providers Advanced Practice Provider: See MYNOR's Assessment and Treatment Plan under History and Physical Outpatient Providers information: Name Number [facility] Agency Psychiatrist Therapist Tag Writer PCP Ivan Vizcaino Guardian Family Contact Other PO Richard Horne Pt: Date: MD: Date: AP: Date: RN: Date: SW: Date: documented in this encounter Plan of Treatment Not on filedocumented as of this encounter Visit Diagnoses Not on filedocumented in this encounter Care Teams Hand Mold Maker Relationship Specialty Start Date End Date Ivan Vizcaino DO PCP - General Family Medicine - Primary 02/04/22 [address] [place] [phone] documented as of this encounter
[2022-02-12 00:02] LABS: Source Nasal/Nares
[2022-02-12 00:12] LABS: Abs Immature Grans 0.01 10^3/uL (0.0-0.06); Absolute Basophil Count 0.02 10^3/uL (0.0-0.2); Absolute Eosinophil Count 0.29 10^3/uL (0.0-0.7); Absolute Monocyte Count 0.59 10^3/uL (0.1-0.8); Absolute Neutrophil Count 3.03 10^3/uL (1.2-6.7); Basophils % 0.3; Eosinophils % 4.2; HCT 34.1 % (40.0-50.0); Immature Grans % 0.1; Lymphocytes % 43.2; MCH 26.8 pg (27.0-33.0); MCHC 32.3 % (32.0-36.0); MCV 83 fL (80-95); MPV 8.8 fL (8.0-11.0); Monocytes % 8.5; Neutrophils % 43.7; Platelet Count 326 10^3/uL (130-400); RBC 4.11 10^6/uL (4.36-5.78); RDW 15.2 % (11.8-14.1); RDW-SD 46.3 fL; WBC 6.94 10^3/uL (4.4-10.8)
[2022-02-12 00:28] LABS: ALT 39 U/L (16-63); AST 21 U/L (15-37); Albumin 3.2 g/dL (3.4-5.0); Alkaline Phosphatase 59 U/L (46-116); Anion Gap 8.3 mmol/L (3-11); BUN 16 mg/dL (7-18); Bilirubin, Total 0.3 mg/dL (0.2-1.0); CO2 29.7 mmol/L (21.0-32.0); CREATININE 0.9 mg/dL (0.70-1.30); Calcium 8.3 mg/dL (8.5-10.1); Chloride 103 mmol/L (98-107); Glucose 131 mg/dL (74-106); Potassium 3.5 mmol/L (3.5-5.1); Sodium 141 mmol/L (136-145); Total Protein 6.9 g/dL (6.4-8.2)
[2022-02-12 00:38] LABS: ETHANOL BLOOD < 3.0 mg/dL (<10)
[2022-02-12 00:40] LABS: COVID-19 PCR Negative (Negative)
[2022-02-12 01:42] LABS: *AMPHETAMINES SCREEN URINE Positive (Negative); *BARBITURATES SCREEN URINE Negative (Negative); *BENZODIAZEPINES SCREEN URINE Negative (Negative); Cannabinoids THC Negative (Negative); Cocaine Screen,Urine Negative (Negative); METHADONE URINE SCREEN Negative (Negative); OPIATES URINE SCREEN Negative (Negative)
[2022-02-12 01:43] LABS: Tricyclic Antidepressants Negative (Negative)
--- NOTE | 2022-02-12 01:50 | PDOC.MHCN_ITS ---
Date of service: 02/11/22 Time of Service: 01:50 Mental Health Crisis Note Presenting Issue How did you arrive at the ED and why did you come: Client arrived via a MH Warrant due to continued paranoia and inability to regulate. Precipitating Factors Client denied SI and HI. He is showing signs of continued delusional and paranoid thoughts. Disposition BEHAVIOR: Cooperative but angry that he is here. He shows no insight and denied that he called police again tonight. EYE CONTACT: Eye contact was fair but quickly went to poor as he was falling asleep. MOOD: Angry and stating he is not going to the hospital again he would rather be in custodial. AFFECT: Congruent with mood. APPETITE: Reported fine SLEEP(trouble falling/staying asleep: Client reported he was asleep when police came knocking on his door. Plan Client will remain at [facility] pending a second certification by a psychiatrist. Signature Clinician's Name/Title: Audra Ramirez MS, [facility] Emergency Services Clinician, [facility]
--- NOTE | 2022-02-12 08:47 | CMSP_ITS ---
- If Service Date Differs Date of service: 02/12/22 Time of Service: 08:47 Care Management Safety Plan Status: Involuntary - Reason for Wait Reason for Wait: Inpatient Admission Frank presented to [facility] via Police on 02/11/22 with a MH Warrant due to continued paranoia and inability to regulate. Frank will remain at [facility] on EE status until inpatient psych placement is found. Per Audra at [facility] second certification by a psychiatrist is approved. Per Audra referrals have been sent to [facility], [facility], [facility] and [facility]. [facility] is the only one that potentially has a bed available today. 02/12/22 CM reviewed with Primary RN, RN Insole Tape Stitcher Uco and Audra at [facility], individually. Safety plan has been established to meet the needs of the patient, and consideration of the care team, to adhere to patient goals, identify restrictions based on behavioral status, address nutrition, and determine allowed personal belongings, tools for hygiene and personal care. Determine level of activity including ambulation, level of supervision, visitors, and determine privileges based on behaviors and level of engagement by pt. SAFETY PLAN: 1. Will remain on SI/HI precautions. In Paper Clothes 2. Will remain in room under direct supervision of one-on-one staff at all times provided by CPSO, HERB COUNSELOR, TECHNICAL DESIGNER elevator supervisor. 3. May have paper cups, plates, finger foods as well as a cardboard spoon with which to eat meals. 4. Follow [facility] Management of the Admitted Behavioral Health Patient policy. 5. Comfort bath system only, shower permitted with escort at RN discretion. 6. No personal belongings. 7. Visitors: none at this time. 8. Activities: soft cart items approved per RN discretion. 9. Bathroom privileges with escort in the ED 10. Phone: May use [facility] phone at RN discretion. 11. Due to INVOLUNTARY status, patient is being held at [facility] by the Department of Mental Health ([facility]). A 2nd certification by [facility] Psychiatrist was performed on 02/01/2022 and the involuntary status was upheld. Staff will provide de-e scalation support (CPI) as needed. If patient wishes to leave [facility], staff will contact [facility] Crisis Screener ([phone]) and On-Call Booth Manager ([phone]) as soon as possible. In the event of elopement, notify [facility] Police ([phone]). Patient is currently involuntarily at [facility]. [facility] Frontline Spring Coiling Machine Setter will continue seeking placement. Please contact the [employer] Booth Manager ([phone]) for any needed changes to Safety Plan. Safety plan has been provided to interdepartmental care team. Patient will be transported by regional flatbed truck driver at time of discharge.
--- NOTE | 2022-02-12 08:47 | PDOC.CMSAFED ---
- If Service Date Differs Date of service: 02/12/22 Time of Service: 08:47 Care Management Safety Plan Status: Involuntary - Reason for Wait Reason for Wait: Inpatient Admission Frank presented to [facility] via Police on 02/11/22 with a MH Warrant due to continued paranoia and inability to regulate. Frank will remain at [facility] on EE status until inpatient psych placement is found. Per Audra at [facility] second certification by a psychiatrist is approved. Per Audra referrals have been sent to [facility], [facility], [facility] and [facility]. [facility] is the only one that potentially has a bed available today. 02/12/22 CM reviewed with Primary RN, RN Tanker Driver and Audra at [facility], individually. Safety plan has been established to meet the needs of the patient, and consideration of the care team, to adhere to patient goals, identify restrictions based on behavioral status, address nutrition, and determine allowed personal belongings, tools for hygiene and personal care. Determine level of activity including ambulation, level of supervision, visitors, and determine privileges based on behaviors and level of engagement by pt. SAFETY PLAN: 1. Will remain on SI/HI precautions. In Paper Clothes 2. Will remain in room under direct supervision of one-on-one staff at all times provided by CPSO, SCHOOL OFFICE MANAGER, JETTING MACHINE OPERATOR paper reclaiming machine operator. 3. May have paper cups, plates, finger foods as well as a cardboard spoon with which to eat meals. 4. Follow [facility] Management of the Admitted Behavioral Health Patient policy. 5. Comfort bath system only, shower permitted with escort at RN discretion. 6. No personal belongings. 7. Visitors: none at this time. 8. Activities: soft cart items approved per RN discretion. 9. Bathroom privileges with escort in the ED 10. Phone: May use [employer] [facility] phone at RN discretion. 11. Due to INVOLUNTARY status, patient is being held at [facility] by the Department of Mental Health ([facility]). A 2nd certification by [facility] Psychiatrist was performed on 02/01/2022 and the involuntary status was upheld. Staff will provide de-escalation support (CPI) as needed. If patient wishes to leave [facility], staff will contact [facility] Crisis Screener ([phone]) and On-Call Chainsaw Mechanic ([phone]) as soon as possible. In the event of elopement, notify [facility] Police ([phone]). Patient is currently involuntarily at [facility]. [facility] Frontline Printing Supplies Sales Representative will continue seeking placement. Please contact the Fire Tender Chainsaw Mechanic ([phone]) for any needed changes to Safety Plan. Safety plan has been provided to interdepartmental care team. Patient will be transported by corporate investigator at time of discharge.
--- NOTE | 2022-02-12 08:57 | CMPROGNOTE_ITS ---
- If Service Date Differs Date of service: 02/12/22 Time of Service: 08:57 Care Management Progress Note S/O: Frank presented to [facility] via Police on 02/11/22 with a MH Warrant due to continued paranoia and inability to regulate. Per [facility] Clinician, Frank will remain at [facility] on EE status. Second certification by a psychiatrist is approved. [facility] sent referrals to , , [facility] and [facility]. [facility] is the only one that potentially has a bed available today. A: 31 year old male brought to [facility] ED via police on 02/11/22 for paranoia and inability to regulate P: EE status, second cert is approved by psychiatrist. Frank will be screened X2 daily by [facility] Interior Decorator Painting's and remain at [facility] until inpatient Psych treatment is found. Disposition will be guided by [facility] and [facility]. CM will continue to follow. - Status Status: Involuntary - Guardianship if Applicable Guardianship: Other - Reason for Wait Reason for Wait: Inpatient Admission
--- NOTE | 2022-02-12 08:57 | PDOC.ERCMPRO ---
- If Service Date Differs Date of service: 02/12/22 Time of Service: 08:57 Care Management Progress Note S/O: Frank presented to [facility] via Police on 02/11/22 with a MH Warrant due to continued paranoia and inability to regulate. Per [facility] Clinician, Frank will remain at [facility] on EE status. Second certification by a psychiatrist is approved. [facility] sent referrals to , , [facility] and [facility]. [facility] is the only one that potentially has a bed available today. A: 31 year old male brought to [facility] ED via police on 02/11/22 for paranoia and inability to regulate P: EE status, second cert is approved by psychiatrist. Frank will be screened X2 daily by [facility] Rolling Up Machine Operator's and remain at [facility] until inpatient Psych treatment is found. Disposition will be guided by [facility] and [facility]. CM will continue to follow. - Status Status: Involuntary - Guardianship if Applicable Guardianship: Other - Reason for Wait Reason for Wait: Inpatient Admission
--- NOTE | 2022-02-12 11:33 | PDOC.MHCN_ITS ---
Date of service: 02/12/22 Time of Service: 11:34 Mental Health Crisis Note Presenting Issue How did you arrive at the ED and why did you come: Client arrived on 02.11.2022 on a MH Warrant executed by this clinician due to continued paranoia and delusions that others are trying to kill, harassing, trying to steal and breaking into his room. Precipitating Factors Client is denying SI and HI. He denied that what he is experiencing is possibly a delusion even though many different community partners including this clinician have not been able to verify. Disposition BEHAVIOR: Cooperative but frustrated that he is at the hospital again because no one believes me. EYE CONTACT: poor MOOD: Mood appears normal to situation. AFFECT: Flat affect this morning. APPETITE: Client ate breakfast and is eating crackers through the assessment. SLEEP(trouble falling/staying asleep: Client reported that he slept well. Plan Client's second certification passed and he will remain on EE status and assessed twice daily by [facility] until placement is found. Referrals were sent to [facility], [facility], [facility] and [facility] [facility] [place] the only one that potentially has a bed available today. Signature Clinician's Name/Title: Audra Ramirez MS, [facility] Clinician, [facility]
[2022-02-12 18:34] VITALS: BP 139/79; PULSE 91; RESP 18; TEMP 36.5; O2SAT 98
[2022-02-12] MEDS: OLANZapine 10 MG TAB PO (21:46)
--- NOTE | 2022-02-12 21:57 | NUR.NOTE ---
Took patient over from previous nurse and noted he had no medication orders. Spoke with MD, who put in updated orders. Nursing Note:
[2022-02-12] MEDS: Buprenorphine/Naloxone 8 mg/2 mg FILM 1 EACH SL (22:07)
--- NOTE | 2022-02-13 02:13 | W.PM.HP.N ---
Date of service: 02/13/22 Time of Service: 02:13 Assessment and Plan Assessment and plan (1) Paranoid delusion: Status: Acute Assessment and plan: Svhizophrenia. Continue current management while awaiting placement. As to anemai and elevated random sugar will just recheck Hct in AM and check fasting glucose. History of Present Illness History of Present Illness Chief Complaint: delusions Narrative: 31 male with h/o paranoid schizophrenia, brought to ER yesterday due to uncontrolled delusions of others intent on harming him. Medical workup negative save for positive amphetamines in drug screen. Was placed on EE status and put on his usual meds. Has been in ER for over 24 hours. Staff report patient has been cooperative, no behavioral issues and is being moved up to medical floor due to logistical needs in ER. Patient states he feels fine. Review of workup demonstrates only slight anemia (Hct 34, over past year 35-38) and random glucose 131. Review of Systems Narrative: per HPI PFSH All Active Problems (Updated 02/12/22 @ 02:09 by Katiuska Hicks DO) Paranoid delusion (Acute) Anemia, mild (Acute) Stimulant abuse (Acute) Paranoid schizophrenia (Acute) Moderate opioid dependence on maintenance therapy (Chronic) Depression (Chronic) Stress at home (Acute) GERD (gastroesophageal reflux disease) (Chronic) Anxiety (Chronic) ADHD (Chronic) Medical History ADHD Depression Drug abuse Family History Father , colon ca at age 70. Colon cancer Social History Smoking/Tobacco Use Status: Current every day Tobacco Type: cigarettes Smoking risk assessment performed?: Yes Alcohol Intake: former Drug use: Current Sobriety Substance use type: opiates In current or past relationships, have you been: threatened Do you feel safe at home: No Do you feel safe in your relationship?: No Meds Allergies and Home Medications Allergies Allergy/AdvReac Type Severity Reaction Status Date / Time methylphenidate AdvReac Severe left Verified 02/11/22 23:29 [From Ritalin] arm,tongue,face numbness,tingling Home Medications Medication Instructions Recorded Confirmed Type olanzapine 5 mg tablet (Zyprexa) 5 mg PO BID 08/26/21 02/11/22 History gabapentin 300 mg capsule 300 mg PO TID 01/20/22 02/11/22 History (Neurontin) hydroxyzine HCl 50 mg tablet 50 mg PO TID 02/04/22 02/11/22 History loratadine 10 mg tablet 10 mg PO DAILY 02/04/22 02/11/22 History nicotine 10 mg inhalation 300 mg inhalation DIRECTED PRN 02/04/22 02/11/22 Rx cartridge (Nicotrol) #0 ea aspirin 81 mg chewable tablet 81 mg PO DAILY 02/11/22 02/11/22 History dextroamphetamine-amphetamine 10 10 mg PO DAILY 02/11/22 02/11/22 History mg tablet dextroamphetamine-amphetamine ER 30 mg PO DAILY 02/11/22 02/11/22 History 30 mg 24hr capsule,extend release famotidine 20 mg tablet 20 mg PO DAILY 02/11/22 02/11/22 History haloperidol 5 mg tablet 5 mg PO DAILY 02/11/22 02/11/22 History propranolol 10 mg tablet 10 mg PO BID 02/11/22 02/11/22 History buprenorphine 8 mg-naloxone 2 mg 1 film sublingual DAILY 02/12/22 02/11/22 History sublingual film Exam Narrative Exam Narrative: 139/79, 91, 36.5, 18, 98% RA. HEENT atraumatic; neck supple; lungs clear; heart RRR; abdomen soft and NT; extremities w/o edema; neuro Ox3, moves all 4s Results Labs Result diagrams: 02/12/22 00:06 02/12/22 00:06 Last Vital Signs Temp 36.5 C 02/12/22 18:34 Pulse 91 H 02/12/22 18:34 Resp 18 02/12/22 18:34 BP 139/79 02/12/22 18:34 Pulse Ox 98 02/12/22 18:34
[2022-02-13 06:21] LABS: HCT 35.3 % (40.0-50.0); HGB 11.8 g/dL (13.5-17.5)
[2022-02-13 06:45] LABS: Glucose 95 mg/dL (74-106)
[2022-02-13 08:39] VITALS: BP 119/74; PULSE 87; RESP 18; TEMP 35.8; O2SAT 99
[2022-02-13] MEDS: Aspirin 81 MG CHEW PO (08:40)
[2022-02-13] MEDS: Famotidine 20 MG TAB PO (08:40)
[2022-02-13] MEDS: Propranolol 10 MG TAB PO (08:40)
[2022-02-13] MEDS: Buprenorphine/Naloxone 8 mg/2 mg FILM 1 EACH SL (08:40)
[2022-02-13] MEDS: hydrOXYzine HCL 50 MG TAB PO (08:41)
[2022-02-13] MEDS: OLANZapine 5 MG TAB PO (08:41)
[2022-02-13] MEDS: Gabapentin 300 MG CAP PO (08:41)
[2022-02-13] MEDS: Haloperidol 5 MG TAB PO (08:41)
--- NOTE | 2022-02-13 10:25 | CMSP_ITS ---
- If Service Date Differs Date of service: 02/13/22 Time of Service: 10:25 Care Management Safety Plan Status: Involuntary - Guarianship if Applicable Guardianship: Other - Reason for Wait Reason for Wait: Inpatient Admission Frank presented to [facility] via Police on 02/11/22 with a MH Warrant due to continued paranoia and inability to regulate. Frank will remain at [facility] on EE status until inpatient psych placement is found. Per Audra at [facility] second certification by a psychiatrist is approved. Per Audra referrals have been sent to [facility], , [facility] and [facility] [facility] reviewed Frank's EE paperwork and have decided not to uphold the involuntary hold. [facility] met with Frank today, who reported that he did not want to seek voluntary treatment. He was discharged with follow up through [facility]. Safety plan has been established to meet the needs of the patient, and consideration of the care team, to adhere to patient goals, identify restrictions based on behavioral status, address nutrition, and determine allowed personal belongings, tools for hygiene and personal care. Determine level of activity including ambulation, level of supervision, visitors, and determine privileges based on behaviors and level of engagement by pt. SAFETY PLAN: 1. Will remain on SI/HI precautions. In Paper Clothes 2. Will remain in room under direct supervision of one-on-one staff at all times provided by [employer], HOOP CUTTER, PHYSICAL PLANT EMPLOYEE statistics tutor. 3. May have paper cups, plates, finger foods as well as a cardboard spoon with which to eat meals. 4. Follow [facility] Management of the Admitted Behavioral Health Patient policy. 5. Comfort bath system only, shower permitted with escort at RN discretion. 6. No personal belongings. 7. Visitors: none at this time. 8. Activities: soft cart items approved per RN discretion. 9. Bathroom privileges with escort in the ED 10. Phone: May use [employer] hospital phone at RN discretion. 11. Due to INVOLUNTARY status, patient is being held at [facility] by the Department of Mental Health ([facility]). A 2nd certification by [facility] Psychiatrist was performed on 02/01/2022 and the involuntary status was upheld. Staff will provide de- escalation support (CPI) as needed. If patient wishes to leave [facility], staff will contact [facility] Crisis Screener ([phone]) and On-Call Rn Midwife ([phone]) as soon as possible. In the event of elopement, notify [facility] Police ([phone]). Patient is currently involuntarily at [facility]. [facility] Frontline Director Of Contracts will continue seeking placement. Please contact the Surfacing Machine Operator Rn Midwife ([phone]) for any needed changes to Safety Plan. Safety plan has been provided to interdepartmental care team. Patient will be transported by nurse obgyn at time of discharge.
--- NOTE | 2022-02-13 10:25 | CMPROGNOTE_ITS ---
- If Service Date Differs Date of service: 02/13/22 Time of Service: 10:25 Care Management Progress Note A: 31 year old male brought to [facility] ED via police on 02/11/22 for paranoia and inability to regulate P: EE status, second cert is approved by psychiatrist. Frank will be screened X2 daily by [facility] Multi Share Program Coordinator's and remain at [facility] until inpatient Psych treatment is found. Disposition will be guided by [facility] and [facility]. CM will continue to follow. - Guardianship if Applicable Guardianship: Other
--- NOTE | 2022-02-13 10:25 | PDOC.CMPRO ---
- If Service Date Differs Date of service: 02/13/22 Time of Service: 10:25 Care Management Progress Note A: 31 year old male brought to [facility] ED via police on 02/11/22 for paranoia and inability to regulate P: EE status, second cert is approved by psychiatrist. Frank will be screened X2 daily by [facility] Wool Batting Worker's and remain at [facility] until inpatient Psych treatment is found. Disposition will be guided by [facility] and [facility]. CM will continue to follow. - Guardianship if Applicable Guardianship: Other
--- NOTE | 2022-02-13 10:25 | PDOC.CMSAFE ---
- If Service Date Differs Date of service: 02/13/22 Time of Service: 10:25 Care Management Safety Plan Status: Involuntary - Guarianship if Applicable Guardianship: Other - Reason for Wait Reason for Wait: Inpatient Admission Frank presented to [facility] via Police on 02/11/22 with a MH Warrant due to continued paranoia and inability to regulate. Frank will remain at [facility] on EE status until inpatient psych placement is found. Per Audra at [facility] second certification by a psychiatrist is approved. Per Audra referrals have been sent to [facility], , [facility] and [facility]. [facility] reviewed Frank's EE paperwork and have decided not to uphold the involuntary hold. [facility] met with Frank today, who reported that he did not want to seek voluntary treatment. He was discharged with follow up through [facility]. Safety plan has been established to meet the needs of the patient, and consideration of the care team, to adhere to patient goals, identify restrictions based on behavioral status, address nutrition, and determine allowed personal belongings, tools for hygiene and personal care. Determine level of activity including ambulation, level of supervision, visitors, and determine privileges based on behaviors and level of engagement by pt. SAFETY PLAN: 1. Will remain on SI/HI precautions. In Paper Clothes 2. Will remain in room under direct supervision of one-on-one staff at all times provided by [employer]PS[employer], COMMAND CENTER ANALYST, NURSE LIAISON vibrating screen operator. 3. May have paper cups, plates, finger foods as well as a cardboard spoon with which to eat meals. 4. Follow [facility] Management of the Admitted Behavioral Health Patient policy. 5. Comfort bath system only, shower permitted with escort at RN discretion. 6. No personal belongings. 7. Visitors: none at this time. 8. Activities: soft cart items approved per RN discretion. 9. Bathroom privileges with escort in the ED 10. Phone: May use [employer] hospital phone at RN discretion. 11. Due to INVOLUNTARY status, patient is being held at [facility] by the Department of Mental Health ([facility]). A 2nd certification by [facility] Psychiatrist was performed on 02/01/2022 and the involuntary status was upheld. Staff will provide de-escalation support (CPI) as needed. If patient wishes to leave [facility], staff will contact [facility] Crisis Screener ([phone]) and On-Call Cook Manager ([phone]) as soon as possible. In the event of elopement, notify [facility] Police ([phone]). Patient is currently involuntarily at [facility]. [facility] Frontline Solderer will continue seeking placement. Please contact the Animated Cartoons Painter Cook Manager ([phone]) for any needed changes to Safety Plan. Safety plan has been provided to interdepartmental care team. Patient will be transported by geoduck diver at time of discharge.
--- NOTE | 2022-02-13 11:44 | DSE_ITS ---
Date of service: 02/13/22 Time of Service: 11:44 DS: Diagnosis Discharge Diagnosis (1) Paranoid delusion: Status: Acute Discharge Plan Disposition Patient Disposition: HOME Condition: Stable Discharge Details Reason For Visit: Schizophrenia Admit Date/Time: 02/13/22 02:25 Admit Provider: Tristan Andrew Attending Provider: Tristan Andrew Primary Care Provider: Ivan Vizcaino [facility] Course Hospital Course: Frank is a 31 yo male patient that has a past medical history of schizophrenia. He has been in and out of the hospital, with recent admission to [facility]. He returns to [facility] ED 02/11/22 due to continued paranoia. He arrived to the medical surgical unit, saw mental health and decided to go home. He left ambulatory, stable. Home Meds and New Rx's Prescriptions: Continued olanzapine [Zyprexa] 5 mg tablet 5 mg PO BID gabapentin [Neurontin] 300 mg capsule 300 mg PO TID hydroxyzine HCl 50 mg tablet 50 mg PO TID loratadine 10 mg tablet 10 mg PO DAILY Nicotrol 10 mg Cartridge 300 mg inhalation DIRECTED PRNQty: 0 0RF propranolol 10 mg tablet 10 mg PO BID famotidine 20 mg tablet 20 mg PO DAILY aspirin 81 mg tablet,chewable 81 mg PO DAILY haloperidol 5 mg tablet 5 mg PO DAILY dextroamphetamine-amphetamine 10 mg tablet 10 mg PO DAILY dextroamphetamine-amphetamine 30 mg capsule,extended release 24hr 30 mg PO DAILY buprenorphine-naloxone 8-2 mg film 1 film sublingual DAILY Discharge Instructions Additional Instructions: Follow up with [facility] Stand Alone Forms: Nursing Discharge Form Activity:: Activity as Tolerated Equipment/Supplies:: No Equipment Needed Diet:: As Tolerated Discharge Orders Discharge Orders: Discharge Order (Routine); Ordered 02/13/22 Ordered By: Vilma Baig Discharge Data Discharge Date/Time-TO BE ENTERED AT DEPARTURE: 02/13/22 12:17 DS: Summary Time Spent with Patient providing and/or coordinating discharge services: Less than 30 minutes Status at Discharge Functional status at discharge: independent ambulation Overall status at discharge: patient is back to baseline Mental Status: mental status grossly normal Speech and Movement: speech and movement normal Mood: congruent mood Affect: normal affect Exam Psych Mental Status: mental status grossly normal Speech and Movement: speech and movement normal Mood: congruent mood Affect: normal affect DS: Data Vitals/I&O Vitals and I&O: Vital Signs Temperature 35.8 C L 02/13/22 08:39 Temperature Source Tympanic 02/13/22 08:39 Pulse 87 02/13/22 08:39 Pulse Rhythm Regular 02/13/22 09:16 Respiratory Rate 18 02/13/22 08:39 Respiratory Effort Non-Labored 02/13/22 09:16 Respiratory Depth Normal 02/13/22 09:16 Respiratory Pattern Normal 02/13/22 09:16 Blood Pressure 119/74 02/13/22 08:39 Blood Pressure Position Sitting 02/11/22 23:23 Pulse Oximetry 99 02/13/22 08:39 Oxygen Delivery Method Room Air 02/13/22 08:39 Oxygen Flow Rate 0 02/13/22 08:39 Pain Level 0 02/13/22 08:39 Comment 02/13/22 03:25 Intake & Output 02/12/22 02/12/22 02/13/22 11:59 23:59 11:59 Other: Urine Color Yellow Urine Appearance Clear Voiding Methods Toilet Data Completed and Pending Labs on day of discharge: Labs from last 24 hours 02/13/22 02/13/22 06:05 06:05 Hgb 11.8 L Hct 35.3 L Glucose 95 PFSH All Active Problems (Updated 02/12/22 @ 02:09 by Katiuska Hicks DO) Paranoid delusion (Acute) Anemia, mild (Acute) Stimulant abuse (Acute) Paranoid schizophrenia (Acute) Moderate opioid dependence on maintenance therapy (Chronic) Depression (Chronic) Stress at home (Acute) GERD (gastroesophageal reflux disease) (Chronic) Anxiety (Chronic) ADHD (Chronic) Medical History ADHD Depression Drug abuse Family History Father , colon ca at age 70. Colon cancer Social History Smoking/Tobacco Use Status: Current every day Tobacco Type: cigarettes Smoking risk assessment performed?: Yes Alcohol Intake: former Drug use: Current Sobriety Substance use type: opiates In current or past relationships, have you been: threatened Do you feel safe at home: No Do you feel safe in your relationship?: No
--- NOTE | 2022-02-13 12:10 | NUR.NOTE ---
RN brought patient his belongings. Patient is being discharged. Patient is currently putting on his own clothes. Nursing Note:
--- NOTE | 2022-02-13 12:36 | CMDISCH_ITS ---
- If Service Date Differs Date of service: 02/13/22 Time of Service: 12:36 LACE Index Scoring Tool - Questions: Length of Stay (in days): 1 Acuity (Admit via E.D.?): Yes E.D. Visits: 10 - Answers: Total Score: 8 Risk of Readmission: Low Risk Care Management Discharge Reason for Hospitalization: schizophrenia Discharge Plan: Frank is no longer being held involuntarily, per [facility], as he does not present an imminent risk to himself or others. He was evaluated by [facility] today, and he is not willing to seek voluntary treatment. He created an active safety plan with TEDDY Nolen, and returned home, to the [facility]. He transported via [facility] bus. He will follow up with his PCP and his discharge plan of care. Patient/Family Education Needs: Review discharge instructions and limitations, discussion of self care needs including ask me three. Services Needed at Discharge: Transportation ([facility] bus) - MH Services (Omit if N/A) Current MH Services: [facility] - Disposition Disposition: Community Discharge Transport via of: Other ([facility] bus)
--- NOTE | 2022-02-13 13:05 | PDOC.MHPN2 ---
Date of service: 02/13/22 Time of Service: 11:15 Mental Health Progress Note Progress Note Progress Note: Presenting Issue: Client was on EE status, [facility] legal is not processing this EE at this time. Precipitating Factors Disposition * Behavior: *Eye Contact: Minimal to none *Mood: Stressed and Irritable *Affect: Flat *Appetite: No change *Sleep(trouble falling/staying asleep):Sleeping as much as he can Plan(please elaborate and include that physician is consulted with plan and/or placement): Client is going home on a safety plan. Clinician's Name , Title, and Signature Tamanna Henning, Medical Doctor Md, [facility] Make sure that you are photocopying and submitting this to [facility] records Dept. to be scanned into chart.
== END 2022-02-13 12:17 | disposition home or self-care (01) ==
LOC: ER 02-13 02:32 → MS 02-13 03:15
PROVIDERS: Admitting Provider General Practice; Emergency Provider Physician Assistant; PCP Family Medicine; Visit Provider General Practice
DX: F20.0 Paranoid schizophrenia (principal); F41.9 Anxiety disorder, unspecified; F32.A Depression, unspecified; Z79.899 Other long term (current) drug therapy; Z79.82 Long term (current) use of aspirin; Z20.822 Contact with and (suspected) exposure to COVID-19; D64.9 Anemia, unspecified; F15.10 Other stimulant abuse, uncomplicated; F11.20 Opioid dependence, uncomplicated; K21.9 Gastro-esophageal reflux disease without esophagitis; F90.9 Attention-deficit hyperactivity disorder, unspecified type; F17.210 Nicotine dependence, cigarettes, uncomplicated
CPT/HCPCS: 36415; 80053; 80307; 82947; 87635; 99285; 80320; 85014; 85018; 85025; 99235; G0378; J3490

== ENCOUNTER 2022-05-13 20:38 | Emergency (ER) | payer MEDICAID, SELFPAY ==
--- OUTSIDE RECORDS SUMMARY | 2022-05-13 20:42 | XMS_ITS | Encounter Summary ---
:1990 Author Organization [facility] Address [address] [place] [address] Care Team Providers Name Role Phone Renatommie Ivan Michaud DO Primary Care Provider Encounter Details Date Type Department Care Team Description 07/30/2020 Lab Requisition [facility] Outr Resulting Lab, Pathology & Laboratory Provider [facility] [address] [place] [address] Social History Tobacco Use Types [...] (07/30/2020 8:45 EST) COVID-19 rt-PCR NEGATIVE Negative [facility] Result Comment: LABORATORY 2019-novel Coronavirus [...] Address City/State/ZIP Code Phon e Number [facility] [place], [place] COVID-19 TESTING (07/30/2020 8:45 EST) COVID-19 rt-PCR NEGATIVE Negative [facility] Result Comment: LABORATORY 2019-novel Coronavirus [...] Emergency Use Authorization. Performing Lab [facility]ORAT[facility] SERVICES Specimen Swab Performing Organization Address City/State/ZIP Code Phon e Number [facility] [address] [place] [address] SERVICES [facility] [place], [place] documented in this encounter Visit Diagnoses Not on filedocumented in this encounter Care Teams Adolescent Medicine Specialist Relationship Specialty Start Date End Date Ivan Vizcaino DO PCP - General Family Medicine - Primary 02/04/[address] [place] [phone] documented as of this encounter
--- OUTSIDE RECORDS SUMMARY | 2022-05-13 20:42 | XMS_ITS | Clinical Summary ---
:1990 Author Organization [facility] Address [address] [facility] [facility] [place] [address] Care Team Providers Name Role Phone Ivan Vizcaino DO Primary Care Provider Allergies Active Allergy Reactions Severity Noted Date Comments Fish Containing Products Swelling, Rash 02/07/2022 Methylphenidate Other (See Comments) High 02/05/2022 Left arm tongue, face numbness, tingling status verified 2 by [facility] - per dominique t review Shellfish Containing [...] Date Depression 02/08/2022 Methamphetamine use disorder, severe 02/08/2022 Opioid use disorder, moderate, in early remission, on maintenance therapy 02/08/2022 GERD (gastroesophageal reflux disease) 02/06/2022 Tobacco dependence 02/06/2022 Resolved Problems Problem Noted Date Resolved Date 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 02/08/2022 Social History Tobacco Use Types Packs/Day Years [...] 8) 02/04/20222208 EDT Body Mass Index 27.12 02/04/2022 220 EDT Plan of Treatment Health Maintenance Due Date Last Done Comments COVID-19 Vaccine (#1) 04/26/1989 Hepatitis C Screen Completed 02/05/2022 Insurance Payer Benefit Plan Subscriber ID Effective Phone Address Typ e / Group Dates MEDICAID ACO MEDICAID ACO [id number] 2022-Pre [phone] [address] Medicaid [place] sent [address] [facility] [id number] Noel Mcphersonit Personal/Famil Self [address] [place] [address] KyKeit Personal/Famil Self [address] [place] [address] Stefani Mcpherson Personal/Famil Self [address] ([address] [place] [address] Advance Directives For more information, please contact: [phone] Latest Code Status on File Code Status Date Activated Date Inactivated Comments Full Code 02/04/2022 22:57 02/08/2022 17:41 When the patient has NO PULSE: Full Code / CPR Who Made the Decision? Default/Not Discussed Care Teams Heating And Blending Supervisor Relationship Specialty Start Date End Date Ivan Vizcaino, PCP - General Family Medicine - Primary 02/04/22 [address] [place] [phone]
--- OUTSIDE RECORDS SUMMARY | 2022-05-13 20:42 | XMS_ITS | Encounter Summary ---
:1990 Author Organization [facility] Address [address] [place] [address] Care Team Providers Name Role Phone Ivan Vizcaino DO Primary Care Provider Reason for Visit Auth/Cert Specialty Diagnoses / Procedures Referred By Contact Refer red To Contact Diagnoses Schizophrenia ([facility]) emergency Referral ID Status Reason Start Date Expiration Date Visits Requ ested Visits Authorized [id number] 1 1 Encounter Details Date Type Department Care Team Description 02/04/2022 - [facility] Mao Marin Amphpatriami ne abuse (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) ([facility]); [address] Gastroesophageal reflux disease, unspeci fied whether esophagitis present; [place] [address] [place], [place] Opioid use disorder, moderat e, in early remission, on maintenance therapy ([facility]); [phone] [id number] Substance-induced psychotic disorder (HC C-CMS) ([facility]) Social History Tobacco Use Types Packs/Day Years [...] 02/04/20222208 EDT Body Mass Index 27.12 02/04/2022 2209 EDT documented in this encounter Functional Status [...] older) documented as of this encounter Discharge Summaries Wally Gilliland MD - 02/08/2022 1338 EDT INPATIENT PSYCHIATRIC DISCHARGE SUMMARY Patient Name: Drake Mcpherson : 1990 Date of Admission: 02/04/22 Primary Care Provider: Ivan Vizcaino Date of Discharge: 02/08/2022 Attending at time of discharge: Mao Marin MD Reason for Admission: I just needed to be safe Principal/Discharge Diagnosis: Substance-induced psychotic disorder (HCC-CMS) ([facility]) Additional Problems Managed in the Hospital: Active Hospital Problems Diagnosis Date Noted ??? Depression 02/08/2022 ??? Methamphetamine use disorder, severe (HCC-CMS) (HCC) 02/08/2022 ??? Opioid use disorder, moderate, in early remission, on maintenance therapy (HCC) 02/08/2022 ??? GERD (gastroesophageal reflux disease) 02/06/2022 ??? Tobacco dependence 02/06/2022 Resolved Hospital Problems Diagnosis Date Noted Date Resolved ??? *Substance-induced psychotic disorder ([facility]) ([facility]) 02/08/2022 02/08/2022 History of Present Illness by Mao Marin MD on day of admission to [facility]: Patient is a 31 y.o. undomiciled single man with past psychiatric history of schizophrenia, ADHD,depression, opiate use disorder (on MAT, buprenorphine at present), and stimulant use disorder who presents to [facility] [place] transfer from [facility] for management of paranoia and suicidal ideation with plan and intent. ?? Patient reports that the past few months have been rough for him. Patient was in rehab at [facility] several weeks prior when he found out one of his daughters (age 15) had in a car accident. He[facility] out of [facility] and relapsed on methamphetamine. He notes that [...] to feelings of beingunsafe Drake presented to [facility]. ?? Per outside records patient has had numerous interactions with [facility] human services over the past two weeks (noted to be 12+ encounters). Patient presented to [facility] on on 02/01 noting to be [...] was placed on EE at that time. ?? Interview complicated by significant disorganization, unclear history/narrative, [...] children. Reports feeling safe on the unit. ?? Reports that psychotic symptoms pre-date current methamphetamine induced episode. Notes voices for greater than 6 months that had been responsive to olanzapine. Notes that he has not heard voices in more than 10 days which contradicts narrative from [facility] and the EE. ?? TARGET SYMPTOMS: I. Mood Changes: depressed II. Sleep changes: multiple awakenings III. Appetite changes: none IV. Depression symptoms: decreased pleasure, hopelessness, helplessness and worthlessness/guilt V. Anxiety symptoms: none . Manic/impulsive/attentional symptoms; distractibility VII. Psychotic symptoms: auditory hallucinations, paranoid ideation and delusions VIII. Suicidality (within the last 6 months): active suicidal ideation IX. Violence Risk / Homicidality (within the last 6 months):none ?? Reason for Failure of Outpatient Treatment: Increased severity of psychiatric symptoms Current Support System: juvenile officer: Richard Horne ?? HISTORY ?? Psychiatric History: Previous diagnosis: Schizophrenia vs substance induced psychotic disorder, ADHD, Depression Prior hospitalization: None ?? Longitudinal course of illness: Unclear. Patient notes significant voices in the past which has worsened with methamphetamine use. ?? Prior suicidal behavior: denies ?? Prior self-injurious behavior: denies ?? Prior aggressive behavior: Significant legal history related to theft and buglary during significantopiate use historically. ?? Previous medication trials (dose, frequency, duration, effect on target problems,side-effects): Unclear. Notes olanzapine has been helpful ?? Prior therapy (type, duration, effect on target problems): unclear Meds on Admission: No medications prior to admission. Hospital Course: Patient was admitted on a involuntary basis. Patient was cooperative with all evaluations, includingwith their interdisciplinary team meeting. During that team meeting the patient discussed that the patient has been fearful about a person named Ludivina and his associates seeking to harm him. He was also forthcoming about his methamphetamine use. He described an additional stressor of struggling with the lost of his 15 year old daughter. Patient was amenable to a medication plan that included continuation of suboxone, and titration of the antipsychotic olanzapine (Zyprexa). His prescribed stimulant was stopped. With treatment with olanzapine and in the absence of amphetamines the patient's duncan paranoia resolved and his insight into his symptoms prior to admission improved. While initially endorsing a history of chronic auditory hallucinations, began to attribute his experience of both auditory hallucination s and paranoia to illicit methamphetamine use. With improvement in symptoms he began to self advocate for transition to residential treatment for substance use disorders. He was accepted to [facility]. Given the demonstrated resolution of psychotic symptoms and suicidality, the team was supportive of such a transition and recommended that the patient go to [facility] on the same day as discharge. The patient displayed no disturbances of behavior while in the hospital. Patient responded well to the support of the milieu and other patients and also the treatment team. Condition on Discharge: Improved Improved. The patient reported significantly improved mood, resolution of paranoia, resolution of SI, with corresponding improvement in mental status exam. Although the patient acknowledges important risk factors suicide, including recent SI, psychosis, and most importantly a stimulant use disorder; they are working to mitigate this risk via outpatient treatment, residential treatment, abstinence from methamphetamines, and safety planning that includes calling screeners, 911 or returning to the hospital if they feel unsafe; and the patient consistently and convincingly denies suicidal ideation at the time of discharge. I have spoken to the patient and they are in agreement with the discharge plan. The patient was collaborative in their discharge plan and stated that they are grateful for their care here at the hospital. While suicide is difficult to predict and the patient's mental illness is chronic in nature, imminent risk of self-harm is not present and there is no contraindication to discharge and there is no grounds for ongoing emergency evaluation. Suicide Risk Assessment: Modifiable Risk Factors: Substance abuse / dependence Non-modifiable risk factors: Male;Poor social support;Mood disorder;;Unemployment Protective factors: Capacity for self-observation;Positive problem solving;Capacity to realisticallyappraise one's self & one's life circumstances;Willingness to comply with treatment plan;Outpatient care in place;Capacity to establish therapeutic alliance;Capacity to self- regulate;Positive coping skills/potential;Sense of responsibility to family & social supports/connections Overall Acute Risk Rating: moderate Overall Chronic Risk Rating: moderate Violence Risk Assessment: Historical Risk Factors (in the past 12 months): Previous Violence;Charge or conviction for crime;Substance abuse Current Risk Factors: None Modifiable Risk Factors: Auditory hallucinations- threatening/denigrating/insulting in nature;Intoxication / withdrawal state Protective Risk Factors: History of treatment adherence Acute Risk Rating: moderate Chronic Risk Rating: moderate Mental Status Exam on Discharge: Appearance: casual dress, good hygiene, wears a [...] or postures Insight/Judgement: collaborative, accepting of care Rationale for prescription of more than one antipsychotic medication: N/A Disposition: [facility] greater than 30 minutes was spent evaluating the patient, preparing the patient for discharge, preparing paperwork for discharge, and preparing this report. Wally Gilliland MD documented in this encounter Discharge Instructions Discharge Instr - AVS First Randy York - 02/08/2022 14:44 EDT You are discharging with a plan to transition to [facility] today. Please work with [facility] to schedule follow up for after you complete their program. We wish you well. If you are feeling unsafe or having thoughts of self harm, please contact the crisis line below or go to your nearest emergency department. Crisis Line: [facility] documented in this encounter Medications [...] Home Patient pl ans to go to [facility] upon disc harge from [facility]. documented in this encounter Progress Notes Martina Loja RN - 02/08/2022 1530 EDT NURSING DISCHARGE NOTE: Pt was accompanied by this process description writer to the hospital entrance to meet the transport company. Pt appearsin good spirits with no signs of psychosis and no SI voiced. Was encouraged by this process description writer to call his search and rescue officer to let that person know that he (patient) was discharging today and possibly try toget a ride to from the search and rescue officer. Pt has not yet done this. Pt states I'll just take a cab if I have to or I can stay in the hotel for tonight. Pt plan is not entirely sound, however pt condition is stable and he states that he is eager to go to [facility] for treatment. Pleasant and polite this shift. Was understanding when this process description writer explained that he would not be able to smoke a cigarette in the parking lot. Randy Harris - 02/08/2022 1528 EDT ROBERTH faxes records to [facility] for referral. MD ROBERTH meet with pt. Pt states he does not feel he isbenefiting from hospitalization. Pt denies SI, pt does not present as experiencing any psychosis. Ptstates he would like to call [facility] and transition there as soon as possible. Pt later meets with ROBERTH andstates he spoke with [facility] admission and that he has been approved and can transition there today as a is bed available. ROBERTH calls [facility] ([facility]) and confirms a bed is available and that pt could transition today, even if it's in the evening. Pt states a plan to go to [facility] to obtain his belongings from [facility] [employer] and then go to [...] [facility] and a plan is made for spanish moss picker at 3:45pm. ROBERTH contacts pt's PO [...] stimulant abuse, suicidal 24-Hour events:slept, looking into [facility], started on Suboxone Active Hospital Problems Diagnosis Date Noted ??? Depression 02/08/2022 ??? Methamphetamine use disorder, severe ([facility]) ([facility]) 02/08/2022 ??? Opioid use disorder, moderate, in early remission, on maintenance therapy ([facility]) 02/08/2022 ??? GERD (gastroesophageal reflux disease) 02/06/2022 ??? Tobacco dependence 02/06/2022 Resolved Hospital Problems Diagnosis Date Noted Date Resolved ??? *Substance-induced psychotic disorder ([facility]) ([facility]) 02/08/2022 02/08/2022 Discharge Medication List START taking [...] Pt states he has been accepted at [facility] and wants to discharge today. He has no physical concerns. He is not interested in quitting smoking and anticipates smoking immediately on discharge. He is anxious about leaving and staff feel he is craving substances and plans to use. Psychiatrist and Underlay Stitcher unable to convince pt to stay. Review of Systems: A ten point review of systems was performed and was negative except for pertinent positives noted inthe HPI Objective/Physical Exam: VS: Patient Vitals for the past 24 hrs: BP Temp Temp src Pulse Resp SpO2 02/08/22 0747 109/76 36.7 ??C (98 ??F) Temporal 91 16 98 % 02/07/222007 112/73 36.7 ??C (98 ??F) Oral 100 [...] pt on Olanzapine. Abstinence from substancesis the other sports coach or instructor treatment. Pt is discharging to [facility] with follow up thereafter with [facility] and PCP. See Psychiatry Discharge summary for [...] to PCP. If he remains on Olanzapine other sports coach or instructor, may benefit from Metformin. Stimulant Use disorder/Opiate Use disorder: Pt was restarted on Suboxone 8 mg-2 mg daily. He is discharging to [facility] Residential Treatment. GERD: was maintained on PPI [...] states he could get a ride to [facility] provided he got back to [facility]. Pt would like to obtain his belonging which he reports are being held at [facility] [employer]. Pt states his PO may be able to help him with a ride. Pt reports he has medicaid transport active with [facility]. SW states this transport could likely be used to get pt home. ROBERTH updates they received a VM from pt's PO yesterday and returned the call leaving him a VM. SW has not yet heardback from him. SW to fax records to [facility] for referral. ROBERTH talks with pt's PO (Richard) and updates. Richard states probation can provide pt with transport to but they will need some advance noticeand this would have to occur on a weekday. Wally Camarillo MD - 02/07/2022 0841 EDT Inpatient Psychiatry [...] I met with the patient and the marriage and family social worker. He reports he is doing [...] is motivated for sobriety and return to [facility]. Drake Mcpherson meets criteria for acute level [...] meeting was held with the patient, the marriage and family social worker, the MYNOR, the patient's nurse. [...] that [facility] and then subsequently learned from a friend [...] that he has been staying at the [facility] in [facility] with a state voucher. There, Ludivina and [...] triedto report this to the police but uLdivina and his girlfriend say that Drake is lying in hallucinating. Drake is convinced that Ludivina and his friends have been following him and trying to kill him. Drake reports that he went to the hospital several times because he did not know else to do and ultimately said he was suicidal to get himself admitted and away from Ludivina. He currently denies suicidal ideation, intent, plan. [...] friends talking since Drake was admitted to [facility]. He is hoping to return to [facility] for longer than 2 weeks as he feels he needs more time to achieve a longer period of sobriety. Legal: He reports that he has been in and out of nursing home over the last 20 years for various charges including burglary, theft, grand larceny, possession of stolen property. His most recent incarceration was at [facility] for 2 years and he was subsequently released on probation 2 years ago. He meetswith his state wildlife officer Richard Rivas every and feels that [...] methamphetamine. ?? Treatment for substance use: ?? [facility] x2 (2 weeks each time) ?? History of treatment at the [facility] -where he was treated with Suboxone x3 years and then changed to liquid methadone x1 year and then back to Suboxone. ?? Sushila from [facility] [employer] [facility] assisted him with obtaining SSDI ?? Current medications: ?? Adderall ?? Olanzapine 5 mg twice daily ?? Suboxone 8-2 mg sublingual film, 1 film every morning Services: ?? juvenile officer: Richard Rivas ?? Psychiatric prescriber: CARMELA [...] daughter. All of his children live in [place] with their respective mothers. He has limited contact with the 4 living daughters but was very close to the 15-year-old daughter who recently in an MVA. ?? Currently living at [facility] in an [facility] and using a state voucher. He would like to move somewhere else after discharge. ?? Born in [facility]. He is 1 of 7 children (6 brothers and 1 sister). He and his family moved to [place] in 1997 and then he relocated to [place] in 2011. Review of psychiatric symptoms: ?? Psychotic: See above ?? Suicidal/violent:no suicidal ideation and no homicidal ideation ?? Sleep: no changes ?? Appetite: increased appetite OBJECTIVE Allergies Allergen Reactions ??? Methylphenidate Other (See Comments) Left arm tongue, face numbness, tingling status verified 01/23/22 by [facility] - per chart review Current Facility-Administered [...] Dr. Mao Marin in the chart. Drake Akinsmaddie a 31 y.o. undomiciled single man with past psychiatric history of schizophrenia, ADHD, depression, opioid use disorder (on MAT, buprenorphine at present), stimulant use disorder (methamphetamine), 2stays at [facility], no psychiatric hospitalizations, 2 suicide attempts, who presented to [facility] [place] from [facility] for management of paranoia and suicidal [...] sobriety and is hoping to return to [facility] following discharge from [facility]. No acute concerns that would indicate need [...] current treatment plan 4. Continue to hold DECAL TRANSFERRER Adderall 30 mg every morning and 10 mg in the afternoon for ADHD. I spent a total of 60 minutes with this patient in direct floor time with greater than 50% of the time spent in counseling and coordination of care as described in the note. Dick Torres MD 02/05/2022 8:19 Trish teresa RN - 02/04/2022 2301 EDT Direct admission from [facility]. Pt reporting that there is a [...] abuse. He has had 2 stays at [facility] and 2 previous suicide attempts. His 15-year-old [...] Social History Narrative He was born in [place], [place] and lived near [place] until age 7 when he moved with his mother, stepfather and siblings to [place]. In 2011 he moved to [place]. He completed the 8th grade. 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 - Admission to Inpatient Psychiatry per psychiatrist, [...] Cyrstal meth injection. - Psychiatry coordinating with Tannerida on suboxone dosing, possibly titrating. - Hepatitic [...] benefit from residental tx IOP OP counceling personal health coach on discharge Covid-19 history: -- Active infection [...] Full Code Marcelle Conde NP 02/06/2022 17:35 Anny avila NP - 02/05/2022 1012 EDT error Mao Marin MD - 02/04/2022 2213 EDT Inpatient Admission Psychiatric Evaluation Inpatient admit date: 02/04/22 Initial arrival date (if different): 02/04/2022 Date of service: 02/04/2022 Referral source: [facility] Outpatient providers: Estefania Glover APRN [facility] PCP: Ivan Vizcaino Information obtained from: patient, hospital records and [facility] hospital Legal Status: Admission is involuntary Chief Complaint: I just needed to be safe HPI: Patient is a 31 y.o. undomiciled single man with past psychiatric history of schizophrenia, ADHD,depression, opiate use disorder (on MAT, buprenorphine at present), and stimulant use disorder who presents to [facility] [place] transfer from [facility] for management of paranoia and suicidal ideation with plan and intent. Patient reports that the past few months have been rough for him. Patient was in rehab at [facility] several weeks prior when he found out one of his daughters (age 15) had in a car accident. Hechecked out of [facility] and relapsed on methamphetamine. He notes that [...] to feelings of beingunsafe Drake presented to [facility]. Per outside records patient has had numerous interactions with [facility] services over the past two weeks (noted to be 12+ encounters). Patient presented to [facility] on on 02/01 noting to be [...] than 10 days which contradicts narrative from [facility] and the EE. TARGET SYMPTOMS: I. [...] severity of psychiatric symptoms Current Support System: juvenile officer: Richard Horne HISTORY Psychiatric History: Previous [...] significant legal history. see probabtion officer above Nondenominational: Unclear Exposure to Trauma / Abuse: - [...] distractible Concentration: diminished Short Term Memory: intact Jail Memory: intact Language: normal Fund of Knowledge: hospital insurance representative of education level Capacity for Abstraction: concrete Insight: poor Judgement: poor ASSESSMENT: Case Summary: Patient is a 31 y.o. undomiciled single man with past psychiatric history of schizophrenia, ADHD,depression, opiate use disorder (on MAT, buprenorphine at present), and stimulant use disorder who presents to [facility] [place] transfer from [facility] on EE for management of paranoia [...] At present patient reports feeling safe at [facility] without any intent or plan. Given clear psychotic process will increase olanzapine to 5 mg BID with 5 mg BID PRN. Patient had been restarted on home bupenorphine at [facility] (now on 8 mg instead of 16 mg) which he is tolerating well without withdrawal symptoms. Will restart at 8 tomorrow and confirm dose with outside provider. Will hold home adderall at this time to prevent exacerbation of psychosis. psych team to obtain further collateral from [facility] human services. Diagnostic Impression w/ Differential Diagnosis [...] medication management, and access to the [facility]. PLAN: Immediate Plan of Treatment: Admit to [facility] level 4 with frequent observation Check usual [...] Plan: Continue to attend group lan of Dawna Armstrong RN - 02/07/2022 1338 EDT Patient was [...] Initial Note Admit Date: 02/04/22 In attendance: Pt, SW, , MYNOR, RN Individuals providing info: (family, sig. [...] states he is hopeful to return to [facility] as he feels heneeds to work on [...] experiencing SI. Current Outpatient Providers: Agency: [facility] UNSTACKER: N Provider/ psychiatrist: Estefania Glover Therapist: N Steam Finisher: Kristie PCP: Dr Vizcaino Guardian: Kristie Other: Zoe Current Life Situation: (Living situations, insurances, financial status) Pt currently resides in a motel on a [employer] voucher. Insurance: [place] Medicaid ACO. Pt is not currently employed. He states he just started receiving SS income. Childhood/Family History: (Developmental history including any physical, emotional, sexual abuse) Pt reports he was brown in [place] and primarily grew up in [place], Pt reports he has 6 siblings. Pt [...] in 2018. Pt's PO is Richard Horne ([facility] office). Previous Treatment: (Substance abuse/ Mental Health) Inpatient: [facility] x2, last was 2-3 months ago Outpatient: [facility] in past, CAR[facility] and Zoe currently. History of Substance abuse: (patterns of use, life consequences, family influences) Pt states he starting abusing opiates when he was 13. Pt reports he stopped using opiates while receiving methadone at [facility]. Pt reports he has primarily been abusing [...] loss of his daughter. Request Visit with injury prevention coordinator: ____yes, __X__No Leisure/Recreation Activities: Pt does not state. lan of Care - Maryjane Shay RN - 02/06/2022 2628 EDT D: Pt is calm and cooperative. [...] this REFLEX TO HCV RNA BY EDT ([facility]) ( [facility]) procedure are in PCR Drug dependence, the results episodic abuse section. ([facility]) ([facility]) COMPLETE BLOOD COUNT Routine 02/05/2022 6:32 Resu [...] Sig nature Hep C Antibody Negative Negative [facility] Specimen Blood - Venous blood (substance) Performing Organization Address City/State/[facility] Code Phon e Number [facility] [address] [place] [address] LIPID PROFILE (INCLUDES CHOLESTEROL, TRIGLYCERIDES, HDL, LDL) (02/05/2022 6:32 EDT) Cholesterol 149Comment: Note <200 mg/dL [facility] that therapeutic [facility] goals will differ between patients based on cardiac risk factors and current medical therapy. HDL 42Comment: Note >=40 mg/dL [facility] that therapeutic [facility] goals will differ between patients based on cardiac risk factors and current medical therapy. LDL, Calculated 90Comment: Note <160 mg/dL [facility] that therapeutic [facility] goals will differ between patients based on cardiac risk factors and current medical therapy. Triglyceride 86Comment: Note <=150 mg/dL [facility] that therapeutic [facility] goals will differ between patients based on cardiac risk factors and current medical therapy. Chol/HDL Ratio 3.5 See Note [facility] Comment: [facility] NOTE: Desirable Ratio = <4.1 Patient At Risk Ratio = >5.0(Males) ?>6.0(Females) Non HDL Cholesterol 107Comment: Note <160 mg/dL [facility] that therapeutic [facility] goals will differ between patients based on cardiac risk factors and current medical therapy. Specimen Blood - Venous blood (substance) Performing Organization Address City/[facility] Phon e Number [facility] [address] [place] [address] (ABNORMAL) HEMOGLOBIN A1C (02/05/2022 6:32 EDT) Hemoglobin A1c 5.7 (H) <5.7 % [facility] Comment: [facility] Glycemic Status References: Normal: ??<5.7% Pre-Diabetes: ??5.7% - 6.4% Diagnostic of Diabetes: ??> or = 6.5% (if confirmed) Est Avg Glucose 117Comment: The eAG mg/dL [facility] ME D represents the A1c [facility] result expressed as average glucose in mg/dL. Specimen Blood - Venous blood (substance) Performing Organization Address [facility] Phon e Number [facility] [address] [place] [address] (ABNORMAL) COMPLETE BLOOD COUNT AND DIFFERENTIAL (02/05/2022 6:32 EDT) Pathologist Sig nature WBC 6.45 4.00 - 10.40 [facility] K/cmm [facility] RBC 4.58 4.36 - 5.78 [facility] M/cm [facility] Hemoglobin 12.4 (L) 13.8 - 17.3 [facility] gm/dL [facility] HCT 37.6 (L) 39.5 - 50.2 % [facility] MCV 82 81 - 95 fl [facility] MCH 27.1 (L) 27.6 - 33.0 pg [facility] MCHC 33.0 32.8 - 36.4 [facility] gm/dL [place] [facility] RDW-CV 14.8 (H) <14.2 % [facility] RDW-SD 44.7 <46.0 fl [facility] PLT 350 141 - 377 K/cmm [facility] MPV 8.5 (L) 9.5 - 12.7 fl [facility] Neutrophils 41.8 % [facility] Lymphocytes 48.8 % [facility] Monocytes 5.6 % [facility] Eosinophils 3.1 % [facility] Basophils 0.5 % [facility] Immature Grans 0.2 % [facility] Absolute Neutrophils 2.70 2.20 - 8.85 [facility] Absolute Lymphocytes 3.15 1.09 - 3.30 [facility] Absolute Monocytes 0.36 0.10 - 0.80 [facility] Absolute Eosinophils 0.20 0.03 - 0.61 [facility] Absolute Basophils 0.03 0.01 - 0.11 [facility] Absolute Immature 0.01 0.00 - 0.06 [facility] Grans [facility] Type of Differential: Auto [facility] Specimen Blood - Venous blood (substance) Performing Organization Address [facility] Phon e Number [facility] [address] [place] [address] TSH (02/05/2022 6:32 EDT) Pathologist Sig nature TSH 2.43 0.47 - 4.68 mIU/L [facility] Specimen Blood - Venous blood (substance) Narrative [facility] - 022 8:03 EDT The results of this assay can be falsely lowered due to the consumption of Biotin. Performing Organization Address [facility] Phon e Number [facility] [address] [place] [address] ALT (02/05/2022 6:32 EDT) Pathologist Sig nature ALT 18 <50 U/L [facility] AB Specimen Blood - Venous blood (substance) Performing Organization Address [facility] Phon e Number [facility] [address] [place] [phone] AST (02/05/2022 6:32 EDT) Pathologist Sig nature AST 20 15 - 46 U/L [facility] AB Specimen Blood - Venous blood (substance) Performing Organization Address [facility] Phon e Number [facility] [address] [place] [address] ALBUMIN (02/05/2022 6:32 EDT) Pathologist Sig [facility] Albumin 4.0 3.4 - 4.9 g/dL [facility] Specimen Blood - Venous blood (substance) Performing Organization Address [facility]/ZIP Code Phon e Number [facility] [address] [place] [address] GGT (02/05/2022 6:32 EDT) Pathologist Sig nature GGT 19 15 - 73 U/L [facility] AB Specimen Blood - Venous blood (substance) Performing Organization Address [facility]/ZIP [facility] Phon e Number [facility] [address] [place] [address] ALKALINE PHOSPHATASE (02/05/2022 6:32 EDT) Pathologist Sig [facility] Alkaline Phosphatase 50 38 - 126 U/L [facility] Specimen Blood - Venous blood (substance) Performing Organization Address [facility]/ZIP [facility] Phon e Number [facility] [address] [place] [address] CREATININE (02/05/2022 6:32 EDT) Pathologist Sig [facility] Creatinine 0.69 0.66 - 1.25 mg/dL [facility] eGFR 125 >60 mL/min/1.73m2 [facility] Specimen Blood - Venous blood (substance) Performing Organization Address [facility]/ZIP Code Phon e Number [facility] [address] [place] [address] BUN (02/05/2022 6:32 EDT) Pathologist Sig [facility] BUN 16 10 - 26 mg/dL [facility] Specimen Blood - Venous blood (substance) Performing Organization Address City/[facility]/ZIP Code Phon e Number [facility] [address] [place] [address] ELECTROLYTES (02/05/2022 6:32 EDT) Pathologist Sig nature Sodium 140 136 - 145 mmol/L [facility] Potassium 4.4 3.5 - 5.0 mmol/L [facility] Chloride 102 96 - 110 mmol/L [facility] CO2 Total 28 22 - 32 mmol/L [facility] Anion Gap 10 5 - 14 [facility] AB Specimen Blood - Venous blood (substance) Performing Organization Address City/State/ZIP Code Phon e Number [facility] [address] [place] [address] (ABNORMAL) SCREENING GLUCOSE (02/05/2022 6:32 EDT) Pathologist Juan nature Glucose, Screening 103 (H) 70 - 100 mg/dL [facility] Specimen Blood - Venous blood (substance) Performing Organization Address City/State/[facility] Code Phon e Number [facility] [address] [place] [address] documented in this encounter Visit Diagnoses Diagnosis Substance-induced psychotic disorder (HC C-CMS) ([facility]) - Primary 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, unspecified condition Amphetamine abuse ([facility]) Nondependent amphetamine or related acti ng sympathomimetic abuse, unspecified Drug dependence, episodic abuse (HCC-CMS ) ([facility]) Unspecified drug dependence, episodic Gastroesophageal reflux disease, unspeci fied whether esophagitis present Opioid use disorder, moderate, in early remission, on maintenance therapy ([facility]) Tobacco dependence Tobacco use disorder Depression Depressive disorder, not elsewhere class ified Methamphetamine use disorder, severe (HC C) documented in this encounter Admitting Diagnoses Diagnosis [...] PRN, Starting on 02/04/22 at 2256, Until 02/08/22 at 1321, Anxiety, Routine hydrOXYzine (ATARAX) tablet 50 mg 50 mg, oral, EVERY 4 HOURS PRN, Starting on 02/08/22 at 1321, Until 02/08/22 at 1741, Anxiety, Routine ibuprofen (MOTRIN) tablet [...] on 02/06/22 at 2100, Until Discontinued, Routine Given 02/06/2022 [...] Loja RN) 0807 (Given - Provider: Dawna Joshi, ODALYS) 0816 (Given - Provider: Martina Loja RN) [...] mg, oral, AT BEDTIME, First dose on Mo 02/06/22 at 2100, Until Discontinued, Routine pantoprazole [...] tablet 3 mg 2018 (Given - Provider: Jurgen Ramírez N) 2117 (Given - Provider: Dhara Schwartz [...] 02/08/2022 documented in this encounter Care Teams Prestidigitator Relationship Specialty Start Date End Date Ivan Vizcaino DO PCP - General Family Medicine - Primary 02/04/22 [address] [place] [id number] documented as of this encounter
[2022-05-13 20:46] VITALS: BP 126/85; PULSE 95; RESP 16; TEMP 36.4; O2SAT 98
[2022-05-13] MEDS: LORazepam 1 MG TAB PO ×2 (21:14→22:32)
--- NOTE | 2022-05-13 21:28 | NUR.NOTE ---
Pt on video chat w [facility]/crisis. Pt calm and cooperative. Remains paranoid. Pt thinks there are people in his room talking about him. Reassured pt that he was sare in the ER and that there were no other people in his room.:
--- NOTE | 2022-05-13 21:47 | PDOC.MHCN_ITS ---
Date of service: 05/13/22 Time of Service: 21:45 PHQ-9 Over the last 2 weeks, how often have you been bothered by any of the following problems? 1. Little interest or pleasure in doing things: more than half the days 2. Feeling down, depressed, or hopeless: several days 3. Trouble falling or staying asleep, or sleeping too much: several days 4. Feeling tired or having little energy: nearly every day 5. Poor appetite or overeating: nearly every day 6. Feeling bad about yourself - or that you are a failure or have let yourself and your family down: more than half the days 7. Trouble concentrating on things, such as reading the newspaper or watching television: several days 8. Moving or speaking so slowly that other people could have noticed? - Or the opposite - being so fidgety or restless that you have been moving around a lot more than usual: more than half the days 9. Thoughts that you would be better off or of hurting yourself in some way: not at all Total score: 15 If you checked off any problems, how difficult have these problems made it for you to do your work, take care of things at home, or get along with other people?: extremely difficult PHQ-9 Results: Positive Source: Developed by Drs. Charles Corona, Nicki Baird, Margarito Art and colleagues, with an educational lonnie from [employer]. Suicide Severity Rate CSSRS Have you wished you were or wished you could go to sleep and not wake up?: No Have you actually had any thoughts of killing yourself?: No CSSRS3 Have you ever done anything, started to do anything or prepared to do anything to end your life?: Yes CSSRS4 Was this within the past three months?: No Screening Score Total Score: 2 Screening: Positive Mental Health Emergency Note Release [facility] release signed:: Yes Reason for Visit Frank was brought in by [facility], he reports he is being followed, stalked, and someone is going to kill him. In the last 2 weeks has the pt presented for ES prior to today?: No Client Information Client is: Adult Outpatient Well Housed: No,status: Homeless Unstable housing Non Suicidal Self Injury Current: No History: No Safety Risk/Harm to Self or Others Current Ideation to Harm Self or Others: No Risk: Does risk to harm exist?: No Risk: N/A Duty to warn indicated: No Asssessment/Mental Status Appearance: Disheveled Attitude: Cooperative Behavior: Gait disturbances Affect: Cogruent with mood Mood: Elevated, Stressed and Anxious Thought process: Racing Hallucinations: yes, (Frank reports there are people following him and threatening to kill him. Frank was with a trooper when she did not hear one of these voices. During his assessment with this quality analyst/technical writer Frank paused and stated he could hear a gun being loaded. Frank denies hallucinations but presents otherwise.) Auditory Delusions: yes, Persectory/Paranoid and Grandiose Attention: Poor concentration Perception: Not impaired Orientation: Disoriented in (Frank feels people are out to get him and he is unsafe.) Situation Memory: Intact Insight: Poor Judgement: Poor Neurovegetative Symptoms Sleep: Increase (Frank reports sleeping too much recently.) Appetitie: No change Interests: Decrease Energy: Decrease Libido: Not applicable Substance Use: Do you use nicotine?: Yes Have you used substances in the last 7 days?: yes, Frank reports using crystal meth a few days ago. Additional Issues: Assaultive/Threatening Behavior: No Medical Concerns: No Client engaged in active self harm w/weapon: No Threatening to run away: No Child reported abuse/neglect: No Voluntarily presenting for services: Yes Domestic violence is a concern: No Extreme Psychosis or extreme behavior is present: Yes Impression Frank presents to the emergency room reporting he is being stalked and was followed the entire way to the hospital. Frank reports he can hear voices telling him they are going to shoot him, he heard a gun being loaded during his assessment, and reports people were attempting to break into his hotel room earlier today. Frank denies that he is having hallucinations but is presenting as he does when experiencing hallucinations. Frank reports to this quality analyst/technical writer one of the voices is the same voice as the last time he was hallucinating. Frank also presents with delusions, severe paranoia and the feeling of being unsafe. Frank could benefit from a psychiatry evaluation and inpatient treatment. Plan/Disposition Recommended Disposition: Hospitalization (Once [facility] recieves the fax they will send referrals.) No. Plan: Frank is voluntarily seeking treatment at this time. Person reported agreement to plan: Yes Reports/communication Outcome discussed with: ED/Personnel
--- NOTE | 2022-05-13 22:03 | W.ED.GENAD ---
Discharge Plan Disposition Patient Disposition: STILL A PATIENT Condition: Stable Discharge Details Clinical Impression: Paranoid delusion, Methamphetamine use disorder, severe Primary Care Provider: Ivan Vizcaino ED Provider: Che Harris Home Meds and New Rx's Prescriptions: No Action hydroxyzine HCl 50 mg tablet 50 mg PO BID nicotine (polacrilex) 2 mg gum 2 mg buccal Q1H PRN olanzapine [Zyprexa] 5 mg tablet 10 mg PO QHS pantoprazole 40 mg tablet,delayed release (DR/EC) 40 mg PO DAILY gabapentin [Neurontin] 300 mg capsule 300 mg PO TID loratadine 10 mg tablet 10 mg PO DAILY Nicotrol 10 mg Cartridge 300 mg inhalation DIRECTED PRNQty: 0 0RF famotidine 20 mg tablet 20 mg PO DAILY aspirin 81 mg tablet,chewable 81 mg PO DAILY haloperidol 5 mg tablet 5 mg PO DAILY dextroamphetamine-amphetamine 10 mg tablet 10 mg PO DAILY buprenorphine-naloxone [Suboxone] 12-3 mg film 2 film sublingual 1XD Medical Decision Making <HERMELINDA Anguiano - Last Filed: 05/15/22 09:10> Patient is delusional with paranoia and, likely related to his recent methamphetamine use Alert and oriented has decisional capacity without suicidal or homicidal ideation and cooperative Tiffanie Lazar spoke with patient and she has voluntary status at this time for acute paranoia with delusions He is agreeable to stay in the emergency department while bed placement is pending care will be transitioned to Dr Gandhi pending placement / voluntary status ativan 1 mg q2 h prn anxiety agitation Medical Records Medical records reviewed: Yes I reviewed the patient's medical records. Lab Data Lab results reviewed: Yes I reviewed the patient's lab results. <Rob Gandhi MD - Last Filed: 05/13/22 23:54> Patient is delusional with paranoia and, likely related to his recent methamphetamine use Alert and oriented has decisional capacity without suicidal or homicidal ideation and cooperative Tiffanie Lazar spoke with patient and she has voluntary status at this time for acute paranoia with delusions He is agreeable to stay in the emergency department while bed placement is pending care will be transitioned to Dr Gandhi pending placement / voluntary status ativan 1 mg q2 h prn anxiety agitation pt signed out to me pending voluntary psych placement for paranoid schizophrenia. Pt calm and cooperative, no new issues, no inpatient beds at [facility] so will remain in the ED at this time <Katiuska Hicks DO - Last Filed: 05/15/22 07:54> 05/13/22 HERMELINDA Cottrell Patient is delusional with paranoia and, likely related to his recent methamphetamine use Alert and oriented has decisional capacity without suicidal or homicidal ideation and cooperative NKA Tiffanie sargent spoke with patient and she has voluntary status at this time for acute paranoia with delusions He is agreeable to stay in the emergency department while bed placement is pending care will be transitioned to Dr Gandhi pending placement / voluntary status ativan 1 mg q2 h prn anxiety agitation Dr. Rob Gandhi pt signed out to me pending voluntary psych placement for paranoid schizophrenia. Pt calm and cooperative, no new issues, no inpatient beds at [facility] so will remain in the ED at this time 05/14/22-05/15/22 Dr. Hicks 1999 -- please see previous providers notes for initial presentation, exam and plan. Case endorsed to continue to monitor while awaiting placement 0800 -- no events overnight. Case endorsed to Dr. Che Harris to continue to monitor while awaiting placement. HPI <HERMELINDA Anguiano - Last Filed: 05/15/22 09:10> General Date/Time Provider Initiated Documentation: 05/13/22 20:41. HPI Narrative: This 31-year-old male with history of schizophrenia with likely methamphetamine induced delusions paranoia presents for report of paranoia. He reports his neighbors are trying to harm him. He states that he is concerned for his life. Please noted that he was hearing voices in the car on the way to the emergency department. Patient patient denies any suicidal attempts or homicidal ideation. He last used methamphetamines approximately 3 days ago. He has been taking his antipsychotics of prescribed antibiotics as per patient. He has not used opiates recently for patient. Related Data Home Medications Medication Instructions Recorded Confirmed gabapentin 300 mg capsule 300 mg PO TID 01/20/22 05/13/22 (Neurontin) loratadine 10 mg tablet 10 mg PO DAILY 02/04/22 05/13/22 nicotine 10 mg inhalation 300 mg inhalation DIRECTED PRN 02/04/22 05/13/22 cartridge (Nicotrol) #0 ea aspirin 81 mg chewable tablet 81 mg PO DAILY 02/11/22 05/13/22 dextroamphetamine-amphetamine 10 10 mg PO DAILY 02/11/22 05/13/22 mg tablet famotidine 20 mg tablet 20 mg PO DAILY 02/11/22 05/13/22 haloperidol 5 mg tablet 5 mg PO DAILY 02/11/22 05/13/22 hydroxyzine HCl 50 mg tablet 50 mg PO BID 02/23/22 05/13/22 nicotine (polacrilex) 2 mg gum 2 mg buccal Q1H PRN 02/23/22 05/13/22 olanzapine 5 mg tablet (Zyprexa) 10 mg PO QHS 02/23/22 05/13/22 pantoprazole 40 mg tablet,delayed 40 mg PO DAILY 02/23/22 05/13/22 release buprenorphine 12 mg-naloxone 3 mg 2 film sublingual 1XD 05/13/22 05/13/22 sublingual film (Suboxone) Previous Rx's Medication Instructions Recorded nicotine 10 mg inhalation 300 mg inhalation DIRECTED PRN 02/04/22 cartridge (Nicotrol) #0 ea Allergies Allergy/AdvReac Type Severity Reaction Status Date / Time methylphenidate AdvReac Severe left Verified 05/13/22 21:37 [From Ritalin] arm,tongue,face numbness,tingling General Stated Complaint: PsychEval STAR: 2 Review of Systems <HERMELINDA Anguiano - Last Filed: 05/15/22 09:10> All systems reviewed & are unremarkable except as noted in HPI and below PFSH <HERMELINDA Anguiano - Last Filed: 05/15/22 09:10> All Active Problems (Updated 05/13/22 @ 22:36 by HERMELINDA Anguiano) Tobacco use disorder (Acute) Opioid use disorder, mild, in early remission (Acute 02/08/22) Methamphetamine use disorder, severe (Acute 02/08/22) Paranoid delusion (Acute) Anemia, mild (Acute) Stimulant abuse (Acute) Paranoid schizophrenia (Acute) Depression (Chronic) Stress at home (Acute) GERD (gastroesophageal reflux disease) (Chronic) Anxiety (Chronic) ADHD (Chronic) Medical History (Updated 05/13/22 @ 22:36 by HERMELINDA Anguiano) ADHD Depression Drug abuse Moderate opioid dependence on maintenance therapy Family History Father , colon ca at age 70. Colon cancer Social History Smoking/Tobacco Use Status: Current every day Tobacco Type: cigarettes Smoking risk assessment performed?: Yes Alcohol Intake: former Drug use: Occasionally Substance use type: opiates and methamphetamine In current or past relationships, have you been: threatened Do you feel safe at home: No Do you feel safe in your relationship?: No Exam <HERMELINDA Anguiano - Last Filed: 05/15/22 09:10> Const General: cooperative, comfortable and anxious HENMT Mouth: oral mucosae normal Eyes Pupils: PERRL Resp Effort & Inspection: normal respiratory effort Auscultation: clear to auscultation bilaterally Cardio Rate: regular rate Rhythm: regular rhythm Skin Other: Excoriations on nose and forehead, no evidence of secondary infection Neuro General: patient alert and patient oriented x3 Cranial Nerves: CN's II-XI intact bilaterally Gait: normal gait Psych Appearance: well kempt Speech and Movement: agitated and restless Mood: anxious mood and paranoid Affect: anxious affect Attitude: cooperative Thought Content: delusions and hallucinations Insight: limited Judgment: limited Course <HERMELINDA Anguiano - Last Filed: 05/15/22 09:10> Vital Signs Vital signs: Vital Signs Temperature 36.4 C L 05/13/22 20:46 Pulse 95 H 05/13/22 20:46 Respiratory Rate 16 05/13/22 20:46 Blood Pressure 126/85 05/13/22 20:46 Pulse Oximetry 98 05/13/22 20:46 Temperature 36.4 C L 05/13/22 20:46 Temperature Source Temporal Artery Scan 05/13/22 20:46 Pulse 95 H 05/13/22 20:46 Respiratory Rate 16 05/13/22 20:46 Respiratory Effort 05/13/22 20:46 Blood Pressure 126/85 05/13/22 20:46 Blood Pressure Position Sitting 05/13/22 20:46 Pulse Oximetry 98 05/13/22 20:46 Oxygen Delivery Method Room Air 05/13/22 20:46 Oxygen Flow Rate 0 05/13/22 20:46 Pain Level 0 05/13/22 20:46 Sign Out <HERMELINDA Anguiano - Last Filed: 05/15/22 09:10> Sign Out Data: Sign Out Comment: history of paranoid schizophrenia and doesn't feel safe at home due to feeling people are trying to kill him, currently seeking voluntary placement, no issues overnight Last updated by Rob Gandhi MD at 05/14/22 00:09 Sign Out Comment: Patient with paranoid schizophrenia here with psychosis and delusional thought. Patient awaiting voluntary placement. Last updated by Dean Harris MD at 05/14/22 20:13 Sign Out Comment: No events overnight. Voluntary. Medically cleared. No reported SI but delusional with associated methamphetamine use. Awaiting placement. Last updated by Katiuska Hicks DO at 05/15/22 06:10
[2022-05-13 22:25] LABS: Source Nasal/Nares
[2022-05-13 22:28] LABS: Abs Immature Grans 0.01 10^3/uL (0.0-0.06); Absolute Basophil Count 0.04 10^3/uL (0.0-0.2); Absolute Eosinophil Count 0.37 10^3/uL (0.0-0.7); Absolute Lymphocyte Count 2.15 10^3/uL (1.2-3.4); Absolute Monocyte Count 0.64 10^3/uL (0.1-0.8); Absolute Neutrophil Count 4.57 10^3/uL (1.2-6.7); Basophils % 0.5; Eosinophils % 4.8; HCT 37.6 % (40.0-50.0); HGB 12.1 g/dL (13.5-17.5); Immature Grans % 0.1; Lymphocytes % 27.6; MCH 26.8 pg (27.0-33.0); MCHC 32.2 % (32.0-36.0); MCV 83 fL (80-95); MPV 8.6 fL (8.0-11.0); Monocytes % 8.2; Neutrophils % 58.8; Platelet Count 316 10^3/uL (130-400); RBC 4.51 10^6/uL (4.36-5.78); RDW 15.5 % (11.8-14.1); RDW-SD 46.6 fL; WBC 7.78 10^3/uL (4.4-10.8)
[2022-05-13 22:50] LABS: ALT 31 U/L (16-63); AST 26 U/L (15-37); Albumin 3.6 g/dL (3.4-5.0); Alkaline Phosphatase 68 U/L (46-116); Anion Gap 8.4 mmol/L (3-11); BUN 15 mg/dL (7-18); Bilirubin, Total 0.3 mg/dL (0.2-1.0); CO2 30.6 mmol/L (21.0-32.0); CREATININE 1.2 mg/dL (0.70-1.30); Calcium 9.1 mg/dL (8.5-10.1); Chloride 105 mmol/L (98-107); Estimated GFR 81.89 (mL/min/1.73m2); Glucose 133 mg/dL (74-106); Potassium 3.9 mmol/L (3.5-5.1); Sodium 144 mmol/L (136-145); Total Protein 7.5 g/dL (6.4-8.2)
[2022-05-13 22:55] LABS: COVID-19 PCR Negative (Negative)
[2022-05-13 22:58] LABS: ETHANOL BLOOD < 3.0 mg/dL (<10)
[2022-05-14 15:13] LABS: *AMPHETAMINES SCREEN URINE Positive (Negative); *BARBITURATES SCREEN URINE Negative (Negative); *BENZODIAZEPINES SCREEN URINE Negative (Negative); Cannabinoids THC Negative (Negative); Cocaine Screen,Urine Negative (Negative); METHADONE URINE SCREEN Negative (Negative); OPIATES URINE SCREEN Negative (Negative)
[2022-05-14 15:14] LABS: Tricyclic Antidepressants Negative (Negative)
[2022-05-14] MEDS: Gabapentin 300 MG CAP PO (17:10)
[2022-05-14] MEDS: hydrOXYzine HCL 25 MG TAB 50 MG PO (17:11)
--- NOTE | 2022-05-14 18:13 | PDOC.CMSAFED ---
- If Service Date Differs Date of service: 05/14/22 Time of Service: 18:13 Care Management Safety Plan Status: Voluntary - Reason for Wait Reason for Wait: Inpatient Admission VOLUNTARY FOR INPATIENT PSYCHIATRIC STABILIZATION. Patient is appropriate in all interactions since arriving at [facility]; Pt has demonstrated appropriate coping and communication skills, has articulated his or her needs and concerns and is fully engaged during staff interactions. Safety plan has been established with patient, and care team, to adhere to patient goals, identify restrictions based on behavioral status, address nutrition, and determine allowed personal belongings, tools for hygiene and personal care. Determine level of activity including ambulation, level of supervision, visitors, and determine privileges based on behaviors and level of engagement by pt. SAFETY PLAN: 1. Will remain on suicide precautions. In Paper Clothes 2. Will remain in room under direct supervision of one-on-one staff at all times provided by [employer]; ELIAZAR, COMPUTER OPERATIONS ANALYST chenille machine operator. 3. May have paper cups, plates, finger foods as well as a cardboard spoon with which to eat meals. 4. Follow [facility] Management of the Admitted Behavioral Health Patient policy. 5. Comfort bath system only, shower permitted with escort at RN discretion. 6. No personal belongings-soft items permitted at RN discretion. 7. Visitors-none at this time. 8. Activities: soft cart items approved per RN discretion. 9. Bathroom privileges with escort in the ED, available in room without limitation on M/S. 10. Phone: contact limited to family at this time, via cordless phone at RN discretion. 11. Due to VOLUNTARY status, if patient wishes to leave [facility], staff will contact [facility] Crisis Screener ([phone]) and On-Call Metal Alloy Scientist ([phone]) as soon as possible. In the event of elopement, notify [place] [employer] ([phone]). Patient is currently voluntarily at [facility] and seeking inpatient admission when a bed becomes available. [facility] Frontline Shovel Handle Assembler will continue seeking placement. Please contact the Appraiser Real Estate Metal Alloy Scientist ([phone]) and [facility] Shovel Handle Assembler ([phone]) for any needed changes in the Safety Plan. Safety plan has been provided to interdepartmental care team.
--- NOTE | 2022-05-14 20:00 | ED.PROG_ITS ---
Date of service: 05/14/22 Time of Service: 20:00 Medical Decision Making Care was signed out to me by Dr. Gandhi with plan to await voluntary inpatient psychiatric placement for psychosis with delusional thought. Patient medically cleared and awaiting disposition. Patient had no acute needs during shift today. He was seen by [facility] services crisis screener who is attempting to identify receiving facility. Sign Out Sign Out Data: Sign Out Comment: history of paranoid schizophrenia and doesn't feel safe at home due to feeling people are trying to kill him, currently seeking voluntary placement, no issues overnight Last updated by Rob Gandhi MD at 05/14/22 00:09 Discharge Plan Disposition Patient Disposition: STILL A PATIENT Condition: Stable Discharge Details Clinical Impression: Paranoid delusion, Methamphetamine use disorder, severe Primary Care Provider: Ivan Vizcaino ED Provider: Dean Harris Home Meds and New Rx's Prescriptions: No Action hydroxyzine HCl 50 mg tablet 50 mg PO BID nicotine (polacrilex) 2 mg gum 2 mg buccal Q1H PRN olanzapine [Zyprexa] 5 mg tablet 10 mg PO QHS pantoprazole 40 mg tablet,delayed release (DR/EC) 40 mg PO DAILY gabapentin [Neurontin] 300 mg capsule 300 mg PO TID loratadine 10 mg tablet 10 mg PO DAILY Nicotrol 10 mg Cartridge 300 mg inhalation DIRECTED PRNQty: 0 0RF famotidine 20 mg tablet 20 mg PO DAILY aspirin 81 mg tablet,chewable 81 mg PO DAILY haloperidol 5 mg tablet 5 mg PO DAILY dextroamphetamine-amphetamine 10 mg tablet 10 mg PO DAILY buprenorphine-naloxone [Suboxone] 12-3 mg film 2 film sublingual 1XD
--- NOTE | 2022-05-15 04:02 | NUR.NOTE ---
Pt med compliant this shift. No behavioral issues to note. Pt remains in voluntary status awaiting placement.
--- NOTE | 2022-05-15 09:12 | ED.PROG_ITS ---
Date of service: 05/15/22 Time of Service: 07:30 Medical Decision Making Patient signed out to me at time of shift change by Dr. Hicks with inpatient placement pending, patient status is voluntary. Doc to doc with [facility] completed, accepting physician is Jie Yin. Patient left the ED with [facility] for transport without issue. Sign Out Sign Out Data: Sign Out Comment: history of paranoid schizophrenia and doesn't feel safe at home due to feeling people are trying to kill him, currently seeking voluntary placement, no issues overnight Last updated by Rob Gandhi MD at 05/14/22 00:09 Sign Out Comment: Patient with paranoid schizophrenia here with psychosis and delusional thought. Patient awaiting voluntary placement. Last updated by Dean Harris MD at 05/14/22 20:13 Sign Out Comment: No events overnight. Voluntary. Medically cleared. No reported SI but delusional with associated methamphetamine use. Awaiting placement. Last updated by Katiuska Hicks DO at 05/15/22 06:10 Discharge Plan Disposition Patient Disposition: STILL A PATIENT Condition: Stable Discharge Details Clinical Impression: Paranoid delusion, Methamphetamine use disorder, severe Primary Care Provider: Ivan Vizcaino ED Provider: Che Harris Home Meds and New Rx's Prescriptions: No Action hydroxyzine HCl 50 mg tablet 50 mg PO BID nicotine (polacrilex) 2 mg gum 2 mg buccal Q1H PRN olanzapine [Zyprexa] 5 mg tablet 10 mg PO QHS pantoprazole 40 mg tablet,delayed release (DR/EC) 40 mg PO DAILY gabapentin [Neurontin] 300 mg capsule 300 mg PO TID loratadine 10 mg tablet 10 mg PO DAILY Nicotrol 10 mg Cartridge 300 mg inhalation DIRECTED PRNQty: 0 0RF famotidine 20 mg tablet 20 mg PO DAILY aspirin 81 mg tablet,chewable 81 mg PO DAILY haloperidol 5 mg tablet 5 mg PO DAILY dextroamphetamine-amphetamine 10 mg tablet 10 mg PO DAILY buprenorphine-naloxone [Suboxone] 12-3 mg film 2 film sublingual 1XD
--- NOTE | 2022-05-15 11:15 | NUR.NOTE ---
Nursing Note: Officers here for transport.
--- NOTE | 2022-05-15 12:10 | PDOC.ERCMPRO ---
- If Service Date Differs Date of service: 05/15/22 Time of Service: 12:11 Care Management Progress Note Frank is medically cleared and is discharged to [facility] for Voluntary inpatient Psych treatment. CM coordinated secured transport via [employer], notified [place], [facility], ED staff and RN Car Salesman of discharge plan. - MH Services (Omit if N/A) Current MH Services: Psychiatric Inp - Status Status: Voluntary
--- NOTE | 2022-05-15 12:45 | MHPN_ITS ---
Date of service: 05/14/22 Time of Service: 12:30 Mental Health Emergency Note Release [facility] release signed:: Yes Reason for Visit Frank is seeking voluntary treatment for his auditory hallucinations. In the last 2 weeks has the pt presented for ES prior to today?: No Client Information Client is: Adult Outpatient Well Housed: No,status: Not homeless, Unstable housing Non Suicidal Self Injury Current: No Safety Risk/Harm to Self or Others Current Ideation to Harm Self or Others: No Risk: Does risk to harm exist?: No Risk: N/A Duty to warn indicated: No Asssessment/Mental Status Appearance: Disheveled Attitude: Cooperative and Guarded Behavior: Unremarkable Speech: Slow, Slurred and Hesitant Affect: Cogruent with mood Mood: Stressed and Depressed Thought process: Blocking Hallucinations: yes, (Frank reports he is continuing to hear the voices threatening to kill him.) Auditory Delusions: yes, (Frank reports he is actively paranoid and feels like people are constantly out to get him.) Persectory/Paranoid and Grandiose Attention: Poor concentration Perception: Not impaired Orientation: Fully orientated Memory: Intact Insight: Fair Judgement: Fair Neurovegetative Symptoms Sleep: Increase Appetitie: No change Interests: Decrease Energy: Decrease Libido: Not applicable Substance Use: Do you use nicotine?: Yes Have you used substances in the last 7 days?: yes, Frank previously reported that he used crystal meth a few weeks ago. Additional Issues: Assaultive/Threatening Behavior: No Medical Concerns: No Client engaged in active self harm w/weapon: No Threatening to run away: No Child reported abuse/neglect: No Voluntarily presenting for services: Yes Domestic violence is a concern: No Extreme Psychosis or extreme behavior is present: Yes Impression Frank presents as guarded and frustrated. Frank is extremely brief with this auto service writer. Frank reports he is still hearing voices, they are threatening to kill him and these are the voices from last time as well. Frank is half asleep during this screening and does not want to speak to this auto service writer any further. Frank is a client in need of treatment to assist him in finding a clear thought proccess and working through his delusions and hallucinations. Plan/Disposition Recommended Disposition: Hospitalization ([facility] will be sent once information from [place] [facility] is recieved.) No. Plan: Frank is voluntarily seeking placement and will remain at [facility] until placement is found. Person reported agreement to plan: Yes Reports/communication Outcome discussed with: ED/Personnel
== END 2022-05-15 11:19 | disposition still patient (30) ==
PROVIDERS: Physician Assistant; Emergency Provider Student in an Organized Health Care Education/Training Program; PCP Family Medicine
DX: F22 Delusional disorders (principal); F15.90 Other stimulant use, unspecified, uncomplicated; F20.9 Schizophrenia, unspecified
CPT/HCPCS: 36415; 80053; 80307; 87635; 99285; 80320; 84443; 85025

== ENCOUNTER 2022-06-21 20:15 | Emergency (ER) | payer MEDICAID, SELFPAY ==
[2022-06-21 21:06] VITALS: BP 132/81; PULSE 97; RESP 15; TEMP 36.9; O2SAT 98
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
[2022-06-21 21:50] VITALS: BP 136/70; PULSE 124; RESP 18; TEMP 37.1; O2SAT 96
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
[2022-06-21] MEDS: diphenhydrAMINE 25 MG CAP 50 MG PO (23:02)
[2022-06-21] MEDS: LORazepam 1 MG TAB PO (23:05)
--- NOTE | 2022-06-22 00:15 | ED.PROG_ITS ---
Date of service: 06/21/22 Time of Service: 23:00 Medical Decision Making 2300 --please see Dr. José's note for initial presentation, exam and plan. Case endorsed to follow-up with [facility] human services regarding recommendations. It was reported that patient is voluntary and medically cleared. It was also reported that it is suspected his tachycardia is in the setting of anxiety for which lorazepam has been given. 0800 -- No events overnight. Case endorsed to oncoming provider to follow up with mental health for recommendations after re-evaluation this morning. Medical Records Medical records reviewed: Yes I reviewed the patient's medical records. Sign Out Sign Out Data: Sign Out Comment: schizophrenia, depression, SI, recent meth use; awaiting [facility] recommendations after reassessment in the AM Last updated by Timothy José MD at 06/21/22 23:05 Sign Out Comment: No events overnight. Follow-up with mental health regarding recommendations after reassessment this morning. Last updated by Katiuska Hicks DO at 06/22/22 07:05 Sign Out Comment: awaiting inpatient psych placement. here voluntarily for si. Last updated by Dean Harris MD at 06/22/22 20:51 Sign Out Comment: awaiting placement, voluntary, no issues overnight Last updated by Rob Gandhi MD at 06/22/22 23:22 Sign Out Comment: voluntary, depression SI schizophrenia; awaiting placement likely [facility]; psychiatrist suggests adding xyprexa if needed Last updated by Timothy José MD at 06/23/22 14:56 Sign Out Comment: Accepted to in AM Last updated by Juan Francisco Salgado MD at 06/23/22 22:48 Sign Out Comment: voluntary for depression/si, reportedly going to [facility] today Last updated by Rob Gandhi MD at 06/24/22 00:53 Discharge Plan Disposition Patient Disposition: Psychiatric Hospital/Unit Specific Psychiatric Facility: [facility] Discharge Details Clinical Impression: Depression Primary Care Provider: Ivan Vizcaino ED Provider: Timothy José Home Meds and New Rx's Prescriptions: No Action olanzapine [Zyprexa] 5 mg tablet 10 mg PO QHS pantoprazole 40 mg tablet,delayed release (DR/EC) 40 mg PO DAILY buprenorphine-naloxone [Suboxone] 12-3 mg film 24 film buccal 1XD gabapentin [Neurontin] 300 mg capsule 300 mg PO TID Discharge Data Discharge Date/Time-TO BE ENTERED AT DEPARTURE: 06/24/22 08:25
[2022-06-22 06:46] VITALS: PULSE 77; RESP 16; TEMP 36.7; O2SAT 99
--- NOTE | 2022-06-22 09:46 | CMSP_ITS ---
- If Service Date Differs Date of service: 06/22/22 Time of Service: 09:46 Care Management Safety Plan Status: Voluntary - Reason for Wait Reason for Wait: Inpatient Admission VOLUNTARY FOR INPATIENT PSYCHIATRIC STABILIZATION. Patient is appropriate in all interactions since arriving at [facility]; Pt has demonstrated appropriate coping and communication skills, has articulated his or her needs and concerns and is fully engaged during staff interactions. Safety plan has been established with patient, and care team, to adhere to patient goals, identify restrictions based on behavioral status, address nutrition, and determine allowed personal belongings, tools for hygiene and personal care. Determine level of activity including ambulation, level of supervision, visitors, and determine privileges based on behaviors and level of engagement by pt. SAFETY PLAN: 1. Will remain on suicide precautions. In Paper Clothes 2. Will remain in room under direct supervision of one-on-one staff at all times provided by [facility]; [employer]IA[employer], [employer] chore tender. 3. May have paper cups, plates, finger foods as well as a cardboard spoon with which to eat meals. 4. Follow [facility] Management of the Admitted Behavioral Health Patient policy. 5. Comfort bath system only, shower permitted with escort at RN discretion. 6. No personal belongings-soft items permitted at RN discretion. 7. Visitors-none at this time. 8. Activities: soft cart items approved per RN discretion. 9. Bathroom privileges with escort in the ED, available in room without limitation on M/S. 10. Phone: contact limited to family at this time, via cordless phone at RN discretion. 11. Due to VOLUNTARY status, if patient wishes to leave [facility], staff will contact [facility] Crisis Screener ([phone]) and On-Call Mine Car Repairer ([phone]) as soon as possible. In the event of elopement, notify [place] [employer] ([phone]). Patient is currently voluntarily at [facility] and seeking inpatient admission when a bed becomes available. [facility] Frontline Condenser Tube Tender will continue seeking placement. Please contact the Program Director Group Work Mine Car Repairer ([phone]) and [facility] Condenser Tube Tender ([phone]) for any needed changes in the Safety Plan. Safety plan has been provided to interdepartmental care team.
[2022-06-22 10:56] VITALS: BP 113/72; PULSE 86; TEMP 36.6; O2SAT 98
[2022-06-22 12:46] LABS: *AMPHETAMINES SCREEN URINE Positive (Negative); *BARBITURATES SCREEN URINE Negative (Negative); *BENZODIAZEPINES SCREEN URINE Negative (Negative); Cannabinoids THC Negative (Negative); Cocaine Screen,Urine Negative (Negative); METHADONE URINE SCREEN Negative (Negative); OPIATES URINE SCREEN Negative (Negative)
[2022-06-22 12:51] LABS: Tricyclic Antidepressants Negative (Negative)
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
[2022-06-22] MEDS: Buprenorphine/Naloxone 8 mg/2 mg FILM 3 EACH SL (14:31)
--- NOTE | 2022-06-22 20:49 | ED.PROG_ITS ---
Date of service: 06/22/22 Time of Service: 20:49 Medical Decision Making Patient signed out by Dr. Hicks - patient medically screened and cleared prior to signout. Patient awaiting psych treatment facility placement. He is here voluntarily for SI. Suboxone ordered today as prescribed. Sign Out Sign Out Data: Sign Out Comment: schizophrenia, depression, SI, recent meth use; awaiting [facility] recommendations after reassessment in the AM Last updated by Timothy José MD at 06/21/22 23:05 Sign Out Comment: No events overnight. Follow-up with mental health regarding recommendations after reassessment this morning. Last updated by Katiuska Hicks DO at 06/22/22 07:05 Discharge Plan Discharge Details Chief Complaint: PsychEval Primary Care Provider: Ivan Vizcaino ED Provider: Dean Harris Home Meds and New Rx's Prescriptions: No Action hydroxyzine HCl 50 mg tablet 50 mg PO BID nicotine (polacrilex) 2 mg gum 2 mg buccal Q1H PRN olanzapine [Zyprexa] 5 mg tablet 10 mg PO QHS pantoprazole 40 mg tablet,delayed release (DR/EC) 40 mg PO DAILY gabapentin [Neurontin] 300 mg capsule 300 mg PO TID loratadine 10 mg tablet 10 mg PO DAILY Nicotrol 10 mg Cartridge 300 mg inhalation DIRECTED PRNQty: 0 0RF famotidine 20 mg tablet 20 mg PO DAILY aspirin 81 mg tablet,chewable 81 mg PO DAILY haloperidol 5 mg tablet 5 mg PO DAILY dextroamphetamine-amphetamine 10 mg tablet 10 mg PO DAILY buprenorphine-naloxone [Suboxone] 12-3 mg film 2 film sublingual 1XD
--- NOTE | 2022-06-22 22:50 | ED.PROG_ITS ---
Date of service: 06/22/22 Time of Service: 22:50 Medical Decision Making patient stable, sleeping on exam awakens easily, no acute complaints. Will continue to observe until bed is found. Sign Out Sign Out Data: Sign Out Comment: schizophrenia, depression, SI, recent meth use; awaiting [facility] recommendations after reassessment in the AM Last updated by Timothy José MD at 06/21/22 23:05 Sign Out Comment: No events overnight. Follow-up with mental health regarding recommendations after reassessment this morning. Last updated by Katiuska Hicks DO at 06/22/22 07:05 Sign Out Comment: awaiting inpatient psych placement. here voluntarily for si. Last updated by Dean Harris MD at 06/22/22 20:51 Discharge Plan Disposition Condition: Stable Discharge Details Chief Complaint: PsychEval Clinical Impression: Depression Primary Care Provider: Ivan Vizcaino ED Provider: Rob Gandhi Home Meds and New Rx's Prescriptions: No Action hydroxyzine HCl 50 mg tablet 50 mg PO BID nicotine (polacrilex) 2 mg gum 2 mg buccal Q1H PRN olanzapine [Zyprexa] 5 mg tablet 10 mg PO QHS pantoprazole 40 mg tablet,delayed release (DR/EC) 40 mg PO DAILY buprenorphine-naloxone [Suboxone] 12-3 mg film 24 film buccal 1XD gabapentin [Neurontin] 300 mg capsule 300 mg PO TID loratadine 10 mg tablet 10 mg PO DAILY Nicotrol 10 mg Cartridge 300 mg inhalation DIRECTED PRNQty: 0 0RF famotidine 20 mg tablet 20 mg PO DAILY aspirin 81 mg tablet,chewable 81 mg PO DAILY haloperidol 5 mg tablet 5 mg PO DAILY dextroamphetamine-amphetamine 10 mg tablet 10 mg PO DAILY buprenorphine-naloxone [Suboxone] 12-3 mg film 2 film sublingual 1XD
--- NOTE | 2022-06-23 08:15 | PDOC.CMSAFED ---
- If Service Date Differs Date of service: 06/23/22 Time of Service: 08:15 Care Management Safety Plan Status: Voluntary - Reason for Wait Reason for Wait: Inpatient Admission VOLUNTARY FOR INPATIENT PSYCHIATRIC STABILIZATION. Patient is appropriate in all interactions since arriving at [facility]; Pt has demonstrated appropriate coping and communication skills, has articulated his or her needs and concerns and is fully engaged during staff interactions. Safety plan has been established with patient, and care team, to adhere to patient goals, identify restrictions based on behavioral status, address nutrition, and determine allowed personal belongings, tools for hygiene and personal care. Determine level of activity including ambulation, level of supervision, visitors, and determine privileges based on behaviors and level of engagement by pt. [facility]'s psychiatrist is Alyx Laird per [facility]. Per crisis screening, no SI/HI, mental health status currently exacerbated by substance use; anticipate seeking co-occurring treatment for SCOTTY/MH or SCOTTY placement. [facility] connecting with patient during this admission. SAFETY PLAN: 1. Will remain on suicide precautions. In Paper Clothes 2. Will remain in room under direct supervision of one-on-one staff at all times provided by [employer]; ELIAZAR, LOGISTICS TEAM LEAD special crimes investigator. 3. May have paper cups, plates, finger foods as well as a cardboard spoon with which to eat meals. 4. Follow [facility] Management of the Admitted Behavioral Health Patient policy. 5. Comfort bath system only, shower permitted with escort at RN discretion. 6. No personal belongings-soft items permitted at RN discretion. 7. Visitors-none at this time. 8. Activities: soft cart items approved per RN discretion. 9. Bathroom privileges with escort in the ED, available in room without limitation on M/S. 10. Phone: contact limited to family at this time, via cordless phone at RN discretion. 11. Due to VOLUNTARY status, if patient wishes to leave [facility], staff will contact [facility] Crisis Screener ([phone]) and On-Call Clinical Resource Coordinator ([phone]) as soon as possible. In the event of elopement, notify [facility] Police ([phone]). Patient is currently voluntarily at [facility] and seeking inpatient admission when a bed becomes available. [facility] Frontline Irrigation District Manager will continue seeking placement. Please contact the Wire Coating Operator Metal Clinical Resource Coordinator ([phone]) and [facility] Irrigation District Manager ([phone]) for any needed changes in the Safety Plan. Safety plan has been provided to interdepartmental care team.
[2022-06-23 08:42] VITALS: BP 119/76; PULSE 72; TEMP 36.5; O2SAT 97
[2022-06-23] MEDS: Buprenorphine/Naloxone 8 mg/2 mg FILM 3 EACH SL (09:30)
--- NOTE | 2022-06-23 11:11 | MHPN_ITS ---
Date of service: 06/23/22 Time of Service: 10:07 PHQ-9 Over the last 2 weeks, how often have you been bothered by any of the following problems? 1. Little interest or pleasure in doing things: more than half the days 2. Feeling down, depressed, or hopeless: nearly every day 3. Trouble falling or staying asleep, or sleeping too much: nearly every day 4. Feeling tired or having little energy: several days 5. Poor appetite or overeating: several days 6. Feeling bad about yourself - or that you are a failure or have let yourself and your family down: nearly every day 7. Trouble concentrating on things, such as reading the newspaper or watching television: several days 8. Moving or speaking so slowly that other people could have noticed? - Or the opposite - being so fidgety or restless that you have been moving around a lot more than usual: more than half the days 9. Thoughts that you would be better off or of hurting yourself in some way: several days Total score: 17 If you checked off any problems, how difficult have these problems made it for you to do your work, take care of things at home, or get along with other people?: extremely difficult PHQ-9 Results: Positive Source: Developed by Drs. Charles Corona, Nicki Baird, Margarito Art and colleagues, with an educational lonnie from [employer]. Suicide Severity Rate CSSRS Have you wished you were or wished you could go to sleep and not wake up?: Yes Have you actually had any thoughts of killing yourself?: Yes CSSRS2 Have you been thinking about how you might do this?: Yes Have you had these thoughts and had some intention of acting on them?: Yes Have you started to work out or worked out the details of how to kill yourself? Do you intend to carry out this plan?: Yes CSSRS3 Have you ever done anything, started to do anything or prepared to do anything to end your life?: Yes CSSRS4 Was this within the past three months?: Yes Screening Score Total Score: 8 Screening: Positive Mental Health Emergency Note Release [facility] release signed:: No Reason for Visit This client voluntarily presented to the ED on 06/21 at the recommendation of [facility] after endorsing SI. In the last 2 weeks has the pt presented for ES prior to today?: No Client Information Client is: Adult Outpatient Well Housed: No,status: Not homeless, Unstable housing Current Treatment Team if applicable First care pressure steamer tender: Name: Alyx Laird Role: Med Provider Contact Info: [phone] Non Suicidal Self Injury Current: No History: No Safety Risk/Harm to Self or Others Current Ideation to Harm Self or Others: No Risk: Does risk to harm exist?: No Risk: Low Risk Duty to warn indicated: No Asssessment/Mental Status Appearance: Disheveled and Poor hygiene Attitude: Cooperative Behavior: Unremarkable Speech: Soft Affect: Normal Mood: Depressed Thought process: Unremarkable Hallucinations: yes, (Ct reported he has not experienced any halluciations in the ED, but still very much believes the hallucinations he experienced when in the community were real.) Visual and Auditory Delusions: yes, Persectory/Paranoid Attention: Unremarkable Perception: Not impaired Orientation: Fully orientated Memory: Intact Insight: Fair Judgement: Fair Neurovegetative Symptoms Sleep: No change Appetitie: No change Interests: No change Energy: No change Substance Use: Drug Issues: Dependence Do you use nicotine?: Yes Have you used substances in the last 7 days?: yes, Waqas reported he used meth 2-3 days ago. Could not quantify. Additional Issues: Assaultive/Threatening Behavior: No Medical Concerns: No Client engaged in active self harm w/weapon: No Threatening to run away: No Child reported abuse/neglect: No Voluntarily presenting for services: Yes Domestic violence is a concern: No Extreme Psychosis or extreme behavior is present: Yes Impression Ct is low risk, ES considering a discharge and safety plan pending [facility] meeting with this client. Client is not actively suicidal/homicidal, but would like to seek a higher level of care for his overall mental health. There are still some concerns about the client's hallucinations, and whether or not they are substance induced. Ct reported he is mostly focused on going to substance abuse treatment. Resources Reosurces reviewed and given:: Other Plan/Disposition Recommended Disposition: Hospitalization facilities contacted and Other ([facility] or [facility] or [facility] IP). Plan: This client will be meeting with [facility] to get referrals for SA, referrals for IP mental health treatment are still pending review. Person reported agreement to plan: Yes Facilities contacted if Applicable [place] Accepted, Pending review. Information Sent to [place]: Referral [facility] Accepted, Pending review. Information Sent to [facility]: Referral [facility] Accepted, Pending review. Information Sent to [place]: Referral, [facility] Accepted, Pending review. Information Sent to [place]: Referral Reports/communication Outcome discussed with: ED/Personnel and Other ([facility] Gallagher) Final Disposition/Discharge Final accepting facility/transferred to: Other ([facility]) Transportation Checklist completed and faxed: No Transport level: Other ([facility])
--- NOTE | 2022-06-23 23:25 | ED.PROG_ITS ---
Date of service: 06/23/22 Time of Service: 23:25 Medical Decision Making pt calm and no acute complaints, reporteldy accepted at [place] tomorrow Sign Out Sign Out Data: Sign Out Comment: schizophrenia, depression, SI, recent meth use; awaiting [facility] recommendations after reassessment in the AM Last updated by Timothy José MD at 06/21/22 23:05 Sign Out Comment: No events overnight. Follow-up with mental health regarding recommendations after reassessment this morning. Last updated by Katiuska Hicks DO at 06/22/22 07:05 Sign Out Comment: awaiting inpatient psych placement. here voluntarily for si. Last updated by Dean Harris MD at 06/22/22 20:51 Sign Out Comment: awaiting placement, voluntary, no issues overnight Last updated by Rob Gandhi MD at 06/22/22 23:22 Sign Out Comment: voluntary, depression SI schizophrenia; awaiting placement likely [place]; psychiatrist suggests adding xyprexa if needed Last updated by Timothy José MD at 06/23/22 14:56 Sign Out Comment: Accepted to in AM Last updated by Juan Francisco Salgado MD at 06/23/22 22:48 Discharge Plan Disposition Patient Disposition: Psychiatric Hospital/Unit Specific Psychiatric Facility: [place] Discharge Details Clinical Impression: Depression Primary Care Provider: Ivan Vizcaino ED Provider: Rob Gandhi Home Meds and New Rx's Prescriptions: No Action olanzapine [Zyprexa] 5 mg tablet 10 mg PO QHS pantoprazole 40 mg tablet,delayed release (DR/EC) 40 mg PO DAILY buprenorphine-naloxone [Suboxone] 12-3 mg film 24 film buccal 1XD gabapentin [Neurontin] 300 mg capsule 300 mg PO TID
== END 2022-06-24 08:25 ==
PROVIDERS: Emergency Provider Emergency Medicine; PCP Family Medicine
DX: F32.A Depression, unspecified (principal); F15.10 Other stimulant abuse, uncomplicated; F20.9 Schizophrenia, unspecified; R45.851 Suicidal ideations; L98.8 Other specified disorders of the skin and subcutaneous tissue; F22 Delusional disorders; F11.21 Opioid dependence, in remission
CPT/HCPCS: 80307; 99285; H0046

== ENCOUNTER 2022-08-07 23:13 | Emergency (ER) | payer MEDICAID, SELFPAY ==
[2022-08-07 23:18] VITALS: BP 136/70; PULSE 80; RESP 24; TEMP 35.5; O2SAT 98
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
[2022-08-08 00:28] LABS: Source Nasal/Nares
[2022-08-08] MEDS: LORazepam 1 MG TAB PO (00:28)
[2022-08-08] MEDS: OLANZapine 10 MG TAB 20 MG PO (00:28)
[2022-08-08 00:29] LABS: Abs Immature Grans 0.01 10^3/uL (0.0-0.06); Absolute Basophil Count 0.02 10^3/uL (0.0-0.2); Absolute Eosinophil Count 0.13 10^3/uL (0.0-0.7); Absolute Lymphocyte Count 2.34 10^3/uL (1.2-3.4); Absolute Monocyte Count 0.27 10^3/uL (0.1-0.8); Absolute Neutrophil Count 2.54 10^3/uL (1.2-6.7); Basophils % 0.4; Eosinophils % 2.4; HCT 41.1 % (40.0-50.0); HGB 13.6 g/dL (13.5-17.5); Immature Grans % 0.2; Lymphocytes % 44.1; MCH 27.6 pg (27.0-33.0); MCHC 33.1 % (32.0-36.0); MCV 84 fL (80-95); MPV 8.7 fL (8.0-11.0); Monocytes % 5.1; Neutrophils % 47.8; Platelet Count 327 10^3/uL (130-400); RBC 4.92 10^6/uL (4.36-5.78); RDW 15.3 % (11.8-14.1); RDW-SD 46.7 fL; WBC 5.31 10^3/uL (4.4-10.8)
[2022-08-08 00:44] LABS: *AMPHETAMINES SCREEN URINE Positive (Negative); *BARBITURATES SCREEN URINE Negative (Negative); *BENZODIAZEPINES SCREEN URINE Negative (Negative); Cannabinoids THC Negative (Negative); Cocaine Screen,Urine Negative (Negative); METHADONE URINE SCREEN Negative (Negative); OPIATES URINE SCREEN Negative (Negative)
[2022-08-08 00:45] LABS: Tricyclic Antidepressants Negative (Negative)
[2022-08-08 00:54] LABS: Salicylate < 2.8 mg/dL (<2.8)
[2022-08-08 00:56] LABS: Acetaminophen < 2 ug/mL (10-30)
[2022-08-08 01:00] LABS: COVID-19 PCR Negative (Negative)
[2022-08-08 01:01] LABS: ALT 41 U/L (16-63); AST 46 U/L (15-37); Albumin 3.5 g/dL (3.4-5.0); Alkaline Phosphatase 44 U/L (46-116); Anion Gap 10.2 mmol/L (3-11); BUN 11 mg/dL (7-18); Bilirubin, Total 0.4 mg/dL (0.2-1.0); CO2 26.8 mmol/L (21.0-32.0); CREATININE 0.8 mg/dL (0.70-1.30); Calcium 8.9 mg/dL (8.5-10.1); Chloride 101 mmol/L (98-107); Estimated GFR 119.84 (mL/min/1.73m2); Glucose 130 mg/dL (74-106); Potassium 3.8 mmol/L (3.5-5.1); Sodium 138 mmol/L (136-145); TSH (W/Ref FT4) 0.29 uIU/mL (0.36-3.74); Total Protein 7.1 g/dL (6.4-8.2)
[2022-08-08 01:02] LABS: ETHANOL BLOOD < 3.0 mg/dL (<10)
[2022-08-08 01:18] LABS: FREE T4 1.03 ng/dL (0.76-1.46)
[2022-08-08 07:57] VITALS: BP 113/74; PULSE 74; RESP 19; TEMP 36.5; O2SAT 98
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
[2022-08-08] MEDS: Pantoprazole 40 MG TABCR PO (09:23)
[2022-08-08] MEDS: OLANZapine 10 MG TAB PO (09:23)
[2022-08-08] MEDS: Gabapentin 300 MG CAP PO ×2 (09:24→14:15)
--- NOTE | 2022-08-08 11:41 | CMSP_ITS ---
- If Service Date Differs Date of service: 08/08/22 Time of Service: 11:41 Care Management Safety Plan Status: Voluntary - Reason for Wait Reason for Wait: Inpatient Admission CHIEF COMPLAINTS: Frank arrives in the ED during the late evening hours of 08/07/22, [facility]. He presents as paranoid, alleging his brother is trying to kill him. He reportedly has been off of his psychiatric medication for several days. Frank receives services through [facility] and has an upcoming appointment with Joanna Alicia, psychiatric nurse, on August, at 2:00 pm. Frank was assessed by Tamanna, [facility] Crisis Screener, today and found to meet criteria for a voluntary psychiatric hospitalization. [facility], [facility], and [facility] for review. Frank will remain at [facility] voluntarily and will be reassessed daily by [facility] until a placement can be secured for him or he can discharge home on a safety plan. will continue to follow and will arrange for the appointment with Joanna Alicia NP, to occur via zoom, if Frank is still at [facility] on that day. VOLUNTARY FOR INPATIENT PSYCHIATRIC STABILIZATION. Patient is appropriate in all interactions since arriving at [facility]; Pt has demonstrated appropriate coping and communication skills, has articulated his or her needs and concerns and is fully engaged during staff interactions. Safety plan has been established with patient, and care team, to adhere to patient goals, identify restrictions based on behavioral status, address nutrition, and determine allowed personal belongings, tools for hygiene and personal care. Determine level of activity including ambulation, level of supervision, visitors, and determine privileges based on behaviors and level of engagement by pt. SAFETY PLAN: 1. Will remain on suicide precautions. In Paper Clothes 2. Will remain in room under direct supervision of one-on-one staff at all times provided by CPSO, DRUM SPRAYER, CHICKEN VACCINATOR compliance advisor. 3. May have paper cups, plates, finger foods as well as a cardboard spoon with which to eat meals. 4. Follow [facility] Management of the Admitted Behavioral Health Patient policy. 5. Shower permitted with escort at RN discretion. 6. No personal belongings-soft items permitted at RN discretion. 7. Visitors: per [facility] visitor policy and at RN discretion. 8. Activities: soft cart items, music tablet, television and other activities at RN discretion. 9. Bathroom privileges with escort in the ED, available in room without limitation on M/S. 10. Phone: may use [employer] hospital phone at RN discretion. 11. Due to VOLUNTARY status, if patient wishes to leave [facility], staff will contact [facility] Crisis Screener ([phone]) and On-Call Supervisor Sawing And Assembly ([phone]) as soon as possible. In the event of elopement, notify [facility] Police ([phone]). Patient is currently voluntarily at [facility] and seeking inpatient admission when a bed becomes available. [facility] Frontline Roll Up Operator will continue seeking placement. Please contact the Dietary Tech Supervisor [employer]ing [employer] Assembly ([phone]) and [facility] Roll Up Operator ([phone]) for any needed changes in the Safety Plan. Safety plan has been provided to interdepartmental care team.
--- NOTE | 2022-08-08 11:41 | PDOC.CMSAFED ---
- If Service Date Differs Date of service: 08/08/22 Time of Service: 11:41 Care Management Safety Plan Status: Voluntary - Reason for Wait Reason for Wait: Inpatient Admission CHIEF COMPLAINTS: Frank arrives in the ED during the late evening hours of 08/07/22, [facility]. He presents as paranoid, alleging his brother is trying to kill him. He reportedly has been off of his psychiatric medication for several days. Frank receives services through [facility] and has an upcoming appointment with Joanna Alicia, psychiatric nurse, on August, at 2:00 pm. Frank was assessed by Tamanna, [facility] Crisis Screener, today and found to meet criteria for a voluntary psychiatric hospitalization. [facility], [facility], and [facility] for review. Frank will remain at [facility] voluntarily and will be reassessed daily by [facility] until a placement can be secured for him or he can discharge home on a safety plan. will continue to follow and will arrange for the appointment with Joanna Alicia NP, to occur via zoom, if Frank is still at [facility] on that day. VOLUNTARY FOR INPATIENT PSYCHIATRIC STABILIZATION. Patient is appropriate in all interactions since arriving at [facility]; Pt has demonstrated appropriate coping and communication skills, has articulated his or her needs and concerns and is fully engaged during staff interactions. Safety plan has been established with patient, and care team, to adhere to patient goals, identify restrictions based on behavioral status, address nutrition, and determine allowed personal belongings, tools for hygiene and personal care. Determine level of activity including ambulation, level of supervision, visitors, and determine privileges based on behaviors and level of engagement by pt. SAFETY PLAN: 1. Will remain on suicide precautions. In Paper Clothes 2. Will remain in room under direct supervision of one-on-one staff at all times provided by CPSO, VERIFICATION SPECIALIST, TANK BOTTOM ASSEMBLER funeral counselor. 3. May have paper cups, plates, finger foods as well as a cardboard spoon with which to eat meals. 4. Follow [facility] Management of the Admitted Behavioral Health Patient policy. 5. Shower permitted with escort at RN discretion. 6. No personal belongings-soft items permitted at RN discretion. 7. Visitors: per [facility] visitor policy and at RN discretion. 8. Activities: soft cart items, music tablet, television and other activities at RN discretion. 9. Bathroom privileges with escort in the ED, available in room without limitation on M/S. 10. Phone: may use [employer] hospital phone at RN discretion. 11. Due to VOLUNTARY status, if patient wishes to leave [facility], staff will contact [facility] Crisis Screener ([phone]) and On-Call Doula ([phone]) as soon as possible. In the event of elopement, notify [facility] Police ([phone]). Patient is currently voluntarily at [facility] and seeking inpatient admission when a bed becomes available. [facility] Frontline Dot Compliance Specialist will continue seeking placement. Please contact the Dope Heater Doula ([phone]) and [facility] Dot Compliance Specialist ([phone]) for any needed changes in the Safety Plan. Safety plan has been provided to interdepartmental care team.
--- NOTE | 2022-08-08 14:25 | NUR.NOTE ---
Nursing Note: PT gets Suboxone from [facility] online. Called and confirmed dose of 12-3mg x2 daily.
[2022-08-08] MEDS: Buprenorphine/Naloxone 12 mg/3 mg FILM 2 EACH SL (15:03)
[2022-08-09] MEDS: Gabapentin 300 MG CAP PO (09:35)
[2022-08-09] MEDS: Pantoprazole 40 MG TABCR PO (09:35)
[2022-08-09] MEDS: Buprenorphine/Naloxone 12 mg/3 mg FILM 2 EACH SL (09:35)
[2022-08-09] MEDS: OLANZapine 10 MG TAB PO (09:35)
== END 2022-08-09 10:10 ==
PROVIDERS: Student in an Organized Health Care Education/Training Program; Emergency Provider Physician Assistant; PCP Family Medicine
DX: F22 Delusional disorders (principal); R45.851 Suicidal ideations; F90.9 Attention-deficit hyperactivity disorder, unspecified type; F32.A Depression, unspecified; Z20.822 Contact with and (suspected) exposure to COVID-19
CPT/HCPCS: 80053; 80307; 87635; 99285; 80320; 80329; 84439; 84443; 85025

== ENCOUNTER 2022-09-06 12:39 | Emergency (ER) | payer MEDICAID, SELFPAY ==
[2022-09-06 12:43] VITALS: BP 121/78; PULSE 97; RESP 18; TEMP 36.4; O2SAT 98
[2022-09-06 13:42] LABS: Abs Immature Grans 0.01 10^3/uL (0.0-0.06); Absolute Basophil Count 0.04 10^3/uL (0.0-0.2); Absolute Eosinophil Count 0.17 10^3/uL (0.0-0.7); Absolute Lymphocyte Count 1.68 10^3/uL (1.2-3.4); Absolute Monocyte Count 0.41 10^3/uL (0.1-0.8); Absolute Neutrophil Count 4.64 10^3/uL (1.2-6.7); Basophils % 0.6; Eosinophils % 2.4; HCT 47.5 % (40.0-50.0); HGB 15.9 g/dL (13.5-17.5); Immature Grans % 0.1; Lymphocytes % 24.2; MCH 28.5 pg (27.0-33.0); MCHC 33.5 % (32.0-36.0); MCV 85 fL (80-95); MPV 8.3 fL (8.0-11.0); Monocytes % 5.9; Neutrophils % 66.8; Platelet Count 353 10^3/uL (130-400); RBC 5.57 10^6/uL (4.36-5.78); RDW 15.5 % (11.8-14.1); RDW-SD 48.7 fL; WBC 6.95 10^3/uL (4.4-10.8)
[2022-09-06 14:03] LABS: ALT 41 U/L (16-63); AST 24 U/L (15-37); Albumin 4.4 g/dL (3.4-5.0); Alkaline Phosphatase 74 U/L (46-116); BUN 8 mg/dL (7-18); Bilirubin, Total 0.9 mg/dL (0.2-1.0); Calcium 9.6 mg/dL (8.5-10.1); Chloride 101 mmol/L (98-107); Estimated GFR 101.92 (mL/min/1.73m2); Glucose 106 mg/dL (74-106); Potassium 3.3 mmol/L (3.5-5.1); Sodium 140 mmol/L (136-145); TSH (W/Ref FT4) 0.77 uIU/mL (0.36-3.74); Total Protein 8.9 g/dL (6.4-8.2)
[2022-09-06 14:06] LABS: ETHANOL BLOOD < 3.0 mg/dL (<10)
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
[2022-09-06 15:01] LABS: *AMPHETAMINES SCREEN URINE Positive (Negative); *BARBITURATES SCREEN URINE Negative (Negative); *BENZODIAZEPINES SCREEN URINE Negative (Negative); Cannabinoids THC Negative (Negative); Cocaine Screen,Urine Positive (Negative); METHADONE URINE SCREEN Negative (Negative); OPIATES URINE SCREEN Negative (Negative)
[2022-09-06 15:10] LABS: Tricyclic Antidepressants Negative (Negative)
[2022-09-06] MEDS: Potassium Chloride 20 MEQ TABCR PO (15:12)
[2022-09-06 15:20] VITALS: BP 129/83; PULSE 95; TEMP 36.6; O2SAT 98
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
== END 2022-09-06 15:27 | disposition home or self-care (01) ==
PROVIDERS: Emergency Provider Physician Assistant; PCP Family Medicine
DX: F39 Unspecified mood [affective] disorder (principal); F32.A Depression, unspecified; F90.9 Attention-deficit hyperactivity disorder, unspecified type
CPT/HCPCS: 36415; 80053; 80307; 99282; 80320; 84443; 85025; 99284

== ENCOUNTER 2022-09-07 21:52 | Emergency (ER) | payer MEDICAID, SELFPAY ==
[2022-09-07 22:09] VITALS: BP 123/78; PULSE 83; RESP 16; TEMP 36.4; O2SAT 96
[2022-09-07 22:42] LABS: Abs Immature Grans 0.01 10^3/uL (0.0-0.06); Absolute Basophil Count 0.02 10^3/uL (0.0-0.2); Absolute Eosinophil Count 0.17 10^3/uL (0.0-0.7); Absolute Lymphocyte Count 2.26 10^3/uL (1.2-3.4); Absolute Monocyte Count 0.45 10^3/uL (0.1-0.8); Absolute Neutrophil Count 2.43 10^3/uL (1.2-6.7); Basophils % 0.4; Eosinophils % 3.2; HCT 39.4 % (40.0-50.0); HGB 13.1 g/dL (13.5-17.5); Immature Grans % 0.2; Lymphocytes % 42.3; MCH 28.5 pg (27.0-33.0); MCHC 33.2 % (32.0-36.0); MCV 86 fL (80-95); MPV 8.8 fL (8.0-11.0); Monocytes % 8.4; Neutrophils % 45.5; Platelet Count 328 10^3/uL (130-400); RBC 4.59 10^6/uL (4.36-5.78); RDW 15.6 % (11.8-14.1); RDW-SD 49.1 fL; WBC 5.34 10^3/uL (4.4-10.8)
[2022-09-07] MEDS: OLANZapine 10 MG TAB PO (22:43)
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
[2022-09-07 22:57] LABS: Salicylate < 2.8 mg/dL (<2.8)
[2022-09-07 22:59] LABS: Acetaminophen < 2 ug/mL (10-30)
[2022-09-07 23:09] LABS: ALT 31 U/L (16-63); AST 15 U/L (15-37); Albumin 3.3 g/dL (3.4-5.0); Alkaline Phosphatase 56 U/L (46-116); Anion Gap 10.7 mmol/L (3-11); BUN 11 mg/dL (7-18); Bilirubin, Total 0.4 mg/dL (0.2-1.0); CO2 27.3 mmol/L (21.0-32.0); Calcium 8.5 mg/dL (8.5-10.1); Chloride 105 mmol/L (98-107); Estimated GFR 101.92 (mL/min/1.73m2); Glucose 136 mg/dL (74-106); Potassium 3.5 mmol/L (3.5-5.1); Sodium 143 mmol/L (136-145); TSH (W/Ref FT4) 0.41 uIU/mL (0.36-3.74)
[2022-09-07 23:13] LABS: ETHANOL BLOOD < 3.0 mg/dL (<10)
[2022-09-08 09:14] LABS: *AMPHETAMINES SCREEN URINE Negative (Negative); *BARBITURATES SCREEN URINE Negative (Negative); *BENZODIAZEPINES SCREEN URINE Negative (Negative); Cannabinoids THC Negative (Negative); Cocaine Screen,Urine Positive (Negative); METHADONE URINE SCREEN Negative (Negative); OPIATES URINE SCREEN Negative (Negative)
[2022-09-08 09:17] LABS: Tricyclic Antidepressants Negative (Negative)
--- NOTE | 2022-09-08 11:24 | CMSP_ITS ---
- If Service Date Differs Date of service: 09/08/22 Time of Service: 11:24 Care Management Safety Plan Status: Voluntary - Reason for Wait Reason for Wait: Assessment/Screening Chief Complaint: Frank presented to the ED with VSP and a mental health advocate from [facility]. He reports that he wants to end his life because he is concerned that his brother is coming to kill him. Per report, this has been thoroughly investigated, and there does not appear to be a threat to him by his brother in the community. He is well known to [facility], and has a significant past medical history of substance use, depression, and paranoid schizophrenia. He is in the ED awaiting screening by [facility]. VOLUNTARY FOR INPATIENT PSYCHIATRIC STABILIZATION. Patient is appropriate in all interactions since arriving at [facility]; Pt has demonstrated appropriate coping and communication skills, has articulated his or her needs and concerns and is fully engaged during staff interactions. Safety plan has been established with patient, and care team, to adhere to patient goals, identify restrictions based on behavioral status, address nutrition, and determine allowed personal belongings, tools for hygiene and personal care. Determine level of activity including ambulation, level of supervision, visitors, and determine privileges based on behaviors and level of engagement by pt. SAFETY PLAN: 1. Will remain on suicide precautions. In Paper Clothes 2. Will remain in room under direct supervision of one-on-one staff at all times provided by CPSO, MASSAGE THERAPIST, PUBLIC INFORMATION COORDINATOR wrapping machine operator. 3. May have paper cups, plates, finger foods as well as a cardboard spoon with which to eat meals. 4. Follow [facility] Management of the Admitted Behavioral Health Patient policy. 5. Shower permitted with escort at RN discretion. 6. No personal belongings-soft items permitted at RN discretion. 7. Visitors: per [facility] visitor policy and at RN discretion. 8. Activities: soft cart items, music tablet, television and other activities at RN discretion. 9. Bathroom privileges with escort in the ED, available in room without limitation on M/S. 10. Phone: may use [employer] hospital phone at RN discretion. 11. Due to VOLUNTARY status, if patient wishes to leave [facility], staff will contact [facility] Crisis Screener ([phone]) and On-Call Tax Intern ([phone]) as soon as possible. In the event of elopement, notify [facility] Police ([phone]). Patient is currently voluntarily at [facility] and seeking inpatient admission when a bed becomes available. [facility] Frontline Cigarette Stamper will continue seeking placement. Please contact the Laboratory Director Tax Intern ([phone]) and [facility] Cigarette Stamper ([phone]) for any needed changes in the Safety Plan. Safety plan has been provided to interdepartmental care team.
--- NOTE | 2022-09-08 11:24 | PDOC.CMSAFED ---
- If Service Date Differs Date of service: 09/08/22 Time of Service: 11:24 Care Management Safety Plan Status: Voluntary - Reason for Wait Reason for Wait: Assessment/Screening Chief Complaint: Frank presented to the ED with VSP and a mental health advocate from [facility]. He reports that he wants to end his life because he is concerned that his brother is coming to kill him. Per report, this has been thoroughly investigated, and there does not appear to be a threat to him by his brother in the community. He is well known to [facility], and has a significant past medical history of substance use, depression, and paranoid schizophrenia. He is in the ED awaiting screening by [facility]. VOLUNTARY FOR INPATIENT PSYCHIATRIC STABILIZATION. Patient is appropriate in all interactions since arriving at [facility]; Pt has demonstrated appropriate coping and communication skills, has articulated his or her needs and concerns and is fully engaged during staff interactions. Safety plan has been established with patient, and care team, to adhere to patient goals, identify restrictions based on behavioral status, address nutrition, and determine allowed personal belongings, tools for hygiene and personal care. Determine level of activity including ambulation, level of supervision, visitors, and determine privileges based on behaviors and level of engagement by pt. SAFETY PLAN: 1. Will remain on suicide precautions. In Paper Clothes 2. Will remain in room under direct supervision of one-on-one staff at all times provided by CPSO, FEEDER OPERATOR AUTOMATIC, ADMINISTRATIVE OFFICE CLERK biology laboratory assistant. 3. May have paper cups, plates, finger foods as well as a cardboard spoon with which to eat meals. 4. Follow [facility] Management of the Admitted Behavioral Health Patient policy. 5. Shower permitted with escort at RN discretion. 6. No personal belongings-soft items permitted at RN discretion. 7. Visitors: per [facility] visitor policy and at RN discretion. 8. Activities: soft cart items, music tablet, television and other activities at RN discretion. 9. Bathroom privileges with escort in the ED, available in room without limitation on M/S. 10. Phone: may use [employer] hospital phone at RN discretion. 11. Due to VOLUNTARY status, if patient wishes to leave [facility], staff will contact [facility] Crisis Screener ([phone]) and On-Call Music Ministries Director ([phone]) as soon as possible. In the event of elopement, notify [facility] Police ([phone]). Patient is currently voluntarily at [facility] and seeking inpatient admission when a bed becomes available. [facility] Frontline Radio Electronics Technician will continue seeking placement. Please contact the Clinical Account Specialist Music Ministries Director ([phone]) and [facility] Radio Electronics Technician ([phone]) for any needed changes in the Safety Plan. Safety plan has been provided to interdepartmental care team.
--- NOTE | 2022-09-08 11:29 | PDOC.ERCMPRO ---
- If Service Date Differs Date of service: 09/08/22 Time of Service: 11:29 Care Management Progress Note 9:30am- CM talked to ED staff regarding Frank. He reported that he is concerned that his brother is going to kill him, which is why is wants to end his life. His screened positive for cocaine on this admission. He is well known to the ED for suicidal ideation and substance use. 9:40am- CM called [facility] for an update on Frank's plan. Tiffanie requested that medical documents be faxed to [facility] at [phone]. CM faxed the ED note to [facility], as requested. CM will continue to follow. 1:30pm- CM checked with the ED staff, who stated that Frank has been screened by [facility], and they are pursuing inpatient psychiatric hospitalization. 3:00pm- Frank was resting in his bed, CM did not wake him. He will remain in the ED while waiting for inpatient hospitalization vs safety plan home, coordinated by [facility]. CM will continue to follow.
[2022-09-08] MEDS: Buprenorphine/Naloxone 12 mg/3 mg FILM 1 EACH SL ×2 (16:04→18:19)
[2022-09-08] MEDS: Gabapentin 300 MG CAP PO (20:04)
[2022-09-08] MEDS: Docusate Sodium 100 MG/10 ML CUP PO (20:04)
[2022-09-08] MEDS: OLANZapine 10 MG, OLANZapine 5 MG 15 MG PO (23:46)
--- NOTE | 2022-09-09 07:47 | W.EDPROG ---
Date of service: 09/09/22 Time of Service: 08:00 Medical Decision Making 0800 --no events overnight. Case endorsed to Dr. José to continue to monitor while awaiting placement. Medical Records Medical records reviewed: Yes I reviewed the patient's medical records. Sign Out Sign Out Data: Sign Out Comment: Paranoid schizophrenia, did give 10 of Zyprexa last night upon arrival. No other interventions needed. Voluntary, pending mental health assessment/placement Last updated by Jeff Brown DO at 09/08/22 06:57 Sign Out Comment: schizophrenia, paranoia, depression, SI awaiting placement Last updated by Timothy José MD at 09/08/22 16:06 Sign Out Comment: Waiting voluntary placement. No issues on my shift. Medications reconciled and ordered. Last updated by Charles Ferro MD at 09/08/22 22:31 Discharge Plan Discharge Details Chief Complaint: [facility]Eval Primary Care Provider: Ivan Vizcaino ED Provider: Katiuska Hicks Home Meds and New Rx's Prescriptions: No Action hydroxyzine HCl 50 mg tablet 50 mg PO DAILY PRN Patient Comments: Has been using every day pantoprazole 40 mg tablet,delayed release (DR/EC) 40 mg PO DAILY Qty: 90 3RF olanzapine [Zyprexa] 5 mg tablet 15 mg PO HS Rx Instructions: Take 1 tablet twice daily buprenorphine-naloxone [Suboxone] 12-3 mg film 2 film sublingual 1XD docusate sodium [Colace] 100 mg capsule 100 mg PO BID gabapentin [Neurontin] 300 mg capsule 300 mg PO TID
[2022-09-09 08:08] VITALS: BP 112/73; PULSE 64; RESP 16; TEMP 36.3; O2SAT 96
[2022-09-09] MEDS: Buprenorphine/Naloxone 12 mg/3 mg FILM 2 EACH SL (08:19)
[2022-09-09] MEDS: Pantoprazole 40 MG TABCR PO (08:19)
[2022-09-09] MEDS: Gabapentin 300 MG CAP PO ×3 (08:21→20:32)
[2022-09-09] MEDS: Docusate Sodium 100 MG/10 ML CUP PO ×2 (08:21→20:32)
--- NOTE | 2022-09-09 10:00 | NUR.NOTE ---
Nursing Note: Report received from Janes MORROW
--- NOTE | 2022-09-09 10:00 | NUR.NOTE ---
Nursing Note: Report received from Janes MORROW
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
--- NOTE | 2022-09-09 10:12 | PDOC.CMSAFED ---
- If Service Date Differs Date of service: 09/09/22 Time of Service: 10:12 Care Management Safety Plan Status: Voluntary - Reason for Wait Reason for Wait: Assessment/Screening Chief Complaint: Frank presented to the ED with VSP and a mental health advocate from [facility]. He reports that he wants to end his life because he is concerned that his brother is coming to kill him. Per report, this has been thoroughly investigated, and there does not appear to be a threat to him by his brother in the community. He is well known to [facility], and has a significant past medical history of substance use, depression, and paranoid schizophrenia. He is in the ED awaiting screening by [facility]. 1500 Frank remains in the ER at [facility] while awaiting Voluntary placement at an accepting psych facility. No updates today per [facility]. VOLUNTARY FOR INPATIENT PSYCHIATRIC STABILIZATION. Patient is appropriate in all interactions since arriving at [facility]; Pt has demonstrated appropriate coping and communication skills, has articulated his or her needs and concerns and is fully engaged during staff interactions. Safety plan has been established with patient, and care team, to adhere to patient goals, identify restrictions based on behavioral status, address nutrition, and determine allowed personal belongings, tools for hygiene and personal care. Determine level of activity including ambulation, level of supervision, visitors, and determine privileges based on behaviors and level of engagement by pt. SAFETY PLAN: 1. Will remain on suicide precautions. In Paper Clothes 2. Will remain in room under direct supervision of one-on-one staff at all times provided by CPSO, TOP COLLAR MAKER, DISTRIBUTION ENGINEER canning machine operator. 3. May have paper cups, plates, finger foods as well as a cardboard spoon with which to eat meals. 4. Follow [facility] Management of the Admitted Behavioral Health Patient policy. 5. Shower permitted with escort at RN discretion. 6. No personal belongings-soft items permitted at RN discretion. 7. Visitors: per [facility] visitor policy and at RN discretion. 8. Activities: soft cart items, music tablet, television and other activities at RN discretion. 9. Bathroom privileges with escort in the ED, available in room without limitation on M/S. 10. Phone: may use [email or web address] hospital phone at RN discretion. 11. Due to VOLUNTARY status, if patient wishes to leave [facility], staff will contact [facility] Crisis Screener ([phone]) and On-Call Clinical Safety Specialist ([phone]) as soon as possible. In the event of elopement, notify [facility] Police ([phone]). Patient is currently voluntarily at [facility] and seeking inpatient admission when a bed becomes available. [facility] Frontline Dye House Supervisor will continue seeking placement. Please contact the Cub Reporter Clinical Safety Specialist ([phone]) and [facility] Dye House Supervisor ([phone]) for any needed changes in the Safety Plan. Safety plan has been provided to interdepartmental care team.
--- NOTE | 2022-09-09 14:04 | NUR.NOTE ---
Nursing Note: Pt sleeping in bed, no distress noted. Sitter at bedside. Will cont to monitor.
[2022-09-09] MEDS: OLANZapine 10 MG, OLANZapine 5 MG 15 MG PO (22:06)
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
--- NOTE | 2022-09-10 08:05 | CMSP_ITS ---
- If Service Date Differs Date of service: 09/10/22 Time of Service: 08:05 Care Management Safety Plan Status: Voluntary - Reason for Wait Reason for Wait: Inpatient Admission Chief Complaint: Frank presented to the ED on 09/07/22 with VSP and a mental health advocate from [facility]. He reports that he wants to end his life because he is concerned that his brother is coming to kill him. Per report, this has been thoroughly investigated, and there does not appear to be a threat to him by his brother in the community. He is well known to [facility], and has a significant past medical history of substance use, depression, and paranoid schizophrenia. He is in the ED awaiting screening by [facility]. 09/10/22 Frank remains in the ER at [facility] while awaiting Voluntary placement at an accepting psych facility. [facility] will continue to follow Frank per protocol. WILFRED contacted Patrica at [facility] and Aiyana is reviewing. No other updates. 09/09/22 per [facility] Note: [place] Not accepted, No bed available [facility] Not accepted, Only accepting in house referrals [facility] Not accepted, Only accepting in house referrals, [facility] Not accepted, No bed available VOLUNTARY FOR INPATIENT PSYCHIATRIC STABILIZATION. Patient is appropriate in all interactions since arriving at [facility]; Pt has demonstrated appropriate coping and communication skills, has articulated his or her needs and concerns and is fully engaged during staff interactions. Safety plan has been established with patient, and care team, to adhere to patient goals, identify restrictions based on behavioral status, address nutrition, and determine allowed personal belongings, tools for hygiene and personal care. Determine level of activity including ambulation, level of supervision, visitors, and determine privileges based on behaviors and level of engagement by pt. SAFETY PLAN: 1. Will remain on suicide precautions. In Paper Clothes 2. Will remain in room under direct supervision of one-on-one staff at all times provided by CPSO, CHURCH BUSINESS ADMINISTRATOR, EMAIL MARKETING MANAGER comparative sociology professor. 3. May have paper cups, plates, finger foods as well as a cardboard spoon with which to eat meals. 4. Follow [facility] Management of the Admitted Behavioral Health Patient policy. 5. Shower permitted with escort at RN discretion. 6. No personal belongings-soft items permitted at RN discretion. 7. Visitors: per [facility] visitor policy and at RN discretion. 8. Activities: soft cart items, music tablet, television and other activities at RN discretion. 9. Bathroom privileges with escort in the ED, available in room without limitation on M/S. 10. Phone: may use [employer] hospital phone at RN discretion. 11. Due to VOLUNTARY status, if patient wishes to leave [facility], staff will contact [facility] Crisis Screener ([phone]) and On-Call Rotary Envelope Machine Operator ([phone]) as soon as possible. In the event of elopement, notify [facility] Police ([phone]). Patient is currently voluntarily at [facility] and seeking inpatient admission when a bed becomes available. [facility] Frontline Hot Stick Man will continue seeking placement. Please contact the Commercial Collections Driver Rotary Envelope Machine Operator ([phone]) and [facility] Hot Stick Man ([phone]) for any needed changes in the Safety Plan. Safety plan has been provided to interdepartmental care team.
--- NOTE | 2022-09-10 08:05 | PDOC.CMSAFED ---
- If Service Date Differs Date of service: 09/10/22 Time of Service: 08:05 Care Management Safety Plan Status: Voluntary - Reason for Wait Reason for Wait: Inpatient Admission Chief Complaint: Frank presented to the ED on 09/07/22 with VSP and a mental health advocate from [facility]. He reports that he wants to end his life because he is concerned that his brother is coming to kill him. Per report, this has been thoroughly investigated, and there does not appear to be a threat to him by his brother in the community. He is well known to [facility], and has a significant past medical history of substance use, depression, and paranoid schizophrenia. He is in the ED awaiting screening by [facility]. 09/10/22 Frank remains in the ER at [facility] while awaiting Voluntary placement at an accepting psych facility. [facility] will continue to follow Frank per protocol. WILFRED contacted Patrica at [facility] and Aiyana is reviewing. No other updates. 09/09/22 per [facility] Note: [place] Not accepted, No bed available [facility] Not accepted, Only accepting in house referrals [facility] Not accepted, Only accepting in house referrals, [facility] Not accepted, No bed available VOLUNTARY FOR INPATIENT PSYCHIATRIC STABILIZATION. Patient is appropriate in all interactions since arriving at [facility]; Pt has demonstrated appropriate coping and communication skills, has articulated his or her needs and concerns and is fully engaged during staff interactions. Safety plan has been established with patient, and care team, to adhere to patient goals, identify restrictions based on behavioral status, address nutrition, and determine allowed personal belongings, tools for hygiene and personal care. Determine level of activity including ambulation, level of supervision, visitors, and determine privileges based on behaviors and level of engagement by pt. SAFETY PLAN: 1. Will remain on suicide precautions. In Paper Clothes 2. Will remain in room under direct supervision of one-on-one staff at all times provided by CPSO, INDUSTRIAL SWEEPER CLEANER, HOOF AND SHOE INSPECTOR material requirements worker. 3. May have paper cups, plates, finger foods as well as a cardboard spoon with which to eat meals. 4. Follow [facility] Management of the Admitted Behavioral Health Patient policy. 5. Shower permitted with escort at RN discretion. 6. No personal belongings-soft items permitted at RN discretion. 7. Visitors: per [facility] visitor policy and at RN discretion. 8. Activities: soft cart items, music tablet, television and other activities at RN discretion. 9. Bathroom privileges with escort in the ED, available in room without limitation on M/S. 10. Phone: may use [facility] hospital phone at RN discretion. 11. Due to VOLUNTARY status, if patient wishes to leave [facility], staff will contact [facility] Crisis Screener ([phone]) and On-Call Cloth Framer ([phone]) as soon as possible. In the event of elopement, notify [facility] Police ([phone]). Patient is currently voluntarily at [facility] and seeking inpatient admission when a bed becomes available. [facility] Frontline Bilingual Research Interviewer will continue seeking placement. Please contact the Senior Manager Mmcoe Cloth Framer ([phone]) and [facility] Bilingual Research Interviewer ([phone]) for any needed changes in the Safety Plan. Safety plan has been provided to interdepartmental care team.
[2022-09-10 08:07] VITALS: BP 118/77; PULSE 82; RESP 18; TEMP 36.9; O2SAT 97
[2022-09-10] MEDS: Pantoprazole 40 MG TABCR PO (08:15)
[2022-09-10] MEDS: Gabapentin 300 MG CAP PO ×3 (08:15→21:55)
[2022-09-10] MEDS: Buprenorphine/Naloxone 12 mg/3 mg FILM 2 EACH SL (08:18)
[2022-09-10] MEDS: Docusate Sodium 100 MG/10 ML CUP PO (08:18)
--- NOTE | 2022-09-10 20:02 | PDOC.MHPN2 ---
Date of service: 09/10/22 Time of Service: 09:33 PHQ-9 Over the last 2 weeks, how often have you been bothered by any of the following problems? 1. Little interest or pleasure in doing things: more than half the days 2. Feeling down, depressed, or hopeless: more than half the days 3. Trouble falling or staying asleep, or sleeping too much: several days 4. Feeling tired or having little energy: more than half the days 5. Poor appetite or overeating: not at all 6. Feeling bad about yourself - or that you are a failure or have let yourself and your family down: more than half the days 7. Trouble concentrating on things, such as reading the newspaper or watching television: several days 8. Moving or speaking so slowly that other people could have noticed? - Or the opposite - being so fidgety or restless that you have been moving around a lot more than usual: several days 9. Thoughts that you would be better off or of hurting yourself in some way: several days Total score: 12 If you checked off any problems, how difficult have these problems made it for you to do your work, take care of things at home, or get along with other people?: somewhat difficult PHQ-9 Results: Positive Source: Developed by Drs. Charles Corona, Nicki Baird, Margarito Art and colleagues, with an educational lonnie from [employer]. Suicide Severity Rate CSSRS Have you wished you were or wished you could go to sleep and not wake up?: No Have you actually had any thoughts of killing yourself?: Yes CSSRS2 Have you been thinking about how you might do this?: Yes Have you had these thoughts and had some intention of acting on them?: Yes Have you started to work out or worked out the details of how to kill yourself? Do you intend to carry out this plan?: Yes CSSRS3 Have you ever done anything, started to do anything or prepared to do anything to end your life?: No CSSRS4 Was this within the past three months?: No Screening Score Total Score: 2 Screening: Positive Mental Health Emergency Note Release [facility] release signed:: Yes Reason for Visit Client presented to [facility] ED on 09/07/22 after he called [facility] reporting that his brother was in his hotel room and was threatening to kill him. Client reported to [facility] dispatch if he stayed at his room he was going to kill himself. When client arrived at [facility] ED he had superficial cuts to his forearm and thumb. Client is currently seeking voluntary inpatient treatment and is seen today for daily re-assessment via zoom. In the last 2 weeks has the pt presented for ES prior to today?: No Client Information Client is: Adult Outpatient Well Housed: No,status: Homeless Unstable housing Non Suicidal Self Injury Current: No History: yes, Hx of intentional OD Safety Risk/Harm to Self or Others Current Ideation to Harm Self or Others: Yes to self. (Fleeting thoughts of SI, however denies intent. Client reports plan would be to overdose. ) Intent: no, has no intent. Plan: yes,has a plan. History of suicide attempt: No history of suicide attempt reported Risk: Does risk to harm exist?: yes. Access to means: Yes. Details: Client reports that he could obtain meth to overdose. . Counseling provided: No Risk: Moderate Risk Asssessment/Mental Status Appearance: Unremarkable Attitude: Guarded Behavior: Unremarkable Speech: Hesitant Affect: Flat and Cogruent with mood Mood: Stressed and Anxious Thought process: Unremarkable Hallucinations: yes, (Client reports that he hears and sees his brother threatening his life. ) Visual and Auditory Delusions: yes, Persectory/Paranoid Attention: Poor concentration Perception: Not impaired Orientation: Fully orientated Memory: Intact Insight: Fair Judgement: Fair Neurovegetative Symptoms Sleep: No change Appetitie: No change Interests: No change Energy: No change Libido: Not applicable Substance Use: Drug Issues: Drug screen result (Per drug screen client currently positive for meth. ) Do you use nicotine?: Yes Have you used substances in the last 7 days?: yes, Client reports using meth about a week ago. Additional Issues: Assaultive/Threatening Behavior: No Medical Concerns: No Client engaged in active self harm w/weapon: No Threatening to run away: No Child reported abuse/neglect: No Voluntarily presenting for services: Yes Domestic violence is a concern: No Extreme Psychosis or extreme behavior is present: No Impression Client is a 31 year old single male. Per review of client's chart, client currently resides at the [facility] in [place], [place]. Client presented to [facility] ED on 09/07/22 via VSP after he called 911 reporting that his brother was in his room and was stating that he was going to kill him. Client reported to dispatch if he stayed in his room he was going to kill himself. . Client is seen at [facility] ED via zoom. Client is observed by this selling underwriter to be laying down in hospital bed dressed in proper paper hospital attire. Client reports to this selling underwriter that he is still endorsing SI and he is hearing the voices still of his brother and Bhavik Stanley. Client states: I just want to be left alone and to stop being threatened. Client reports the voices are telling him that he is useless, their going to beat me up, and steal all of his money. Client reports that he last used meth about a week ago. Client has prior history of auditory and visual hallucinations and has reported numerous people being after him and threatening his life. Client was released from [facility] about 2 weeks ago after a voluntary inpatient stay for auditory and visual hallucinations and has also been to substance abuse treatment at [facility]. Client is beginning to show small improvements stating that it is voices that is he hearing. Client will continue to await for voluntary inpatient treatment at this time, as he is unable to contract for safety at this time. Resources Reosurces reviewed and given:: [phone] and [facility] (Client will call [facility] ES @7p for check-in phone call tonight. ) Plan/Disposition Recommended Disposition: [facility] (Client will call [facility] ES @7p for check-in phone call tonight. ) [facility] Services: Other. Plan: Client will remain at [facility] ED on voluntary status pending admission to an inpatient facility. Referrals have been faxed to [facility], [facility], , and [facility]. Client will be re-assessed daily until placement is secured or his acuity decreases and he is able to be safety planned home. This selling underwriter outreached to [facility] and they have received clients referral, however there is no bed availability today. [facility] has received referral as well and it is currently under review. Both [facility] and [facility] are only accepting in house referrals. Person reported agreement to plan: Yes Facilities contacted if Applicable [facility] Not accepted, No bed available [facility] Not accepted, Only accepting in house referrals [facility] Not accepted, Only accepting in house referrals, [facility] Not accepted, No bed available Reports/communication Outcome discussed with: ED/Personnel (Verbal passover given to ED provider Dr. Arnold)
[2022-09-10] MEDS: OLANZapine 10 MG, OLANZapine 5 MG 15 MG PO (21:55)
[2022-09-11 05:38] VITALS: BP 130/81; PULSE 74; RESP 16; TEMP 36.7; O2SAT 96
[2022-09-11] MEDS: Pantoprazole 40 MG TABCR PO (09:00)
[2022-09-11] MEDS: Docusate Sodium 100 MG/10 ML CUP PO (09:00)
[2022-09-11] MEDS: Gabapentin 300 MG CAP PO (09:00)
[2022-09-11] MEDS: Buprenorphine/Naloxone 12 mg/3 mg FILM 2 EACH SL (09:00)
--- NOTE | 2022-09-11 10:00 | RT.EKG_ITS ---
APPROVED REPORT Exam: Resting ECG Reason for Exam: request by butch simoneafrancisco given cocaine use Patient Location: E HR:85 bpm ECG Measurements Heart Rate 85 AXIS MN 143 P 39 QRSd 100 QRS 74 QT 385 T 54 QTc 459 Conclusion Sinus rhythm...normal P axis, V-rate 60- 99
--- NOTE | 2022-09-11 10:35 | PDOC.MHPN2 ---
Date of service: 09/11/22 Time of Service: 09:50 Mental Health Emergency Note Release [facility] release signed:: Yes Reason for Visit Client is endorsing SI with Intent In the last 2 weeks has the pt presented for ES prior to today?: Unknown Client Information Client is: Adult Outpatient Non Suicidal Self Injury Current: No History: No Safety Risk/Harm to Self or Others Current Ideation to Harm Self or Others: Yes to self. Intent: yes, has intent. Plan: yes,has a plan. History of suicide attempt: yes,history of suicide attempt reported. Details of previous suicide attempt: SI attempt Risk: Does risk to harm exist?: No Duty to warn indicated: No Asssessment/Mental Status Appearance: Disheveled Attitude: Cooperative Behavior: Unremarkable Speech: Soft and Slow Affect: Flat and Cogruent with mood Mood: Sad and Depressed Thought process: Unremarkable Hallucinations: yes, Auditory Delusions: yes, Persectory/Paranoid Attention: Poor concentration Perception: Not impaired Orientation: Fully orientated Memory: Intact Insight: Fair Judgement: Fair Neurovegetative Symptoms Sleep: No change Appetitie: No change Interests: No change Energy: No change Libido: Not applicable Substance Use: Other (Meth) Drug Issues: Dependence Do you use nicotine?: Yes Have you used substances in the last 7 days?: No Additional Issues: Assaultive/Threatening Behavior: No Medical Concerns: No Client engaged in active self harm w/weapon: No Threatening to run away: No Child reported abuse/neglect: No Voluntarily presenting for services: Yes Domestic violence is a concern: No Extreme Psychosis or extreme behavior is present: No Impression The client currently endorses SI with intent and plan. 7/8 out of 10 Plan/Disposition Recommended Disposition: Hospitalization facilities contacted. Plan: The client will remain at [facility] for voluntary inpatient treatment Person reported agreement to plan: Yes Facilities contacted if Applicable [facility], Pending review. Information Sent to [place]: Referral [facility] Accepted, Pending review. Information Sent to [facility]: Referral [facility] Accepted, Pending review. [facility] to [facility], [facility]. Information Sent to [place]: Referral Reports/communication Outcome discussed with: ED/Personnel
--- NOTE | 2022-09-11 12:10 | NUR.NOTE ---
Nursing Note: nurse to nurse given to Chandni at [facility] [place] [facility].
--- NOTE | 2022-09-11 12:52 | ED.PROG_ITS ---
Date of service: 09/11/22 Time of Service: 12:52 Medical Decision Making Care was signed out by Dr. Brown, please see his documentation regarding prior ED course. Plan at signout was to follow-up on psychiatric treatment facility placement. Psychiatric treatment facility requesting EKG be performed given history of cocaine abuse. EKG was reviewed and interpreted by me: Please see report, nondiagnostic. [facility] by [facility]. I spoke with nurse practitioner Humphrey and discussed ED course. She will accept the patient in transfer. Sign Out Sign Out Data: Sign Out Comment: Paranoid schizophrenia, did give 10 of Zyprexa last night upon arrival. No other interventions needed. Voluntary, pending mental health assessment/placement Last updated by Jeff Brown DO at 09/08/22 06:57 Sign Out Comment: schizophrenia, paranoia, depression, SI awaiting placement Last updated by Timothy José MD at 09/08/22 16:06 Sign Out Comment: Waiting voluntary placement. No issues on my shift. Medications reconciled and ordered. Last updated by Charles Ferro MD at 09/08/22 22:31 Sign Out Comment: Voluntary. Medically cleared. No events overnight. Continue to monitor while awaiting placement. Last updated by Katiuska Hicks DO at 09/09/22 08:34 Sign Out Comment: voluntary, awaiting placment, prn meds given today, no issues Last updated by Timothy José MD at 09/09/22 19:56 Sign Out Comment: Stable throughout the night. No interventions needed. Last updated by Jeff Brown DO at 09/10/22 07:36 Sign Out Comment: voluntary, awaiting placement Last updated by Timothy José MD at 09/10/22 20:13 Sign Out Comment: Voluntary, stable throughout the night. No interventions needed. Last updated by Jeff Brown DO at 09/11/22 07:42 Discharge Plan Disposition Patient Disposition: Psychiatric Hospital/Unit Specific Psychiatric Facility: [facility] Discharge Details Chief Complaint: PsychEval Clinical Impression: Paranoid schizophrenia Primary Care Provider: Ivan Vizcaino ED Provider: Dean Harris Home Meds and New Rx's Prescriptions: No Action hydroxyzine HCl 50 mg tablet 50 mg PO DAILY PRN Patient Comments: Has been using every day pantoprazole 40 mg tablet,delayed release (DR/EC) 40 mg PO DAILY Qty: 90 3RF olanzapine [Zyprexa] 5 mg tablet 15 mg PO HS Rx Instructions: Take 1 tablet twice daily buprenorphine-naloxone [Suboxone] 12-3 mg film 2 film sublingual 1XD docusate sodium [Colace] 100 mg capsule 100 mg PO BID gabapentin [Neurontin] 300 mg capsule 300 mg PO TID
--- NOTE | 2022-09-11 14:09 | CMPROGNOTE_ITS ---
- If Service Date Differs Date of service: 09/11/22 Time of Service: 14:09 Care Management Progress Note 9:30am- CM called [facility] for an update on placement for Frank. Aliza [facility], stated that [facility] would be doing a zoom screening shortly. WILFRED checked in with ED staff, zoom was being set up. 11:00am-12:00pm- ED staff informed WILFRED that a MD to MD was completed. Frank was accepted at [facility]. WILFRED called to inquire about setting up transport, which was confirmed. WILFRED called [facility], who was available to transport. WILFRED set up transport for 12:45pm.
== END 2022-09-11 12:52 ==
PROVIDERS: Student in an Organized Health Care Education/Training Program; Emergency Provider Student in an Organized Health Care Education/Training Program; PCP Family Medicine
DX: F20.0 Paranoid schizophrenia (principal); F32.A Depression, unspecified; R45.851 Suicidal ideations; S60.812A Abrasion of left wrist, initial encounter; F90.9 Attention-deficit hyperactivity disorder, unspecified type; X58.XXXA Exposure to other specified factors, initial encounter
CPT/HCPCS: 80053; 80307; 93005; 99285; 80320; 80329; 84443; 85025; 93010

== ENCOUNTER 2022-11-29 00:07 | Emergency (ER) | payer MEDICAID, SELFPAY ==
--- NOTE | 2022-11-29 | RT.EKG_ITS ---
APPROVED REPORT Exam: Resting ECG Reason for Exam: CP Patient Location: E HR:93 bpm ECG Measurements Heart Rate 93 AXIS CO 134 P 28 QRSd 102 QRS 77 QT 386 T 22 QTc 481 Conclusion Sinus rhythm...normal P axis, V-rate 60- 99 no interum change vs prior
--- NOTE | 2022-11-29 | RT.EKG_ITS ---
APPROVED REPORT Exam: Resting ECG Reason for Exam: CHEST PAIN Patient Location: E HR:84 bpm ECG Measurements Heart Rate 84 AXIS IL 144 P 44 QRSd 105 QRS 73 QT 391 T 16 QTc 463 Conclusion Sinus rhythm...normal P axis, V-rate 60- 99 Little change vs 09/28
--- NOTE | 2022-11-29 | DI.RAD_ITS ---
Exam(s) XR PORTABLE CHEST AP EXAM: XR PORTABLE CHEST AP CLINICAL HISTORY: CP. TECHNIQUE: 2D digital imaging was performed. COMPARISON: CR XR PORTABLE CHEST AP from 07/30/2020 FINDINGS: Single AP portable view. Heart size is upper normal. The mediastinum is not widened. Lungs are clear. No infiltrates nor obvious pleural effusions. IMPRESSION: No acute pulmonary findings on this single AP portable view of the chest. DATA REPOSITORY: RADIATION DOSE DELIVERED:
[2022-11-29 00:15] VITALS: BP 126/85; PULSE 82; RESP 16; TEMP 36.6; O2SAT 99
[2022-11-29 00:25] LABS: Absolute Basophil Count 0.02 10^3/uL (0.0-0.2); Absolute Eosinophil Count 0.07 10^3/uL (0.0-0.7); Absolute Lymphocyte Count 2.59 10^3/uL (1.2-3.4); Absolute Monocyte Count 0.43 10^3/uL (0.1-0.8); Absolute Neutrophil Count 2.94 10^3/uL (1.2-6.7); Basophils % 0.3; Eosinophils % 1.2; HCT 39.1 % (40.0-50.0); HGB 13.3 g/dL (13.5-17.5); Lymphocytes % 42.8; MCH 29.4 pg (27.0-33.0); MCV 87 fL (80-95); MPV 8.6 fL (8.0-11.0); Monocytes % 7.1; Neutrophils % 48.6; Platelet Count 245 10^3/uL (130-400); RBC 4.52 10^6/uL (4.36-5.78); RDW 14.5 % (11.8-14.1); RDW-SD 46.4 fL; WBC 6.05 10^3/uL (4.4-10.8)
--- NOTE | 2022-11-29 00:27 | NUR.NOTE ---
Nursing Note: TOMAS from home, pt states he began to have CP tonight, admits to drug use yesterday. Pt a+ox3 Iv established, EKG done x-ray at bedside
[2022-11-29 00:45] LABS: ALT 35 U/L (16-63); AST 20 U/L (15-37); Albumin 3.6 g/dL (3.4-5.0); Alkaline Phosphatase 61 U/L (46-116); Anion Gap 8.8 mmol/L (3-11); BUN 13 mg/dL (7-18); Bilirubin, Total 0.4 mg/dL (0.2-1.0); CO2 27.2 mmol/L (21.0-32.0); CREATININE 1.1 mg/dL (0.70-1.30); Chloride 102 mmol/L (98-107); Estimated GFR 90.34 (mL/min/1.73m2); Glucose 116 mg/dL (74-106); Potassium 3.4 mmol/L (3.5-5.1); Sodium 138 mmol/L (136-145); Total Protein 7.5 g/dL (6.4-8.2); Troponin I < 50 ng/L (<or=60)
[2022-11-29] MEDS: hydrOXYzine HCL 25 MG TAB 100 MG PO (01:14)
--- NOTE | 2022-11-29 01:20 | NUR.NOTE ---
Nursing Note: pt c/o anxiety and requesting pain meds, the pt had EKG #2, po meds given
--- NOTE | 2022-11-29 02:04 | DI.VRAD_ITS ---
PROCEDURE INFORMATION: Exam: XR Chest Exam date and time: 11/29/2022 12:31 AM Age: 32 years old Clinical indication: Pain; Other: Cp TECHNIQUE: Imaging protocol: Radiologic exam of the chest. Views: 1 view. COMPARISON: CR XR PORTABLE CHEST AP 07/30/2020 9:07 AM FINDINGS: Lungs: Unremarkable. No consolidation. Pleural spaces: Unremarkable. No pleural effusion. No pneumothorax. Heart/Mediastinum: Unremarkable. No cardiomegaly. Bones/joints: Unremarkable. IMPRESSION: No acute findings. Dictated and Authenticated by: Rob Gay MD. Ordering:CLAUDETTE Tate MD
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
--- NOTE | 2022-11-29 02:48 | NUR.NOTE ---
Nursing Note: trop drawn and sent
[2022-11-29 03:08] LABS: Troponin I < 50 ng/L (<or=60)
[2022-11-29 03:24] VITALS: BP 113/72; PULSE 62; RESP 18; O2SAT 99
== END 2022-11-29 04:28 | disposition home or self-care (01) ==
PROVIDERS: Emergency Provider Emergency Medicine; PCP Family Medicine
DX: F41.9 Anxiety disorder, unspecified (principal); R07.9 Chest pain, unspecified; F25.9 Schizoaffective disorder, unspecified
CPT/HCPCS: 36415; 80053; 93005; 99283; 71045; 83735; 84484; 85025; 93010

== ENCOUNTER 2023-04-13 18:45 | Emergency (ER) | payer MEDICAID, SELFPAY ==
[2023-04-13 18:52] VITALS: BP 132/80; PULSE 89; RESP 16; TEMP 36.9; O2SAT 99
--- NOTE | 2023-04-13 19:30 | RT.EKG_ITS ---
APPROVED REPORT Exam: Resting ECG Reason for Exam: Patient Location: E HR:81 bpm ECG Measurements Heart Rate 81 AXIS NH 137 P 23 QRSd 100 QRS 70 QT 376 T 38 QTc 436 Conclusion Sinus rhythm...normal P axis, V-rate 60- 99 Physician: no stemi
--- NOTE | 2023-04-13 19:35 | ED.GENADUL_ITS ---
Discharge Plan Disposition Patient Disposition: Home Condition: Good Discharge Details Clinical Impression: Anxiety, Abdominal pain Primary Care Provider: Ivan Vizcaino ED Provider: Amarilis Falcon Home Meds and New Rx's Prescriptions: Continued pantoprazole 40 mg tablet,delayed release (DR/EC) 40 mg PO DAILY Qty: 90 3RF Hold Instructions: Home Medication placed on hold at Doctor's office buprenorphine-naloxone [Suboxone] 12-3 mg film 2 film sublingual 1XD gabapentin [Neurontin] 300 mg capsule 300 mg PO Q8H PRN risperidone 0.5 mg tablet 1.5 mg PO BID ferrous sulfate [FeroSul] 325 mg (65 mg iron) tablet 325 mg PO DAILY buspirone 10 mg tablet buspirone 10 mg tablet 10 mg PO DAILY Discharge Instructions Instructions: Abdominal Pain (ED), Anxiety (ED) Additional Instructions: Your labs and EKG are reassuring here today. Please continue to encourage hydration. Tylenol and ibuprofen as needed for discomfort. Please follow-up with your primary care in 2 weeks for reevaluation. Please keep your likely therapy appointments. If you develop any new or worsening symptoms please seek care urgently once again. Please continue with your Protonix as previously prescribed. Referrals: Ivan Vizcaino DO [Primary Care Provider] - Medical Decision Making Patient is a pleasant 32 year old male, PMH schizoaffective disorder, SCOTTY, GERD, anxiety, ADHD, presenting with c/d of intermittent abdominal pain. Indicates the epigastric area as sight of pain, it does not radiate. Will occasionally get some left sided CP at the same time. He states that hen he gets the pain, it lasts about 2 minutes and is a pressure that then relieves, no pain currently. No change in BM or urinary habits. Has had issues with constipation in the past which he associated with Suboxone use. Denies fevers/chills. Has not had pain like thi sin the past. Has had increased stress and anxiety recently. Pain not associated with food intake or with activity. Has had hx of GERD and take protonix, does not feel that this is what he is feeling. No personal or familial hx of cardiac disorder. On exam, patient appears anxious but otherwise nontoxic. Lungs are clear, normal cardiac exam. Abdominal exam without tenderness, organomegally, CVA tenderness, no masses. Will obtain baeline labs, lipase for possible pancreatitis. While patient is overall low risk for cardiac etiology, his hx of SCOTTY does increase his risk, will obtain ECG and tropponin. If negative, I do not feel a second will be needed as this is not exertional pain and has been going on few a few days. ECG reviewed by Dr. Brown, no acute ischemic pathology. Labs reviewed, no significant abnormality. No leukocytosis, normal troponin, normal lipase. Patient unchanged with mylanta, however, was not having pain at time of administration. He is questioning if this could be anxiety. He has had anxiety in the past and is starting to see therapist weekly, first session was on Sunday. He denies SI/HI. Feels safe to go home and will f/u with PCP. Return precautions discussed. All of his questions and concerns were addresed, he is in agreement with this plan. HPI General Date/Time Provider Initiated Documentation: 04/13/23 19:16 . Limitations to Documentation: no limitations . Information obtained by: patient and RN notes reviewed . History of Present Illness 32 year old M presents to the emergency department with the chief complaint of abdominal pain, described as mild, with intensity rated at 4 (denies pain now, only lasts for 1-2 mins). Quality is described as other (pressure), and is localized to the abdomen. Patient reports no radiation. Patient started experiencing this day(s) and it has been intermittent. No relieving factors improve symptom(s), No exacerbating factors reported . Patient notes chest pain; denies cough, diaphoresis, fever/chills, headaches, loss of appetite, malaise, nausea/vomiting, shortness of breath and weakness. Patient did receive the following treatments prior to arrival, none Related Data Home Medications Medication Instructions Recorded Confirmed pantoprazole 40 mg tablet,delayed 40 mg PO DAILY #90 tabs 08/24/22 04/13/23 release buprenorphine 12 mg-naloxone 3 mg 2 film sublingual 1XD 09/01/22 04/13/23 sublingual film (Suboxone) gabapentin 300 mg capsule 300 mg PO Q8H PRN 09/28/22 04/13/23 (Neurontin) ferrous sulfate 325 mg (65 mg 325 mg PO DAILY 10/24/22 11/29/22 iron) tablet (FeroSul) risperidone 0.5 mg tablet 1.5 mg PO BID 10/24/22 04/13/23 buspirone 10 mg tablet 10 mg PO DAILY 04/13/23 04/13/23 buspirone 10 mg tablet mg 04/13/23 04/13/23 Previous Rx's Medication Instructions Recorded pantoprazole 40 mg tablet,delayed 40 mg PO DAILY #90 tabs 08/24/22 release Allergies Allergy/AdvReac Type Severity Reaction Status Date / Time methylphenidate AdvReac Severe left Verified 04/13/23 18:59 [From Ritalin] arm,tongue,face numbness,tingling General Stated Complaint: Abd Prob STAR: 3 Review of Systems Constitutional Constitutional: Reports as per HPI, Denies chills, Denies fatigue, Denies fever(s) and Denies headache(s) ENT Ears, Nose, Mouth, and Throat: Denies headache(s) Cardiovascular Cardiovascular: Reports as per HPI, Reports chest pain, Denies chest pain with activity and Denies dyspnea Respiratory Respiratory: Reports as per HPI, Denies cough and Denies dyspnea Gastrointestinal Gastrointestinal: Reports as per HPI Genitourinary Genitourinary: Denies system reviewed and no additional complaints, except as documented (patient denies any change in urinary habits) Musculoskeletal Musculoskeletal: Reports as per HPI and Denies back pain Integumentary/Breasts Skin/Breast: Reports as per HPI and Denies rash Neurologic Neurologic: Reports as per HPI and Denies headache(s) Psychiatric Psychiatric: Reports anxiety and Denies suicidal ideation Endocrine Endocrine: Denies fatigue PFSH All Active Problems (Updated 04/13/23 @ 20:27 by HERMELINDA Almeida) Abdominal pain (Acute) Cocaine use disorder, severe, in early remission (Acute ~09/22/22) Schizoaffective disorder, unspecified (Chronic ~09/22/22) Opioid use disorder, severe, dependence (Acute) Iron deficiency anemia, unspecified (Acute) Gastro-esophageal reflux disease without esophagitis (Acute) Amphetamine-type substance use disorder, severe (Acute) Tobacco use disorder (Chronic) Opioid use disorder, mild, in early remission (Acute 02/08/22) Methamphetamine use disorder, severe (Acute 02/08/22) Paranoid delusion (Acute) Anemia, mild (Acute) Stimulant abuse (Acute) Paranoid schizophrenia (Chronic) Depression (Chronic) Stress at home (Acute) GERD (gastroesophageal reflux disease) (Chronic) Anxiety (Chronic) ADHD (Chronic) Medical History ADHD Depression Drug abuse Moderate opioid dependence on maintenance therapy Family History Father , colon ca at age 70. Colon cancer Social History Smoking/Tobacco Use Status: Current every day Tobacco Type: cigarettes Smoking risk assessment performed?: Yes Alcohol Intake: current Alcohol Intake frequency: a few times a month Alcohol type: other Drug use: Occasionally Substance use type: opiates and methamphetamine Details: Used meth 2 days ago Do you feel safe at home: Yes Do you feel safe in your relationship?: Yes Exam Const General: cooperative, healthy appearing, comfortable, no acute distress, well developed and anxious Nutritional Appearance: average body habitus and well nourished Orientation: alert and awake HENMT Head: normal to inspection Mouth: moist mucous membranes Resp Effort & Inspection: normal respiratory effort, able to speak in complete sentences and no respiratory distress Auscultation: clear to auscultation bilaterally, no rales, no rhonchi and no wheezes Cardio Rate: regular rate Rhythm: regular rhythm Heart Sounds: S1 normal and S2 normal GI Inspection: normal to inspection Palpation: soft, no hepatosplenomegaly, not firm, no guarding, no hernias, no masses, not rigid, nontender and No ascites Back/Spine/Pelvis Back: no CVA tenderness Skin General skin exam: no rashes or lesions noted Trauma: no lacerations or abrasions Neuro General: patient alert and patient awake Cognition: normal cognition Speech: speech normal Gait: normal gait Psych Appearance: grossly normal and well kempt Mental Status: mental status grossly normal Speech and Movement: speech and movement normal Mood: congruent mood Attitude: guarded Thought Process: normal Thought Content: normal and suicidality Insight: insight good Judgment: judgment good Course Vital Signs Vital signs: Vital Signs Temperature 36.9 C 04/13/23 18:52 Pulse 89 04/13/23 18:52 Respiratory Rate 16 04/13/23 18:52 Blood Pressure 132/80 04/13/23 18:52 Pulse Oximetry 99 04/13/23 18:52 Temperature 36.9 C 04/13/23 18:52 Temperature Source Oral 04/13/23 18:52 Pulse 89 04/13/23 18:52 Respiratory Rate 16 04/13/23 18:52 Respiratory Effort Normal 04/13/23 19:06 Blood Pressure 132/80 04/13/23 18:52 Blood Pressure Position Sitting 04/13/23 18:52 Pulse Oximetry 99 04/13/23 18:52 Oxygen Delivery Method Room Air 04/13/23 18:52 Oxygen Flow Rate 0 04/13/23 18:52 Pain Level 0 04/13/23 19:06 PAWSS Have you Been Recently Intoxicated or Drunk Within the Last 30 days?: No Result: 0
[2023-04-13 19:49] LABS: Abs Immature Grans 0.01 10^3/uL (0.0-0.06); Absolute Basophil Count 0.02 10^3/uL (0.0-0.2); Absolute Eosinophil Count 0.23 10^3/uL (0.0-0.7); Absolute Lymphocyte Count 2.78 10^3/uL (1.2-3.4); Absolute Monocyte Count 0.34 10^3/uL (0.1-0.8); Absolute Neutrophil Count 3.45 10^3/uL (1.2-6.7); Basophils % 0.3; Eosinophils % 3.4; HCT 41.1 % (40.0-50.0); HGB 14.1 g/dL (13.5-17.5); Immature Grans % 0.1; Lymphocytes % 40.7; MCH 30.7 pg (27.0-33.0); MCHC 34.3 % (32.0-36.0); MCV 90 fL (80-95); MPV 8.8 fL (8.0-11.0); Neutrophils % 50.5; Platelet Count 255 10^3/uL (130-400); RBC 4.59 10^6/uL (4.36-5.78); RDW 12.4 % (11.8-14.1); RDW-SD 40.7 fL; WBC 6.83 10^3/uL (4.4-10.8)
[2023-04-13 20:09] LABS: ALT 29 U/L (16-63); AST 16 U/L (15-37); Albumin 3.9 g/dL (3.4-5.0); Alkaline Phosphatase 70 U/L (46-116); Anion Gap 9.2 mmol/L (3-11); BUN 17 mg/dL (7-18); Bilirubin, Total 0.3 mg/dL (0.2-1.0); CO2 29.8 mmol/L (21.0-32.0); Calcium 9.4 mg/dL (8.5-10.1); Chloride 98 mmol/L (98-107); Estimated GFR 101.28 (mL/min/1.73m2); Glucose 89 mg/dL (74-106); Lipase 22 U/L (16-77); Magnesium 2.1 mg/dL (1.8-2.4); Potassium 3.7 mmol/L (3.5-5.1); Sodium 137 mmol/L (136-145); Total Protein 7.8 g/dL (6.4-8.2); Troponin I < 50 ng/L (<or=60)
[2023-04-13] MEDS: Lactated Ringers 1,000 ML 1000 ML IV (20:21)
[2023-04-13 20:40] VITALS: BP 110/78; PULSE 74; RESP 16; O2SAT 99
== END 2023-04-13 20:43 | disposition home or self-care (01) ==
PROVIDERS: Emergency Provider Physician Assistant; PCP Family Medicine
DX: R10.13 Epigastric pain (principal)
CPT/HCPCS: 80053; 83690; 93005; 96365; 99284; 83735; 84484; 85025; 93010; 99283

== ENCOUNTER 2023-05-02 13:05 | Emergency (ER) | payer MEDICAID, SELFPAY ==
[2023-05-02 13:14] VITALS: BP 137/70; PULSE 99; RESP 18; TEMP 36.6; O2SAT 99
--- NOTE | 2023-05-02 14:20 | ED.GENADUL_ITS ---
Discharge Plan Disposition Patient Disposition: Home Condition: Stable Discharge Details Clinical Impression: Methadone withdrawal Primary Care Provider: Ivan Vizcaino ED Provider: Dean Harris Home Meds and New Rx's Prescriptions: Continued pantoprazole 40 mg tablet,delayed release (DR/EC) 40 mg PO DAILY Qty: 90 3RF Hold Instructions: Home Medication placed on hold at Doctor's office nicotine 21-14-7 mg/24 hr patch, TD daily, sequential See Rx Instructions transdermal .COMPLEX Qty: 56 0RF Hold Instructions: Pt Stopped/Never Started Rx Instructions: apply 1-21 mg NICOTINE PATCH daily for 28 days; follow with 1-14 mg PATCH daily for 14 days, then 1-7mg PATCH daily for 14 days transdermal buprenorphine-naloxone [Suboxone] 12-3 mg film 2 film sublingual 1XD gabapentin [Neurontin] 300 mg capsule 300 mg PO Q8H PRN risperidone 0.5 mg tablet 1.5 mg PO BID ferrous sulfate [FeroSul] 325 mg (65 mg iron) tablet 325 mg PO DAILY Hold Instructions: Pt Stopped/Never Started buspirone 10 mg tablet 10 mg PO DAILY Discontinued buspirone 10 mg tablet Discharge Instructions Instructions: Methamphetamine Abuse (ED) Additional Instructions: Please contact your primary care physician to arrange follow-up. [facility] with [facility]. Please follow-up with your substance use disorder orientation and mobility specialist at [facility]. Call today. Return to the ER immediately for any worsening or new concerning symptom Referrals: [facility] [Outside] Ivan Vizcaino DO [Primary Care Provider] - Medical Decision Making 32-year-old male with history of opioid use disorder, on Suboxone, methamphetamine use disorder, currently withdrawing from methamphetamine use. Last used 3 days ago. Patient has restless leg and difficulty sleeping. Patient is hemodynamically stable. No hallucinations. I will provide a dose of Ativan here and 1 dose to go to help him sleep tonight. I recommend the patient follow-up with his substance orientation and mobility specialist and PCP regarding ongoing care of his withdrawal. Usual customary discharge instructions reviewed with the patient. HPI General Mode of arrival: ambulatory . Date/Time Provider Initiated Documentation: 05/02/23 13:36 . Limitations to Documentation: no limitations . Information obtained by: patient . HPI Narrative: 32-year-old male with multiple medical problems including opioid use disorder, on Suboxone, methamphetamine use disorder, here with chief complaint of withdrawal from methamphetamine. Patient last used 3 days ago. Patient notes he is experiencing difficulty sleeping and restless leg. Patient is followed by [facility] for opioid use disorder. Related Data Home Medications Medication Instructions Recorded Confirmed pantoprazole 40 mg tablet,delayed 40 mg PO DAILY #90 tabs 08/24/22 05/02/23 release buprenorphine 12 mg-naloxone 3 mg 2 film sublingual 1XD 09/01/22 05/02/23 sublingual film (Suboxone) gabapentin 300 mg capsule 300 mg PO Q8H PRN 09/28/22 05/02/23 (Neurontin) ferrous sulfate 325 mg (65 mg 325 mg PO DAILY 10/24/22 05/02/23 iron) tablet (FeroSul) risperidone 0.5 mg tablet 1.5 mg PO BID 10/24/22 05/02/23 buspirone 10 mg tablet 10 mg PO DAILY 04/13/23 05/02/23 nicotine See Rx Instructions transdermal 04/27/23 05/02/23 21mg/24hr-14mg/24hr-7mg/24hr daily .COMPLEX #56 patches transderm patches,sequentl Previous Rx's Medication Instructions Recorded pantoprazole 40 mg tablet,delayed 40 mg PO DAILY #90 tabs 08/24/22 release nicotine See Rx Instructions transdermal 04/27/23 21mg/24hr-14mg/24hr-7mg/24hr daily .COMPLEX #56 patches transderm patches,sequentl Allergies Allergy/AdvReac Type Severity Reaction Status Date / Time methylphenidate AdvReac Severe left Verified 05/02/23 13:18 [From Ritalin] arm,tongue,face numbness,tingling General Stated Complaint: DrugWithdr/MAT STAR: 3 PFSH All Active Problems (Updated 05/02/23 @ 14:32 by Dean Harris MD) Methadone withdrawal (Acute) Abdominal pain (Acute) Cocaine use disorder, severe, in early remission (Acute ~09/22/22) Schizoaffective disorder, unspecified (Chronic ~09/22/22) Opioid use disorder, severe, dependence (Acute) Iron deficiency anemia, unspecified (Acute) Gastro-esophageal reflux disease without esophagitis (Acute) Amphetamine-type substance use disorder, severe (Acute) Tobacco use disorder (Chronic) Opioid use disorder, mild, in early remission (Acute 02/08/22) Methamphetamine use disorder, severe (Acute 02/08/22) Paranoid delusion (Acute) Anemia, mild (Acute) Stimulant abuse (Acute) Paranoid schizophrenia (Chronic) Depression (Chronic) Stress at home (Acute) GERD (gastroesophageal reflux disease) (Chronic) Anxiety (Chronic) ADHD (Chronic) Medical History Moderate opioid dependence on maintenance therapy Drug abuse ADHD Depression Family History Father , colon ca at age 70. Colon cancer Social History Smoking/Tobacco Use Status: Current every day Tobacco Type: cigarettes Smoking risk assessment performed?: Yes Alcohol Intake: current Alcohol Intake frequency: a few times a month Alcohol type: other Drug use: Never Substance use type: opiates and methamphetamine Details: Used meth 2 days ago Do you feel safe at home: Yes Do you feel safe in your relationship?: Yes Exam Const General: cooperative and no acute distress HENMT Mouth: moist mucous membranes Resp Effort & Inspection: normal respiratory effort Cardio Rate: regular rate and not tachycardic Rhythm: regular rhythm Neuro General: patient alert, patient awake, patient oriented x3 and tone normal Psych Appearance: grossly normal Mental Status: mental status grossly normal Speech and Movement: speech and movement normal Course Vital Signs Vital signs: Vital Signs Temperature 36.6 C 05/02/23 13:14 Pulse 99 H 05/02/23 13:14 Respiratory Rate 18 05/02/23 13:14 Blood Pressure 137/70 05/02/23 13:14 Pulse Oximetry 99 05/02/23 13:14 Temperature 36.6 C 05/02/23 13:14 Temperature Source Oral 05/02/23 13:14 Pulse 99 H 05/02/23 13:14 Respiratory Rate 18 05/02/23 13:14 Respiratory Effort Normal, Non-Labored 05/02/23 14:11 Blood Pressure 137/70 05/02/23 13:14 Blood Pressure Position Sitting 05/02/23 13:14 Pulse Oximetry 99 05/02/23 13:14 Oxygen Delivery Method Room Air 05/02/23 13:14 Oxygen Flow Rate 0 05/02/23 13:14 PAWSS Have you Been Recently Intoxicated or Drunk Within the Last 30 days?: No Have you Ever Experienced Previous Episodes of Alcohol Withdrawal?: No Have you ever Experienced Withdrawal Seizures?: No Have you ever Experienced Delirium Tremens(DT)s?: No Have you ever undergone Alcohol Rehabilitation Treatment (i.e, inpt ot outpatient treatment programs)?: No Have you ever Experienced Blackouts?: No Have you ever Combined Alcohol with other Downers within the last 90 days?: No Have you ever Combined Alcohol with any other Substance of Abuse during the last 90 days?: No Positive Blood Alcohol level on Presentation? [PCS.BAL]: No Evidence of Increased Autonomic Activity (i.e. HR>120, tremor, sweating, agitation, nausea)?: No Result: 0
[2023-05-02] MEDS: LORazepam 1 MG TAB PO ×2 (14:31→14:32)
[2023-05-02 14:44] VITALS: BP 130/88; PULSE 91; RESP 14; O2SAT 100
== END 2023-05-02 14:45 | disposition home or self-care (01) ==
PROVIDERS: Emergency Provider Student in an Organized Health Care Education/Training Program; PCP Family Medicine
DX: R51.9 Headache, unspecified (principal); R45.1 Restlessness and agitation; F15.23 Other stimulant dependence with withdrawal; F11.20 Opioid dependence, uncomplicated; Z79.899 Other long term (current) drug therapy
CPT/HCPCS: 99283; 99284

== ENCOUNTER 2023-05-03 15:22 | Emergency (ER) | payer MEDICAID, SELFPAY ==
[2023-05-03] VITALS (10 sets, daily range): BP systolic 152; BP diastolic 75; PULSE 78–111; RESP 11–22; O2SAT 96
[2023-05-03] MEDS: cloNIDine 0.1 MG TAB PO (15:50)
--- NOTE | 2023-05-03 16:15 | ED.GENADUL_ITS ---
Discharge Plan Disposition Patient Disposition: Home Condition: Good Discharge Details Clinical Impression: Polysubstance dependence Primary Care Provider: Ivan Vizcaino ED Provider: Joao Arce Home Meds and New Rx's Prescriptions: No Action pantoprazole 40 mg tablet,delayed release (DR/EC) 40 mg PO DAILY Qty: 90 3RF Hold Instructions: Home Medication placed on hold at Doctor's office nicotine 21-14-7 mg/24 hr patch, TD daily, sequential See Rx Instructions transdermal .COMPLEX Qty: 56 0RF Hold Instructions: Pt Stopped/Never Started Rx Instructions: apply 1-21 mg NICOTINE PATCH daily for 28 days; follow with 1-14 mg PATCH daily for 14 days, then 1-7mg PATCH daily for 14 days transdermal buprenorphine-naloxone [Suboxone] 12-3 mg film 2 film sublingual 1XD gabapentin [Neurontin] 300 mg capsule 300 mg PO Q8H PRN risperidone 0.5 mg tablet 1.5 mg PO BID ferrous sulfate [FeroSul] 325 mg (65 mg iron) tablet 325 mg PO DAILY Hold Instructions: Pt Stopped/Never Started buspirone 10 mg tablet 10 mg PO DAILY Discharge Instructions Additional Instructions: Please follow up with [facility] as arranged Medical Decision Making Emergent evaluation of withdrawal. Patient does not appear to be exhibiting significant or active withdrawal symptoms. He is hemodynamically stable. Slightly tachycardic. Otherwise not significantly agitated. We have contacted the [facility] to come to the emergency department to help with this patient. 1730 patient discussed outpatient plan with [facility]. They will contact him tomorrow to discuss sobriety plans. At this time there is no additional emergent work-up indicated. Patient is stable for discharge home. HPI General Date/Time Provider Initiated Documentation: 05/03/23 15:26 . Limitations to Documentation: no limitations . Information obtained by: patient . HPI Narrative: 32-year-old gentleman with past medical history of polysubstance abuse and meth withdrawal presents seeking rehab placement. Patient reports that his last use was 5 days ago. He reports some shaking legs and difficulty sleeping. He is eating and drinking normally. No difficulty urinating. No constipation or diarrhea. He reports that he contacted [facility] and they instructed him to come to the emergency department so that he can get a [facility] and get placed there. Related Data Home Medications Medication Instructions Recorded Confirmed pantoprazole 40 mg tablet,delayed 40 mg PO DAILY #90 tabs 08/24/22 05/03/23 release buprenorphine 12 mg-naloxone 3 mg 2 film sublingual 1XD 09/01/22 05/03/23 sublingual film (Suboxone) gabapentin 300 mg capsule 300 mg PO Q8H PRN 09/28/22 05/03/23 (Neurontin) ferrous sulfate 325 mg (65 mg 325 mg PO DAILY 10/24/22 05/03/23 iron) tablet (FeroSul) risperidone 0.5 mg tablet 1.5 mg PO BID 10/24/22 05/03/23 buspirone 10 mg tablet 10 mg PO DAILY 04/13/23 05/03/23 nicotine See Rx Instructions transdermal 04/27/23 05/03/23 21mg/24hr-14mg/24hr-7mg/24hr daily .COMPLEX #56 patches transderm patches,sequentl Previous Rx's Medication Instructions Recorded pantoprazole 40 mg tablet,delayed 40 mg PO DAILY #90 tabs 08/24/22 release nicotine See Rx Instructions transdermal 04/27/23 21mg/24hr-14mg/24hr-7mg/24hr daily .COMPLEX #56 patches transderm patches,sequentl Allergies Allergy/AdvReac Type Severity Reaction Status Date / Time methylphenidate AdvReac Severe left Verified 05/03/23 15:30 [From Ritalin] arm,tongue,face numbness,tingling General Stated Complaint: DrugWithdr/MAT STAR: 3 PFSH All Active Problems (Updated 05/03/23 @ 17:42 by Joao Arce MD) Polysubstance dependence (Acute) Methadone withdrawal (Acute) Abdominal pain (Acute) Cocaine use disorder, severe, in early remission (Acute ~09/22/22) Schizoaffective disorder, unspecified (Chronic ~09/22/22) Opioid use disorder, severe, dependence (Acute) Iron deficiency anemia, unspecified (Acute) Gastro-esophageal reflux disease without esophagitis (Acute) Amphetamine-type substance use disorder, severe (Acute) Tobacco use disorder (Chronic) Opioid use disorder, mild, in early remission (Acute 02/08/22) Methamphetamine use disorder, severe (Acute 02/08/22) Paranoid delusion (Acute) Anemia, mild (Acute) Stimulant abuse (Acute) Paranoid schizophrenia (Chronic) Depression (Chronic) Stress at home (Acute) GERD (gastroesophageal reflux disease) (Chronic) Anxiety (Chronic) ADHD (Chronic) Medical History Moderate opioid dependence on maintenance therapy Drug abuse ADHD Depression Family History Father , colon ca at age 70. Colon cancer Social History Smoking/Tobacco Use Status: Current every day Tobacco Type: cigarettes Smoking risk assessment performed?: Yes Alcohol Intake: current Alcohol Intake frequency: a few times a month Alcohol type: other Drug use: Daily Substance use type: methamphetamine Details: Used meth 4-5 days ago. ODALYS YADAV 05/03/23 Do you feel safe at home: Yes Do you feel safe in your relationship?: Yes Exam Narrative Exam Narrative: Review of Systems: All systems reviewed & are unremarkable except as noted in HPI and below Well-developed, no acute distress NACT PERRL, normal conjunctiva RRR Unlabored respiratory effort Nondistended abdomen Extremities w/o deformity, no cyanosis, no edema No rashes or lesions. no focal neurologic deficits Appropriate mood and affect Course Vital Signs Vital signs: Vital Signs Pulse 111 H 05/03/23 15:25 Respiratory Rate 18 05/03/23 15:25 Blood Pressure 152/75 H 05/03/23 15:25 Pulse Oximetry 96 05/03/23 15:25 Pulse 111 H 05/03/23 15:25 Respiratory Rate 18 05/03/23 15:25 Respiratory Effort Normal, Non-Labored 05/03/23 15:28 Respiratory Pattern Normal 05/03/23 15:41 Blood Pressure 152/75 H 05/03/23 15:25 Pulse Oximetry 96 05/03/23 15:25 Oxygen Delivery Method Room Air 05/03/23 15:25 Oxygen Flow Rate 0 05/03/23 15:25 PAWSS Have you Been Recently Intoxicated or Drunk Within the Last 30 days?: No Have you Ever Experienced Previous Episodes of Alcohol Withdrawal?: No Have you ever Experienced Withdrawal Seizures?: No Have you ever Experienced Delirium Tremens(DT)s?: No Have you ever undergone Alcohol Rehabilitation Treatment (i.e, inpt ot outpatient treatment programs)?: No Have you ever Experienced Blackouts?: No Have you ever Combined Alcohol with other Downers within the last 90 days?: No Have you ever Combined Alcohol with any other Substance of Abuse during the last 90 days?: No Result: 0
== END 2023-05-03 17:44 | disposition home or self-care (01) ==
PROVIDERS: Emergency Provider Emergency Medicine; PCP Family Medicine
DX: F19.20 Other psychoactive substance dependence, uncomplicated; F17.200 Nicotine dependence, unspecified, uncomplicated
CPT/HCPCS: 99283; 99284

== ENCOUNTER 2023-06-28 08:17 | Outpatient (CLI) | payer MEDICAID, SELFPAY ==
--- NOTE | 2023-06-28 08:15 | RT.EKG_ITS ---
APPROVED REPORT Exam: Resting ECG Reason for Exam: L sided chest discomfort Patient Location: O HR:84 bpm ECG Measurements Heart Rate 84 AXIS MD 131 P 32 QRSd 101 QRS 78 QT 386 T 55 QTc 457 Conclusion Sinus rhythm...normal P axis, V-rate 50- 99 Normal Electrocardiogram
== END 2023-06-28 08:18 | disposition home or self-care (01) ==
LOC: DI.KIM 08:18
PROVIDERS: PCP Family Medicine; Visit Provider Family Medicine
DX: R07.89 Other chest pain (principal)
CPT/HCPCS: 93010

== ENCOUNTER 2024-06-06 02:20 | Outpatient (CLI) | payer MEDICAID, SELFPAY ==
--- OUTSIDE RECORDS SUMMARY | 2024-06-06 02:23 | XMS_ITS | Clinical Summary ---
Author Organization [facility] Address [address] [place] [address] Care Team Providers Care Medical Collections Specialist Name Role Phone Ivan Vizcaino Primary Care Provider [phone] Allergies Active Allergy Reactions Criticality Noted Date Comments Fish Containing Products Swelling,Rash 02/08/20 Methylphenidate Other (See Comments) High 02/05/2022 Left arm tongue, face numbness, tingling status verified 01/23/22 by [facility] - per chart review Shellfish Containing Products Swelling,Rash 02/07/2022 Medications buprenorphine-n aloxone (SUBOXONE) 8-[address] 1 Film under the tongue daily. Daily Max: 1 Film 1 Film 2 Active hydrOXYzine (ATARAX) 50 mg tablet Take 1 Tablet by mouth 2 times daily as needed for Anxiety. 2 Active OLANZapine (ZYPREXA) 10 mg tablet Take 1 Tablet by mouth at bedtime. 1 Tablet 2 Active nicotine polacrilex (NICORETTE) 2 mg gum Take 1 Each by mouth every hour as needed for Smoking Cessation (nicotine craving). 100 Each 2 Active pantoprazole (PROTONIX) 40 mg tablet Take 1 Tablet by mouth daily before breakfast. 1 Tablet 2 Active gabapentin (NEURONTIN) 300 mg capsule Take 300 mg by mouth 3 times daily. 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 02/08/2022 Social History Tobacco Use Types Packs/Day Years Used Date Smoking Tobacco: Every Day Cigarettes 0.5 18.9 Started: 07/09/2005 Smokeless Tobacco: Former Tobacco Cessation:Ready to Q uit: Not Asked; Counseling Given: Not Answered Alcohol Use Standard Drinks/Week Comments Not Currently 0 (1 standard drink = 0.6 oz pur e alcohol) Interpersonal Safety Answer Date Record ed Physically Hurt Never 08/01/2020 Verbally Threaten Not on file 08/01/2020 Sex and Gender Information Value Date Recorded Sex Assigned at Not on file Legal Sex Male 10:53 EST Gender Identity Male 02/04/2022 19:29 EDT Sexual Orientation Not on file Obstetrics History Last Filed Vital Signs Vital Sign Reading Time Taken Comments Blood Pressure 109/70 10/10/2022 1417 EDT Pulse 73 10/10/2022 0724 EDT Temperature 37 ??C (98.6 ??F) 10/10/2022 1417 EDT Respiratory Rate 18 10/10/2022 1417 EDT Oxygen Saturation 99% 10/10/2022 1417 EDT Inhaled Oxygen Concentration - - Weight 88.9 kg (196 lb) 10/08/2022 2303 EDT Height 172.7 cm (5' 8) 10/08/2022 2303 EDT Body Mass Index 29.8 10/08/2022 2303 EDT Plan of Treatment Health Maintenance Due Date Last Done Comments Hepatitis B Vaccine (1 of 3 - 19+ 3-dose series) 10/25 COVID-19 Vaccine ( season) 2024 Hepatitis C Screen Completed 02/05/2022 Procedures Procedure Name Priority Date/Time Associated Diagnosis Comments HEPATITIS C AB W REFLEX TO HCV RNA BY PCR Add-On 02/05/2022 6:32 EDT Amphetamine abuse (HCC-CMS) (HCC) Drug dependence, episodic abuse (HCC-CMS) (HCC) (HCC-CMS) from Last 3 Months or Most Recently Relevant to Health Maintenance Results * HEPATITIS C AB W REFLEX TO HCV RNA BY PCR (02/05/2022 6:32 EDT) Hep C Antibody Negative Negative 02/06/2022 18:49 EDT [facility] Blood VENOUS BLOOD / Unknown Venipuncture / Unknown 02/05/2022 6:32 EDT 02/05/2022 7:00 EDT us Marcelle Conde NP CHEMISTRY & BLOOD GAS ORDERABL ES Final Result Performing Organization Address City/State/[facility] Co de Phone Number [facility] [address] [place] [id number] from Last 3 Months or Most Recently Relevant to Health Maintenance [place] Advance Directives For more information, please contact: [phone] * Full Code (Latest Code Status on File) Date Activated Date Inactivated Comments 02/04/2022 22:57 02/08/2022 17:41 Question Answer Comments When the patient has NO PULSE: Full Code / CPR Who Made the Decision? Default/Not Discussed Care Teams Medical Collections Specialist Relationship Specialty Start Date End Date Ivan Vizcaino DO [address] [place] [address] PCP - General Family Medicine - Primary Care 02/04/22
--- OUTSIDE RECORDS SUMMARY | 2024-06-06 02:24 | XMS_ITS | Referral Summary ---
Author Organization [facility] Address [address] [place] [address] Care Team Providers Care Software Systems Architect Name Role Phone Ivan Vizcaino Primary Care Provider [phone] Allergies Active Allergy Reactions Criticality Noted Date Comments Fish Containing Products Swelling,Rash 02/08/20 22 Methylphenidate Other (See Comments) High 02/05/2022 Left arm tongue, face numbness, tingling status verified 01/23/22 by [facility] - per chart review Shellfish Containing [...] Date Depression 02/08/2022 Methamphetamine use disorder, severe ([facility]) 0 02/08/2022 Opioid use disorder, moderat e, in early remission, on maintenance therapy 02/08/2022 GERD (gastroesophageal reflux disease) 2 Tobacco dependence 02/06/2022 Schizophrenia ([facility]) Resolved Problems Problem Noted Date Diagnosed Date Resolved Date 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 Answer Date of Assessment Author No 10/08/2022 22:59 EDT Carmen Fabian RN * Are you blind or do you have serious difficulty seeing, even when wearing glasses? Answer Date of Assessment Author No 02/04/2022 22:24 EDT Estefani Bajwa RN * Do you have serious difficulty walking or climbing stairs? (5 years old or older) Answer Date of Assessment Author No 02/04/2022 22:24 EDT Estefani Bajwa RN * Do you have difficulty dressing or bathing? (5 years old or older) Answer Date of Assessment Author No 02/04/2022 22:24 EDEstefani Thompson RN * Because of a physical, mental, or emotional condition, do you have difficulty doing errands alone such as visiting a doctor's office or shopping? (15 years old or older) Answer Date of Assessment Author No 02/04/2022 22:24 EDT Estefani Bajwa RN Mental Status * Because of a physical, mental, or emotional condition, do you have serious difficulty concentrating, remembering, or making decisions? (5 years old or older) Answer Entry Date Author No 02/04/2022 22:24 EDT Estefani Bajwa RN Plan of Treatment Not on file Procedures Procedure Name Priority Date/Time Associated Diagnosis [...] C Antibody Negative Negative 02/06/2022 18:[address] [facility] Blood VENOUS BLOOD / Unknown Venipuncture / Unknown 02/05/2022 6:32 EDT 02/05/2022 7:00 EDT us Marcelle Conde NP CHEMISTRY & BLOOD GAS ORDERABL ES Final Result [facility] [address] [place] [address] from Last 3 Months or Most Recently Relevant to Health Maintenance Insurance [place] Advance Directives For more information, please contact: [phone] * Full Code (Latest Code Status on File) Date Activated Date Inactivated Comments 02/04/2022 22:57 02/08/2022 17:41 Question Answer Comments When the patient has NO PULSE: Full Code / CPR Who Made the Decision? Default/Not Discussed Care Teams Software Systems Architect Relationship Specialty Start Date End Date Ivan Vizcaino DO [address] [place] [address] PCP - General Family Medicine - Primary Care 02/04/22
--- OUTSIDE RECORDS SUMMARY | 2024-06-06 02:24 | XMS_ITS | Encounter Summary ---
Author Organization [facility] Address [address] [place] [address] Care Team Providers Care Wet Inspector Optical Glass Name Role Phone Ivan Vizcaino Primary Care Provider [phone] Encounter Details Date Type Department Care Team (Latest Contact Info) Description 10/08/2022 Travel Social History Tobacco Use Types Packs/Day Years Used Date Smoking Tobacco: Every Day Cigarettes 0.5 18.9 Started: 07/09/2005 Smokeless Tobacco: Former Alcohol Use Standard Drinks/Week Comments Not Currently 0 (1 standard drink = 0.6 oz pur e alcohol) Interpersonal Safety Answer Date Record ed Physically Hurt Never 08/01/2020 Verbally Threaten Not on file 08/01/2020 Sex and Gender Information Value Date Recorded Sex Assigned at Not on file Legal Sex Male 10:53 EST Gender Identity Male 02/04/2022 19:29 EDT Sexual Orientation Not on file COVID-19 Exposure Response Date Recorded In the last 10 days, have yo u been in contact with someone who was confirmed or suspected to have Coronavirus/COVID-19? No / Unsure 10/08/2022 23:04 EDT documented as of this encounter Functional Status * Are you deaf or do you have serious difficulty hearing? Answer Date of Assessment Author No 02/04/2022 22:24 EDT Estefani Bajwa RN * Are you blind or do [...] Date of Assessment Author No 02/04/2022 22:24 Estefani Dong RN * Because of a physical, mental, or emotional condition, do you have difficulty doing errands alone such as visiting a doctor's office or shopping? (15 years old or older) Answer Date of Assessment Author No 02/04/2022 22:24 Estefani Dong RN documented as of this encounter Mental Status * Because of a physical, mental, or emotional condition, do you have serious difficulty concentrating, remembering, or making decisions? (5 years old or older) Answer Entry Date Author No 02/04/2022 22:24 Estefani Dong RN documented in this encounter Plan of Treatment Not on file documented as of this encounter Visit Diagnoses Not on filedocumented in this encounter Care Teams Wet Inspector Optical Glass Relationship Specialty Start Date End Date Ivan Vizcaino DO [address] [place] [address] PCP - General Family Medicine - Primary Care 02/04/22 documented as of this encounter
--- OUTSIDE RECORDS SUMMARY | 2024-06-06 02:24 | XMS_ITS | Encounter Summary ---
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 history of suicide attempts, and no current plan to end his life. Vitals: BP (!) 127/95 Pulse 96 Temp 35.6 ??C (96.1 ??F) (Temporal) Resp 16 Ht 172.7 cm (68) Wt 88.9 kg (196 lb) SpO2 99% BMI 29.80 kg/m?? Mental Status Examination: Appearance: man, casually dressed, unkempt Behavior: withdrawn, fair eye contact, decreased psychomotor activity Speech: well-articulated, fluent, slurred Mood: down Affect: blunted Perceptions: no perceptual disturbances Thought process: thought blocking Thought content: paranoid thoughts, active suicidal ideation and non-specific homicidal ideation Sensorium: somnolent Orientation: X3 Attention: grossly intact Memory: grossly intact Language: is normal Insight: poor Judgment: fair Current Facility Administered Medications: No current facility-administered medications for this encounter. buprenorphine-naloxone (SUBOXONE) 8-2 mg sublingual film hydrOXYzine (ATARAX) 50 mg tablet nicotine polacrilex (NICORETTE) 2 mg gum OLANZapine (ZYPREXA) 10 mg tablet pantoprazole (PROTONIX) 40 mg tablet History reviewed. No pertinent past medical history. No family history on file. Suicide Risk Assessment Modifiable Risk Factors: current suicidal ideation, recent losses or disruption of care, substance abuse / dependence, intoxication, hopelessness, helplessness, insomnia and psychotic state Non-Modifiable Risk Factors: discharge from psychiatric hospital in last 3 months male single persence of comorbidity (more than one psychiatric disorder) Protective Factors: willingness to comply with treatment plan and outpatient care in place NSSI: Urges: NONE Modality: NA Superficial: NA Medically: uncomplicated History: NONE Violence Risk Assessment Current Risk Factors: Lack of insight , suspiciousness. Modifiable Risk Factors: Persecutory delusions, identifiable victim, likely exposure to destabilizers on discharge. Historical Risk Factors: Substance abuse, major mental illness. Protective Factors: None Please see full note in scanned media. Bill Bro Morale Officer [facility] documented in this encounter Plan of Treatment Not on file documented as of this encounter Procedures Procedure Name Priority Date/Time Associated Diagnosis Comments ECG REPORT - SCANNED 10/19/2022 12:48 EDT EKG 12-LEAD STAT 10/10/2022 9:32 EDT COMPLETE BLOOD COUNT AND DIFFERENTIAL STAT 10/10/2022 9:29 EDT DRUG SCREEN 11, URINE STAT 10/10/2022 8:45 EDT documented in this encounter Results * ECG REPORT - SCANNED (10/19/2022 12:48 EDT) 10/19/2022 12:4 8 EDT us Scan 2 Recruiter Coordinator PROCEDURE/MINOR SURGICAL OR DERABLES Final Result * EKG 12-LEAD (10/10/2022 9:32 EDT) 10/10/2022 9:32 EDT Narrative [facility] EKG - 10/19/2022 12:43 EDT ?[facility] Emergency ? Test Date: ?2022-10-10 Pat Name: ? DRAKE MCPHERSON ? Department: ?? ED ? Room: ? WB07 Gender: ? Male ? Hospice Home Health Aide: ?? : ?1990 ? Requested By: CAITLYN Spears Number: [id number] ? Griselda MD: ?? BEKAH HART MD ? Measurements Intervals ?Premium ? Rate: ? 73 ? P: ?32 WA: ? 122 ?QRS: ?74 QRSD: ? 106 ?T: ?45 QT: ? 452 ? QTc: ?501 ? Interpretive Statements SINUS RHYTHM PROLONGED QT INTERVAL No previous ECG available for comparison I reviewed the tracing and have either agreed or edited the findings in this report. Electronically Signed On 10-19-2022 12:43:41 EDT by BEKAH HART MD. Procedure Note Bekah Hart MD - 10/19/2022 [facility] Test Date: 2022-10-10 Pat Name: DRAKE MCPHERSON Department: ED Room: [facility] Gender: Male Hospice Home Health Aide: : 1990 Requested By: CAITLYN LEON Order Number: [id number] Reading MD: BEKAH HART MD Measurements Intervals Premium Rate: 73 P: 32 WA: 122 QRS: 74 QRSD: 106 T: 45 QT: 452 QTc: 501 Interpretive Statements SINUS RHYTHM PROLONGED QT INTERVAL No previous ECG available for comparison I reviewed the tracing and have either agreed or edited the findings inthis report. Electronically Signed On 10-19-2022 12:43:41 EDT by BEKAH STRICKLAND. Janie Parker PA-C CARDIAC ECG ORDERABL ES Final Result [facility] EKG * (ABNORMAL) COMPLETE BLOOD COUNT AND DIFFERENTIAL (10/10/2022 9:29 EDT) WBC 6.19 4.00 - 10.40 K/cmm 10/10/2022 9:45 EDT [facility] RBC 4.69 4.36 - 5.78 M/cmm 10/10/2022 9:45 T [facility] Hemoglobin 13.2(L) 13.8 - 17.3 gm/dL 10/10/2022 9:45 EDT [facility] HCT 40.1 39.5 - 50.2 % 10/10/2022 9:45 T [facility] MCV 86 81 - 95 fl 10/10/2022 9:45 T [facility] MCH 28.1 27.6 - 33.0 pg 10/10/2022 9:45 T [facility] MCHC 32.9 32.8 - 36.4 gm/dL 10/10/2022 9:45 T [facility] RDW-CV 14.9(H) <14.2 % 10/10/2022 9:45 [facility] RDW-SD 46.1(H) <46.0 fl 10/10/2022 9:45 [facility] PLT 246 141 - 377 K/cmm 10/10/2022 9:45 [facility] MPV 9.4(L) 9.5 - 12.7 fl 10/10/2022 9:45 [facility] % Neutrophils 35.4 % 10/10/2022 9:45 [facility] % Lymphocytes 49.6 % 10/10/2022 9:45 [facility] % Monocytes 8.2 % 10/10/2022 9:45 [facility] % Eosinophils 6.0 % 10/10/2022 9:45 [facility] % Basophils 0.6 % 10/10/2022 9:45 [facility] % Immature Grans 0.2 % 10/11/19 9:45 [facility] Absolute Neutrophils 2.19(L) 2.20 - 8.85 K/cmm 10/10/2022 9:45 [facility] Absolute Lymphocytes 3.07 1.09 - 3.30 K/cmm 10/10/2022 9:45 [facility] Absolute Monocytes 0.51 0.10 - 0.80 K/cmm 10/10/2022 9:45 [facility] Absolute Eosinophils 0.37 0.03 - 0.61 K/cmm 10/10/2022 9:45 [facility] ABS Basophils 0.04 0.01 - 0.11 K/cmm 10/10/2022 9:45 [facility] Absolute Immature Grans 0.01 0.00 - 0.06 K/cmm 10/10/2022 9:45 [facility] Type of Differential: Auto 10/10/2022 9:45 [facility] Blood VENOUS BLOOD / Unknown Venipuncture / Unknown 10/10/2022 9:29 EDT 10/10/2022 9:34 EDT Janie Parker PA-C PACKAGES & DNA PROBE ORDERABLES Final Result [facility] [address] [place] [address] * (ABNORMAL) DRUG SCREEN 11, URINE (10/10/2022 8:45 EDT) Amphetamine Screen, Ur Presumptive Positive, interpret with caution.(A) Negative, Negative Screen 10/10/2022 9:03 EDT [facility] Comment: Confirmation testing available upon request. Suitable for medical purposes only. Will not detect all drugs within class. Cutoff = 500 ng/mL Barbiturates Screen, Ur Negative Screen Negative, Negative Screen 10/10/2022 9:03 EDT [facility] Comment: Confirmation testing available upon request. Suitable for medical purposes only. Will not detect all drugs within class. Cutoff = 200 ng/mL Benzodiazepine Screen, Ur Negative Screen Negative, Negative Screen 10/10/2022 9:03 EDT [facility] Comment: Confirmation testing available upon request. Suitable for medical purposes only. Will not detect all drugs within class. Cutoff = 150 ng/mL Buprenorphine and Metabolites Screen, Ur Presumptive Positive, interpret with caution.(A) Negative, Negative Screen 10/10/2022 9:03 EDT [facility] Comment: Confirmation testing available upon request. Suitable for medical purposes only. Will not detect all drugs within class. Cutoff = 10 ng/mL Cannabinoids Screen, Ur Negative Screen Negative, Negative Screen 10/10/2022 9:03 EDT [facility] Comment: Confirmation testing available upon request. Suitable for medical purposes only. Will not detect all drugs within class. Cutoff = 50 ng/mL Cocaine Metabolites Screen, Ur Negative Screen Negative, Negative Screen 10/10/2022 9:03 EDT [facility] Comment: Confirmation testing available upon request. Suitable for medical purposes only. Will not detect all drugs within class. Cutoff = 150 ng/mL Methadone Screen, Ur Negative Screen Negative, Negative Screen 10/10/2022 9:03 EDT [facility] Comment: Confirmation testing available upon request. Suitable for medical purposes only. Will not detect all drugs within class. Cutoff = 200 ng/mL Methamphetamine Screen, Ur Presumptive Positive, interpret with caution.(A) Negative, Negative Screen 10/10/2022 9:03 EDT [facility] Comment: Confirmation testing available upon request. Suitable for medical purposes only. Will not detect all drugs within class. Cutoff = 500 ng/mL Opiates Screen, Ur Negative Screen Negative, Negative Screen 10/10/2022 9:03 T [facility] Comment: Confirmation testing available upon request. Suitable for medical purposes only. Will not detect all drugs within class. Cutoff = 100 ng/mL Oxycodone Screen, Ur Negative Screen Negative, Negative Screen 10/10/2022 9:03 [facility] Comment: Confirmation testing available upon request. Suitable for medical purposes only. Will not detect all drugs within class. Cutoff = 100 ng/mL Propoxyphene Screen, Ur Negative Screen Negative, Negative Screen 10/10/2022 9:03 T [facility] Comment: Confirmation testing available upon request. Suitable for medical purposes only. Will not detect all drugs within class. Cutoff = 300 ng/mL Urine URINE / Unknown Urine Collect / Unknown 10/10/2022 8:45 EDT 10/10/2022 8:49 EDT Janie Parker PA-C GEN LAB UNIT COLLECT ORDERABLES Final Result [facility] [address] [place] [address] documented in this encounter Visit Diagnoses Diagnosis Schizophrenia, unspecified type ([facility])- Primary documented in this encounter Administered Medications Inactive Administered Medications - up to 3 most recent administrations Medication Order MAR Action Action Date Dose Rate Site buprenorphine-naloxone (SUBOXONE) 8-2 mg SUBLINGUAL TABLET 1 Tablet 1 Tablet, sublingual, DAILY, First dose on Sun10/09/22 at 2030, Until Discontinued, Routine Given 10/10/2022 8:20 EDT 1 Tablet OLANZapine (ZYPREXA) tablet 15 mg 15 mg, oral, AT BEDTIME, First dose on Sun10/09/22 at 2145, Until Discontinued, Routine Given 10/09/2022 23:34 EDT 15 mg pantoprazole (PROTONIX) tablet 40 mg 40 mg, oral, DAILY, First dose on Sun10/09/22 at 1315, Until Discontinued, Routine Given 10/10/2022 8:20 EDT 40 mg documented in this encounter Historical Medications * This list may reflect changes made after this encounter. gabapentin (NEURONTIN) 300 mg capsule Take 300 mg by mouth 3 times daily. PRN for anxiety added in this encounter Active and Recently Administered Medications Times are shown in EDT. Scheduled Medication Order 10/08/2022 10/09/2022 10/10/2022 buprenorphine-naloxone (SUBOXONE) 8-2 mg SUBLINGUAL TABLET 1 Tablet 1 Tablet, sublingual, DAILY, First dose on Sun10/09/22 at 2030, Until Discontinued, Routine 2336 (Not Given - Provider: Jaspal Mendenhall RN - Reason: Other - Comment: Pt took DIRECTOR MEDICAL WRITING dose.) 0820 (Given - Provider: Jeff Ro RN) OLANZapine (ZYPREXA) tablet 15 mg 15 mg, oral, AT BEDTIME, First dose on Sun10/09/22 at 2145, Until Discontinued, Routine 2334 (Given - Provider: Jaspal Mendenhall RN) pantoprazole (PROTONIX) tablet 40 mg 40 mg, oral, DAILY, First dose on Sun10/09/22 at 1315, Until Discontinued, Routine 1315 (Canceled Entry - Provider: Batch Job User Admin - Comment: Automatically canceled at discontinue of medication order) 0820 (Given - Provider: Jeff Ro RN) documented in this encounter Care Teams Post Secondary Professional Relationship Specialty Start Date End Date Ivan Vizcaino DO [address] [place] [id number] PCP - General Family Medicine - Primary Care 02/04/22 documented as of this encounter
--- OUTSIDE RECORDS SUMMARY | 2024-06-06 02:24 | XMS_ITS | Encounter Summary ---
Author Organization [facility] Address [address] [place] [address] Care Team Providers Care Out Of School Hours Care Worker Name Role Phone Ivan Vizcaino Primary Care Provider [phone] Encounter Details Date Type Department Care Team (Late st Contact Info) Description 07/30/2020 Lab Requisition [facility] Pathology & Laboratory Medicine - [address] [address] Outr Resulting Lab, Provider Social History Tobacco Use Types Packs/Day Years Used Date Smoking Tobacco: Never Assessed Interpersonal Safety Answer Date Record ed Physically Hurt Never 08/01/2020 Verbally Threaten Not on file 08/01/2020 Sex and Gender Information Value Date Recorded Sex Assigned at Not on file Legal Sex Male 10:53 EST Gender Identity Male 02/04/2022 19:29 EDT Sexual Orientation Not on file documented as of this encounter Plan of Treatment Not on file documented as of this encounter Procedures Procedure Name Priority Date/Time Associated Diagnosis Comments DO NOT ORDER STANDALONE - [facility] COVID TEST Today 07/30/2020 8:45 EST COVID-19 TESTING Routine 07/30/2020 8:45 EST documented in this encounter Results * DO NOT ORDER STANDALONE - [facility] COVID TEST (07/30/2020 8:45 EST) COVID-19 rt-PCR Result NEGATIVE Negative 08/01/2020 7:46 EST [facility] Comment: 2019-novel Coronavirus (2019-nCoV) not detected by the qRT-PCR assay. Consider testing for other respiratory viruses or re-collecting for 2019-nCoV testing. Note: Optimum timing for peak viral levels during infections caused by 2019-nCoV have not been determined. Collection of multiple specimens from the same patient may be necessary to detect the virus. Limitations Positive results are indicative of active infection with SARS-CoV-2 but do not rule out bacterial infection or co-infection with other viruses. The agent detected may not be the definite cause of disease. In addition, detection of viral RNA may not indicate the presence of infectious virus or that SARS-CoV-2 is the causative agent for clinical symptoms. Negative results do not preclude SARS-CoV-2 infection and should not be used as the sole basis for patient management decisions. Negative results must be combined with clinical observations, patient history, and epidemiological information. False negative results may also occur if amplification inhibitors are present in the specimen or if inadequate numbers of organisms are present in the specimen. Optimum specimen types and timing for peak viral levels during infections caused by SARS-CoV-2 have not been fully determined. Collection of multiple specimens (types and time points) from the same patient may be necessary to detect the virus. The test was validated for use with upper respiratory specimens obtained via nasopharyngeal or oropharyngeal swabs in VTM, UTM, M4, M5, M6, saline, and MTM media. The performance of this test has not been established for other specimens. Specimens collected using other FDA recommended Specimen Collection Materials listed in the FDA COVID-19 [employer] communication (October 02, 2019) are processed with the caveat that they were not [...] in accordance with CLIA regulations, [employer] [place] (CAP) guidelines (Sep 25, 2019), and FDA guidance (Sep 06, 2019). This test is only for use under the Food and Drug Administration's Emergency Use Authorization. Swab ENTIRE NASOPHARYNX / Unknown 07/30/2020 8:45 EST 07/30/2020 15:56 EST us Provider Outr Resulting Lab MICROBIOLOGY - GENER AL ORDERABLES Final Result [facility] [place] * COVID-19 TESTING (07/30/2020 8:45 EST) COVID-19 rt-PCR Result NEGATIVE Negative 08/01/2020 10:28 EST [facility] Comment: 2019-novel Coronavirus (2019-nCoV) not detected by the qRT-PCR assay. Consider testing for other respiratory viruses or re-collecting for 2019-nCoV testing. Note: Optimum timing for peak viral levels during infections caused by 2019-nCoV have not been determined. Collection of multiple specimens from the same patient may be necessary to detect the virus. Limitations Positive results are indicative of active infection with SARS-CoV-2 but do not rule out bacterial infection or co-infection with other viruses. The agent detected may not be the definite cause of disease. In addition, detection of viral RNA may not indicate the presence of infectious virus or that SARS-CoV-2 is the causative agent for clinical symptoms. Negative results do not preclude SARS-CoV-2 infection and should not be used as the sole basis for patient management decisions. Negative results must be combined with clinical observations, patient history, and epidemiological information. False negative results may also occur if amplification inhibitors are present in the specimen or if inadequate numbers of organisms are present in the specimen. Optimum specimen types and timing for peak viral levels during infections caused by SARS-CoV-2 have not been fully determined. Collection of multiple specimens (types and time points) from the same patient may be necessary to detect the virus. The test was validated for use with upper respiratory specimens obtained via nasopharyngeal or oropharyngeal swabs in VTM, UTM, M4, M5, M6, saline, and MTM media. The performance of this test has not been established for other specimens. Specimens collected using other FDA recommended Specimen Collection Materials listed in the FDA COVID-19 [employer] communication (October 02, 2019) are processed with the caveat that they were not [...] in accordance with CLIA regulations, [employer] [place] [employer] (CAP) guidelines (Sep 25, 2019), and FDA guidance (Sep 06, 2019). This test is only for use under the Food and Drug Administration's Emergency Use Authorization. Performing Lab [facility] 08/01/2020 10:28 EST [facility] Swab 07/30/2020 8:45 EST 07/30/2020 15:56 EST us Provider Outr Resulting Lab MICROBIOLOGY - GENER AL ORDERABLES Final Result Performing Organization Address City/State/[facility] Co de Phone Number [facility] [address] [place] [address] [facility] [place] documented in this encounter Visit Diagnoses Not on filedocumented in this encounter Care Teams Out Of School Hours Care Worker Relationship Specialty Start Date End Date Ivan Vizcaino DO [address] [facility] [place] [address] PCP - General Family Medicine - Primary Care 02/04/22 documented as of this encounter
--- OUTSIDE RECORDS SUMMARY | 2024-06-06 02:24 | XMS_ITS | Encounter Summary ---
Author Organization [facility] Address [address] [place] [address] Care Team Providers Care Tmh Teacher Name Role Phone Ivan Vizcaino Primary Care Provider [phone] Reason for Visit * Auth/Cert Specialty Diagnoses / Procedures Referred By Contac t Referred To Contact Diagnoses Schizophrenia ([facility]) emergency Referral ID Status Reason Start Date Expiration Date Visits Re quested Visits Authorized [id number] 1 1 Encounter Details Date Type Department Care Team (Latest Contact Info) Description 02/04/2022 21:18 EDT - 02/08/2022 15:30 EDT Hospital Encounter [facility] Inpatient Psychiatry [address] [phone] Mao Marin MD [address] [place] [address] Amphetamine abuse (HCC-CMS) ([facility]) (Primary Dx); 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HCC-CMS) ([facility]); Drug dependence, episodic abuse (HCC-CMS) ([facility]) (HCC-CMS); Gastroesophageal reflux disease, unspecified whether esophagitis present; Opioid use disorder, moderate, in early remission, on maintenance therapy ([facility]); Substance-induced psychotic disorder (HCC-CMS) ([facility]) Discharge Disposition: Home or Self Care Social History Tobacco Use Types Packs/Day Years Used Date Smoking Tobacco: Every Day Cigarettes 0.5 18.9 Started: 07/09/2005 Smokeless Tobacco: Former Tobacco Cessation:Ready to Q uit: No; Counseling Given: No Alcohol Use Standard Drinks/Week Comments [...] Pressure 109/76 02/08/2022 0747 EDT Pulse 91 02/08/202247 EDT Temperature 36.7 ??C (98 ??F) 02/08/2022 07 EDT Respiratory Rate 16 02/08/202247 EDT Oxygen Saturation 98% 02/08/202247 EDT Inhaled Oxygen Concentration - - Weight 80.9 kg (178 lb 6 oz) 02/04/20222208 EDT Height 172.7 cm (5' 8) 02/04/20222208 EDT Body Mass Index 27.12 02/04/20222208 EDT documented in this encounter Functional Status * Are you deaf or do you have serious difficulty hearing? Answer Date of Assessment Author No 02/04/2022 22:24 Estefani Dong RN * Are you blind or do you have serious difficulty seeing, even when wearing glasses? Answer Date of Assessment Author No 02/04/2022 22:24 Estefani Dong RN * Do you have serious difficulty walking or climbing stairs? (5 years old or older) Answer Date of Assessment Author No 02/04/2022 22:24 Estefani Dong RN * Do you have difficulty dressing [...] Estefani Dong RN documented in this encounter Discharge Summaries * Wally Gilliland MD - 02/08/2022 6238 EDT INPATIENT PSYCHIATRIC DISCHARGE SUMMARY Patient Name: Drake Mcpherson : 1990 Date of Admission: 02/04/22 Primary Care Provider: Ivan Vizcaino Date of Discharge: 02/08/2022 Attending at time of discharge: Mao Marin MD Reason for Admission: I just needed to be safe Principal/Discharge Diagnosis: Substance-induced psychotic disorder (HCC-CMS) ([facility]) Additional Problems Managed in the Hospital: Active Hospital Problems Diagnosis Date Noted ??? Depression 02/08/2022 ??? Methamphetamine use disorder, severe (HCC-CMS) ([facility]) 02/08/2022 ??? Opioid use disorder, moderate, in early remission, on maintenance therapy ([facility]) 02/08/2022 ??? GERD (gastroesophageal reflux disease) 02/06/2022 ??? Tobacco dependence 02/06/2022 Resolved Hospital Problems Diagnosis Date Noted Date Resolved ??? *Substance-induced psychotic disorder (HCC-CMS) ([facility]) 02/08/2022 02/08/2022 History of Present Illness by Mao Marin MD on day of admission to [facility]: Patient is a 31 y.o. undomiciled single man with past psychiatric history of schizophrenia, ADHD,depression, opiate use disorder (on MAT, buprenorphine at present), and stimulant use disorder who [place] [facility] [place] [facility] for management of paranoia and suicidal ideation with plan and intent. ?? Patient reports that the past few months have been rough for him. Patient was in rehab at [facility] several weeks prior when he found out one of his daughters (age 15) had in a car accident. He checked out of [facility] and relapsed on methamphetamine. He notes that the voices got reallybad and he became intensely paranoid that ludivina or lópez was out to steal a 2 thousand dollar check from him. He believes that ludivina and his friends will stop at nothing to bring him harm. Is unable to provide concrete details about who ludivina is or why he would want his money. Due to feelings ofbeing unsafe Drake presented to [facility]. ?? Per outside records patient has had numerous interactions with [facility] human services over the past two weeks (noted to be 12+ encounters). Patient presented to [facility] on on 02/01 noting to be unsafe He was found to have several knifes on him and had homicidal ideation towards lópez or ludivina Per the EE patient was noted to be hearing voices and states I can hear them right now in theceiling above me, they are saying that they [...] somewhere safe. Noting I want to live tosee my other girls, I live for my children. Reports feeling safe on the unit. ?? Reports that psychotic symptoms pre-date current methamphetamine induced episode. Notes voices for greater than 6 months that had been responsive to olanzapine. Notes that he has not heard voices in more than 10 days which contradicts narrative from [facility] and the EE. ?? TARGET SYMPTOMS: [...] severity of psychiatric symptoms Current Support System: youth corrections officer: Richard Horne ?? HISTORY ?? Psychiatric History: Previous diagnosis: Schizophrenia vs substance induced psychotic disorder, ADHD, Depression Prior hospitalization: None ?? Longitudinal course of illness: Unclear. Patient notes significant voices in the past which has worsened with methamphetamine use. ?? Prior suicidal behavior: denies ?? Prior self-injurious behavior: denies ?? Prior aggressive behavior: Significant legal history related to theft and buglary during significant opiate use historically. ?? Previous medication trials (dose, frequency, duration, effect on target problems,side-effects): Unclear. Notes olanzapine has been helpful ?? Prior therapy (type, duration, effect on target problems): unclear Meds on Admission: No medications prior to admission. Hospital Course: Patient was admitted on a involuntary basis. Patient was cooperative with all evaluations, including with their interdisciplinary team meeting. During that team [...] to attribute his experience of both auditory hallucinat ions and paranoia to illicit methamphetamine use. With improvement in symptoms he began to self advocate for transition to residential treatment for substance use disorders. He was accepted to [facility]. Given the demonstrated resolution of psychotic symptoms and suicidality, the team was supportive of such a transition and recommended that thepatient go to [facility] on the same day as discharge. [...] factors: Capacity for self-observation;Positive problem solving;Capacity to realistically appraise one's self & one's life circumstances;Willingness to [...] more than one antipsychotic medication: N/A Disposition: [facility] greater than 30 minutes was spent evaluating the patient, preparing the patient for discharge, preparing paperwork for discharge, and preparing this report. Wally Gilliland MD documented in this encounter Discharge Instructions * Discharge Instr - AVS First Page* Randy Pierce - 02/08/2022 14:44 EDT You are discharging with a plan to transition to [facility] today. Please work with [facility] to schedule follow up for after you complete their program. We wish you well. If you are feeling unsafe or having thoughts of self harm, please contact the crisis line below or go to your nearest emergency department. Crisis Line: [facility] documented in this encounter Medications at Time of Discharge buprenorphine-na loxone (SUBOXONE) 8-[address] 1 Film under the tongue daily. Daily Max: 1 Film 1 Film 02/09/2022 hydrOXYzine (ATARAX) 50 mg tablet Take 1 [...] Tablet 02/09/2022 documented as of this encounter Ordered Prescriptions Prescription Sig Dispense Quantity Refills Last Filled Start Date End Date pantoprazole (PROTONIX) 40 mg tablet Take 1 Tablet by mouth daily before breakfast. 1 Tablet 02/09/2022 nicotine polacrilex (NICORETTE) 2 mg gum Take 1 Each by mouth every hour as needed for Smoking Cessation (nicotine craving). 100 Each 02/08/2022 OLANZapine (ZYPREXA) 10 mg tablet Take 1 Tablet by mouth at bedtime. 1 Tablet 02/08/2022 hydrOXYzine (ATARAX) 50 mg tablet Take 1 Tablet by mouth 2 times daily as needed for Anxiety. 02/08/2022 buprenorphine-nalo xone (SUBOXONE) 8-[address] 1 Film under the tongue daily. Daily Max: 1 Film 1 Film 02/09/2022 documented in this encounter Discharge Disposition Disposition Code Departure Means Destination Comment s Home or Self Care Car Home Patient plans to go to [facility] upon discharge from [facility]. documented in this encounter Progress Notes * Martina Loja RN - 02/08/2022 1530 EDT NURSING DISCHARGE NOTE: Pt was accompanied by this caption writer to the hospital entrance to meet the transport company. Pt appears in good spirits with no signs of psychosis and no SI voiced. Was encouraged by this caption writer to callhis customs and immigration officer to let that person know that he (patient) was discharging today and possibly tryto get a ride to [facility] from the customs and immigration officer. Pt has not yet done this. Pt states I'll just take a cab if I have to or I can stay in the hotel for tonight. Pt plan is not entirely sound, however pt condition is stable and he states that he is eager to go to [facility] for treatment. Pleasant andpolite this shift. Was understanding when this caption writer explained that he would not be able to smoke a cigarette in the parking lot. * Randy Pierce - 02/08/2022 1528 EDT ROBERTH faxes records to [facility] for referral. MD ROBERTH meet with pt. Pt states he does not feel he is benefiting from hospitalization. Pt denies SI, pt does not present as experiencing any psychosis. Pt states he would like to call [facility] and transition there as soon as possible. Pt later meets with ROBERTH and states he spoke with [facility] admission and that he has been approved and can transition there today as a is bed available. ROBERTH calls [facility] ([facility]) and confirms a bed is available and that pt could transition today, even if it's in the evening. Pt states a plan to go to [facility] to obtain his belongings from [place] [employer] and then go to [facility] from there. Pt states he will arrange a taxi if he has to. ROBERTH advises against this plan and talks with pt about how this will put him at significant riskfor relapse. Pt is encouraged to d/c tomorrow. ROBERTH notes that pt is involuntary but now that he has a clear disposition and does not appear to be experiencing any significant MH issues or SI, he couldbe discharged. Pt states he does not feel he is still dealing with any MH issues and will do what he has to get to [facility] today. Pt is adamant that he will follow through with his plan to go to [facility] despite SW expressing concerns with the timing of his plan. SW contacts [facility] and a plan is made for pick upat 3:45pm. SW contacts pt's PO and leaves a VM notifying of pt d/c. SW notifies pt he will need to work with [facility] to schedule his aftercare for after he completes treatment at their program. * Anny Tena NP - 02/08/2022 1401 EDT [facility]PP [facility] note to PCP on Discharge/Daily Progress Note Admit Date: 02/04/2022 Hospital Day: LOS: 4 days Date of Service: 02/08/2022 Reason for Admission/Chief Complaint: increasing paranoia, stimulant abuse, suicidal 24-Hour events:slept, looking into [facility], started on Suboxone Active Hospital Problems Diagnosis Date Noted ??? Depression 02/08/2022 ??? Methamphetamine use disorder, severe ([facility]) ([facility]) 02/08/2022 ??? Opioid use disorder, moderate, in early remission, on maintenance therapy ([facility]) 02/08/2022 ??? GERD (gastroesophageal reflux disease) 02/06/2022 ??? Tobacco dependence 02/06/2022 Resolved Hospital Problems Diagnosis Date Noted Date Resolved ??? *Substance-induced psychotic disorder ([facility]-CMS) ([facility]) 02/08/2022 02/08/2022 Discharge Medication List START taking [...] Pt states he has been accepted at [facility] and wants to discharge today. He has no physical concerns. He is not interested in quitting smoking and anticipates smoking immediately on discharge. He is anxious about leaving and staff feel he is craving substances and plans to use. Psychiatrist and Supervisor Boiler Repair unable to convince pt to stay. Review of Systems: A ten point review of systems was performed and was negative except for pertinent positives noted in the HPI Objective/Physical Exam: VS: Patient Vitals for [...] Psychiatry stated pt on Olanzapine. 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 Pt is discharging to [facility] with follow up thereafter with [facility] PCP. See Psychiatry Discharge summary for details [...] to PCP. If he remains on Olanzapine care home, may benefit from Metformin. Stimulant Use disorder/Opiate Use disorder: Pt was restarted on Suboxone 8 mg-2 mg daily. He is discharging to [facility]. GERD: was maintained on PPI and [...] Auto Hep C Antibody Negative TSH 2.43 Cosigned by Dao Bauman MD at 02/10/2022 14:32 EDT * Randy Pierce - 02/07/2022 1229 EDT MD ROBERTH meet with pt. Pt reports improved mood overall with decreased paranoia. Pt denies having anyconcerns about Ludivina today. Pt also denies the present of psychosis prior to his relapse which is achange from what he reported yesterday. Pt reports he feels this is substance induced and he primarily wants to focus of his substance use. Pt states he could get a ride to [facility] provided he got back to [facility]. Pt would like to obtain his belonging which he reports are being held at [facility] [employer]. Pt states his PO may be able to help him with a ride. Pt reports he has medicaid transport active with [facility]. SW states this transport could likely be used to get pt home. SW updates they received a VM from pt's PO yesterday and returned the call leaving him a VM. SW has not yet heard back from him. SW to fax records to [facility] for referral. ROBERTH talks with pt's PO (Richard)and updates. Richard states probation can provide pt with transport to but they will need some advance notice and this would have to occur on a weekday. * Wally Gilliland MD - 02/07/2022 0841 EDT Inpatient Psychiatry [...] quite and mostly keeping to himself. Sleeping wellat night. Subjective: I met with the patient and the social worker school. He reports he is doing well. No new paranoia or fears. No AVH. Demonstrates increasing insight. Things the increased paranoia he experienced prior to admission was absolutely attributable to methamphetamine. Very motivated for treatment ofhis substance use disorder. Current Facility-Administered Medications Medication [...] 31 y.o. year old who presented involuntarily withincreased paranoia and suicidal ideation. The patient's presentation is most consistent with the diagnosis of methamphetamine induced psychotic disorder. Here it is evident that the psychosis is resolving and he has improved insight with regard to the impact of methamphetamine into his symptoms. Weare not seeing new or ongoing paranoia here at the hospital which is consistent with resolution of symptoms. He is motivated for sobriety and return to [facility]. Drake Mcpherson meets criteria for acute level of care. Diagnosis Psychiatric Diagnoses: Substance-induced psychotic disorder; stimulant use disorder, severe; opiateuse disorder on maintenance therapy Plan: The patient is a Locus level 4 becuase they have a history of chronic impulsive suicidal thrats with current expressions or behaviors representing a significant elevation [...] progress note. Wally Gilliland MD 02/08/2022 6:16 * Trish Bajwa RN - 02/07/2022 0340 EDT Assumed care of pt at 2300. Pt declined to participate in wrap up group. Socializing with peers, present in the milieu. Appears to be asleep as of 2300. * Wally Gilliland MD - 02/06/2022 2352 EDT Inpatient Psychiatry [...] meeting was held with the patient, the social worker school, the MYNOR, the patient's nurse. Patient describes worries about specific people seeking to harm him that escalated to the point that he called the police. He felt like a specific person named Ludivina was trying to harm him and that his neighbors were conspiring with the Ludivina and that he could hear them talking about him. He statesthat these people were after his Social Security income. He acknowledges extensive methamphetamine use but states that he thinks that these fears are not associated with methamphetamine and predated their use. He is not having any excessive fears [...] 31 y.o. year old who presented involuntarily withincreased paranoia and suicidal ideation. The patient's presentation [...] symptoms. That said as of today the patient'sinsight into his experience prior to coming into the hospital remains limited. 1 methamphetamine induced psychosis and so substance use disorder are his primary issues with regard to this hospitalization it is noteworthy that he is expressing that he experiences grief over the loss of his 15-year-old daughter this year and that complicated grief and/or depression are likely present. Drake Mcpherson meets criteria for acute level of care. Diagnosis Psychiatric Diagnoses: Substance-induced psychotic disorder; stimulant use disorder, severe; opiateuse disorder on maintenance therapy Plan: The patient is a Locus level 4 becuase they have a history of chronic impulsive suicidal thrats with current expressions or behaviors representing a significant elevation [...] progress note. Wally Gilliland MD 02/08/2022 6:04 * Trish Bajwa RN - 02/05/2022 2222 EDT Isolating to room at start of shift, sleeping. Declined to participate in wrap up group. Later in the evening, out in the milieu watching television with peers. Approached nurses station for HS meds without prompting. Denies pain, denies A/V/H. Mood okay, affect flat. Taking PRN melatonin for sleep with positive effect. * Martina Loja RN - 02/05/2022 1740 EDT Pt woke for breakfast, ate, and returned to bed. Had a modified team meeting and was articulate andclear with staing the supports he felt were needed and the goals of admission. Pt stated he would like to return to rehab for a longer stay. While quiet and isolative to room in the begin of shift, began to open and brighten around peers in the afternoon. Seems to be comfortable with the male peersin the milieu watching television in the living room. Denies pain and denies SI. Is patient and polite. Showered, changed in to clean scrubs. Has asked for several cups of melissa alexandra this shift. OnlyPRN is one nicotrol cartridge. * Dick Torres MD - 02/05/2022 0818 EDT INPATIENT PSYCHIATRY [...] Calm, pleasant. Accepting medications. Endorsed auditory and visualhallucinations. Slept 8.5 hours. Patient evaluated 1:1, chart reviewed, vitals noted. There were no behavioral events overnight. Patient did not require physical restraints. Patient did not require emergency medications. On exam patient gives the following history he reports that in December 2021 he recently discharged from [facility] and then subsequently learned from a friend that his 15-year-old daughter in a motor vehicle accident in November 2021. After having achieved sobriety for a little over a month, he returned to using methamphetamines. He reports using methamphetamine that was cut with fentanyl at leasttwice over the last month and off and [...] friend told another abundio Ludivina who he has never spoken with but recalls seeing him at rehab and overhearing Ludivina making threats to kill/harm Drake. Drake reports that he has been staying at the [facility] in [facility] with a state voucher. There, Ludivina [...] this is happened several times. Drake has tried to report this to the police but Ludivina and his girlfriend say that Drake is lying in hallucinating. Drake is convinced that Ludivina and his friends have been following him and trying to kill him. Drake reports that he went to the hospital several times because he did not know else to do and ul serafinteena said he was suicidal to get himself [...] a part of helping make it better. He has not overheard Ludivina or his friends talking since Drake was admitted to [facility]. He is hoping to return to [facility] for longer than 2 weeks as he feels he needs more time to achievea longer period of sobriety. Legal: He reports that he has been in and out of retirement over the last 20 years for various charges including burglary, theft, grand larceny, possession of stolen property. [facility] and he was subsequently released on probation 2 years ago. He meets with his information officer Richard Rivas every and feels that he is a good support for him. He reports that he has approximately 20 years hanging over his head if he violates his probation. He denies access to firearms. Psychiatric history: ?? Past psychiatric diagnosis: Depression, anxiety, ADHD ?? Psychiatric hospitalization: Denies ?? Suicide attempts: 2. He attempted to hang himself at 13 years old but the rope broke, and 2 weeks ago he attempted to overdose on IV methamphetamine. ?? Treatment for substance use: ?? [facility] x2 (2 weeks each time) ?? History of treatment at the [facility] -where he was treated with Suboxone x3 years and then changed to liquid methadone x1 year and then back to Suboxone. ?? S[facility]ila [facility] assisted him with obtaining SSDI ?? Current medications: ?? Adderall ?? Olanzapine 5 mg twice daily ?? Suboxone 8-2 mg sublingual film, 1 film every morning Services: ?? youth corrections officer: Richard Rivas ?? Psychiatric prescriber: CARMELA Hinkle ?? Therapist: Jerry, but would like one ?? Sushila from [facility] assisted him with obtaining SSDI Substance use history: ?? Alcohol: Denies use ?? Nicotine: Smokes approximately 6 cigarettes/day since 13 years old ?? THC: Denies use because it gives him a headache ?? Opioids: Opioid use disorder since 13 years old. Has been on MAT for many years with few episodes of return to use. ?? Stimulants: Reports use of methamphetamines off and on x2 years. Has tried cocaine and crack in the past. ?? Denies use of other substances Social history: ?? x1 ?? He has 4 living daughters and 1 recently daughter. All of his children live in [place] with their respective mothers. He has limited contact with the 4 living daughters but was very close to the 15-year-old daughter who recently in an MVA. ?? [facility] Hospital and using a state voucher. He would liketo move somewhere else after discharge. ?? Born in [facility]. He is 1 of 7 children (6 brothers and 1 sister). He and his family moved to [place] in 1997 and then he relocated to [place] in 2011. Review of psychiatric symptoms: ?? Psychotic: See above ?? Suicidal/violent:no suicidal ideation and no homicidal ideation ?? Sleep: no changes ?? Appetite: increased appetite OBJECTIVE Allergies Allergen Reactions ??? Methylphenidate Other (See Comments) Left arm tongue, face numbness, tingling status verified 01/23/22 by [facility] - per chart review Current Facility-Administered [...] Dr. Mao Marin in the chart. Drake Mcpherson is a 31 y.o. undomiciled single man with past psychiatric history of schizophrenia, ADHD, depression, opioid use disorder (on MAT, buprenorphine at present), stimulant use disorder (methamphetamine), 2 stays at [facility], no psychiatric hospitalizations, 2 suicide attempts, who [place] [facility] [place] [facility] for management of paranoia and suicidal [...] his most recent experiences. The patient is motivatedto maintain sobriety and is hoping to return to [facility] following discharge from [facility]. No acuteconcerns that would indicate need for changes to [...] current treatment plan 4. Continue to hold MANAGER MATH Adderall 30 mg every morning and 10 mg in the afternoon for ADHD. I spent a total of 60 minutes with this patient in direct floor time with greater than 50% of the time spent in counseling and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 buprenorphine-naloxone (SUBOXONE) 8-2 mg sublingual film 1 Film 1 Film, sublingual, DAILY, First dose on 02/05/22 at 0900, Until Discontinued, Routine 0809 (Given - Provider: Martina Loja RN) 0807 (Given - Provider: Dawna Joshi RN) 0816 (Given - Provider: Martina Loja RN) OLANZapine (ZYPREXA) disintegrating tablet 5 mg (CANCELED) 5 mg, oral, 2 TIMES DAILY, First dose on 02/04/22 at 2315, Until Discontinued, Routine 0808 (Given - Provider: Martina Loja RN) OLANZapine (ZYPREXA) tablet 10 mg (CANCELED) 10 mg, oral, DAILY, First dose on Sun02/07/22 at 0900, Until Discontinued, Routine 0807 (Given - Provider: Dawna Joshi RN) 0816 (Given - Provider: Martina Loja RN) OLANZapine (ZYPREXA) tablet 10 mg 10 mg, oral, AT BEDTIME, First dose (after last modification) on Sun02/08/22 at 2100, Until Discontinued, Routine OLANZapine (ZYPREXA) tablet 5 mg (CANCELED) 5 mg, oral, AT BEDTIME, First dose on Sun02/06/22 at 2100, Until Discontinued, Routine 2018 (Given - Provider: Maryjane Shay RN) 2117 (Given - Provider: Dhara Schwartz LPN) pantoprazole (PROTONIX) tablet 40 mg 40 mg, oral, DAILY BEFORE BREAKFAST, First dose on 02/05/22 at 0700, Until Discontinued, Routine 075 (Given - Provider: Martina Loja RN) 0619 (Given - Provider: Trish Bajwa RN) 0543 (Given - Provider: Dhara Schwartz LPN) PRN Medication Order 02/06/2022 02/07/2022 02/08/2022 acetaminophen (TYLENOL) tablet 650 mg 650 mg, oral, EVERY 4 HOURS PRN, Starting on 02/04/22 at 2256, Until Sun02/08/22 at 1741, Mild Pain 1-3, Routine hydrOXYzine (ATARAX) tablet 25 mg (CANCELED) 25 mg, oral, EVERY 4 HOURS PRN, Starting on 02/04/22 at 2256, Until Sun02/08/22 at 1321, Anxiety, Routine 2019 (Given - Provider: Maryjane Shay RN) hydrOXYzine (ATARAX) tablet 50 mg 50 mg, oral, EVERY 4 HOURS PRN, Starting on Sun02/08/22 at 1321, Until Sun02/08/22 at 1741, Anxiety, Routine ibuprofen (MOTRIN) tablet 400 mg 400 mg, oral, EVERY 6 HOURS PRN, Starting on 02/04/22 at 2256, Until Sun02/08/22 at 1741, Mild Pain 1-3, Routine 1337 (Given - Provider: Maryjane Shay RN)2019 (Given - Provider: Maryjane Shay RN) 1515 (Given - Provider: Martina Loja RN - Comment: HERNADEZ) melatonin tablet 3 mg 3 mg, oral, AT BEDTIME PRN, Starting on 02/04/22 at 2256, Until Sun02/08/22 at 1741, Sleep, Routine 2019 (Given - Provider: Maryjane Shay RN) 2118 (Given - Provider: Dhara Schwartz LPN) nicotine (NICOTROL) 10 mg inhaler kit 1 Inhaler 1 Inhaler, inhalation, EVERY 2 HOURS PRN, Starting on 02/05/22 at 1000, Until Sun02/08/22 at 1741, Smoking Cessation, Routine 1155 (Given - Provider: Maryjane Shay RN) 1324 (Given - Provider: Thai Perez) nicotine polacrilex (NICORETTE) gum 2 mg 2 mg, oral, EVERY 1 HOUR PRN, Starting on 02/04/22 at 2256, Until [...] device) 1 dose, Starting on 02/05/22 at 1037, Until Sun02/08/22 at 1741 documented in this encounter Orders Medications Ordered That Curtis ht Not Have Been Administered Count Last Ordered Date First Ordered Date hydrOXYzine (ATARAX) tablet 50 mg 1 OLANZapine (ZYPREXA) tablet 10 mg 2 022 02/06/2022 OLANZapine (ZYPREXA) disinte grating tablet 5 mg 2 02/06/2022 02/04/2022 nicotine inhaler (delivery device) 1 2021 acetaminophen (TYLENOL) tablet 650 mg 1 LORazepam (ATIVAN) tablet 1 mg 1 02/04/2022 nicotine polacrilex (NICORETTE) gum 2 mg 1 02/04/2022 Diet Count Last Ordered Date First Orde red Date DISCHARGE DIET 1 02/08/2022 Nursing Count Last Ordered Date First Orde red Date ACTIVITY INSTRUCTIONS 1 02/08/2022 PATIENT AT LOW RISK FOR VTE: RISK OF MECHANICAL PROPHYLAXIS OUTWEIGHS 2 02/08/2022 PATIENT AT LOW RISK FOR VTE: RISK OF PHARMACOLOGIC PROPHYLAXIS OUTWEIG 1 02/08/2022 Admission Count Last Ordered Date First Orde red Date ADMIT TO IP PSYCH 2 02/04/2022 Discharge Count Last Ordered Date First Orde red Date DISCHARGE PATIENT 1 02/08/2022 Legal Count Last Ordered Date First Orde red Date MISCELLANEOUS DISCHARGE INSTRUCTIONS 7 09/2021 documented in this encounter Care Teams Tmh Teacher Relationship Specialty Start Date End Date Ivan Vizcaino DO [address] [place] [id number] PCP - General Family Medicine - Primary Care 02/04/22 documented as of this encounter
--- OUTSIDE RECORDS SUMMARY | 2024-06-06 02:24 | XMS_ITS | Encounter Summary ---
Author Organization [facility] Address [address] [place] [address] Care Team Providers Care Poultry Offal Worker Name Role Phone Ivan Vizcaino Primary Care Provider [phone] Encounter Details Date Type Department Care Team (Late st Contact Info) Description 02/06/2022 Plan of Care Documentation [facility] Inpatient Psychiatry [address] [place], [place] [id number] Social History Tobacco Use Types Packs/Day Years [...] Estefani Dong RN documented in this encounter Progress Notes * Randy Pierce - 02/06/2022 1520 EDT Psychiatry [...] and barriers: Frank Mcpherson's Strengths:sought help Frank Michaud Mablejoshua's Barriers: substance use and vulnerability to psychological [...] Name Number [facility] Psychiatrist Therapist Payroll Processor PCP Ivan Vizcaino Guardian Family Contact Other PO Richard Horne Pt: Date: MD: Date: AP: Date: RN: Date: SW: Date: documented in this encounter Plan of Treatment Not on file documented as of this encounter Visit Diagnoses Not on filedocumented in this encounter Care Teams Poultry Offal Worker Relationship Specialty Start Date End Date Ivan Vizcaino DO [address] [place] [id number] PCP - General Family Medicine - Primary Care 02/04/22 documented as of this encounter
[2024-06-06 14:48] LABS: Calculated LDL 110 mg/dL (<100); Cholesterol 175 mg/dL (<200); HDL Cholesterol 56 mg/dL (40-60); Triglyceride 48 mg/dL (<150)
== END 2024-06-06 02:21 | disposition home or self-care (01) ==
LOC: LBO 02:21
PROVIDERS: PCP Family Medicine; Visit Provider Family Medicine
DX: Z13.6 Encounter for screening for cardiovascular disorders (principal)
CPT/HCPCS: 36415; 80061

== ENCOUNTER 2024-07-07 02:44 | Emergency (ER) | payer MEDICAID, SELFPAY ==
[2024-07-07 02:47] VITALS: BP 127/82; PULSE 98; RESP 14; TEMP 37.3; O2SAT 99
--- NOTE | 2024-07-07 02:51 | ED.GENADUL_ITS ---
Discharge Plan Disposition Patient Disposition: Home Condition: Good Discharge Details Clinical Impression: Left-sided face pain Primary Care Provider: Ivan Vizcaino ED Provider: Charles Ferro Meds and Jeison Rx's Prescriptions: Continued bupropion HCl 150 mg tablet extended release 24 hr 150 mg PO QAM clonidine HCl 0.1 mg tablet 0.1 mg PO TID PRN (Reason: Anxiety/withdrawal symptoms) buprenorphine-naloxone [Suboxone] 12-3 mg film 2 film sublingual 1XD gabapentin [Neurontin] 300 mg capsule 300 mg PO Q8H PRN risperidone 0.5 mg tablet 0.5 mg PO BID ferrous sulfate [FeroSul] 325 mg (65 mg iron) tablet 325 mg PO DAILY Qty: 90 3RF pantoprazole 40 mg tablet,delayed release (DR/EC) 40 mg PO DAILY Qty: 90 3RF buspirone 10 mg tablet 10 mg PO DAILY Discharge Instructions Additional Instructions: Your vital signs, exam, history are all reassuring. You may follow-up with your primary care physician if you continue to have intermittent episodes of this pain. You should return to the ED if you develop chest pain or pressure, shortness of breath, fainting, neurologic change. HPI General Mode of arrival: ambulatory . Date/Time Provider Initiated Documentation: 07/07/24 02:51 . Limitations to Documentation: no limitations . Information obtained by: patient and RN notes reviewed . HPI Narrative: Patient presents to ED with complaint of a 1 minute episode of left upper jaw pain. Points to the TMJ area as to where he felt the pain. Described as sharp and stabbing. Resolved in under a minute and has not recurred. Guy dizzy and drained for short period of time during this episode. Had no syncope, chest pain or pressure, shortness of breath, headache, vision change, neurologic change. Feels completely back to normal now. Related Data Home Medications ?Medication ?Instructions ?Recorded ?Confirmed buprenorphine 12 mg-naloxone 3 mg 2 film sublingual 1XD 09/01/22 07/07/24 sublingual film (Suboxone) gabapentin 300 mg capsule 300 mg PO Q8H PRN 09/28/22 07/07/24 (Neurontin) buspirone 10 mg tablet 10 mg PO DAILY 04/13/23 07/07/24 risperidone 0.5 mg tablet 0.5 mg PO BID 06/28/23 07/07/24 bupropion HCl 150 mg 24 hr tablet, 150 mg PO QAM ADHD 06/02/24 07/07/24 extended release clonidine HCl 0.1 mg tablet 0.1 mg PO TID PRN 06/02/24 07/07/24 Anxiety/withdrawal symptoms ferrous sulfate 325 mg (65 mg 325 mg PO DAILY #90 tabs 06/16/24 07/07/24 iron) tablet (FeroSul) pantoprazole 40 mg tablet,delayed 40 mg PO DAILY #90 tabs 06/16/24 07/07/24 release Previous Rx's ?Medication ?Instructions ?Recorded ferrous sulfate 325 mg (65 mg 325 mg PO DAILY #90 tabs 06/16/24 iron) tablet (FeroSul) pantoprazole 40 mg tablet,delayed 40 mg PO DAILY #90 tabs 06/16/24 release Allergies Allergy/AdvReac Type Severity Reaction Status Date / Time methylphenidate (From AdvReac Severe left Verified 07/07/24 02:54 Ritalin) arm,tongue,face numbness,tingling General STAR: 3 Review of Systems Narrative: Per HPI Exam Narrative Exam Narrative: Const: WDWN male in NAD. VS per triage. HEENT: NC/AT. Normal facial exam. Opens and closes mouth with pain/difficulty. Neck: Supple. Trachea midline. Lungs: Normal respiratory effort. Lungs are clear. Cor: RRR without murmur. Good radial pulses. Neuro: A+O x 3. Normal speech, mentation, gait. Cranial nerves II - XII grossly intact. No gross motor or sensory deficit. Medical Decision Making Patient presents to ED because of left upper jaw/TMJ pain that resolved in less than a minute. No chest pain or pressure, syncope, vision change, headache, neurologic change. Pain has not recurred. His vital signs and exam are reassuring. I do not feel that this was anything in regards to cardiovascular or neurologic, especially given the very short duration. May have been masseter spasm, TMJ pain. Patient reassured. May follow-up with primary care if he continues to have intermittent episodes of similar pain. Return precautions provided. PFSH All Active Problems (Updated 07/07/24 @ 03:01 by Charles Ferro MD) Left-sided face pain (Acute) Screening for cardiovascular condition (Acute) Cocaine use disorder, severe, in early remission (Acute ~09/22/22) Schizoaffective disorder, unspecified (Chronic ~09/22/22) Opioid use disorder, severe, dependence (Acute) Iron deficiency anemia, unspecified (Acute) Gastro-esophageal reflux disease without esophagitis (Acute) Amphetamine-type substance use disorder, severe (Acute) Tobacco use disorder (Chronic) Opioid use disorder, mild, in early remission (Acute 02/08/22) Methamphetamine use disorder, severe (Acute 02/08/22) Paranoid delusion (Acute) Anemia, mild (Acute) Stimulant abuse (Acute) Paranoid schizophrenia (Chronic) Depression (Chronic) Stress at home (Acute) GERD (gastroesophageal reflux disease) (Chronic) Anxiety (Chronic) ADHD (Chronic) Medical History Moderate opioid dependence on maintenance therapy Drug abuse ADHD Depression Family History Father , colon ca at age 70. Colon cancer Social History Smoking/Tobacco Use Status: Current every day Tobacco Type: cigarettes Smoking risk assessment performed?: Yes Alcohol Intake: current Alcohol Intake frequency: a few times a month Alcohol type: other Drug use: Daily Substance use type: methamphetamine Details: Used meth 4-5 days ago. ODALYS YAADV 05/03/23 Do you feel safe at home: Yes Do you feel safe in your relationship?: Yes
== END 2024-07-07 03:11 | disposition home or self-care (01) ==
LOC: ER 03:06
PROVIDERS: Emergency Provider Emergency Medicine; PCP Family Medicine
DX: G50.1 Atypical facial pain (principal); R68.84 Jaw pain; R42 Dizziness and giddiness
CPT/HCPCS: 99281; 99282